=== PATIENT | female | born 1935 | race Caucasian/White ===

== ENCOUNTER → 2020-02-18 18:13 | Outpatient (CLI) | payer MEDICARE, SELFPAY ==
--- NOTE | ~2020-02-18 | XR_ITS ---
EXAMINATION: XR hip BI 2V w AP pelvis DATE: 02/18/2020 19:05 INDICATION: Posterior right low back pain and medial right thigh pain TECHNIQUE: Anteroposterior view of the pelvis and anteroposterior and frog-leg lateral views of the l eft hip and anteroposterior and frog-leg lateral views of the right hip and were obtained. COMPARISON: CT abdomen and pelvis dated 11/23/2018 FINDINGS: Partially visualized lumbar dextroscoliosis with severe spondylosis. Severe osteoarthritis at the rig ht hip with joint space narrowing which appears essentially [id number] and with moderate size merissa nal osteophytes about the femoral head. Mild osteoarthritis at the left hip and bilateral sacral oleg c joints. No fracture. Scattered atherosclerotic calcifications at the aorta and bilateral iliac and femoral arteries. IMPRESSION: 1. 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 2. Mild lumbar dextroscoliosis with severe spondylosis. Reviewed, dictated and finalized at [facility]. DRIVING TECHNICIAN
--- NOTE | ~2020-02-18 | XR_ITS ---
EXAMINATION: XR thoracic spine 2V DATE: 02/18/2020 19:05 INDICATION: Post polio syndrome. Spinal stenosis. TECHNIQUE: One AP, lateral and lateral swimmer's views of the thoracic spine were obtained. COMPARISON: Chest CT dated 11/23/2018 FINDINGS: Sagittal alignment is normal. Minimal lower thoracic levocurvature. Mild T10 vertebral body height lo ss which appears new since the prior study but without evident linear sclerotic fracture line or diamond ply angulated cortex to suggest acute fracture. Several Schmorl's node along the inferior endplate of T11. Moderate disc height loss at T8-T9 and T12-L1. Mild disc height loss at many of the remaining l evels the mid and lower thoracic spine. Additional moderate disc height loss at C6-C7. Severe left-si ded facet osteoarthritis at the lower cervical spine. Calcified left hilar and mediastinal lymph node s consistent with old granulomatous disease. Visualized portion of the cardiomediastinal silhouette a re normal. IMPRESSION: 1. Mild thoracic levocurvature with moderate spondylosis. 2. Age indeterminate mild T10 compression fracture which is new since 11/23/2018. Reviewed, dictated and finalized at location H. TRICAL ELECTRONICS TECHNICIAN IMPRESSION: 1. Mild thoracic levocurvature with moderate spondylosis. 2. Age indeterminate mild T10 compression fracture which is new since 11/23/2018 .
== END ==
PROVIDERS: PCP Family Medicine; Visit Provider Family Medicine
DX: M48.00 Spinal stenosis, site unspecified (principal); G14 Postpolio syndrome; M16.0 Bilateral primary osteoarthritis of hip; M47.896 Other spondylosis, lumbar region; M47.894 Other spondylosis, thoracic region
CPT/HCPCS: 72070; 73521

== ENCOUNTER 2020-09-23 12:47 | Outpatient (CLI) | payer MEDICARE, SELFPAY ==
--- NOTE | ~2020-09-23 | XR_ITS ---
EXAMINATION: XR lg joint inject/asp w image DATE: 09/23/2020 13:53 INDICATION: Unilateral primary osteoarthritis of the right hip TECHNIQUE: A time-out was performed to verify the patient's name, date of , and procedure to b e performed. The procedure including the risks, benefits, and alternatives was discussed with the pat ient. Risks discussed included bleeding and infection. The patient understood the risks and agreed to proceed. The skin overlying the right hip joint was prepped and draped in usual sterile fashion. A nesthetic was administered with 1% lidocaine subcutaneously. A 22 G needle was advanced under fluoro scopic guidance into the joint. Injection of 1 mL of Omnipaque 240 confirmed intra-articular positio n of the needle. Subsequently, injectate consisting of 7 mm of a 5:2 mixture of 1% lidocaine: 2 mg/m L Kenalog for a total dosage of 20 mg Kenalog was instilled. Washout of contrast was seen confirming intra-articular administration. The needle was removed and the entry site was cleaned and dressed. T here were no immediate complications. Fluoroscopy exposure time was 0.1 minutes. The total number of images was 2. FINDINGS: Real-time fluoroscopy demonstrates the needle in the right hip joint. Patient's pain prior to procedure:8/10. Patient's pain following the procedure: 2/10. Severe osteoarthritis at the right hip with prominent subarticular sclerosis and cystic change. IMPRESSION: 1. Successful right hip joint injection of local anesthetic and steroid with decrease in the patient' s presenting pain. Reviewed, dictated and finalized at location A. IMPRESSION: 1. Successful right hip joint injection of local anesthetic and steroid with de crease in the patient's presenting pain.
== END 2020-09-23 12:48 | disposition home or self-care (01) ==
PROVIDERS: PCP Family Medicine; Visit Provider Orthopaedic Surgery
DX: M16.11 Unilateral primary osteoarthritis, right hip (principal)
CPT/HCPCS: 20610; 77002; J3301; Q9966

== ENCOUNTER 2020-12-14 16:16 | Inpatient (IN) | payer MEDICARE, SELFPAY ==
--- NOTE | ~2020-12-14 | US_ITS ---
EXAMINATION: US renal BI DATE: 12/16/2020 14:43 INDICATION: Assess for anatomic abnormality of the kidneys. TECHNIQUE: Multiple ultrasound grayscale images of the kidneys were obtained. COMPARISON: CT dated 11/23/2018 FINDINGS: The right kidney measures 12.8 x 5.5 x 6.3 cm. The left kidney measures 12.3 x 5.0 x 5.9 cm. Again se en is retained lobulation of the kidneys. There is a small region of cortical scarring at the u pper pole of the right kidney which is new since the prior CT likely sequela of interval infarct or i nfection. The kidneys demonstrate normal echogenicity. There is no hydronephrosis in either kidney. No stones identified. The incompletely distended bladder appears normal with ureteral jets visualized on color Doppler. IMPRESSION: 1. Small region of cortical scarring at the upper pole of the right kidney which is new since the pr ior study consistent with interval infection or infarction. 2. Resolution of prior hydronephrosis. Reviewed, dictated and finalized at location A. IMPRESSION: 1. Small region of cortical scarring at the upper pole of the right kidney whi ch is new since the prior study consistent with interval infection or infarctio n. 2. Resolution of prior hydronephrosis.
--- NOTE | ~2020-12-14 | XR_ITS ---
EXAMINATION: XR chest 1V portable EXAM DATE: 12/15/2020 18:38 INDICATION: Bacteremia TECHNIQUE: Portable AP frontal chest x-ray was obtained. Comparison is made to prior examination from 11/22/2018. FINDINGS: There is patchy bilateral ill-defined airspace disease, could be multifocal pneumonia or ed harpreet. This is new compared to previous examination. COVID pneumonia is also radiographically possible. Borderline heart size. There is aortic arteriosclerosis. There is no pneumothorax suspected. Some ch ronic appearing hyperinflation. There are bony degenerative changes. IMPRESSION: Patchy multifocal acute airspace disease. Could be edema, viral or bacterial pneumonia. Reviewed, dictated and finalized at location G.
--- NOTE | ~2020-12-14 | CT_ITS ---
EXAMINATION: CT abdomen pelvis w con EXAM DATE: 12/20/2020 10:22 INDICATION: Renal infection vs infarct. TECHNIQUE: Spiral CT of the abdomen and pelvis was performed following intravenous injection of 100 m L Omnipaque 350. Axial, coronal and sagittal images of the abdomen and pelvis were reviewed. The do se-length product (DLP) for this examination was 417.05 mGy-cm. The exposure was tailored according to patient size (auto mA exposure control), and iterative reconstruction (ASIR) was used as additiona l dose reduction technique. Comparison is made to prior examination from 11/23/2018. FINDINGS: The liver, spleen, adrenal glands and pancreas are unremarkable. The gallbladder is only mi ldly distended with poorly calcified cholelithiasis, indistinct wall and trace pericholecystic fluid. The 2019 CT scan was noncontrast study, but may be similar in appearance compared to exam, could be chronic cholecystitis. There is heterogeneous enhancement to both kidneys, with enhancing ureteral and renal pelvic urotheli um. Appearance is most consistent with bilateral pyelonephritis and upper urinary tract infection. Th e right renal artery is widely patent. The left renal artery origin has some arterial sclerosis and a lso branches early, but both renal arteries enhance. No evidence of renal vein thrombosis. Mildly in distinct bladder wall with mild thickening, cystitis. There is no retroperitoneal or pelvic lymphade nopathy. There is moderate scattered arteriosclerotic disease. The appendix is normal. The stomach and small bowel are unremarkable. There is moderate amount of c olonic stool. No free intraperitoneal gas. The heart is normal in size. There are no pericardial or pleural effusions. The lung bases are unremarkable. There are no osteoblastic or osteolytic les ions identified. There is severe right hip primary osteoarthritis. Some advanced thoracolumbar spond ylosis. Mild to moderate upper lumbar dextroscoliosis. Chronic appearing T9 compression fracture with mild to moderate loss of this vertebral body height anteriorly. IMPRESSION: 1. Findings consistent with cystitis, bilateral upper UTI and pyelonephritis. No renal abscess. 2. Cholelithiasis, indistinct gallbladder wall and small pericholecystic fluid, could be chronic or subacute cholecystitis. Clinical correlation, consider follow-up HIDA scan. Reviewed, dictated and finalized at location B. IMPRESSION: 1. Findings consistent with cystitis, bilateral upper UTI and pyelonephritis. No renal abscess. 2. Cholelithiasis, indistinct gallbladder wall and small pericholecystic fluid , could be chronic or subacute cholecystitis. Clinical correlation, consider fo llow-up HIDA scan.
--- NOTE | ~2020-12-14 | XR_ITS ---
XR hip RT min 2V DATE: 12/14/2020 17:51 INDICATION: Right hip pain. TECHNIQUE: AP and lateral views COMPARISON: 02/18/2020 right hip views FINDINGS: There is severe joint space narrowing at the right hip [id number]. There is prominent per iarticular spurring. There is some patchy sclerosis and lucent areas of the right femoral head; avasc ular necrosis is not excluded. There is lesser left hip osteoporosis. Diffuse osteopenia. The sacroiliac joints and pubic symphysis appear intact. IMPRESSION: Severe right hip osteoarthritic arthritis; possible avascular necrosis of right femoral h ead Reviewed, dictated and finalized at location A. IMPRESSION: Severe right hip osteoarthritic arthritis; possible avascular necro sis of right femoral head
[2020-12-14 16:23] VITALS: BP 108/70; PULSE 69; RESP 17; TEMP 36.5; O2SAT 98
--- NOTE | 2020-12-14 17:23 | PC.NURSE ---
1713- Pt daughter approached this RN at intake stating I have consulted with my sister in law, who is a nurse at [employer] [facility], and my sisters daughter is an doctor, and they feel this is sepsis and is emergent . she has been septic here at this hospital before . I guess me telling you this will not make a difference . I explained to her we would check with the ER MD to see if they will order any tests. Per Vickie Recinos RN- she spoke with Dr. Bah, he verbal ordered CBC, BmP, Lactic, UA and a hip xy.
[2020-12-14 18:24] LABS: Hematocrit 36.2 % (37.0-47.0); Mean Corpuscular HGB Conc 33.1 g/dl (32-36); Mean Corpuscular Hemoglobin 30.3 pg (26-34); Mean Corpuscular Volume 91.4 fl (80-100); Mean Platelet Volume 10.4 fl (7.4-10.4); Platelet Count Result 166 k/mm3 (150-375); Red Blood Count 3.96 M/mm3 (4.2-5.4); Red Cell Distribution Width 13.9 % (11.5-14.5); White Blood Count 23.6 K/mm3 (4.5-10.0)
[2020-12-14 18:37] LABS: Anion Gap 9 mmol/L (8-16); Blood Urea Nitrogen 36 mg/dL (7-17); Calcium 10.3 mg/dL (8.4-10.2); Carbon Dioxide 26 mmol/L (22-30); Chloride 94 mmol/L (98-107); Estimated CRCL calculation 38 ml/min; Estimated Glomerular Filt Rate 60; Glucose 125 mg/dL (65-110); Potassium 3.9 mmol/L (3.4-5.0); Sodium 129 mmol/L (137-145)
--- NOTE | 2020-12-14 18:50 | PC.NURSE ---
Pt has been on open speaker phone talking with her daughter while in [place].
[2020-12-14 18:51] LABS: Band Neutrophils Percent 8 % (0-6); Lymphocytes Absolute Manual 1.18 K/mm3 (1.1-4.5); Monocytes Absolute Manual 1.41 K/mm3 (0.1-0.90); Monocytes Percent Manual 6 % (3-9); Neutrophils Percent Manual 81 % (46-73); Platelet Estimate Adequate (Adequate); Total Cells Counted 100
--- NOTE | 2020-12-14 18:53 | PC.NURSE ---
Pt son to intake inquiring about the patient. Gave update.
[2020-12-14 21:25] VITALS: BP 90/78; PULSE 56; RESP 16; O2SAT 97
[2020-12-14 21:42] LABS: Add Urine Microscopic? YES; Appearance Urine Cloudy (Clear); Bacteria Urine 1+ /hpf; Bilirubin Urine Negative (Negative); Blood Urine 2+ (Negative); Color Urine Yellow (Yellow); Glucose Urine UA Negative (Negative); Ketones Urine Negative (Negative); Leukocyte Esterase Ur 3+ LEU/UL (Negative); Mucus Urine Rare /lpf; Nitrate Urine Negative (Negative); Protein Urine 2+ mg/dL (Negative); Specific Grav Ur 1.015 (1.001-1.035); Squamous Epithelial Cell Urine Rare /hpf (Few); Urobilinogen Urine Negative mg/dL (<2.0); WBC Urine >75 /hpf
--- NOTE | 2020-12-14 23:09 | ED.GENADULT ---
HPI - General Adult General Chief complaint: Unspecified Stated complaint: poss uti Time Seen by Provider: 12/14/20 21:24 Source: patient and family Mode of arrival: ambulatory Limitations: no limitations History of Present Illness HPI narrative: 85-year-old with a history of anxiety disorder, uterine prolapse, hypertension, COPD, was brought in by daughter with complaints of not feeling well for past few days. She is states that she is not to her usual self. No history of fever or chills. Denies nausea or vomiting. Complains of right hip pain. Patient daughter also mentions that she is scheduled for hip replacement. Denies any blood in the urine. Has lower abdominal discomfort. Also complains of diarrhea since this morning. Onset (ago): day(s) (3) Severity scale (1-10): 4 Quality: aching Relieving factors: none Exacerbating factors: none Associated symptoms: confusion and weakness Related Data Allergies Allergy/AdvReac Type Severity Reaction Status Date / Time lisinopril Allergy Unknown Unknown Verified 12/14/20 21:25 Review of Systems Review of Systems: All systems reviewed & are unremarkable except as noted in HPI and below Constitutional: Constitutional: Reports weakness Eyes: Eyes: Reports no additional eye complaints Cardiovascular: Cardiovascular: Reports no additional cardiovascular complaints Respiratory: Respiratory: Reports no additional respiratory complaints Gastrointestinal: Gastrointestinal: Reports as per HPI Genitourinary: Genitourinary: Reports urinary incontinence Musculoskeletal: Musculoskeletal: Reports back pain and Reports arthralgias (right hip pain) Neurologic: Reports system reviewed and no additional complaints, except as documented Psychiatric: Psychiatric: Reports no additional psychiatric complaints PMFSH Past Medical History Medical History Arthritis of right hip Obesity (BMI 30.0-34.9) Spinal stenosis Social History Social History Smoking end date: 04/01/03 Alcohol intake: never Exam Narrative: GENERAL: Well-appearing, well-nourished, and in no acute distress. HEAD: Normocephalic, atraumatic. EYES: PERRLA and EOMI. NECK: Supple. CHEST: Clear to auscultation. No respiratory distress. HEART: Regular rate and rhythm. No murmur heard. Normal peripheral pulses. ABDOMEN: Soft, nontender, nondistended, normal active bowel sounds. EXTREMITIES: Normal range of motion. No edema. SKIN: Warm, dry, no rash. NEURO: No focal deficits. Alert and oriented x3. PSYCH: Normal mood and affect. Course Course Emergency Course: Inform patient and her daughter who is at bedside about her lab work. Will admit to the hospital for IV hydration and IV antibiotic. Discussed with hospitalist agreed to admit the patient. Vital Signs Vital signs: Vital Signs Temperature 36.5 C 12/14/20 16:23 Pulse Rate 69 12/14/20 16:23 Respiratory Rate 17 12/14/20 16:23 Blood Pressure 108/70 12/14/20 16:23 Pulse Oximetry 98 12/14/20 16:23 Temperature 36.5 C 12/14/20 16:23 Pulse Rate 56 L 12/14/20 21:25 Respiratory Rate 16 12/14/20 21:25 Blood Pressure 90/78 L 12/14/20 21:25 Pulse Oximetry 97 12/14/20 21:25 Medical Decision Making Vital Signs Vital Signs: Vital Signs Temperature 36.5 C 12/14/20 16:23 Pulse Rate 69 12/14/20 16:23 Respiratory Rate 17 12/14/20 16:23 Blood Pressure 108/70 12/14/20 16:23 Pulse Oximetry 98 12/14/20 16:23 Temperature 36.5 C 12/14/20 16:23 Pulse Rate 56 L 12/14/20 21:25 Respiratory Rate 16 12/14/20 21:25 Blood Pressure 90/78 L 12/14/20 21:25 Pulse Oximetry 97 12/14/20 21:25 Lab Data Result diagrams: 12/14/20 18:16 12/14/20 18:16 Labs: Lab Results 12/14/20 12/14/20 12/14/20 Range/Units 18:16 18:16 18:16 WBC 23.6 H (4.5-10.0) K/mm3 RBC 3.96 L
[2020-12-14] MEDS: SODIUM CHLORIDE 0.9% IV 1,000 ML 150 ML IV CONT (23:14)
--- NOTE | 2020-12-15 00:42 | PC.NURSE ---
pt daughter to general internist and physician leader on her way out verbalized someone told me I could go up stairs earlier tonight. Now they are saying there are no visitors allowed. mentally impaired teacher informed pt daughter that hospital policy changed on november 23 and no visitors allowed upstairs except 1 for ob and 2 for hospice type situations. Daughter verbalized again some one sat right there earlier and told me I could go upstairs with her. Daughter then stormed out of triage doors.
[2020-12-15 01:00] VITALS: BMI 29.5
--- NOTE | 2020-12-15 01:05 | ADMGEN ---
This patient, Daniela Medina, was admitted to [facility] Surg Room 314-02. Patient/family oriented to hospital policies and general routines including ID bracelet, bed and alarms, visiting hours, pain management, procedures, bathroom and other care routines, personal items, smoking policy, room service/diet, and visiting hours. Information on how to activate the Rapid Response Team has been discussed. Patient/Family are encouraged to report perceived risks to care and to ask questions if they do not understand what they are told or what they should do.
[2020-12-15 01:38] VITALS: BP 117/39; PULSE 77; RESP 16; TEMP 37.3; O2SAT 90
--- NOTE | 2020-12-15 01:58 | PM.IMHP ---
H&P: HPI History of Present Illness Date/Time: 12/15/20 01:58 Chief Complaint: Altered mental status Narrative: This is an 85-year-old female with past medical history significant for hypertension, COPD, congestive heart failure, degenerative joint disease. Patient was brought to the emergency room by her daughter due to concerns that has not been herself as usual has been sleeping a lot and has had poor appetite upon questioning the patient she states that she has been having chills and he was noted by the daughter daughter that she was having rigors earlier prior to arrival to emergency room. Patient denies any pain or burning with urination ,no nausea, no vomiting, no diarrhea, no abdominal pain. Preliminary workup was significant for urinalysis with significant numerous wbc's. Decision has been made to admit the patient for further management and treatment. Review of Systems Review of Systems: Poor appetite Constitutional: Constitutional: Reports chills, Reports fatigue, Reports fever(s), Reports lethargy, Reports malaise and Reports weakness Eyes: Eyes: Denies change in vision ENT: Denies dysphagia, Denies nasal congestion, Denies nasal discharge, Denies nasal obstruction and Denies odynophagia Cardiovascular: Cardiovascular: Denies irregular heart rhythm, Denies lightheadedness, Denies radiating jaw, neck or arm pain, Denies palpitations, Denies dyspnea, Denies dyspnea on exertion and Denies orthopnea Respiratory: Respiratory: Denies cough and Denies dyspnea Gastrointestinal: Gastrointestinal: Denies abdominal pain, Denies diarrhea, Denies nausea and Denies vomiting Genitourinary: Genitourinary: Reports no additional female genitourinary complaints Musculoskeletal: Comments: Hip pain Integumentary/Breasts: Skin/Breast: Reports system reviewed and no additional complaints, except as docu Neurologic: Reports system reviewed and no additional complaints, except as documented Psychiatric: Psychiatric: Reports no additional psychiatric complaints Endocrine: Endocrine: Reports no additional endocrine complaints Hematologic/Lymphatic: Hematologic/Lymphatic: Reports no additional hematologic/lymphatic complaints Allergic/Immunologic: Allergic/Immunologic: Reports no additional allergic/immunologic complaints [facility] Past Medical History Medical History Arthritis of right hip Obesity (BMI 30.0-34.9) Spinal stenosis Family History Family History (Updated 12/15/20 @ 01:22 by Leesa Carter RN) Mother Cancer Father Heart attack Social History Social History Smoking packs per day: 0.25 Smoking cigarettes per day: 5.0 Smoking status: Former smoker Tobacco type: cigarettes Smoking end date: 04/01/03 Alcohol intake: current Drinks per week: 1 Substance use: never Substance use type: does not use Spiritual care concerns: No Meds Home Medications and Allergies Home Medications Medication Instructions Recorded Confirmed Type amlodipine 5 mg tablet 5 mg PO BID #180 tablet 11/25/19 11/30/20 Rx meloxicam 15 mg tablet 15 mg PO DAILY #90 tablet 04/13/20 11/30/20 Rx sertraline 25 mg tablet 25 mg PO DAILY #90 tablet 09/07/20 11/30/20 Rx lorazepam 0.5 mg tablet 1 mg PO BID PRN #60 tablet 12/07/20 Rx azelastine 137 mcg INTRANASAL Q12H 12/15/20 12/15/20 History budesonide-formoterol [Symbicort] 2 puff INHALATION Q12H 12/15/20 12/15/20 History metoprolol succinate 50 mg PO DAILY 12/15/20 12/15/20 History valsartan 80 mg PO DAILY 12/15/20 12/15/20 History Allergies Allergy/AdvReac Type Severity Reaction Status Date / Time lisinopril Allergy Unknown Unknown Verified 12/14/20 21:25 Vital Signs Vital Signs - 24 hr 12/14/20 16:23 12/14/20 21:25 12/15/20 01:38 Temperature 97.7 F 99.2 F Pulse Rate 69 56 L 77 Respiratory Rate 17 16 16 Blood Pressure 108/70 90/78 L 117/39 L Pulse Oxime
[2020-12-15] MEDS: SODIUM CHLORIDE 0.9% IV 1,000 ML 100 ML IV CONT ×3 (02:28→20:24)
[2020-12-15 06:00] VITALS: BP 105/53; PULSE 83; RESP 16; TEMP 36.7; O2SAT 92
[2020-12-15 06:52] LABS: Hematocrit 33.2 % (37.0-47.0); Hemoglobin 10.9 g/dL (12.0-15.0); Mean Corpuscular HGB Conc 32.8 g/dl (32-36); Mean Corpuscular Hemoglobin 29.8 pg (26-34); Mean Corpuscular Volume 90.7 fl (80-100); Mean Platelet Volume 10.6 fl (7.4-10.4); Platelet Count Result 142 k/mm3 (150-375); Red Blood Count 3.66 M/mm3 (4.2-5.4); Red Cell Distribution Width 13.9 % (11.5-14.5); White Blood Count 26.5 K/mm3 (4.5-10.0)
[2020-12-15 07:06] LABS: Anion Gap 13 mmol/L (8-16); Blood Urea Nitrogen 37 mg/dL (7-17); Carbon Dioxide 20 mmol/L (22-30); Chloride 95 mmol/L (98-107); Estimated CRCL calculation 42 ml/min; Estimated Glomerular Filt Rate > 60; Glucose 100 mg/dL (65-110); Potassium 3.6 mmol/L (3.4-5.0); Sodium 128 mmol/L (137-145)
[2020-12-15 08:24] LABS: Band Neutrophils Percent 12 % (0-6); Lymphocytes Absolute Manual 0.53 K/mm3 (1.1-4.5); Monocytes Absolute Manual 0.53 K/mm3 (0.1-0.90); Monocytes Percent Manual 2 % (3-9); Neutrophils Absolute Manual 25.44 K/mm3 (1.7-7.2); Neutrophils Percent Manual 84 % (46-73); Platelet Estimate Adequate (Adequate); Total Cells Counted 100
[2020-12-15 08:25] LABS: Crenated RBC 1+ (NORMAL); Hypochromasia 1+ (NORMAL); Schistocytes 1+ (NORMAL)
--- NOTE | 2020-12-15 10:03 | PM.IMPN ---
Progress Note: A&P Assessment and Plan (1) Acute UTI: Code(s): N39.0 - Urinary tract infection, site not specified Status: Acute Assessment and Plan: Patient has been started on Rocephin Await cultures (2) Hyponatremia: Code(s): E87.1 - Hypo-osmolality and hyponatremia Status: Acute Assessment and Plan: Likely secondary to poor p.o. intake Continue gentle hydration (3) SIRS (systemic inflammatory response syndrome): Code(s): R65.10 - Systemic inflammatory response syndrome (SIRS) of non-infectious origin without acute organ dysfunction Status: Acute Assessment and Plan: Secondary to 1. Continue to monitor (4) COPD mixed type: Code(s): J44.9 - Chronic obstructive pulmonary disease, unspecified Status: Acute Assessment and Plan: Not actively wheezing Continue home med (5) Chronic hepatitis C without hepatic coma: Code(s): B18.2 - Chronic viral hepatitis C Status: Acute Assessment and Plan: Follow-up in outpatient setting (6) Generalized anxiety disorder: Code(s): F41.1 - Generalized anxiety disorder Status: Acute Assessment and Plan: Continue home med Subjective Date/time seen: 12/15/20 10:03 no acute medical complaints Review of Systems Review of Systems: All systems reviewed & are unremarkable except as noted in HPI and below Exam Const: General: no acute distress Neck: Neck: no JVD Resp: Effort & Inspection: normal respiratory effort Auscultation: clear to auscultation bilaterally Cardio: Rate: regular rate Rhythm: regular rhythm GI: GI Palp: Yes Soft to palpation and No Tenderness to palpation present (GI) Objective Data Vital Signs Vital Signs: Vital Signs - 24 hr 12/14/20 16:23 12/14/20 21:25 12/15/20 01:38 Temperature 97.7 F 99.2 F Pulse Rate 69 56 L 77 Respiratory Rate 17 16 16 Blood Pressure 108/70 90/78 L 117/39 L Pulse Oximetry 98 97 90 12/15/20 06:00 Temperature 98.1 F Pulse Rate 83 Respiratory Rate 16 Blood Pressure 105/53 L Pulse Oximetry 92 Intake/Output Intake/Output: Intake & Output 12/12/20 12/13/20 12/14/20 12/15/20 23:59 23:59 23:59 23:59 Intake Total 100 Output Total 400 Balance -300 Meds/Results Medications: Active Medications Generic Name Dose Route Start Last Admin Trade Name Porter PRN Reason Stop Dose Admin Acetaminophen 650 mg 12/14/20 23:06 Acetaminophen 325 Mg Tablet PO Q4H PRN Mild Pain (1-3) or Fever Amlodipine Besylate 5 mg 12/15/20 09:00 Amlodipine Besylate 5 Mg Tablet PO BID [facility] Azelastine HCl 1 spray 12/15/20 09:00 Azelastine Hcl Nasal 0.1% 137 Mcg/Spr 30 Ml Btl NASAL Q12HR STEVE Budesonide/Formoterol Fumarate 2 puff 12/15/20 08:00 12/15/20 08:10 Budesonide/Form 160-4.5 Mcg (*Sp) INHALATION 2 puff Q12HRT STEVE Administration Sodium Chloride 1,000 mls @ 100 mls/hr 12/14/20 23:10 12/15/20 02:28 Normal Saline Iv IV CONT 100 mls/hr .Q10H STEVE Administration Ceftriaxone Sodium/Dextrose 1 gm in 50 mls @ 100 mls/hr 12/15/20 22:00 Rocephin 1 Gm/D5w 50 Ml IVPB Q24H [facility] Lorazepam 0.5 mg 12/15/20 02:35 Lorazepam (*Crx) 0.5 Mg Tablet PO BID PRN anxiety Meloxicam 15 mg 12/15/20 08:00 Meloxicam 7.5 Mg Tablet PO DAILY@0800 [facility] Metoprolol Succinate 50 mg 12/15/20 09:00 Metoprolol Succinate Ext Rel 50 Mg Tabcr PO DAILY [facility] Morphine Sulfate 2 mg 12/14/20 23:06 Morphine Sulfate (*Crx) 2 Mg/Ml Inj IV PUSH Q2H PRN Pain Rated 7-10 Ondansetron HCl 4 mg 12/14/20 23:06 Ondansetron Inj 4 Mg/2 Ml Vial IV PUSH Q4H PRN Nausea Sertraline HCl 25 mg 12/15/20 09:00 Sertraline Hcl 25 Mg Tablet PO DAILY [facility] Valsartan 80 mg 12/15/20 09:00 Valsartan 80 Mg Tablet PO DAILY [facility] Radiology Results: ITS Impressions Hip X-Ray 12/14/20 17:53 IMPRESSION: Severe right
[2020-12-15] MEDS: amLODIPine BESYLATE 5 MG TABLET PO ×2 (10:31→17:22)
[2020-12-15] MEDS: MELOXICAM 7.5 MG TABLET 15 MG PO (10:31)
[2020-12-15 10:32] VITALS: PULSE 68
[2020-12-15] MEDS: SERTRALINE HCL 25 MG TABLET PO (10:32)
[2020-12-15] MEDS: METOPROLOL SUCCINATE EXT REL 50 MG TABCR PO (10:32)
[2020-12-15] MEDS: VALSARTAN 80 MG TABLET PO (10:33)
[2020-12-15] MEDS: LORazepam (*CRX) 0.5 MG TABLET PO (10:36)
--- NOTE | 2020-12-15 11:18 | P.CDI_ITS ---
CDI Query Clarification Request -SIRS Systemic inflammatory response syndrome of non infectious origin and SIRS secondary to UTI has been documented. -SOFA score 1 Please clarify diagnosis: * SIRS due to non infectious origin and please specify cause * Sepsis- SIRS due to infection (UTI) * Unable to determine
--- NOTE | 2020-12-15 11:18 | WPDCDIQUERY2 ---
CDI Query Clarification Request -SIRS Systemic inflammatory response syndrome of non infectious origin and SIRS secondary to UTI has been documented. -SOFA score 1 Please clarify diagnosis: SIRS due to non infectious origin and please specify cause Sepsis- SIRS due to infection (UTI) Unable to determine
[2020-12-15 12:26] VITALS: BMI 29.5
[2020-12-15] MEDS: AZELASTINE HCL NASAL 0.1% 137 MCG/SPR 30 ML BTL 1 SPRAY NASAL ×2 (12:40→20:24)
[2020-12-15 13:45] VITALS: BP 98/52; PULSE 60; RESP 18; TEMP 36.4; O2SAT 92
[2020-12-15 17:10] VITALS: BP 129/72
[2020-12-15 22:00] VITALS: BP 129/60; PULSE 64; RESP 18; TEMP 36.4; O2SAT 95
--- NOTE | 2020-12-16 | ECHOL_ITS ---
Patient Info Name: Daniela Medina Age: 85 years : 1935 Gender: Female Ht: 62 in Wt: 161 lbs BSA: 1.81 m2 HR: 63 bpm BP: 109 / 61 mmHg Technical Quality: Good Exam Date: 12/16/2020 1:59 PM Exam Location: [facility] Patient Status: Inpatient Admit Date: 12/16/2020 Staff Ordering Physician: Silvia Peña MD [employer] Repairer: Paris Cox RDCS Attending Provider: Gwendolyn Perrin MD Exam Type: CA echo limited Study Info Indications - LOOK FOR VEGETATIONS Limited two-dimensional transthoracic echocardiogram is performed. Summary 1. Limited echocardiogram to assess for vegetations. 2. No endocardial vegetations seen in 4 chambers of heart or heart valves. Aortic Valve The aortic valve is trileaflet. No aortic valve vegetation visualized. Pulmonic Valve No pulmonic valve vegetation visualized. Mitral Valve No mitral valve vegetation visualized. Tricuspid Valve No tricuspid valve vegetation visualized. Report Signatures
[2020-12-16 06:00] VITALS: BP 109/61; PULSE 63; RESP 18; TEMP 36.5; O2SAT 95
[2020-12-16 06:33] LABS: Basophils Percent Auto 0.2 % (0.2-1.2); Eosinophils Percent Auto 0.2 % (0-4.4); Hematocrit 31.5 % (37.0-47.0); Hemoglobin 10.5 g/dL (12.0-15.0); Immature Granulocyte Absolute 0.12 K/mm3 (0.00-0.031); Immature Granulocyte Percent A 0.6 % (0-0.5); Lymphocytes Absolute Auto 0.51 K/mm3 (0.9-3.2); Lymphocytes Percent Auto 2.6 % (18.3-44.2); Mean Corpuscular HGB Conc 33.3 g/dl (32-36); Mean Corpuscular Hemoglobin 30.2 pg (26-34); Mean Corpuscular Volume 90.5 fl (80-100); Mean Platelet Volume 11.1 fl (7.4-10.4); Monocytes Absolute Auto 1.3 K/mm3 (0.1-0.6); Monocytes Percent Auto 6.5 % (2.6-8.5); Neutrophils Absolute Auto 17.8 K/mm3 (1.3-6.7); Neutrophils Percent Auto 89.9 % (45.5-73.1); Platelet Count Result 150 k/mm3 (150-375); Red Blood Count 3.48 M/mm3 (4.2-5.4); Red Cell Distribution Width 14.2 % (11.5-14.5); White Blood Count 19.8 K/mm3 (4.5-10.0)
[2020-12-16] MEDS: SODIUM CHLORIDE 0.9% IV 1,000 ML 100 ML IV CONT (06:41)
[2020-12-16 06:51] LABS: Alanine Aminotransferase 66 U/L (4-35); Albumin Level 2.6 g/dL (3.5-5.1); Alkaline Phosphatase 101 U/L (38-126); Anion Gap 8 mmol/L (8-16); Aspartate Amino Transferase 82 U/L (14-36); Bilirubin,Total 0.3 mg/dL (0.2-1.3); Blood Urea Nitrogen 27 mg/dL (7-17); Calcium 9.3 mg/dL (8.4-10.2); Carbon Dioxide 23 mmol/L (22-30); Chloride 101 mmol/L (98-107); Estimated CRCL calculation 42 ml/min; Estimated Glomerular Filt Rate > 60; Glucose 175 mg/dL (65-110); Magnesium 2.1 mg/dL (1.6-2.3); Potassium 3.2 mmol/L (3.4-5.0); Sodium 132 mmol/L (137-145)
[2020-12-16 10:32] VITALS: PULSE 63
[2020-12-16] MEDS: MELOXICAM 7.5 MG TABLET 15 MG PO (10:32)
[2020-12-16] MEDS: amLODIPine BESYLATE 5 MG TABLET PO ×2 (10:32→17:49)
[2020-12-16] MEDS: METOPROLOL SUCCINATE EXT REL 50 MG TABCR PO (10:32)
[2020-12-16] MEDS: AZELASTINE HCL NASAL 0.1% 137 MCG/SPR 30 ML BTL 1 SPRAY NASAL ×2 (10:32→20:55)
[2020-12-16] MEDS: VALSARTAN 80 MG TABLET PO (10:33)
[2020-12-16] MEDS: SERTRALINE HCL 25 MG TABLET PO (10:33)
--- NOTE | 2020-12-16 10:33 | PM.IMPN ---
Progress Note: A&P Assessment and Plan (1) Acute UTI: Code(s): N39.0 - Urinary tract infection, site not specified Status: Acute Assessment and Plan: Patient has been started on Rocephin Await cultures (2) Hyponatremia: Code(s): E87.1 - Hypo-osmolality and hyponatremia Status: Acute Assessment and Plan: Likely secondary to poor p.o. intake Continue gentle hydration (3) SIRS (systemic inflammatory response syndrome): Code(s): R65.10 - Systemic inflammatory response syndrome (SIRS) of non-infectious origin without acute organ dysfunction Status: Acute Assessment and Plan: Secondary to 1. Continue to monitor (4) COPD mixed type: Code(s): J44.9 - Chronic obstructive pulmonary disease, unspecified Status: Acute Assessment and Plan: Not actively wheezing Continue home med (5) Chronic hepatitis C without hepatic coma: Code(s): B18.2 - Chronic viral hepatitis C Status: Acute Assessment and Plan: Follow-up in outpatient setting (6) Generalized anxiety disorder: Code(s): F41.1 - Generalized anxiety disorder Status: Acute Assessment and Plan: Continue home med (7) Gram-negative bacteremia: Code(s): R78.81 - Bacteremia Status: Acute Additional Plan Patient now found to have Gram-negative bacteremia. Antibiotic coverage expanded to IV Zosyn to cover for Pseudomonas. Repeating blood cultures until negative. Replaced all lines. Obtain chest x-ray, which is equivocal, however no symptoms of pneumonia. White count coming down to 19.8 from 20/6 0.5 yesterday, after switching to Zosyn. Follow pending cultures, Infectious Disease on consult - recommending renal US. Time Spent With Patient Time with patient: less than 15 minutes Subjective Date/time seen: 12/16/20 10:33 No acute medical complaints, seen resting bedside, no fevers chills. Continues to deny lower abdominal pain. Review of Systems Review of Systems: All systems reviewed & are unremarkable except as noted in HPI and below Exam Const: General: no acute distress Neck: Neck: no JVD Resp: Effort & Inspection: normal respiratory effort Auscultation: clear to auscultation bilaterally Cardio: Rate: regular rate Rhythm: regular rhythm GI: GI Palp: Yes Soft to palpation and No Tenderness to palpation present (GI) Objective Data Vital Signs Vital Signs: Vital Signs - 24 hr 12/15/20 13:45 12/15/20 17:10 12/15/20 22:00 Temperature 97.5 F L 97.6 F Pulse Rate 60 64 Respiratory Rate 18 18 Blood Pressure 98/52 L 129/72 129/60 Pulse Oximetry 92 95 12/16/20 06:00 Temperature 97.7 F Pulse Rate 63 Respiratory Rate 18 Blood Pressure 109/61 Pulse Oximetry 95 Intake/Output Intake/Output: Intake & Output 12/13/20 12/14/20 12/15/20 12/16/20 23:59 23:59 23:59 23:59 Intake Total 3230 1910 Output Total 400 300 Balance 2830 1610 Meds/Results Medications: Active Medications Generic Name Dose Route Start Last Admin Trade Name Freq PRN Reason Stop Dose Admin Acetaminophen 650 mg 12/14/20 23:06 Acetaminophen 325 Mg Tablet PO Q4H PRN Mild Pain (1-3) or Fever Amlodipine Besylate 5 mg 12/15/20 09:00 12/15/20 17:22 Amlodipine Besylate 5 Mg Tablet PO 5 mg BID STEVE Administration Azelastine HCl 1 spray 12/15/20 09:00 12/15/20 20:24 Azelastine Hcl Nasal 0.1% 137 Mcg/Spr 30 Ml Btl NASAL 1 spray Q12HR STEVE Administration Budesonide/Formoterol Fumarate 2 puff 12/15/20 08:00 12/16/20 09:28 Budesonide/Form 160-4.5 Mcg (*Sp) INHALATION 2 puff Q12HRT STEVE Administration Sodium Chloride 1,000 mls @ 100 mls/hr 12/14/20 23:10 12/16/20 06:41 Normal Saline Iv IV CONT 100 mls/hr .Q10H STEVE Administration Piperacillin Sod/Tazobactam Sod 4.5 gm in 100 mls @ 200 mls/hr 12/15/20 18:00 12/16/20 07:09 Zosyn 4.5 Gm/D5w 100 Ml IVPB Infused Q6H STVEE Infusion Lorazepam
[2020-12-16] MEDS: POTASSIUM PHOS/SODIUM PHOS 250 MG TABLET PO (11:32)
[2020-12-16] MEDS: polyethylene glycoL 3350 17 GM POWD.PACK PO (13:12)
[2020-12-16] MEDS: BENZOCAINE/MENTHOL (*BKC) 18 EA LOZENGE 1 LOZENGE PO (13:12)
--- NOTE | 2020-12-16 14:08 | PCPTNOTE ---
On 12/16/20, the student, Lebron Arango, provided care and completed [facility] documentation on this patient. I have reviewed the student's documentation and agree with the findings.
[2020-12-16 15:27] VITALS: BP 112/70; PULSE 64; RESP 12; TEMP 36.7; O2SAT 96
[2020-12-16] MEDS: ACETAMINOPHEN 325 MG TABLET 650 MG PO (18:51)
[2020-12-16 22:00] VITALS: BP 121/60; PULSE 61; RESP 20; TEMP 36.5; O2SAT 92
[2020-12-17] MEDS: SODIUM CHLORIDE 0.9% IV 1,000 ML 100 ML IV CONT ×2 (00:49→12:52)
[2020-12-17 06:00] VITALS: BP 129/55; PULSE 60; RESP 20; TEMP 36.9; O2SAT 94
[2020-12-17 07:44] LABS: Alanine Aminotransferase 82 U/L (4-35); Albumin Level 2.7 g/dL (3.5-5.1); Alkaline Phosphatase 114 U/L (38-126); Anion Gap 4 mmol/L (8-16); Aspartate Amino Transferase 70 U/L (14-36); Bilirubin,Total 0.6 mg/dL (0.2-1.3); Blood Urea Nitrogen 15 mg/dL (7-17); Calcium 9.2 mg/dL (8.4-10.2); Carbon Dioxide 30 mmol/L (22-30); Chloride 103 mmol/L (98-107); Estimated CRCL calculation 47 ml/min; Estimated Glomerular Filt Rate > 60; Glucose 113 mg/dL (65-110); Magnesium 1.9 mg/dL (1.6-2.3); Phosphorus 2.8 mg/dL (2.5-4.5); Potassium 3.2 mmol/L (3.4-5.0); Sodium 137 mmol/L (137-145)
[2020-12-17 07:48] LABS: Basophils Percent Auto 0.3 % (0.2-1.2); Eosinophils Absolute Auto 0.1 K/mm3 (0-0.3); Eosinophils Percent Auto 0.6 % (0-4.4); Hematocrit 33.2 % (37.0-47.0); Hemoglobin 10.8 g/dL (12.0-15.0); Immature Granulocyte Absolute 0.13 K/mm3 (0.00-0.031); Lymphocytes Absolute Auto 0.51 K/mm3 (0.9-3.2); Lymphocytes Percent Auto 4.1 % (18.3-44.2); Mean Corpuscular HGB Conc 32.5 g/dl (32-36); Mean Corpuscular Hemoglobin 29.7 pg (26-34); Mean Corpuscular Volume 91.2 fl (80-100); Mean Platelet Volume 11.1 fl (7.4-10.4); Monocytes Absolute Auto 1.1 K/mm3 (0.1-0.6); Monocytes Percent Auto 8.9 % (2.6-8.5); Neutrophils Absolute Auto 10.6 K/mm3 (1.3-6.7); Neutrophils Percent Auto 85.1 % (45.5-73.1); Platelet Count Result 166 k/mm3 (150-375); Red Blood Count 3.64 M/mm3 (4.2-5.4); Red Cell Distribution Width 14.5 % (11.5-14.5); White Blood Count 12.5 K/mm3 (4.5-10.0)
[2020-12-17 09:12] VITALS: O2SAT 94
[2020-12-17 09:21] VITALS: PULSE 66
[2020-12-17] MEDS: AZELASTINE HCL NASAL 0.1% 137 MCG/SPR 30 ML BTL 1 SPRAY NASAL ×2 (09:21→21:11)
[2020-12-17] MEDS: VALSARTAN 80 MG TABLET PO (09:21)
[2020-12-17] MEDS: METOPROLOL SUCCINATE EXT REL 50 MG TABCR PO (09:21)
[2020-12-17] MEDS: MELOXICAM 7.5 MG TABLET 15 MG PO (09:21)
[2020-12-17] MEDS: amLODIPine BESYLATE 5 MG TABLET PO ×2 (09:21→18:06)
[2020-12-17] MEDS: SERTRALINE HCL 25 MG TABLET PO (09:22)
[2020-12-17] MEDS: ACETAMINOPHEN 325 MG TABLET 650 MG PO (09:25)
--- NOTE | 2020-12-17 09:36 | PM.IMPN ---
Progress Note: A&P Assessment and Plan (1) Acute UTI: Code(s): N39.0 - Urinary tract infection, site not specified Status: Acute (2) Hyponatremia: Code(s): E87.1 - Hypo-osmolality and hyponatremia Status: Acute Assessment and Plan: Likely secondary to poor p.o. intake Continue gentle hydration (3) SIRS (systemic inflammatory response syndrome): Code(s): R65.10 - Systemic inflammatory response syndrome (SIRS) of non-infectious origin without acute organ dysfunction Status: Acute Assessment and Plan: Secondary to 1. Continue to monitor (4) COPD mixed type: Code(s): J44.9 - Chronic obstructive pulmonary disease, unspecified Status: Acute Assessment and Plan: Not actively wheezing Continue home med (5) Chronic hepatitis C without hepatic coma: Code(s): B18.2 - Chronic viral hepatitis C Status: Acute Assessment and Plan: Follow-up in outpatient setting (6) Generalized anxiety disorder: Code(s): F41.1 - Generalized anxiety disorder Status: Acute Assessment and Plan: Continue home med (7) Gram-negative bacteremia: Code(s): R78.81 - Bacteremia Status: Acute Additional Plan Ecoli in urine and likely source of e coli bacteremia,better sensitivity of Ecoli to fluroquinolones - will get ekg & if qtc allows swicth to cipro or levaquin later today vitals stable, leukocytosis improving with zosyn; echo w/o vegetations cxr did show bilateral haziness - symptoms has no signs of pneumonia - will r/o COVID & potentially benefit from po diuresis will try to talk with family again today to keep them abreast of developments Time Spent With Patient Time with patient: less than 15 minutes Subjective Date/time seen: 12/17/20 09:36 resting comfortably no acute complaints Review of Systems Review of Systems: All systems reviewed & are unremarkable except as noted in HPI and below Exam Const: General: no acute distress Neck: Neck: no JVD Resp: Effort & Inspection: normal respiratory effort Auscultation: clear to auscultation bilaterally Cardio: Rate: regular rate Rhythm: regular rhythm GI: GI Palp: Yes Soft to palpation and No Tenderness to palpation present (GI) Objective Data Vital Signs Vital Signs: Vital Signs - 24 hr 12/16/20 10:32 12/16/20 15:27 12/16/20 22:00 Temperature 98.0 F 97.7 F Pulse Rate 63 64 61 Respiratory Rate 12 20 Blood Pressure 112/70 121/60 Pulse Oximetry 96 92 12/17/20 06:00 12/17/20 09:12 12/17/20 09:21 Temperature 98.4 F Pulse Rate 60 66 Respiratory Rate 20 Blood Pressure 129/55 L Pulse Oximetry 94 94 Intake/Output Intake/Output: Intake & Output 12/14/20 12/15/20 12/16/20 12/17/20 23:59 23:59 23:59 23:59 Intake Total 3230 3900 400 Output Total 400 750 Balance 2830 3150 400 Meds/Results Medications: Active Medications Generic Name Dose Route Start Last Admin Trade Name Freq PRN Reason Stop Dose Admin Acetaminophen 650 mg 12/14/20 23:06 12/17/20 09:25 Acetaminophen 325 Mg Tablet PO 650 mg Q4H PRN Administration Mild Pain (1-3) or Fever Amlodipine Besylate 5 mg 12/15/20 09:00 12/17/20 09:21 Amlodipine Besylate 5 Mg Tablet PO 5 mg BID STEVE Administration Azelastine HCl 1 spray 12/15/20 09:00 12/17/20 09:21 Azelastine Hcl Nasal 0.1% 137 Mcg/Spr 30 Ml Btl NASAL 1 spray Q12HR STEVE Administration Benzocaine 1 lozenge 12/16/20 11:31 12/16/20 13:12 Benzocaine/Menthol (*Bkc) 18 Ea Lozenge PO 1 lozenge PRN PRN Administration Sore Throat Budesonide/Formoterol Fumarate 2 puff 12/15/20 08:00 12/17/20 09:12 Budesonide/Form 160-4.5 Mcg (*Sp) INHALATION 2 puff Q12HRT STEVE Administration Sodium Chloride 1,000 mls @ 100 mls/hr 12/14/20 23:10 12/17/20 00:49 Normal Saline Iv IV CONT 100 mls/hr .Q10H STEVE Administration Piperacillin Sod/Tazobactam Sod 4.5 gm in 100 mls
--- NOTE | 2020-12-17 09:40 | ECG_ITS ---
Measurements Intervals [place] Rate: 56 P: 27 VT: 169 QRS: -50 QRSD: 152 T: 32 QT: 474 QTc: 458 Interpretive Statements SINUS BRADYCARDIA RIGHT BUNDLE BRANCH BLOCK LEFT ANTERIOR FASCICULAR BLOCK ABNORMAL ECG Electronically Signed On 12-17-2020 14:20:20 CDT by Mook Larson D.O.
[2020-12-17] MEDS: POTASSIUM CHLORIDE 20 MEQ TABLET 40 MEQ PO (10:22)
[2020-12-17 16:05] VITALS: BP 137/81; PULSE 62; RESP 12; TEMP 36.6; O2SAT 95
[2020-12-17] MEDS: polyethylene glycoL 3350 17 GM POWD.PACK PO (18:12)
[2020-12-17] MEDS: BISACODYL 10 MG SUPPOSITORY RECTAL (21:27)
[2020-12-17 22:00] VITALS: BP 140/56; PULSE 60; RESP 18; TEMP 36.6; O2SAT 95
[2020-12-17 22:07] VITALS: PULSE 55; O2SAT 94
[2020-12-18 06:00] VITALS: BP 136/76; PULSE 67; RESP 18; TEMP 36.4; O2SAT 94
[2020-12-18] MEDS: SODIUM CHLORIDE 0.9% IV 1,000 ML 100 ML IV CONT ×2 (06:06→18:02)
[2020-12-18 06:39] LABS: Basophils Absolute Auto 0.1 K/mm3 (0.0-0.1); Basophils Percent Auto 0.6 % (0.2-1.2); Eosinophils Absolute Auto 0.1 K/mm3 (0-0.3); Eosinophils Percent Auto 1.6 % (0-4.4); Hematocrit 33.1 % (37.0-47.0); Hemoglobin 11.4 g/dL (12.0-15.0); Immature Granulocyte Absolute 0.23 K/mm3 (0.00-0.031); Immature Granulocyte Percent A 2.6 % (0-0.5); Lymphocytes Absolute Auto 0.79 K/mm3 (0.9-3.2); Lymphocytes Percent Auto 8.9 % (18.3-44.2); Mean Corpuscular HGB Conc 34.4 g/dl (32-36); Mean Corpuscular Volume 89.9 fl (80-100); Mean Platelet Volume 10.5 fl (7.4-10.4); Monocytes Absolute Auto 1.2 K/mm3 (0.1-0.6); Monocytes Percent Auto 12.9 % (2.6-8.5); Neutrophils Absolute Auto 6.6 K/mm3 (1.3-6.7); Neutrophils Percent Auto 73.4 % (45.5-73.1); Platelet Count Result 207 k/mm3 (150-375); Red Blood Count 3.68 M/mm3 (4.2-5.4); Red Cell Distribution Width 14.6 % (11.5-14.5); White Blood Count 8.9 K/mm3 (4.5-10.0)
[2020-12-18 06:53] LABS: Alanine Aminotransferase 77 U/L (4-35); Alkaline Phosphatase 113 U/L (38-126); Anion Gap 6 mmol/L (8-16); Aspartate Amino Transferase 58 U/L (14-36); Bilirubin,Total 0.7 mg/dL (0.2-1.3); Blood Urea Nitrogen 7 mg/dL (7-17); Calcium 9.2 mg/dL (8.4-10.2); Carbon Dioxide 29 mmol/L (22-30); Chloride 102 mmol/L (98-107); Estimated CRCL calculation 55 ml/min; Estimated Glomerular Filt Rate > 60; Glucose 100 mg/dL (65-110); Magnesium 1.7 mg/dL (1.6-2.3); Phosphorus 2.7 mg/dL (2.5-4.5); Potassium 3.2 mmol/L (3.4-5.0); Sodium 137 mmol/L (137-145)
[2020-12-18 08:00] VITALS: BP 150/72; PULSE 60; PULSE 72; RESP 20; TEMP 36.6; O2SAT 94
[2020-12-18] MEDS: BUDESONIDE/FORMOTEROL (*SP) 160-4.5 MCG 6 GM INH 2 PUFF INHALATION ×2 (08:18→20:35)
[2020-12-18 08:31] VITALS: PULSE 72
[2020-12-18] MEDS: MELOXICAM 7.5 MG TABLET 15 MG PO (08:31)
[2020-12-18] MEDS: METOPROLOL SUCCINATE EXT REL 50 MG TABCR PO (08:31)
[2020-12-18] MEDS: VALSARTAN 80 MG TABLET PO (08:32)
[2020-12-18] MEDS: SERTRALINE HCL 25 MG TABLET PO (08:32)
[2020-12-18] MEDS: amLODIPine BESYLATE 5 MG TABLET PO ×2 (08:32→18:01)
[2020-12-18] MEDS: AZELASTINE HCL NASAL 0.1% 137 MCG/SPR 30 ML BTL 1 SPRAY NASAL ×2 (08:32→20:39)
--- NOTE | 2020-12-18 10:32 | PM.IMPN ---
Progress Note: A&P Assessment and Plan (1) Acute UTI: Code(s): N39.0 - Urinary tract infection, site not specified Status: Acute (2) Hyponatremia: Code(s): E87.1 - Hypo-osmolality and hyponatremia Status: Acute (3) SIRS (systemic inflammatory response syndrome): Code(s): R65.10 - Systemic inflammatory response syndrome (SIRS) of non-infectious origin without acute organ dysfunction Status: Acute Assessment and Plan: Secondary to 1. Continue to monitor (4) COPD mixed type: Code(s): J44.9 - Chronic obstructive pulmonary disease, unspecified Status: Acute Assessment and Plan: Not actively wheezing Continue home med (5) Chronic hepatitis C without hepatic coma: Code(s): B18.2 - Chronic viral hepatitis C Status: Acute Assessment and Plan: Follow-up in outpatient setting (6) Generalized anxiety disorder: Code(s): F41.1 - Generalized anxiety disorder Status: Acute Assessment and Plan: Continue home med (7) Gram-negative bacteremia: Code(s): R78.81 - Bacteremia Status: Acute Additional Plan Ecoli UTI w/ bacteremia; obtained renal US w/o structural abnormalities or pyelo. Will continue one more day of zosyn in light of bacteremia, this was discussed with her granddaughter who is a family physician in [place]. Can switch to PO abx tomorrow as it is essentially pierce-sensitive. Covid test pending. Time Spent With Patient Time with patient: less than 15 minutes Subjective Date/time seen: 12/18/20 10:32 resting comfortably Review of Systems Review of Systems: All systems reviewed & are unremarkable except as noted in HPI and below Exam Const: General: no acute distress Neck: Neck: no JVD Resp: Effort & Inspection: normal respiratory effort Auscultation: clear to auscultation bilaterally Cardio: Rate: regular rate Rhythm: regular rhythm GI: Inspection: non-distended GI Palp: Yes Soft to palpation and No Tenderness to palpation present (GI) Objective Data Vital Signs Vital Signs: Vital Signs - 24 hr 12/17/20 16:05 12/17/20 22:00 12/17/20 22:07 Temperature 97.9 F 97.9 F Pulse Rate 62 60 55 L Respiratory Rate 12 18 Blood Pressure 137/81 140/56 L Pulse Oximetry 95 95 94 12/18/20 06:00 12/18/20 08:00 12/18/20 08:31 Temperature 97.6 F 98 F Pulse Rate 67 60 72 Respiratory Rate 18 20 Blood Pressure 136/76 150/72 H Pulse Oximetry 94 94 Intake/Output Intake/Output: Intake & Output 12/15/20 12/16/20 12/17/20 12/18/20 23:59 23:59 23:59 23:59 Intake Total 3230 3900 3990 740 Output Total 400 750 500 Balance 2830 3150 3990 240 Meds/Results Medications: Active Medications Generic Name Dose Route Start Last Admin Trade Name Freq PRN Reason Stop Dose Admin Acetaminophen 650 mg 12/14/20 23:06 12/17/20 09:25 Acetaminophen 325 Mg Tablet PO 650 mg Q4H PRN Administration Mild Pain (1-3) or Fever Amlodipine Besylate 5 mg 12/15/20 09:00 12/18/20 08:32 Amlodipine Besylate 5 Mg Tablet PO 5 mg BID STEVE Administration Azelastine HCl 1 spray 12/15/20 09:00 12/18/20 08:32 Azelastine Hcl Nasal 0.1% 137 Mcg/Spr 30 Ml Btl NASAL 1 spray Q12HR STEVE Administration Benzocaine 1 lozenge 12/16/20 11:31 12/16/20 13:12 Benzocaine/Menthol (*Bkc) 18 Ea Lozenge PO 1 lozenge PRN PRN Administration Sore Throat Bisacodyl 10 mg 12/17/20 18:18 12/17/20 21:27 Bisacodyl 10 Mg Suppository RECTAL 10 mg BID PRN Administration Constipation Budesonide/Formoterol Fumarate 2 puff 12/18/20 08:00 12/18/20 08:18 Budesonide/Formoterol (*Sp) 160-4.5 Mcg 6 Gm Inh INHALATION 2 puff Q12HRT STEVE Administration Sodium Chloride 1,000 mls @ 100 mls/hr 12/14/20 23:10 12/18/20 06:06 Normal Saline Iv IV CONT 100 mls/hr .Q10H STEVE Administration Piperacillin Sod/Tazobactam Sod 4.5 gm in 100 mls @ 200 mls/hr 12/15/20 18:00
[2020-12-18 12:30] VITALS: BP 128/66; PULSE 58; RESP 22; TEMP 36.2; O2SAT 97
[2020-12-18] MEDS: POTASSIUM CHLORIDE 20 MEQ TABLET 40 MEQ PO (12:50)
[2020-12-18 20:00] VITALS: BP 141/56; PULSE 58; RESP 18; TEMP 36; O2SAT 95
[2020-12-18 20:39] VITALS: PULSE 68; O2SAT 96
[2020-12-18] MEDS: ACETAMINOPHEN 325 MG TABLET 650 MG PO (21:31)
[2020-12-18] MEDS: LORazepam (*CRX) 0.5 MG TABLET PO (21:31)
[2020-12-19] VITALS (7 sets, daily range): BP systolic 130–150; BP diastolic 62–88; PULSE 62–87; RESP 14–20; TEMP 36.2–37; O2SAT 94–96
[2020-12-19] MEDS: SODIUM CHLORIDE 0.9% IV 1,000 ML 100 ML IV CONT (05:59)
[2020-12-19 06:24] LABS: Basophils Absolute Auto 0.1 K/mm3 (0.0-0.1); Basophils Percent Auto 0.6 % (0.2-1.2); Eosinophils Absolute Auto 0.2 K/mm3 (0-0.3); Hematocrit 32.9 % (37.0-47.0); Immature Granulocyte Absolute 0.31 K/mm3 (0.00-0.031); Immature Granulocyte Percent A 3.7 % (0-0.5); Lymphocytes Absolute Auto 0.86 K/mm3 (0.9-3.2); Lymphocytes Percent Auto 10.3 % (18.3-44.2); Mean Corpuscular HGB Conc 33.4 g/dl (32-36); Mean Corpuscular Hemoglobin 30.1 pg (26-34); Mean Corpuscular Volume 89.9 fl (80-100); Mean Platelet Volume 9.9 fl (7.4-10.4); Monocytes Absolute Auto 1.1 K/mm3 (0.1-0.6); Monocytes Percent Auto 12.8 % (2.6-8.5); Neutrophils Absolute Auto 5.9 K/mm3 (1.3-6.7); Neutrophils Percent Auto 70.6 % (45.5-73.1); Platelet Count Result 223 k/mm3 (150-375); Red Blood Count 3.66 M/mm3 (4.2-5.4); Red Cell Distribution Width 14.4 % (11.5-14.5); White Blood Count 8.4 K/mm3 (4.5-10.0)
[2020-12-19 06:49] LABS: Alanine Aminotransferase 62 U/L (4-35); Albumin Level 3.1 g/dL (3.5-5.1); Alkaline Phosphatase 103 U/L (38-126); Anion Gap 6 mmol/L (8-16); Aspartate Amino Transferase 44 U/L (14-36); Bilirubin,Total 0.7 mg/dL (0.2-1.3); Blood Urea Nitrogen 6 mg/dL (7-17); Calcium 9.2 mg/dL (8.4-10.2); Carbon Dioxide 28 mmol/L (22-30); Chloride 101 mmol/L (98-107); Estimated CRCL calculation 55 ml/min; Estimated Glomerular Filt Rate > 60; Glucose 125 mg/dL (65-110); Magnesium 1.6 mg/dL (1.6-2.3); Phosphorus 3.2 mg/dL (2.5-4.5); Sodium 135 mmol/L (137-145)
[2020-12-19] MEDS: BUDESONIDE/FORMOTEROL (*SP) 160-4.5 MCG 6 GM INH 2 PUFF INHALATION ×2 (08:24→20:13)
[2020-12-19] MEDS: METOPROLOL SUCCINATE EXT REL 50 MG TABCR PO (08:38)
[2020-12-19] MEDS: AZELASTINE HCL NASAL 0.1% 137 MCG/SPR 30 ML BTL 1 SPRAY NASAL ×2 (08:40→20:58)
[2020-12-19] MEDS: MELOXICAM 7.5 MG TABLET 15 MG PO (08:40)
[2020-12-19] MEDS: amLODIPine BESYLATE 5 MG TABLET PO ×2 (08:40→18:10)
[2020-12-19] MEDS: VALSARTAN 80 MG TABLET PO (08:40)
[2020-12-19] MEDS: SERTRALINE HCL 25 MG TABLET PO (08:40)
[2020-12-19] MEDS: POTASSIUM CHLORIDE 20 MEQ TABLET 40 MEQ PO (14:56)
--- NOTE | 2020-12-19 16:55 | PM.IMPN ---
Progress Note: A&P Assessment and Plan (1) Pyelonephritis: Code(s): N12 - Tubulo-interstitial nephritis, not specified as acute or chronic Status: Acute Assessment and Plan: Presented with confusion rigors. UA grossly abnormal on presentation. Urine culture with growth of pansensitive E coli She remains on IV Zosyn which was started on 12/15/2020 Renal ultrasound shows small region of cortical scarring upper pole of right kidney which is new since prior study, likely due to infection Will obtain CT abdomen/pelvis with contrast to rule out renal abscess. Plan to transition to p.o. Augmentin tomorrow to complete 14 days of antibiotic therapy. Will adjust as needed based on results of CT scan. (2) Gram-negative bacteremia: Code(s): R78.81 - Bacteremia Status: Acute Assessment and Plan: 2/2 blood culture bottles with growth of pansensitive E coli, secondary to pyelonephritis Continue with antibiotics as above to complete 14 days of therapy. Plan as above. (3) COPD mixed type: Code(s): J44.9 - Chronic obstructive pulmonary disease, unspecified Status: Acute Assessment and Plan: Not in acute exacerbation. Continue Symbicort Albuterol as needed (4) Generalized anxiety disorder: Code(s): F41.1 - Generalized anxiety disorder Status: Acute Assessment and Plan: No acute issues. Continue sertraline Lorazepam 0.5 mg as needed (5) Chronic hepatitis C without hepatic coma: Code(s): B18.2 - Chronic viral hepatitis C Status: Acute Assessment and Plan: Evident from labs drawn in October 2018. Unclear if this has been followed by previous providers She will need to follow-up with her PCP as an outpatient (6) Person under investigation for COVID-19: Code(s): Z20.822 - Contact with and (suspected) exposure to COVID-19 Status: Acute Assessment and Plan: CXR evaluated due to bacteremia did show evidence of patchy multifocal acute airspace disease. She has since been tested for COVID-19 to rule this out. Continue isolation precautions while awaiting test results She is not requiring any supplemental oxygen, therefore does not need COVID-19 treatment including dexamethasone or remdesivir She completed both Moderna vaccinations in May 2020 Subjective Date/time seen: 12/19/20 16:55 Interval history: Date of service: 12/19/2020 Daniela Medina is an 85-year-old female with history of spinal stenosis, hypertension, anxiety who is seen in follow-up for pyelonephritis with bacteremia. She is feeling pretty well today. She has no urinary symptoms. She denies suprapubic pain, flank pain, or back pain. She denies nausea, vomiting, fever, or chills. She has been endorsing diarrhea and has some abdominal pain related to this. She has been eating well. Denies shortness breath or chest pain. She does have occasional cough and reports sinus congestion. She has some back pain related to lying in bed. She was able to get up walk around with therapy and felt she did well with this and was steady on her feet. Denies dizziness or lightheadedness. Review of Systems Review of Systems: All systems reviewed & are unremarkable except as noted in HPI and below Exam Narrative: Ms. Medina is a well-nourished, well-appearing 85-year-old female who is lying supine in bed. She appears comfortable and is in NARD. Neuro: awake, alert and oriented x4, speech clear, no focal neuro deficits noted HEENMT: normocephalic, atraumatic, EOMI, sclerae anicteric, moist oral mucosa, wearing glasses Neck: supple, no lymphadenopathy Respiratory: clear to auscultation bilaterally, nonlabored breathing Cardio: regular rate, regular rhythm with S1-S2 Abdomen: nondistended, normoactive bowel sounds, soft, nontender to palpation : No CVA tenderness Extremities: no edema, erythema, or tenderness to palpation, DP pu
[2020-12-19 19:01] LABS: SARS-CoV-2 RNA PCR Negative
[2020-12-19] MEDS: ONDANSETRON INJ 4 MG/2 ML VIAL IV PUSH (21:00)
[2020-12-20] MEDS: SODIUM CHLORIDE 0.9% IV 1,000 ML 100 ML IV CONT ×2 (01:37→10:43)
[2020-12-20] MEDS: ONDANSETRON INJ 4 MG/2 ML VIAL IV PUSH (01:37)
[2020-12-20 05:42] VITALS: BP 144/62; PULSE 67; RESP 18; TEMP 36.9; O2SAT 96
[2020-12-20 06:23] LABS: Hematocrit 36.2 % (37.0-47.0); Hemoglobin 11.9 g/dL (12.0-15.0); Mean Corpuscular HGB Conc 32.9 g/dl (32-36); Mean Corpuscular Volume 91.2 fl (80-100); Mean Platelet Volume 9.5 fl (7.4-10.4); Platelet Count Result 261 k/mm3 (150-375); Red Blood Count 3.97 M/mm3 (4.2-5.4); Red Cell Distribution Width 14.5 % (11.5-14.5); White Blood Count 8.8 K/mm3 (4.5-10.0)
[2020-12-20 06:43] LABS: Anion Gap 5 mmol/L (8-16); Blood Urea Nitrogen 7 mg/dL (7-17); Calcium 9.4 mg/dL (8.4-10.2); Carbon Dioxide 30 mmol/L (22-30); Chloride 102 mmol/L (98-107); Estimated CRCL calculation 55 ml/min; Estimated Glomerular Filt Rate > 60; Glucose 100 mg/dL (65-110); Potassium 3.5 mmol/L (3.4-5.0); Sodium 137 mmol/L (137-145)
[2020-12-20 08:00] VITALS: PULSE 66; RESP 18; O2SAT 97
[2020-12-20 08:30] VITALS: PULSE 66; RESP 18; O2SAT 97
[2020-12-20 08:50] VITALS: PULSE 66
[2020-12-20] MEDS: METOPROLOL SUCCINATE EXT REL 50 MG TABCR PO (08:50)
[2020-12-20] MEDS: SACCHAROMYCES BOULARDII 250 MG CAPSULE PO ×2 (08:51→13:22)
[2020-12-20] MEDS: SERTRALINE HCL 25 MG TABLET PO (08:52)
[2020-12-20] MEDS: MELOXICAM 7.5 MG TABLET 15 MG PO (08:53)
[2020-12-20] MEDS: AZELASTINE HCL NASAL 0.1% 137 MCG/SPR 30 ML BTL 1 SPRAY NASAL (08:53)
[2020-12-20] MEDS: amLODIPine BESYLATE 5 MG TABLET PO (08:53)
[2020-12-20] MEDS: BUDESONIDE/FORMOTEROL (*SP) 160-4.5 MCG 6 GM INH 2 PUFF INHALATION (08:53)
[2020-12-20] MEDS: VALSARTAN 80 MG TABLET PO (08:53)
[2020-12-20] MEDS: AMOXICILLIN/CLAVULANATE K 875-125 MG TAB 1 TABLET PO (08:53)
[2020-12-20] MEDS: LORazepam (*CRX) 0.5 MG TABLET PO (09:12)
--- NOTE | 2020-12-20 09:13 | PC.NURSE ---
911 Pt requested PRN Ativan. States she takes it regularly at home twice a day and is not sure why she has it ordered PRN. Med administered.
--- NOTE | 2020-12-20 09:54 | PC.NURSE ---
On 12/20/20, the student, [Gena Smith ], provided care and completed [facility] documentation on this patient. I have reviewed the student's documentation and agree with the findings.
--- NOTE | 2020-12-20 10:41 | PCNFU ---
Nutrition Follow-Up Complete: Inadequate Oral Intake as related to UTI as evidenced by poor po intake reported. Goal: Meet estimated nutritional needs Patient is progressing towards goal. We will continue current goal. Pt current nutrition is Regular. Last recorded weight is 73.18 kg, no new weight to report. Bowel Motility:+BM reported 12/20 Labs Reviewed:Cr 0.6,BUN 5, Hct 36.2,Hgb 11.9 Meds Noted:Florastor, Norvasc,Toprol, Dulcolax,Ativan, Zoloft. Additional Notes: Nutrition follow up. Patient seen today, states to having a good appetite. Oral Intake has been 50-70% of meals. Patient is drinking diet supplements. Patient is requesting Ensure Enlive vs Ensure Compact. Diet order changed. Vanilla flavor is preferred. No skin issues. Agree with diet orders. Monitoring: Will monitor every 7 days.
--- NOTE | 2020-12-20 12:05 | PC.NURSE ---
Patient was offered the K-pad as ordered. The patient refused the K-pad at 0830 on 12/20/2020.
--- NOTE | 2020-12-20 12:50 | P.DS_ITS ---
DS: Admitting Diagnosis Discharge Date 12/20/2020 Admitting Diagnosis UTI DS: Discharge Diagnosis Discharge Diagnosis (1) Pyelonephritis: Code(s): N12 - Tubulo-interstitial nephritis, not specified as acute or chronic Status: Acute Assessment and Plan: Presented with confusion and rigors. UA grossly abnormal on presentation. * Urine culture with growth of pansensitive E coli * She was treated with IV Zosyn which was started on 12/15/2020 * Renal ultrasound showed small region of cortical scarring upper pole of right kidney which is new since prior study, likely due to infection * Follow-up CT abdomen/pelvis with contrast showed findings consistent with pyelonephritis and no evidence of renal abscess * She was transitioned to p.o. Augmentin which she will continue to complete 14 days of antibiotic therapy. Probiotic added while on antibiotics. (2) Gram-negative bacteremia: Code(s): R78.81 - Bacteremia Status: Acute Assessment and Plan: 2/2 blood culture bottles with growth of pansensitive E coli, secondary to pyelonephritis * Continue with antibiotics as above to complete 14 days of therapy. * Limited echocardiogram performed on 12/16 with no evidence of vegetation * Repeat blood cultures collected on 12/16/20 are negative to date. (3) COPD mixed type: Code(s): J44.9 - Chronic obstructive pulmonary disease, unspecified Status: Acute Assessment and Plan: Not in acute exacerbation. * Continue Symbicort * Albuterol as needed (4) Generalized anxiety disorder: Code(s): F41.1 - Generalized anxiety disorder Status: Acute Assessment and Plan: No acute issues. * Continue sertraline * Lorazepam as needed (5) Chronic hepatitis C without hepatic coma: Code(s): B18.2 - Chronic viral hepatitis C Status: Acute Assessment and Plan: Evident from labs drawn in October 2018. * Unclear if this has been followed by previous providers * She will need to follow-up with her PCP as an outpatient (6) Person under investigation for COVID-19: Code(s): Z20.822 - Contact with and (suspected) exposure to COVID-19 Status: Acute Assessment and Plan: CXR evaluated due to bacteremia did show evidence of patchy multifocal acute airspace disease. She has since been tested for COVID-19 to rule this out. * Continue isolation precautions while awaiting test results * She is not requiring any supplemental oxygen, therefore does not need COVID-19 treatment including dexamethasone or remdesivir * She completed both Moderna vaccinations in May 2020 (7) COVID-19 ruled out by laboratory testing: Code(s): Z20.822 - Contact with and (suspected) exposure to COVID-19 Status: Acute Assessment and Plan: CXR evaluated due to bacteremia did show evidence of patchy multifocal acute airspace disease that could be edema, viral or bacterial pneumonia. * Due to these findings, she was tested for COVID-19. Negative result on 12/17. She completed vaccination in May 2020 * She had no respiratory symptoms, she maintained adequate oxygenation on room air. No evidence to suggest pneumonia. (8) Cholelithiasis: Code(s): K80.20 - Calculus of gallbladder without cholecystitis without obstruction Status: Acute Assessment and Plan: Incidentally noted on CT scan with distant gallbladder wall and small amount of pericholecystic fluid. * She was aware of gallstones. * She is asym
--- NOTE | 2020-12-20 12:50 | PM.DS ---
DS: Admitting Diagnosis Discharge Date 12/20/2020 Admitting Diagnosis UTI DS: Discharge Diagnosis Discharge Diagnosis (1) Pyelonephritis: Code(s): N12 - Tubulo-interstitial nephritis, not specified as acute or chronic Status: Acute Assessment and Plan: Presented with confusion and rigors. UA grossly abnormal on presentation. Urine culture with growth of pansensitive E coli She was treated with IV Zosyn which was started on 12/15/2020 Renal ultrasound showed small region of cortical scarring upper pole of right kidney which is new since prior study, likely due to infection Follow-up CT abdomen/pelvis with contrast showed findings consistent with pyelonephritis and no evidence of renal abscess She was transitioned to p.o. Augmentin which she will continue to complete 14 days of antibiotic therapy. Probiotic added while on antibiotics. (2) Gram-negative bacteremia: Code(s): R78.81 - Bacteremia Status: Acute Assessment and Plan: 2/2 blood culture bottles with growth of pansensitive E coli, secondary to pyelonephritis Continue with antibiotics as above to complete 14 days of therapy. Limited echocardiogram performed on 12/16 with no evidence of vegetation Repeat blood cultures collected on 12/16/20 are negative to date. (3) COPD mixed type: Code(s): J44.9 - Chronic obstructive pulmonary disease, unspecified Status: Acute Assessment and Plan: Not in acute exacerbation. Continue Symbicort Albuterol as needed (4) Generalized anxiety disorder: Code(s): F41.1 - Generalized anxiety disorder Status: Acute Assessment and Plan: No acute issues. 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 Unclear if this has been followed by previous providers She will need to follow-up with her PCP as an outpatient (6) Person under investigation for COVID-19: Code(s): Z20.822 - Contact with and (suspected) exposure to COVID-19 Status: Acute Assessment and Plan: CXR evaluated due to bacteremia did show evidence of patchy multifocal acute airspace disease. She has since been tested for COVID-19 to rule this out. Continue isolation precautions while awaiting test results She is not requiring any supplemental oxygen, therefore does not need COVID-19 treatment including dexamethasone or remdesivir She completed both Moderna vaccinations in May 2020 (7) COVID-19 ruled out by laboratory testing: Code(s): Z20.822 - Contact with and (suspected) exposure to COVID-19 Status: Acute Assessment and Plan: CXR evaluated due to bacteremia did show evidence of patchy multifocal acute airspace disease that could be edema, viral or bacterial pneumonia. Due to these findings, she was tested for COVID-19. Negative result on 12/17. She completed vaccination in May 2020 She had no respiratory symptoms, she maintained adequate oxygenation on room air. No evidence to suggest pneumonia. (8) Cholelithiasis: Code(s): K80.20 - Calculus of gallbladder without cholecystitis without obstruction Status: Acute Assessment and Plan: Incidentally noted on CT scan with distant gallbladder wall and small amount of pericholecystic fluid. She was aware of gallstones. She is asymptomatic. Able to tolerate her diet. No abdominal or right upper quadrant pain Discussed these findings with her and her daughter. She can follow-up with PCP and can consider outpatient surgical consultation if she were to develop symptoms. DS: Summary Hospital Course Hospital Course: Date of admission: 12/14/2020 Date of discharge: 12/20/2020 Daniela Medina is an 85-year-old female with history of spinal stenosis, hypertension, anxiety
[2020-12-20 14:28] VITALS: O2SAT 97
[2020-12-20 14:33] VITALS: BP 150/71; PULSE 63; RESP 22; TEMP 36.3; O2SAT 97
--- NOTE | 2020-12-20 15:29 | PC.NURSE ---
0830 Patient was asked if she wanted the K-Pad to be placed. The patient refused. Discussed reasons for use.
== END 2020-12-20 15:50 | disposition home health service (06) | DRG 690 ==
LOC: ANHED 23:21 → ANH3MEDSUR 12-15 09:35
PROVIDERS: Emergency Medicine; Internal Medicine; Admitting Provider Internal Medicine; Emergency Provider Family Medicine; PCP Family Medicine; Visit Provider Physician Assistant
DX: N12 Tubulo-interstitial nephritis, not specified as acute or chronic (principal); E87.1 Hypo-osmolality and hyponatremia; R78.81 Bacteremia; B96.20 Unspecified Escherichia coli [E. coli] as the cause of diseases classified elsewhere; Z20.822 Contact with and (suspected) exposure to COVID-19; K80.20 Calculus of gallbladder without cholecystitis without obstruction; B18.2 Chronic viral hepatitis C; J44.9 Chronic obstructive pulmonary disease, unspecified; F41.1 Generalized anxiety disorder; I11.0 Hypertensive heart disease with heart failure; I50.9 Heart failure, unspecified; M16.11 Unilateral primary osteoarthritis, right hip; M48.00 Spinal stenosis, site unspecified; Z79.899 Other long term (current) drug therapy; Z87.891 Personal history of nicotine dependence
CPT/HCPCS: 36415; 71045; 73502; 74177; 76775; 80048; 80053; 81001; 83605; 83735; 84100; 85025; 85027; 87040; 87077; 87086; 87088; 87186; 93005; 93308; 94640; 96361; 96365; 96367; 97110; 97116; 97161; 97165; 97535; 99285; A9270; C9803; G0378; J0696; J2405; J2543; J7030; Q9967; U0003; U0005

== ENCOUNTER 2021-01-16 22:50 | Emergency (ER) | payer MEDICARE, SELFPAY ==
--- NOTE | ~2021-01-16 | CT_ITS ---
EXAMINATION: CT brain wo con DATE: 01/17/2021 01:17 INDICATION: Head injury. TECHNIQUE: Computed tomography (CT) of the head was performed without intravenous contrast. The mA wa s adjusted according to patient size. Iterative reconstruction technique was employed. The dose-lengt h product was 605.33 mGy-cm. COMPARISON: Head CT 08/20/2010 FINDINGS: There are scattered areas of low attenuation in the cerebral white matter. There is no intr acranial hemorrhage, acute infarction, or abnormal intracranial mass lesion. The ventricles are eileen l in size. There are likely changes of ocular lens replacement surgeries. The paranasal sinuses are c lear. The mastoid air cells are normal. There is a left posterior scalp hematoma. IMPRESSION: 1. Worsened moderate nonspecific cerebral white matter disease, which likely represents chronic small vessel ischemic disease. Reviewed, dictated and finalized at location A. IMPRESSION: 1. Worsened moderate nonspecific cerebral white matter disease, which likely re presents chronic small vessel ischemic disease.
--- NOTE | ~2021-01-16 | CT_ITS ---
EXAMINATION: CT cervical spine wo con DATE: 01/17/2021 01:17 INDICATION: Head injury. TECHNIQUE: Computed tomography (CT) of the cervical spine was performed without intravenous contrast. Automated exposure control and iterative reconstruction technique were employed. The dose-length pro duct was 187.86 mGy-cm. COMPARISON: None FINDINGS: There is mild scarring at the lung apices. There is 2 mm anterolisthesis of C4 on C5 and C5 on C6. There is 3 degrees dextrocurvature of cervical spine. Vertebral body heights are normal. Ther e is moderately decreased disc height at C3-C4, mildly decreased disc height at C4-C5 and C5-C6, and severely decreased disc height at C6-C7. The following disc levels are specifically discussed: C2-C3: There is no uncovertebral joint osteoarthritis. There is severe right and moderate left facet joint osteoarthritis. There is no neural foraminal stenosis. There is mild central canal stenosis. C3-C4: There is severe bilateral uncovertebral joint osteoarthritis. There is severe bilateral facet joint osteoarthritis. There is mild bilateral neural foraminal stenosis. There is mild central canal stenosis. C4-C5: There is mild bilateral uncovertebral joint osteoarthritis. There is severe bilateral facet abebe int osteoarthritis. There is mild right neural foraminal stenosis. There is mild central canal stenos is. C5-C6: There is no uncovertebral joint osteoarthritis. There is mild right and severe left facet join t osteoarthritis. There is mild left neural foraminal stenosis. There is mild central canal stenosis. C6-C7: There is severe bilateral uncovertebral joint osteoarthritis. There is severe bilateral facet joint osteoarthritis. There is mild bilateral neural foraminal stenosis. There is mild central canal stenosis. C7-T1: There is no uncovertebral joint osteoarthritis. There is severe bilateral facet joint osteoart hritis. There is mild bilateral neural foraminal stenosis. There is no central canal stenosis. IMPRESSION: 1. No fracture. 2. Severe cervical spondylosis. Reviewed, dictated and finalized at location A.
[2021-01-16 22:59] VITALS: BP 187/82; PULSE 70; RESP 14; TEMP 36.6; O2SAT 96
--- NOTE | 2021-01-17 | PC.NURSE ---
pt. family member to hotel front office manager complaining because There is clearly a couple sitter together in the waiting room why can't I sit with my mother? RN informed family member that the patient required a support person. Family member also informed that pt. has been check on multiple time while waiting and is stable.
[2021-01-17 00:38] VITALS: BP 181/97; PULSE 69; RESP 23; O2SAT 98
--- NOTE | 2021-01-17 01:49 | ED.HEATRA ---
HPI - Head Injury General Chief complaint: Head Injury Stated complaint: Fall/head lac Time Seen by Provider: 01/17/21 01:12 Source: RN notes reviewed History of Present Illness HPI Narrative: Patient presents emergency department from home for a fall. Patient states she was walking when she lost her balance and fell falling backwards striking the back of her head she states that she did not have any loss of consciousness but states she did have bleeding from the back of her head patient denies any other injury tree except for noting some mild neck pain she denies any chest pain shortness of breath nausea vomiting or any other symptoms. Related Data Home Medications Medication Instructions Recorded Confirmed azelastine 137 mcg INTRANASAL Q12H 12/15/20 12/15/20 budesonide-formoterol [Symbicort] 2 puff INHALATION Q12H 12/15/20 12/15/20 metoprolol succinate 50 mg PO DAILY 12/15/20 12/15/20 oxybutynin chloride 10 mg PO DAILY 12/15/20 12/15/20 Allergies Allergy/AdvReac Type Severity Reaction Status Date / Time lisinopril Allergy Unknown Unknown Verified 01/17/21 00:42 Review of Systems Review of Systems: Gen.: Denies fevers or chills Eyes: Denies eye pain or visual change ENT: Denies congestion Respiratory: Denies shortness of breath or cough CV: Denies chest pain or palpitations GI: Denies abdominal pain nausea, emesis or diarrhea Musculoskeletal: Denies back pain or muscle pain Neuro: D see HPI Skin: Denies rash Except as documented, all other systems reviewed and negative [facility] Past Medical History Medical History Arthritis of right hip Obesity (BMI 30.0-34.9) Spinal stenosis Family History Family History (Updated 12/15/20 @ 01:22 by Leesa Carter RN) Mother Cancer Father Heart attack Social History Social History Smoking packs per day: 0.25 Smoking cigarettes per day: 5.0 Tobacco type: cigarettes Smoking end date: 04/01/03 Alcohol intake: current Drinks per week: 1 Substance use: never Substance use type: does not use Spiritual care concerns: No Exam Narrative: APPEARANCE: No acute distress, nontoxic, resting in bed EYES: EOMI, PERRL HEENT: Normocephalic, swelling of the left posterior scalp with a 2 cm laceration present mild venous bleeding no foreign body nares patent Neck: No midline tenderness palpation tender palpation bilateral paravertebral C5-7 RESPIRATORY: No respiratory distress Clear to auscultation bilaterally with no rhonchi wheezing or rales. CARDIOVASCULAR: Regular rate and rhythm without murmurs rubs or gallops. ABDOMINAL: Soft, nontender, nondistended, no rebound or guarding MUSCULOSKELETAl: Moves all extremities. No clubbing, cyanosis or edema. NEURO: Awake and alertx 4. Following commands, speech normal, no focal deficits SKIN:: Warm, dry. No rashes lesions or abrasions PSYCHIATRIC: Normal affect/mood, Course Course Emergency Course: Reviewed old records patient's last tetanus was in 2016 Patient able to get up and ambulate in the emergency department with no difficulty Discussed with patient results of workup and diagnosis. Discussed need for follow-up with primary care, proper use of medication, and reasons to return to the emergency department. Patient understands and agrees to current treatment plan Vital Signs Vital signs: Vital Signs Temperature 97.9 F 01/16/21 22:59 Pulse Rate 70 01/16/21 22:59 Respiratory Rate 14 01/16/21 22:59 Blood Pressure 187/82 H 01/16/21 22:59 Pulse Oximetry 96 01/16/21 22:59 Temperature 97.9 F 01/16/21 22:59 Pulse Rate 69 01/17/21 00:38 Respiratory Rate 23 H 01/17/21 00:38 Blood Pressure 181/97 H 01/17/21 00:38 Pulse Oximetry 98 01/17/21 00:38 Procedures Laceration Laceration 1: ====== Skin Level ====== ====== Subcutaneous Layer ====== ======
[2021-01-17 02:13] VITALS: BP 162/82; PULSE 72; RESP 21; O2SAT 98
[2021-01-17 03:24] VITALS: BP 159/87; PULSE 76; RESP 14; O2SAT 99
== END 2021-01-17 02:20 | disposition home or self-care (01) ==
PROVIDERS: Emergency Provider Emergency Medicine; PCP Family Medicine
DX: S01.01XA Laceration without foreign body of scalp, initial encounter (principal); S16.1XXA Strain of muscle, fascia and tendon at neck level, initial encounter; M16.0 Bilateral primary osteoarthritis of hip; E66.9 Obesity, unspecified; Z68.26 Body mass index [BMI] 26.0-26.9, adult; F17.210 Nicotine dependence, cigarettes, uncomplicated; W18.39XA Other fall on same level, initial encounter
CPT/HCPCS: 12001; 70450; 72125; 99284

== ENCOUNTER 2021-02-20 19:14 | Emergency (ER) | payer MEDICARE, SELFPAY ==
--- NOTE | 2021-02-20 19:22 | ED.FEMALEGU ---
HPI - Female Genitourinary General Chief complaint: Urogenital-Female Stated complaint: UTI Time Seen by Provider: 02/20/21 19:26 Source: patient Mode of arrival: ambulatory Limitations: no limitations History of Present Illness HPI Narrative: Bienvenido Medina is a 85-year-old female with PMH of COPD, HTN, anxiety, urinary incontinence, comes [facility] the last month because she might have returning urinary tracts symptoms for a few days and then on her to get uroseptic as she has the past however she has results from her urine that was done today at the doctor's office which shows that she has leukocytes in her urine. She did not seen a physician at that time. Related Data Home Medications Medication Instructions Recorded Confirmed azelastine 137 mcg INTRANASAL Q12H 12/15/20 01/27/21 metoprolol succinate 50 mg PO DAILY 12/15/20 01/27/21 oxybutynin chloride 10 mg PO DAILY 12/15/20 01/27/21 amoxicillin 02/20/21 Allergies Allergy/AdvReac Type Severity Reaction Status Date / Time lisinopril Allergy Unknown Unknown Verified 01/30/21 14:36 Review of Systems Review of Systems: CONSTITUTIONAL: Denies fever, chills, sweats. EYES: Denies visual changes, redness, discharge. ENT: Denies rhinorrhea, congestion, sore throat, otalgia. CARDIOVASCULAR: Denies chest pain, palpitations, edema. RESPIRATORY: Denies dyspnea, wheezing, cough GASTROINTESTINAL: Denies abdominal pain, nausea, vomiting, diarrhea. GENITOURINARY: Has dysuria, hematuria, abnormal discharge SKIN: Denies rash or itching. NEUROLOGIC: Denies numbness, or focal weakness. PSYCHIATRIC: Denies anxiety or depression. [facility] Past Medical History Medical History Arthritis of right hip Obesity (BMI 30.0-34.9) Spinal stenosis Family History Family History Mother Cancer Father Heart attack Social History Social History Smoking packs per day: 0.25 Smoking cigarettes per day: 5.0 Smoking status: Former smoker Tobacco type: cigarettes Smoking end date: 04/01/03 Alcohol intake: current Drinks per week: 1 Substance use: never Substance use type: does not use Spiritual care concerns: No Comments At time of signature, I agree with nursing past medical, surgical, social and family history. There is no relevant family history pertinent to the presenting complaint. Exam Narrative: GENERAL: This is a well-nourished, well-developed patient, in mild distress. HEAD: normocephalic, atraumatic. EYES: PERRL. Sclera clear/white. Vision is grossly intact. EARS: External ears normal, auditory canals clear and without drainage, TMs normal without perforation. Hearing grossly intact. NOSE: External nose normal without nasal discharge, nares without redness, no rhinorrhea. THROAT: Mucous membranes moist, posterior pharynx NECK: Neck supple, non-tender CARDIOVASCULAR: Regular rate and rhythm without murmurs, gallops, or rubs. RESPIRATORY: Clear to auscultation. Breath sounds equal bilaterally. No wheezes, rales, or rhonchi. GASTROINTESTINAL: Abdomen soft, non-tender, SKIN: warm, intact with no suspicious lesions or rash, good texture and turgor. NEURO: awake, alert, and oriented to person, place and time. There were no obvious focal neurologic abnormalities. Steady gait EXTREMITIES: Normal range of motion. BACK: Nontender without deformity Course Course Emergency Course: Patient has multiple visits over the last months for UTI symptoms and UTI and conversations with doctors office she was brought her to [facility] because she has symptoms of UTI even though ureteral stone her doctors office today. They want her to be treated to avoid a possible rehospitalization in the future for urosepsis. On amoxicillin for dental issue Urine dip showed blood, 1+ leukocytes Started on Levaquin 7
[2021-02-20 19:44] VITALS: BP 216/96; PULSE 77; RESP 16; TEMP 36.3; O2SAT 97
== END 2021-02-20 19:54 | disposition home or self-care (01) ==
PROVIDERS: Emergency Provider Nurse Practitioner; PCP Family Medicine
DX: R30.0 Dysuria (principal); Z87.891 Personal history of nicotine dependence; M16.11 Unilateral primary osteoarthritis, right hip; E66.9 Obesity, unspecified; Z68.30 Body mass index [BMI] 30.0-30.9, adult; M48.00 Spinal stenosis, site unspecified
CPT/HCPCS: 81003; 87077; 87086; 87186; 99213; G0463

== ENCOUNTER 2021-04-19 16:11 | Outpatient (NON) | payer MEDICARE, SELFPAY | END 2021-04-19 16:12 | disposition home or self-care (01) | LOC: HOME HLTH 16:15 | PROVIDERS: PCP Family Medicine; Visit Provider Family Medicine | DX: J44.9 Chronic obstructive pulmonary disease, unspecified (principal); I10 Essential (primary) hypertension; Z47.1 Aftercare following joint replacement surgery; Z96.641 Presence of right artificial hip joint; N39.0 Urinary tract infection, site not specified | CPT/HCPCS: 87077; 87086; 87186 ==

== ENCOUNTER → 2021-04-22 07:28 | Outpatient (CLI) | payer MEDICARE, SELFPAY ==
[2021-04-22 20:22] LABS: SARS-CoV-2 RNA PCR Negative
== END ==
PROVIDERS: PCP Family Medicine; Visit Provider Family Medicine
DX: R05.9 Cough, unspecified (principal); Z20.822 Contact with and (suspected) exposure to COVID-19
CPT/HCPCS: C9803; U0003; U0005

== ENCOUNTER 2022-10-08 09:10 | Outpatient (CLI) | payer MEDICARE, SELFPAY ==
[2022-10-08 12:46] LABS: Basophils Percent Auto 0.6 % (0.2-1.2); Eosinophils Absolute Auto 0.1 K/mm3 (0-0.3); Hematocrit 40.2 % (37.0-47.0); Hemoglobin 12.8 g/dL (12.0-15.0); Immature Granulocyte Absolute 0.02 K/mm3 (0.00-0.031); Immature Granulocyte Percent A 0.3 % (0-0.5); Lymphocytes Absolute Auto 1.15 K/mm3 (0.9-3.2); Lymphocytes Percent Auto 17.7 % (18.3-44.2); Mean Corpuscular HGB Conc 31.8 g/dl (32-36); Mean Corpuscular Hemoglobin 29.3 pg (26-34); Monocytes Absolute Auto 0.9 K/mm3 (0.1-0.6); Monocytes Percent Auto 13.7 % (2.6-8.5); Neutrophils Absolute Auto 4.3 K/mm3 (1.3-6.7); Neutrophils Percent Auto 65.7 % (45.5-73.1); Platelet Count Result 258 k/mm3 (150-375); Red Blood Count 4.37 M/mm3 (4.2-5.4); Red Cell Distribution Width 14.2 % (11.5-14.5); White Blood Count 6.5 K/mm3 (4.5-10.0)
[2022-10-08 12:49] LABS: Alanine Aminotransferase 31 U/L (6-35); Albumin Level 3.8 g/dL (3.5-5.1); Alkaline Phosphatase 84 U/L (38-126); Anion Gap 2 mmol/L (8-16); Aspartate Amino Transferase 63 U/L (14-36); Bilirubin,Total 0.5 mg/dL (0.2-1.3); Blood Urea Nitrogen 19 mg/dL (7-17); Calcium 9.9 mg/dL (8.4-10.2); Carbon Dioxide 32 mmol/L (22-30); Chloride 101 mmol/L (98-107); Cholesterol 112 mg/dL (0-200); Estimated Glomerular Filt Rate > 60; Glucose 101 mg/dL (65-110); HDL Direct 38 mg/dL; Potassium 4.3 mmol/L (3.4-5.0); Sodium 135 mmol/L (137-145); Triglycerides 46 mg/dL (<150)
[2022-10-08 13:00] LABS: LDL Cholesterol Direct 46 mg/dL
== END 2022-10-08 09:11 | disposition home or self-care (01) ==
LOC: ANHGOSHLAB 09:13
PROVIDERS: PCP Family Medicine; Visit Provider Family Medicine
DX: Z79.899 Other long term (current) drug therapy (principal); N13.39 Other hydronephrosis
CPT/HCPCS: 36415; 80053; 80061; 84443; 85025

== ENCOUNTER 2022-11-05 13:32 | Emergency (ER) | payer MEDICARE, SELFPAY ==
[2022-11-05 13:51] VITALS: BP 182/80; PULSE 68; RESP 16; TEMP 36.3; O2SAT 95
--- NOTE | 2022-11-05 14:29 | ED.EXTPRO ---
HPI - Extremity Problem General Chief complaint: Extremity Problem,Nontraumatic Stated complaint: Swollen legs Time Seen by Provider: 11/05/22 14:00 Source: patient Mode of arrival: ambulatory Limitations: no limitations History of Present Illness HPI Narrative: Daniela is an 87-year-old female patient presenting to the clinic today with complaints of right leg swelling. She reports she open wound to her right lateral leg 3 weeks ago when she had the leg with a car door. The area is now scabbed over and dark appearing. She has redness and swelling in the right leg with erythema. Her family's concern about a possible blood clot. She denies any fever or chills. Does report some shortness of breath with exertion. Does have varicose veins and bilateral lower extremities Related Data Home Medications Medication Instructions Recorded Confirmed oxybutynin chloride 10 mg 10 mg PO DAILY 12/15/20 09/03/22 tablet,extended release 24 hr fosfomycin tromethamine 3 gram 1 packet PO WEEKLY 10/11/21 09/03/22 oral packet Allergies Allergy/AdvReac Type Severity Reaction Status Date / Time codeine Allergy Unknown Bad dreams Verified 09/03/22 14:26 lisinopril Allergy Unknown Unknown Verified 09/03/22 14:26 Review of Systems Review of Systems: Pertinent positives per HPI. Patient denies any fever, chills, rash, headache, visual changes, dizziness, cough, runny nose, sore throat, chest pain, palpitations, nausea, vomiting, diarrhea, constipation, abdominal pain, or any urinary issues. [facility] Past Medical History Medical History Arthritis of right hip Obesity (BMI 30.0-34.9) Spinal stenosis Surgical History Surgical History History of arthroplasty of right hip Family History Family History Mother Cancer Father Heart attack Social History Social History Smoking packs per day: 0.25 Smoking cigarettes per day: 5.0 Smoking status: Never smoker Tobacco type: cigarettes Smoking end date: 04/01/03 Alcohol intake: current Drinks per week: 1 Substance use: never Substance use type: does not use Lack of Transportation: No Lack of Food: Never True Current Housing: I Have Housing Difficulty Paying Gas/Electric Bills: No Difficulty Paying for Meds: No Currently Unemployed: No Education: High School Diploma/GED Difficulty w/ Childcare or Family Care: No Spiritual care concerns: No Comments At the time of my signature, I reviewed and agree with the nursing past medical, surgical, social, and family history. There is no relevant family history pertinent to the patient complaint. Exam Narrative: General: Well-developed, well nourished, in no apparent distress Head: Normocephalic, atraumatic. Cardio: Regular rate and rhythm, s1 and s2 normal, no murmur appreciated. Resp: Clear to auscultation bilaterally, no rhonchi, rales, wheezing or rubs. Musculoskeletal: No deformity, to scabbed over black appearing wounds to the right lateral leg with redness and swelling in the right lower extremity, extremity is warm to touch, 3+ pitting edema, grossly normal range of motion, muscle strength strong and equal, peripheral pulse strong, no cyanosis, normal gait and station Course Course Emergency Course: Portions of this record may have been created with voice recognition software. Level of Care: Express Care Visit Vital Signs Vital signs: Vital Signs Temperature 36.3 C L 11/05/22 13:51 Pulse Rate 68 11/05/22 13:51 Respiratory Rate 16 11/05/22 13:51 Blood Pressure 182/80 H 11/05/22 13:51 Pulse Oximetry 95 11/05/22 13:51 Temperature 36.3 C L 11/05/22 13:51 Pulse Rate 68 11/05/22 13:51 Respiratory Rate 16 11/05/22 13:51 B
--- NOTE | 2022-11-05 14:41 | PC.NURSE ---
1410- STATION SUPERVISOR calling [facility] to see about transfer to ER so they can order a venous doppler for pt. 1420- STATION SUPERVISOR calling Dr Vogel office and they are ordering the venous doppler as a stat outpatient. pt and family informed of plan of care with verbalized understanding.
--- NOTE | 2022-11-05 16:27 | PC.NURSE ---
1355- pt came out of the restroom and apologized that she missed the hat container that was in stool to catch her urine.
== END 2022-11-05 14:45 | disposition home or self-care (01) ==
PROVIDERS: Emergency Provider Nurse Practitioner Family; PCP Family Medicine
DX: L03.115 Cellulitis of right lower limb (principal); Z87.891 Personal history of nicotine dependence; M16.11 Unilateral primary osteoarthritis, right hip; M48.00 Spinal stenosis, site unspecified; E66.9 Obesity, unspecified; Z96.641 Presence of right artificial hip joint
CPT/HCPCS: 93971; 99213; G0463

== ENCOUNTER 2022-11-05 15:25 | Outpatient (CLI) | payer MEDICARE, SELFPAY ==
--- NOTE | ~2022-11-05 | US_ITS ---
EXAMINATION: US venous doppler LE RT DATE: 11/05/2022 16:38 INDICATION: Lower limb pain, swelling and erythema. TECHNIQUE: Grayscale ultrasound images without and with compression and Doppler ultrasound images of the right lower extremity veins were obtained. COMPARISON: None. FINDINGS: The visualized portions of right common femoral vein, profunda (deep) femoral vein, femoral vein, pop liteal vein, peroneal trunk, posterior tibial veins, peroneal veins, gastrocnemius vein and greater s aphenous vein outflow are patent. 4.0 x 1.4 x 2.8 cm Henry's cyst with typical configuration at the l ateral side of the popliteal fossa. There is an additional 2.2 x 2.0 x 1.4 similar anechoic likely ga nglion cyst at the lateral side of the right popliteal fossa. IMPRESSION: 1. No deep venous thrombosis in the right lower limb. Reviewed, dictated and finalized at location B.
== END 2022-11-05 15:26 | disposition home or self-care (01) ==
PROVIDERS: PCP Family Medicine; Visit Provider Nurse Practitioner Family
DX: M79.89 Other specified soft tissue disorders (principal); L03.115 Cellulitis of right lower limb
CPT/HCPCS: 93971

== ENCOUNTER 2023-01-02 19:59 | Emergency (ER) | payer MEDICARE, SELFPAY ==
[2023-01-02 20:01] VITALS: BP 184/131; PULSE 66; RESP 18; TEMP 36.7; O2SAT 94
[2023-01-02 20:33] VITALS: BP 185/98; PULSE 61; RESP 14; O2SAT 95
[2023-01-02 21:24] LABS: Appearance Urine Clear (Clear); Bilirubin Urine Negative (Negative); Blood Urine Trace (Negative); Color Urine Yellow (Yellow); Glucose Urine UA Negative (Negative); Ketones Urine Negative (Negative); Leukocyte Esterase Ur 3+ LEU/UL (Negative); Nitrate Urine Negative (Negative); Non Pathogenic Casts 0-2; Protein Urine Negative (Negative); RBC Urine 0-2 /hpf (0-2); Specific Grav Ur 1.006 (1.001-1.035); Squamous Epithelial Cell Urine None seen /hpf (Few); Urobilinogen Urine 0.2 mg/dL (<2.0); WBC Urine 51-100 /hpf
[2023-01-02 21:27] LABS: Bacteria Urine 1+ /hpf
[2023-01-02 21:28] LABS: Add Urine Microscopic? YES
--- NOTE | 2023-01-02 21:55 | ED.GENADULT ---
HPI - General Adult General Chief complaint: Recheck/Abnormal Lab/Rx Stated complaint: HIgh blood pressure, UTI symptoms Time Seen by Provider: 01/02/23 20:33 History of Present Illness HPI narrative: This is an 87-year-old female with history of chronic UTIs presenting for high blood pressure and UTI symptoms. Patient has chronic UTIs and takes fosfomycin once per week. She has noted that she has had increased urinary symptoms over the last several weeks. She denies fevers chills back pain nausea vomiting or diarrhea. She has appointment with her primary care physician this Saturday. Patient is also concerned because she noticed her blood pressures been higher than normal at home. It has been 180/100. She has noted that she has been taking meloxicam and ibuprofen for pain. She does not have chest pain difficulty breathing or neurologic symptoms. Related Data Home Medications Medication Instructions Recorded Confirmed oxybutynin chloride 10 mg 10 mg PO DAILY 12/15/20 12/31/22 tablet,extended release 24 hr Allergies Allergy/AdvReac Type Severity Reaction Status Date / Time codeine Allergy Unknown Bad dreams Verified 01/02/23 20:37 lisinopril Allergy Unknown Unknown Verified 01/02/23 20:37 [facility] Past Medical History Medical History Arthritis of right hip Obesity (BMI 30.0-34.9) Spinal stenosis Surgical History Surgical History History of arthroplasty of right hip Family History Family History Mother Cancer Father Heart attack Social History Social History Smoking packs per day: 0.25 Smoking cigarettes per day: 5.0 Smoking status: Never smoker Tobacco type: cigarettes Smoking end date: 04/01/03 Alcohol intake: current Drinks per week: 1 Substance use: never Substance use type: does not use Lack of Transportation: No Lack of Food: Never True Current Housing: I Have Housing Difficulty Paying Gas/Electric Bills: No Difficulty Paying for Meds: No Currently Unemployed: No Education: High School Diploma/GED Difficulty w/ Childcare or Family Care: No Spiritual care concerns: No Exam Narrative: APPEARANCE: No apparent distress. Well-appearing Head: atraumatic. EYES: EOMI, NOSE: Atraumatic NECK: Trachea midline RESPIRATORY: No increased rate of breathing clear to auscultation CARDIOVASCULAR: RRR, no peripheral edema ABDOMINAL: Non-distended, soft nontender no guarding or rebound, no flank pain MUSCULOSKELETAl: No obvious deformities NEURO: Alert. Cranial nerves 2-12 grossly intact. Sensation light touch, motor function cerebellar function intact for 4 extremities. Gait exam was normal. SKIN:: Warm, dry. Normal color PSYCHIATRIC: Normal affect Course Vital Signs Vital signs: Vital Signs Temperature 98.1 F 01/02/23 20:01 Pulse Rate 66 01/02/23 20:01 Respiratory Rate 18 01/02/23 20:01 Blood Pressure 184/131 H 01/02/23 20:01 Pulse Oximetry 94 01/02/23 20:01 Oxygen Delivery Room Air 01/02/23 20:01 Temperature 98.1 F 01/02/23 20:01 Pulse Rate 61 01/02/23 20:33 Respiratory Rate 14 01/02/23 20:33 Blood Pressure 185/98 H 01/02/23 20:33 Pulse Oximetry 95 01/02/23 20:33 Oxygen Delivery Room Air 01/02/23 20:01 Medical Decision Making MDM Narrative Medical decision making narrative: -Course: a 7-year-old presenting with asymptomatic hypertension and UTI symptoms. Urine was indicative of infection. Patient states that she has had drug-resistant organisms in the past, however we do not have any of these records in our system. Last micro records were from April of 2021 which showed susceptibility to levofloxacin. Patient will be started on levofloxacin and instructed to follow-up with her p
[2023-01-02] MEDS: levoFLOXacin 500 MG TABLET PO (22:18)
== END 2023-01-02 22:21 | disposition home or self-care (01) ==
PROVIDERS: Emergency Provider Emergency Medicine; PCP Family Medicine
DX: N39.0 Urinary tract infection, site not specified (principal); I10 Essential (primary) hypertension; M16.11 Unilateral primary osteoarthritis, right hip; E66.9 Obesity, unspecified; Z68.27 Body mass index [BMI] 27.0-27.9, adult; Z96.641 Presence of right artificial hip joint; Z87.891 Personal history of nicotine dependence
CPT/HCPCS: 81001; 87077; 87086; 87186; 99283; A9270

== ENCOUNTER → 2023-02-15 12:16 | Outpatient (CLI) | payer MEDICARE, SELFPAY ==
--- NOTE | ~2023-02-15 | MR_ITS ---
EXAMINATION: MR brain IAC wo con DATE: 02/15/2023 13:39 INDICATION: Ataxia. TECHNIQUE: Magnetic resonance imaging (MRI) of the brain, brainstem, and internal auditory canals was performed without intravenous contrast. COMPARISON: Head CT 01/17/2021 FINDINGS: There are scattered areas of nonspecific increased T2-weighted signal intensity in the cere bral white matter and mia. There is no intracranial hemorrhage, acute infarction, or abnormal intrac ranial mass lesion. The ventricles are normal in size. There is mild mucosal thickening in the ethmoi d sinuses. There are trace mastoid effusions. The internal auditory canals and inner ears and tympani c cavities are normal. IMPRESSION: 1. Moderate nonspecific cerebral white matter disease and pontine disease, which likely represents ch ronic small vessel ischemic disease. Reviewed, dictated and finalized at location A. ETO ELECTRICIAN IMPRESSION: 1. Moderate nonspecific cerebral white matter disease and pontine disease, whic h likely represents chronic small vessel ischemic disease.
== END ==
PROVIDERS: PCP Family Medicine; Visit Provider Family Medicine
DX: R27.0 Ataxia, unspecified (principal); R90.82 White matter disease, unspecified
CPT/HCPCS: 70551

== ENCOUNTER 2024-03-24 18:43 | Emergency (ER) | payer MEDICARE, SELFPAY ==
[2024-03-24 18:47] VITALS: BP 186/92; PULSE 72; RESP 15; TEMP 36.6; O2SAT 97
[2024-03-24 22:59] VITALS: BP 211/84; PULSE 60; RESP 23; TEMP 36.6; O2SAT 94
[2024-03-24] MEDS: VALSARTAN 160 MG TABLET PO (23:33)
[2024-03-24 23:40] LABS: Basophils Percent Auto 0.4 % (0.2-1.2); Eosinophils Percent Auto 0.7 % (0-4.4); Hematocrit 37.2 % (37.0-47.0); Immature Granulocyte Absolute 0.02 K/mm3 (0.00-0.031); Immature Granulocyte Percent A 0.4 % (0-0.5); Lymphocytes Absolute Auto 0.94 K/mm3 (0.9-3.2); Lymphocytes Percent Auto 16.5 % (18.3-44.2); Mean Corpuscular HGB Conc 32.3 g/dl (32-36); Mean Corpuscular Hemoglobin 27.5 pg (26-34); Mean Corpuscular Volume 85.1 fl (80-100); Mean Platelet Volume 10.2 fl (7.4-10.4); Monocytes Absolute Auto 0.7 K/mm3 (0.1-0.6); Monocytes Percent Auto 11.6 % (2.6-8.5); Neutrophils Percent Auto 70.4 % (45.5-73.1); Platelet Count Result 227 k/mm3 (150-375); Red Blood Count 4.37 M/mm3 (4.2-5.4); Red Cell Distribution Width 15.5 % (11.5-14.5); White Blood Count 5.7 K/mm3 (4.5-10.0)
[2024-03-24 23:49] LABS: Anion Gap 4 mmol/L (4-12); Blood Urea Nitrogen 14 mg/dL (7-17); Carbon Dioxide 31 mmol/L (22-30); Chloride 105 mmol/L (98-107); Estimated CRCL calculation 52 ml/min; Estimated Glomerular Filt Rate > 60; Glucose 97 mg/dL (65-110); Potassium 3.7 mmol/L (3.4-5.0); Sodium 140 mmol/L (137-145)
--- NOTE | 2024-03-24 23:49 | ED.EXTPRO ---
HPI - Extremity Problem General Chief complaint: Extremity Problem,Nontraumatic Stated complaint: DVT rule out R leg Time Seen by Provider: 03/24/24 23:05 History of Present Illness HPI Narrative: 88-year-old female with history of hepatitis-C, hypertension, endometrial cancer, MDD, COPD presents to the emergency department with son at bedside for concerns for DVT to the right lower extremity. Patient has chronic venous stasis aware his compression stockings intermittently. States her daughter and tessa valdez is a nurse and was concerned the patient had a DVT to her right lower extremity so advised to come to the ER for further evaluation. The patient has chronic brawny and edematous lower extremities. She has a history of dementia and so has some difficulty providing history but states she thinks there may be more redness to right lower extremity when compared to normal. She states her right leg feels ?tight? around her calf. She denies history of VTE, chest pain or shortness of breath. She is not anticoagulated. Denies chest pain or shortness of breath. She is on her last dose of amoxicillin for COPD exacerbation. She has not taken her nighttime medications today including her valsartan. Related Data Home Medications ?Medication ?Instructions ?Recorded ?Confirmed ?Last Taken ?Type fosfomycin tromethamine 3 gram 3 g PO 01/04/23 03/19/24 Unknown History oral packet estradiol 0.01% (0.1 mg/gram) vaginal 02/08/23 03/19/24 Unknown History vaginal cream Allergies Allergy/AdvReac Type Severity Reaction Status Date / Time codeine Allergy Unknown Bad dreams Verified 03/24/24 18:44 lisinopril Allergy Unknown Unknown Verified 03/24/24 18:44 ciprofloxacin (From Cipro) AdvReac Itching Verified 03/24/24 18:44 Review of Systems Review of Systems: All systems reviewed & are unremarkable except as noted in HPI and below PMFSH Past Medical History Medical History Arthritis of right hip Obesity (BMI 30.0-34.9) Spinal stenosis Surgical History Surgical History History of arthroplasty of right hip Family History Family History Mother Cancer Father Heart attack Social History Social History Smoking packs per day: 0.25 Smoking cigarettes per day: 5.0 Smoking status: Never smoker Tobacco type: cigarettes Smoking end date: 04/01/03 Alcohol intake: current Drinks per week: 1 Substance use: never Substance use type: does not use Lack of Transportation: No Lack of Food: Never True Current Housing: I Have Housing Difficulty Paying Gas/Electric Bills: No Difficulty Paying for Meds: No Currently Unemployed: No Education: High School Diploma/GED Difficulty w/ Childcare or Family Care: No Spiritual care concerns: No Exam Narrative: GENERAL: Well-appearing, well-nourished, and in no acute distress. HEAD: Normocephalic, atraumatic. EYES: PERRLA and EOMI. ENT: Nares clear, no rhinorrhea or epistaxis. Mucous membranes moist. NECK: Supple. CHEST: Clear to auscultation. No respiratory distress. HEART: Regular rate and rhythm. No murmur heard. Normal peripheral pulses. EXTREMITIES: Hemosiderin deposition and brawny discoloration to BLE. 3+ pitting edema to right lower extremity, 2+ to left lower extremity extending to the proximal tibia. Minimal erythema to the right distal tibia of the right lower extremity with mild warmth and tenderness. Extremities are warm and dry with a cap refill of 2 SKIN: Warm, dry, no rash. NEURO: No focal deficits. Alert and oriented x3 Course Vital Signs Vital signs: Vital Signs Temperature 98 F 03/24/24 18:47 Pulse Rate 72 03/24/24 18:47 Respiratory Rate 15 03/24/24 18:47 Blood Pressure 186/92 H 03/24/24 18:47 Pulse Oximetry 97 03/24/24 18:47 Oxygen Delivery Room Air 03/24/24 18:47 Temperature 98 F 03/25/24 01:01 Pulse Rate 67 03/25/24 01:01 Respiratory Rate 16 03/25/24 01:01 Blood Pressure 189/94 H 03/25/24 01:01 Pulse Oximetry 94 03/25/24 01:01 Oxygen Delivery Room Air 03/24/24 18:47 MDM - Extremity (Nontraumatic) MDM Narrative Medical decision making narrative: 80-year-old female with chronic venous insufficiency and chronic BLE presents to the emergency department to rule out a DVT to the right lower extremity. Patient was sent here by her daughter Raya who is an RN and concerned the patient has a DVT given swelling. Vital significant for hypertension. Pain should denies chest pain or shortness of breath, vision changes. Lab work shows no leukocytosis. Chemistries are unremarkable. Coags normal. D-dimer is elevated 5.37. Unfortunately we do not have ultrasound at this time. Discussed risks versus benefits for starting anticoagulation despite known DVT. Patient and family are agreeable with having a dose of Eliquis in the ED a dose of to the pharmacy tomorrow given the holiday and inability to get an ultrasound immediately tomorrow. She is scheduled for an ultrasound at 7:30 a.m. on March 26 and advised to attend it. She has no signs or symptoms of PE. Additionally patient was found to be hypertensive throughout ED stay. She denies signs or symptoms of hypertensive emergency. Her family admits that she has white coat syndrome and frequently gets anxious at the doctor's. She was given a dose of verbal start in the ED advised to monitor her blood pressure at home and follow-up closely with her PCP. Discussed return precautions. She and her son are agreeable with the plan verbalized understanding. Discharged in stable condition. Lab Data 03/24/24 23:26 03/24/24 23:26 Labs: Lab Results 03/24/24 Range/Units 23:26 WBC 5.7 (4.5-10.0) K/mm3 RBC 4.37 (4.2-5.4) M/mm3 Hgb 12.0 (12.0-15.0) g/dL Hct 37.2 (37.0-47.0) % MCV 85.1 (80-100) fl MCH 27.5 (26-34) pg MCHC 32.3 (32-36) g/dl RDW 15.5 H (11.5-14.5) % Plt Count 227 (150-375) k/mm3 MPV 10.2 (7.4-10.4) fl Immature Gran % (Auto) 0.4 (0-0.5) % Neut % (Auto) 70.4 (45.5-73.1) % Lymph % (Auto) 16.5 L (18.3-44.2) % [place] % (Auto) 11.6 H (2.6-8.5) % Eos % (Auto) 0.7 (0-4.4) % Baso % (Auto) 0.4 (0.2-1.2) % Lymph # (Auto) 0.94 (0.9-3.2) K/mm3 [place] # (Auto) 0.7 H (0.1-0.6) K/mm3 Eos # (Auto) 0.0 (0-0.3) K/mm3 Baso # (Auto) 0.0 (0.0-0.1) K/mm3 Abs Immat Gran (auto) 0.02 (0.00-0.031) K/mm3 Absolute Neuts (auto) 4.0 (1.3-6.7) K/mm3 Absolute Nucleated RBC 0.000 (0.0-0.012) K/mm3 Nucleated RBC % 0.0 (0.0-0.2) % PT 12.8 (11.1-14.7) Seconds INR 0.9 APTT 29.3 (22.3-36.8) Seconds D-Dimer 5.37 H (<0.48) ug/mL Sodium 140 (137-145) mmol/L Potassium 3.7 (3.4-5.0) mmol/L Chloride 105 (98-107) mmol/L Carbon Dioxide 31 H (22-30) mmol/L Anion Gap 4 (4-12) mmol/L BUN 14 D (7-17) mg/dL Creatinine 0.60 L (0.7-1.0) mg/dL Estim Creat Clear Calc 52 ml/min Estimated GFR > 60 (59 - ) Glucose 97 (65-110) mg/dL Calcium 10.0 (8.4-10.2) mg/dL Discharge Plan Discharge Clinical Impression: Edema of right lower extremity, Asymptomatic hypertension Patient Disposition: Home, Self-Care Condition: Stable Instructions: Antibiotic Form, Hypertension (ED) Additional Instructions: Please make sure to go to your ultrasound appointment at [facility] at 7:30 a.m. on March 26. Follow-up closely with her primary care provider. Return to the emergency department if you develop chest pain or shortness of breath, vision changes or other concerning symptoms. Taking medications as directed. Keep a blood pressure log. Stop taking the meloxicam while taking a blood thinner. Patient Language: Yoruba Prescriptions: New Eliquis 5 mg tablet 10 mg PO BID Qty: 4 0RF No Action fosfomycin tromethamine 3 gram packet 3 g PO mupirocin 2 % ointment 1 applic topical BID Qty: 50 2RF estradiol 0.01 % (0.1 mg/gram) cream vaginal mupirocin 2 % ointment 1 applic topical BID Qty: 15 1RF Rx Instructions: apply intranasal on left side 2 nasal septal ulcer b.i.d. betamethasone valerate 0.1 % cream 1 applic topical BID PRN (Reason: itching) Qty: 15 1RF Rx Instructions: use Q-tips to apply to itching ear canal b.i.d. as needed amlodipine 5 mg tablet 5 mg PO DAILY Qty: 90 1RF meclizine 25 mg tablet 25 mg PO QID PRN (Reason: dizziness) Qty: 30 2RF amoxicillin 500 mg capsule 500 mg PO Q8H Qty: 21 1RF albuterol sulfate [Proventil HFA] 90 mcg/actuation Hfa Aerosol Inhaler 1 puff inhalation Q6HRT PRN (Reason: Shortness Of Breath) Qty: 6.7 0RF azelastine 137 mcg (0.1 %) aerosol,spray 137 mcg intranasal Q12H Qty: 90 3RF fluticasone propionate [Flonase Allergy Relief] 50 mcg/actuation spray,suspension 2 spray intranasal DAILY Qty: 54 3RF Rx Instructions: administer into each nostril budesonide-formoterol [Symbicort] 160-4.5 mcg/actuation HFA aerosol inhaler 2 puff inhalation Q12H Qty: 10.2 5RF Rx Instructions: INHALE 2 PUFFS EVERY 12 HOURS valsartan 160 mg tablet See Rx Instructions .ROUTE .COMPLEX Qty: 90 1RF Dose Instruction: TAKE 1 TABLET BY MOUTH EVERY DAY Rx Instructions: TAKE 1 TABLET BY MOUTH EVERY DAY oxybutynin chloride 10 mg tablet extended release 24hr 10 mg PO DAILY Qty: 90 1RF omeprazole 20 mg capsule,delayed release(DR/EC) 20 mg PO DAILY Qty: 90 1RF sertraline 50 mg tablet 50 mg PO DAILY Qty: 90 1RF aspirin 81 mg tablet,delayed release (DR/EC) 81 mg PO DAILY Qty: 90 1RF meloxicam 15 mg tablet 15 mg PO DAILY Qty: 90 3RF Follow-up/Referrals: Kirby Vogel MD [Primary Care Provider] -
[2024-03-24 23:53] LABS: INR 0.9; Prothrombin Time 12.8 Seconds (11.1-14.7)
[2024-03-24 23:55] LABS: Partial Thromboplastin Time 29.3 Seconds (22.3-36.8)
[2024-03-25 00:05] LABS: D Dimer 5.37 ug/mL (<0.48)
[2024-03-25 01:01] VITALS: BP 189/94; PULSE 67; RESP 16; TEMP 36.6; O2SAT 94
[2024-03-25] MEDS: APIXABAN 5 MG TABLET 10 MG PO (01:03)
== END 2024-03-25 01:24 | disposition home or self-care (01) ==
PROVIDERS: Emergency Provider Physician Assistant; PCP Family Medicine
DX: R60.0 Localized edema (principal); I10 Essential (primary) hypertension; J44.9 Chronic obstructive pulmonary disease, unspecified; E66.9 Obesity, unspecified; Z68.28 Body mass index [BMI] 28.0-28.9, adult; F03.90 Unspecified dementia, unspecified severity, without behavioral disturbance, psychotic disturbance, mood disturbance, and anxiety; M16.11 Unilateral primary osteoarthritis, right hip; F32.9 Major depressive disorder, single episode, unspecified; Z96.641 Presence of right artificial hip joint; Z87.891 Personal history of nicotine dependence; Z86.19 Personal history of other infectious and parasitic diseases; Z85.42 Personal history of malignant neoplasm of other parts of uterus; Z79.899 Other long term (current) drug therapy; I87.8 Other specified disorders of veins
CPT/HCPCS: 36415; 80048; 85025; 85380; 85610; 85730; 99283; A9270

== ENCOUNTER 2024-03-26 08:47 | Outpatient (CLI) | payer MEDICARE, SELFPAY ==
--- NOTE | ~2024-03-26 | US_ITS ---
EXAMINATION: US venous doppler LE RT DATE: 03/26/2024 10:00 INDICATION: Right lower limb swelling. TECHNIQUE: Grayscale ultrasound images without and with compression and Doppler ultrasound images of the right lower extremity veins were obtained. COMPARISON: Ultrasound 11/05/2022 FINDINGS: The visualized portions of right common femoral vein, profunda (deep) femoral vein, femoral vein, pop liteal vein, peroneal veins, posterior tibial veins, and greater saphenous vein outflow are patent. T here is a moderate-sized Henry's cyst. IMPRESSION: 1. No deep venous thrombosis. 2. Moderate-sized Henry's cyst. Reviewed, dictated and finalized at location A. PLANT OPERATOR
--- OUTSIDE RECORDS SUMMARY | 2024-04-02 20:21 | XMS_ITS | Encounter Summary ---
Author Organization [facility] Address [address] [place] [address] Care Team Providers Care Percussion Instrument Tuner Name Role Phone Kirby Vogel MD Primary Care Provider [phone] Encounter Details Date Type Department Care Team (Latest Contact Info) Description 07/25/2021 1:43 PM CDT - 07/25/2021 11:59 PM CDT Hospital Encounter [facility] [address] [facility] [address] [place] [address] Ivan Aranda MD [address] [facility] [address] [place] [address] Discharge Disposition: Home or Self Care Social History Tobacco Use Types Packs/Day Years Used Date Smoking Tobacco: Former Cigarettes Q uit: 2004 Smokeless Tobacco: Never Alcohol Use Standard Drinks/Week Comments Yes 1 (1 standard drink = 0.6 oz pur e alcohol) 3-4 oz wine/evening Sex and Gender Information Value Date Recorded Sex Assigned at Not on file Gender Identity Not on file Sexual Orientation Not on file documented as of this encounter Medications at Time of Discharge Medication Sig Dispensed Refills Start Date End Date acetaminophen (TYLENOL) 500 MG tablet Take 1 (one) tablet by mouth every 4 hours as needed for Pain (Take for mild pain. Alternate with [place] for moderate-severe pain.) Maximum allowable Acetaminophen amount = 4 Grams (4000 mg) / 24 hours. 03/16/2021 albuterol HFA (PROVENTIL; VENTOLIN; PROAIR) 108 (90 Base) MCG/ACT inhaler TAKE 1 PUFF BY MOUTH EVERY 6 HOURS NEEDED FOR SHORTNESS OF BREATH 12/20/2020 amLODIPine (NORVASC) 5 MG tablet Take 5 mg by mouth 2 times daily 02/26/2019 aspirin (ASPIRIN) 81 MG chew tabletIndications:Prim kayla osteoarthritis of right hip Take 1 (one) tablet by mouth 2 times daily 60 tablet 03/21/2021 Azelastine HCl 137 MCG/SPRAY SOLN 2 times daily 04/08/2019 Calcium Carb-Cholecalciferol (CALCIUM 500 +D PO) Take by mouth once daily calcium citrate TABS tablet Take 400 mg by mouth once daily famotidine (PEPCID) 20 MG tabletIndications:Prim kayla osteoarthritis of right hip Take 1 (one) tablet by mouth once daily 30 tablet 03/21/2021 Fexofenadine HCl (RENU PO) Take by mouth once daily LORazepam (ATIVAN) 0.5 MG tablet Take 1 tablet by mouth once daily as needed 03/17/2019 meloxicam (MOBIC) 15 MG tablet Take 1 tablet by mouth once daily 03/31/2021 Multiple Vitamins-Calcium (ONE-A-DAY WOMENS PO) Take by mouth once daily ufcbndni-nbwsolyphn-tn lymyxin (NEOSPORIN) 400-5-5000 topical ointment Apply to affected area 3 times daily Affected area: right groin 100 g 03/21/2021 nitrofurantoin macrocrystal (MACRODANTIN) 50 MG capsule Take 1 capsule by mouth once daily 07/25/2021 oxybutynin CR 24hr (DITROPAN-XL) 10 MG tablet Take 1 tablet by mouth once daily 02/09/2019 Polyethylene Glycol 3350 (MIRALAX PO) Take by mouth as needed sertraline (ZOLOFT) 25 MG tablet Take 25 mg by mouth once daily 01/17/2019 sulfamethoxazole-trime thoprim (BACTRIM DS; SEPTRA DS) 800-160 MG tablet Take 1 (one) tablet by mouth every 12 hours 14 tablet 03/21/2021 SYMBICORT 160-4.5 MCG/ACT inhaler Inhale 2 puffs by mouth every 12 hours 03/20/2019 valsartan (DIOVAN) 80 MG tablet Take 160 mg by mouth once daily 03/17/2019 ASPIRIN LOW DOSE 81 MG tablet Take 81 mg by mouth once daily as needed 06/05/2021 08/11/2021 celecoxib (CELEBREX) 100 MG capsule Take 1 (one) capsule by mouth 2 times daily 60 capsule 03/21/2021 08/11/2021 docusate sodium (COLACE) 100 MG capsuleIndications:Carol jacky osteoarthritis of right hip Take 1 (one) capsule by mouth 2 times daily 60 capsule 03/21/2021 08/11/2021 HYDROcodone-acetaminop hen (NORCO) 5-325 MG tablet Take 1 (one) tablet by mouth every 4 hours as needed for Pain (Take for moderate-severe pain only. Alternate with tylenol for mild pain.) 42 tablet 03/21/2021 08/11/2021 documented as of this encounter Plan of Treatment Not on file documented as of this encounter Goals Goal Patient Goal Type Associated Problems Recent Progress Patient-Stated? Author Medication Management General On track( 020 11:28 AM CDT) Analisa Diallo, RN Note: Expected end date: ongoing Interventions: Complete Hepatitis C therapy as prescribed documented as of this encounter Procedures Procedure Name Priority Date/Time Associated Diagnosis Comments XR PELVIS W RIGHT HIP 2VW Routine 07/25/2021 1:45 PM CDT History of total right hip replacement documented in this encounter Results * XR PELVIS W RIGHT HIP 2VW (07/25/2021 1:45 PM CDT) Anatomical Region Laterality Modality Pelvis Radiographic Nicci ging 07/25/2021 1:53 PM CDT Impressions 07/25/2021 1:54 PM CDT Right total hip replacement. *Reading Radiologist: Mitchell Fairbanks on 07/25/2021 at 1:54 PM Narrative 07/25/2021 1:54 PM CDT Right hip and pelvis 3 views INDICATION: Pain FINDINGS: Again noted are changes of right total hip replacement. The prosthesis appears in good position. There is no fracture or loosening. Pubic rami are intact. The left side of the bony pelvis is intact. Extensive vascular calcifications are noted. Procedure Note Mitchell Fairbanks MD - 07/25/2021 Right hip and pelvis 3 views INDICATION: Pain FINDINGS: Again noted are changes of right total hip replacement. The prosthesis appears in good position. There is no fracture or loosening. Pubic rami are intact. The left side of the bony pelvis is intact. Extensive vascular calcifications are noted. IMPRESSION Right total hip replacement. *Reading Radiologist: Mitchell Fairbanks on 07/25/2021 at 1:54 PM Ivan Aranda MD DIAGNOSTIC IMAGING ORDERABLES documented in this encounter Visit Diagnoses Diagnosis History of total right hip replacement documented in this encounter Care Teams Percussion Instrument Tuner Relationship Specialty Start Date End Date Kirby Vogel MD [address] [place] [id number] PCP - General Family Medicine 01/26/19 documented as of this encounter
--- OUTSIDE RECORDS SUMMARY | 2024-04-02 20:21 | XMS_ITS | Patient Health Summary ---
Author Organization [facility] Address [address] [place] [address] Care Team Providers Care Dock Guard Name Role Phone Kirby Vogel MD Primary Care Provider [phone] Note from [facility],non-owned Affiliates and Associated Physician Practices is amultiple site organization consisting of ambulatory clinics and hospital sitesin [place], [place], [place] and [place]. This disclosure is being madepursuant to the Care Everywhere program and may not contain all information available regarding this patient. Last updated 17.[facility] Allergies * Codeine(Other) Medications * Be aware that medications may not be up to date on this document. Alwaysverify current medications with the patient. * amLODIPine (NORVASC) 5 MG tablet(Started 02/26/2019) Take 5 mg by mouth 2 times daily * Azelastine HCl 137 MCG/SPRAY SOLN(Started 04/08/2019) 2 times daily * SYMBICORT 160-4.5 MCG/ACT inhaler(Started 03/20/2019) Inhale 2 puffs by mouth every 12 hours * LORazepam (ATIVAN) 0.5 MG tablet(Started 03/17/2019) Take 1 tablet by mouth once daily as needed * valsartan (DIOVAN) 80 MG tablet(Started 03/17/2019) Take 160 mg by mouth once daily * oxybutynin CR 24hr (DITROPAN-XL) 10 MG tablet(Started 02/09/2019) Take 1 tablet by mouth once daily * sertraline (ZOLOFT) 25 MG tablet(Started 01/17/2019) Take 25 mg by mouth once daily * Multiple Vitamins-Calcium (ONE-A-DAY WOMENS PO) Take by mouth once daily * Calcium Carb-Cholecalciferol (CALCIUM 500 +D PO) Take by mouth once daily * Polyethylene Glycol 3350 (MIRALAX PO) Take by mouth as needed * Fexofenadine HCl (RENU PO) Take by mouth once daily * albuterol HFA (PROVENTIL; VENTOLIN; PROAIR) 108 (90 Base) MCG/ACT inhaler (Started 12/20/2020) TAKE 1 PUFF BY MOUTH EVERY 6 HOURS NEEDED FOR SHORTNESS OF BREATH * calcium citrate TABS tablet Take 400 mg by mouth once daily * acetaminophen (TYLENOL) 500 MG tablet(Started 03/16/2021) Take 1 (one) tablet by mouth every 4 hours as needed for Pain (Take for mild pain. Alternate with [place] for moderate-severe pain.) Maximum allowable Acetaminophen amount = 4 Grams (4000 mg) / 24 hours. * famotidine (PEPCID) 20 MG tablet(Started 03/21/2021) Take 1 (one) tablet by mouth once daily * sulfamethoxazole-trimethoprim (BACTRIM DS; SEPTRA DS) 800-160 MG tablet (Started 03/21/2021) Take 1 (one) tablet by mouth every 12 hours * aspirin (ASPIRIN) 81 MG chew tablet(Started 03/21/2021) Take 1 (one) tablet by mouth 2 times daily * ezzjvcru-duvktoyfil-dwpwwtrhm (NEOSPORIN) 400-5-5000 topical ointment(Started 03/21/2021) Apply to affected area 3 times daily Affected area: right groin * nitrofurantoin macrocrystal (MACRODANTIN) 50 MG capsule(Started 07/25/2021) Take 1 capsule by mouth once daily * meloxicam (MOBIC) 15 MG tablet(Started 03/31/2021) Take 1 tablet by mouth once daily Active Problems Problem Noted Date Diagnosed Date Primary osteoarthritis of right hip 03/16/2021 Essential hypertension 04/10/2019 Depression 04/10/2019 Pulmonary emphysema 04/10/2019 Chronic hepatitis C without hepatic coma 020 Immunizations * Covid Moderna primary monovalent 12+ yr 0.5mL(Given 02/10/2021, 06/11/2020, 05/14/2020) * INFLUENZA VACCINE, CELL CULTURE, TRIV. (FLUCELVAX TRIVALENT; 6MO+), 0.5 ML (CCIIV3)(Given 12/26/2017, 12/12/2016, 12/29/2015) * INFLUENZA VACCINE, HIGH-DOSE, QUADR. (FLUZONE HIGH-DOSE QUADRIVALENT; 65Y+), 0.7 ML (HD-IIV4)(Given 12/02/2020) * Pneumococcal Pcv13 Conj(Given 12/29/2015) * iNFLUENZA VACCINE, RECOM-BRANDON, QUADR. (FLUBLOCK QUADRIVALENT; 18Y+) (RIV4)(Given 01/29/2019) Social History Tobacco Use Types Packs/Day Years Used Date Smoking Tobacco: Former Cigarettes Q uit: 2005 Smokeless Tobacco: Never Alcohol Use Standard Drinks/Week Comments Yes 1 (1 standard drink = 0.6 oz pur e alcohol) 3-4 oz wine/evening Sex and Gender Information Value Date Recorded Sex Assigned at Not on file Gender Identity Not on file Sexual Orientation Not on file Last Filed Vital Signs Vital Sign Reading Time Taken Comments Blood Pressure 150/77 03/21/2021 9:53 AM U.S. REPRESENTATIVE Pulse 73 03/21/2021 9:53 AM U.S. REPRESENTATIVE Temperature 36.6 ??C (97.8 ??F) 03/21/2021 9:53 AM CS T Respiratory Rate 18 03/21/2021 9:53 AM U.S. REPRESENTATIVE Oxygen Saturation 96% 03/21/2021 9:53 AM U.S. REPRESENTATIVE Inhaled Oxygen Concentration - - Weight 68.5 kg (151 lb) 08/11/2021 12:29 PM CDT Height 157.5 cm (5' 2 ) 08/11/2021 12:29 PM CDT Body Mass Index 27.62 08/11/2021 12:29 PM CDT Medical Devices Implanted Type Area Residential Collections Device Identifier Shelf Expiration Date Model / Serial / Lot Shell Actb 54mm Hip 3 Hl Por R3 Std Implanted:Qty: 1 on 03/16/2021 by Ivan Aranda MD at [facility] Right: Hip [employer] 05/19/2030 [id number] / / [id number] Screw 6.5mm 40mm Sphrcl Head Hip Actb Implanted:Qty: 1 on 03/16/2021 by Ivan Aranda MD at [facility] Right: Hip [employer] 11/13/2030 [id number] / / [id number] Description:ak Dual Mobility Liner Oxinium Dh Implanted:Qty: 1 on 03/16/2021 by Ivan Aranda MD at [facility] Right: Hip [employer] 04/06/2030 [id number] / / [id number] Description:ak Dual Mobility Insert Xlpe Implanted:Qty: 1 on 03/16/2021 by Ivan Aranda MD at [facility] Right: Hip [employer] 02/22/2030 [id number] / / [id number] Description:ak Polarstem Stem Standard With Ti/Brandon Implanted:Qty: 1 on 03/16/2021 by Ivan Aranda MD at [facility] Right: Hip [employer] 07/19/2027 75 100 [id number] / / [id number] Description:ak Hd Fem Oxidized 03/14 Tapr +0 28mm Implanted:Qty: 1 on 03/16/2021 by Ivan Aranda MD at [facility] Right: Hip [employer] 09/20/2030 [id number] / / [id number] Description:ak Procedures * XR LUMBAR SPINE 2 OR 3VW(Performed 08/11/2021) Performed for Low back pain, unspecified back pain laterality, unspecified chronicity, unspecified whether sciatica present * XR CERVICAL SPINE 2 OR 3VW(Performed 08/11/2021) Performed for Neck pain * XR PELVIS W RIGHT HIP 2VW(Performed 07/25/2021) Performed for History of total right hip replacement * XR PELVIS 1 OR 2VW(Performed 04/25/2021) Performed for Primary osteoarthritis of right hip * XR HIP RIGHT 2VW OR MORE(Performed 04/25/2021) Performed for Primary osteoarthritis of right hip * CARDIAC RHYTHM STRIP ORDER(Performed 03/23/2021) * APHERESIS/TRANSFUSION ORDER(Performed 03/23/2021) * IMAGING/RADIOLOGY/XRAY RESULTS ORDER(Performed 03/22/2021) * SARS-COV-2 (COVID-19) RAPID(Performed 03/21/2021) Performed for Primary osteoarthritis of right hip * HEMOGLOBIN(Performed 03/18/2021) Performed for Primary osteoarthritis of right hip * HEMOGLOBIN(Performed 03/17/2021) Performed for Primary osteoarthritis of right hip * XR PELVIS 1 OR 2VW(Performed 03/16/2021) Performed for Primary osteoarthritis of right hip * ENDOTRACHEAL TUBE NOTE(Performed 03/16/2021) * PERIPHERAL BLOCK(Performed 03/16/2021) * BLOOD TYPE VERIFICATION(Performed 03/16/2021) * UT TOTAL HIP REPLACEMENT(Performed 03/16/2021) Performed for Diagnosis unknown * URINE MICROSCOPIC ONLY REFLEX TO CULTURE(Performed 03/13/2021) Performed for Essential hypertension * URINALYSIS REFLEX MICROSCOPIC REFLEX CULTURE(Performed 03/13/2021) Performed for Essential hypertension * CULTURE URINE(Performed 03/13/2021) Performed for Essential hypertension * XR PELVIS 1 OR 2VW(Performed 03/02/2021) Performed for Primary osteoarthritis of right hip * TYPE + SCREEN PANEL(Performed 03/02/2021) Performed for Pre-op testing * URINE MICROSCOPIC ONLY REFLEX TO CULTURE(Performed 03/02/2021) Performed for Pre-op testing * HEMOGLOBIN A1C(Performed 03/02/2021) Performed for Pre-op testing * FRUCTOSAMINE(Performed 03/02/2021) Performed for Pre-op testing * TRANSFERRIN(Performed 03/02/2021) Performed for Pre-op testing * URINALYSIS REFLEX MICROSCOPIC REFLEX CULTURE(Performed 03/02/2021) Performed for Pre-op testing * COMPREHENSIVE METABOLIC PANEL(Performed 03/02/2021) Performed for Pre-op testing * CBC W AUTO DIFFERENTIAL(Performed 03/02/2021) Performed for Pre-op testing * CULTURE URINE(Performed 03/02/2021) Performed for Pre-op testing * CULTURE MSSA/MRSA(Performed 03/02/2021) Performed for Pre-op testing * XR PELVIS 1 OR 2VW(Performed 01/10/2021) Performed for Arthralgia of hip, unspecified laterality * XR HIP RIGHT 2VW OR MORE(Performed 01/10/2021) Performed for Arthralgia of hip, unspecified laterality * HEPATITIS C RNA QUANTITATIVE(Performed 09/22/2020) Performed for Chronic hepatitis C without hepatic coma (HCC) * COMPREHENSIVE METABOLIC PANEL(Performed 09/22/2020) Performed for Chronic hepatitis C without hepatic coma (HCC) * CBC W AUTO DIFFERENTIAL(Performed 09/22/2020) Performed for Chronic hepatitis C without hepatic coma (HCC) * HEPATITIS C RNA QUANTITATIVE(Performed 02/16/2020) Performed for Chronic hepatitis C without hepatic coma (HCC) * COMPREHENSIVE METABOLIC PANEL(Performed 02/16/2020) Performed for Chronic hepatitis C without hepatic coma (HCC) * CBC W AUTO DIFFERENTIAL(Performed 02/16/2020) Performed for Chronic hepatitis C without hepatic coma (HCC) * HEPATITIS C RNA QUANTITATIVE(Performed 12/03/2019) Performed for Chronic hepatitis C without hepatic coma (HCC) * COMPREHENSIVE METABOLIC PANEL(Performed 12/03/2019) Performed for Chronic hepatitis C without hepatic coma (HCC) * CBC W AUTO DIFFERENTIAL(Performed 12/03/2019) Performed for Chronic hepatitis C without hepatic coma (HCC) * HEPATITIS C RNA QUANTITATIVE(Performed 09/29/2019) Performed for Chronic hepatitis C without hepatic coma (HCC) * COMPREHENSIVE METABOLIC PANEL(Performed 09/29/2019) Performed for Chronic hepatitis C without hepatic coma (HCC) * CBC W AUTO DIFFERENTIAL(Performed 09/29/2019) Performed for Chronic hepatitis C without hepatic coma (HCC) * UT LIVER ELASTOGRAPHY(Performed 06/12/2019) Performed for Chronic hepatitis C without hepatic coma (HCC) * HEPATITIS C GENOTYPE(Performed 04/13/2019) Performed for Chronic hepatitis C without hepatic coma (HCC) * HEPATITIS C RNA QUANTITATIVE(Performed 04/13/2019) Performed for Chronic hepatitis C without hepatic coma (HCC) * HEPATITIS B CORE ANTIBODY TOTAL(Performed 04/13/2019) Performed for Chronic hepatitis C without hepatic coma (HCC) * HEPATITIS B SURFACE ANTIBODY QUANT(Performed 04/13/2019) Performed for Chronic hepatitis C without hepatic coma (HCC) * HEPATITIS A ANTIBODY(Performed 04/13/2019) Performed for Chronic hepatitis C without hepatic coma (HCC) * HEPATITIS B SURFACE ANTIGEN W RFLX CONFIRMATION(Performed 04/13/2019) Performed for Chronic hepatitis C without hepatic coma (HCC) * PT-INR(Performed 04/13/2019) Performed for Chronic hepatitis C without hepatic coma (HCC) * COMPREHENSIVE METABOLIC PANEL(Performed 04/13/2019) Performed for Chronic hepatitis C without hepatic coma (HCC) * CBC W AUTO DIFFERENTIAL(Performed 04/13/2019) Performed for Chronic hepatitis C without hepatic coma (HCC) Results * XR LUMBAR SPINE 2 OR 3VW (08/11/2021 12:16 PM CDT) Anatomical Region Laterality Modality Spine Radiographic Nicci ging 08/11/2021 12:3 1 PM CDT Impressions 08/11/2021 12:38 PM CDT 1. Degenerative disc and joint disease of cervical and lumbar spine as discussed in detail in the text. 2. No fracture or acute process is identified. 3. Please see text for additional chronic findings. *Reading Radiologist: Samson Gallardo on 08/11/2021 at 12:38 PM Narrative 08/11/2021 12:38 PM CDT XR CERVICAL SPINE, AP, LATERAL AND ODONTOID VIEWS, XR LUMBAR SPINE, AP, LATERAL AND LATERAL L5-S1 CONED-DOWN VIEWS HISTORY: Cervicalgia, low back pain COMPARISON: None. FINDINGS: CERVICAL SPINE: The head is tilted and rotated to the left side and the chin is elevated obscuring the upper cervical spine on frontal view. C1 through superior endplate of T1 are visible on the lateral view. There is exaggerated lordosis of the cervical spine. Degenerative grade 1 retrolisthesis of C3 on C4, grade 1 anterolisthesis of C4 on C5 and a step-off anterolisthesis of C6 and C7 and C7 on T1 are noted. All the vertebral bodies are normal in heights. ??There is moderate degenerative disc disease at C6-C7 and mild degenerative disc disease of other levels. No fracture, perched facet or suspicious intrinsic bony lesion is identified. There is no evidence of prevertebral soft tissue swelling or predental widening. Atherosclerotic calcifications of right carotid bifurcation at C4 level are noted. Moderate to severe degenerative changes of facets and uncovertebral joints are seen at all levels from C4 through C7. The facets and uncovertebral joints are obscured by the scar in upper cervical spine and frontal view. The odontoid process is not well seen on lateral or odontoid views. There is no subluxation of the lateral masses of C1 about C2. ??The upper ribs and upper lungs are unremarkable as visualized. LUMBAR SPINE: There are 5 ans-hed-ysloldq lumbar type vertebrae. There is convex dextroscoliosis of thoracolumbar spine centered at L2. Severe degenerative disc disease at all levels and lower lumbar facet osteoarthritis are noted. Lordosis of the lumbar spine is maintained and no spondylolisthesis is visible. No fracture or suspicious intrinsic bony lesion is identified. Lower lumbar facet osteoarthritis with bony neural foraminal stenosis at the same levels is noted. There is symmetric osteoarthritis of the sacroiliac joints, right total hip arthroplasty and extensive atherosclerotic calcifications of the abdominal aorta and iliac arteries. Numerous calcified splenic granulomata consistent with chronic granulomatous scarring and abundant stool are noted.. Procedure Note Samson Gallardo MD - 08/11/2021 XR CERVICAL SPINE, AP, LATERAL AND ODONTOID VIEWS, XR LUMBAR SPINE, AP, LATERAL AND LATERAL L5-S1 CONED-DOWN VIEWS HISTORY: Cervicalgia, low back pain COMPARISON: None. FINDINGS: CERVICAL SPINE: The head is tilted and rotated to the left side and the chin is elevated obscuring the upper cervical spine on frontal view. C1 through superior endplate of T1 are visible on the lateral view. There is exaggerated lordosis of the cervical spine. Degenerative grade 1 retrolisthesis of C3 on C4, grade 1 anterolisthesis of C4 on C5 and a step-off anterolisthesis of C6 and C7 and C7 on T1 are noted. All the vertebral bodies are normal in heights. There is moderate degenerative disc disease at C6-C7 and mild degenerative disc disease of other levels. No fracture, perched facet or suspicious intrinsic bony lesion is identified. There is no evidence of prevertebral soft tissue swelling or predental widening. Atherosclerotic calcifications of right carotid bifurcation at C4 level are noted. Moderate to severe degenerative changes of facets and uncovertebral joints are seen at all levels from C4 through C7. The facets and uncovertebral joints are obscured by the scar in upper cervical spine and frontal view. The odontoid process is not well seen on lateral or odontoid views. There is no subluxation of the lateral masses of C1 about C2. The upper ribs and upper lungs are unremarkable as visualized. LUMBAR SPINE: There are 5 klz-lad-osswyvb lumbar type vertebrae. There is convex dextroscoliosis of thoracolumbar spine centered at L2. Severe degenerative disc disease at all levels and lower lumbar facet osteoarthritis are noted. Lordosis of the lumbar spine is maintained and no spondylolisthesis is visible. No fracture or suspicious intrinsic bony lesion is identified. Lower lumbar facet osteoarthritis with bony neural foraminal stenosis at the same levels is noted. There is symmetric osteoarthritis of the sacroiliac joints, right total hip arthroplasty and extensive atherosclerotic calcifications of the abdominal aorta and iliac arteries. Numerous calcified splenic granulomata consistent with chronic granulomatous scarring and abundant stool are noted.. IMPRESSION 1. Degenerative disc and joint disease of cervical and lumbar spine as discussed in detail in the text. 2. No fracture or acute process is identified. 3. Please see text for additional chronic findings. *Reading Radiologist: Samson Gallardo on 08/11/2021 at 12:38 PM Catalino Martin MD DIAGNOSTIC IMAGING O RDERABLES * XR CERVICAL SPINE 2 OR 3VW (08/11/2021 12:16 PM CDT) Anatomical Region Laterality Modality Spine Radiographic Nicci ging 08/11/2021 12:3 1 PM CDT Impressions 08/11/2021 12:38 PM CDT 1. Degenerative disc and joint disease of cervical and lumbar spine as discussed in detail in the text. 2. No fracture or acute process is identified. 3. Please see text for additional chronic findings. *Reading Radiologist: Samson Gallardo on 08/11/2021 at 12:38 PM Narrative 08/11/2021 12:38 PM CDT XR CERVICAL SPINE, AP, LATERAL AND ODONTOID VIEWS, XR LUMBAR SPINE, AP, LATERAL AND LATERAL L5-S1 CONED-DOWN VIEWS HISTORY: Cervicalgia, low back pain COMPARISON: None. FINDINGS: CERVICAL SPINE: The head is tilted and rotated to the left side and the chin is elevated obscuring the upper cervical spine on frontal view. C1 through superior endplate of T1 are visible on the lateral view. There is exaggerated lordosis of the cervical spine. Degenerative grade 1 retrolisthesis of C3 on C4, grade 1 anterolisthesis of C4 on C5 and a step-off anterolisthesis of C6 and C7 and C7 on T1 are noted. All the vertebral bodies are normal in heights. ??There is moderate degenerative disc disease at C6-C7 and mild degenerative disc disease of other levels. No fracture, perched facet or suspicious intrinsic bony lesion is identified. There is no evidence of prevertebral soft tissue swelling or predental widening. Atherosclerotic calcifications of right carotid bifurcation at C4 level are noted. Moderate to severe degenerative changes of facets and uncovertebral joints are seen at all levels from C4 through C7. The facets and uncovertebral joints are obscured by the scar in upper cervical spine and frontal view. The odontoid process is not well seen on lateral or odontoid views. There is no subluxation of the lateral masses of C1 about C2. ??The upper ribs and upper lungs are unremarkable as visualized. LUMBAR SPINE: There are 5 otm-kgd-pvpfltf lumbar type vertebrae. There is convex dextroscoliosis of thoracolumbar spine centered at L2. Severe degenerative disc disease at all levels and lower lumbar facet osteoarthritis are noted. Lordosis of the lumbar spine is maintained and no spondylolisthesis is visible. No fracture or suspicious intrinsic bony lesion is identified. Lower lumbar facet osteoarthritis with bony neural foraminal stenosis at the same levels is noted. There is symmetric osteoarthritis of the sacroiliac joints, right total hip arthroplasty and extensive atherosclerotic calcifications of the abdominal aorta and iliac arteries. Numerous calcified splenic granulomata consistent with chronic granulomatous scarring and abundant stool are noted.. Procedure Note Samson Gallardo MD - 08/11/2021 XR CERVICAL SPINE, AP, LATERAL AND ODONTOID VIEWS, XR LUMBAR SPINE, AP, LATERAL AND LATERAL L5-S1 CONED-DOWN VIEWS HISTORY: Cervicalgia, low back pain COMPARISON: None. FINDINGS: CERVICAL SPINE: The head is tilted and rotated to the left side and the chin is elevated obscuring the upper cervical spine on frontal view. C1 through superior endplate of T1 are visible on the lateral view. There is exaggerated lordosis of the cervical spine. Degenerative grade 1 retrolisthesis of C3 on C4, grade 1 anterolisthesis of C4 on C5 and a step-off anterolisthesis of C6 and C7 and C7 on T1 are noted. All the vertebral bodies are normal in heights. There is moderate degenerative disc disease at C6-C7 and mild degenerative disc disease of other levels. No fracture, perched facet or suspicious intrinsic bony lesion is identified. There is no evidence of prevertebral soft tissue swelling or predental widening. Atherosclerotic calcifications of right carotid bifurcation at C4 level are noted. Moderate to severe degenerative changes of facets and uncovertebral joints are seen at all levels from C4 through C7. The facets and uncovertebral joints are obscured by the scar in upper cervical spine and frontal view. The odontoid process is not well seen on lateral or odontoid views. There is no subluxation of the lateral masses of C1 about C2. The upper ribs and upper lungs are unremarkable as visualized. LUMBAR SPINE: There are 5 ggj-tkl-vsudkwm lumbar type vertebrae. There is convex dextroscoliosis of thoracolumbar spine centered at L2. Severe degenerative disc disease at all levels and lower lumbar facet osteoarthritis are noted. Lordosis of the lumbar spine is maintained and no spondylolisthesis is visible. No fracture or suspicious intrinsic bony lesion is identified. Lower lumbar facet osteoarthritis with bony neural foraminal stenosis at the same levels is noted. There is symmetric osteoarthritis of the sacroiliac joints, right total hip arthroplasty and extensive atherosclerotic calcifications of the abdominal aorta and iliac arteries. Numerous calcified splenic granulomata consistent with chronic granulomatous scarring and abundant stool are noted.. IMPRESSION 1. Degenerative disc and joint disease of cervical and lumbar spine as discussed in detail in the text. 2. No fracture or acute process is identified. 3. Please see text for additional chronic findings. *Reading Radiologist: aSmson Gallardo on 08/11/2021 at 12:38 PM Catalino Martin MD DIAGNOSTIC IMAGING O RDERABLES * XR PELVIS W RIGHT HIP 2VW [...] PM Ivan Aranda MD DIAGNOSTIC IMAGING ORDERABLES * XR PELVIS 1 OR 2VW (04/25/2021 12:45 PM U.S. REPRESENTATIVE) Only the most recent of4 resultswithin the time period is included. Anatomical Region Laterality Modality Pelvis Radiographic Nicci ging 04/25/2021 1:06 PM U.S. REPRESENTATIVE Impressions 04/25/2021 1:08 PM U.S. REPRESENTATIVE IMPRESSION: Interval right total hip arthroplasty. This report was electronically signed by SPIKE DOHERTY MD ??on 04/25/2021 1:08 PM . Narrative 04/25/2021 1:08 PM U.S. REPRESENTATIVE Exam: XR HIP RIGHT 2VW XR PELVIS 1 VW History: ??M16.11: Primary osteoarthritis of right hip Comparison: 01/10/2021. Findings: Right hip: Interval total hip arthroplasty. The prosthetic components are intact. There is no fracture or dislocation. Vascular calcification. Pelvis: No pelvic fracture. Mild degenerative change at the sacroiliac joints, pubic symphysis, left hip. Extensive atherosclerotic disease. Procedure Note Spike Doherty MD - 04/25/2021 Exam: XR HIP RIGHT 2VW XR PELVIS 1 VW History: M16.11: Primary osteoarthritis of right hip Comparison: 01/10/2021. Findings: Right hip: Interval total hip arthroplasty. The prosthetic components are intact. There is no fracture or dislocation. Vascular calcification. Pelvis: No pelvic fracture. Mild degenerative change at the sacroiliac joints, pubic symphysis, left hip. Extensive atherosclerotic disease. IMPRESSION: Interval right total hip arthroplasty. This report was electronically signed by SPIKE DOHERTY MD on04/25/2021 1:08 PM . Ivan Aranda MD DIAGNOSTIC IMAGING ORDERABLES * XR HIP RIGHT 2VW OR MORE (04/25/2021 12:45 PM U.S. REPRESENTATIVE) Only the most recent of2 resultswithin the time period is included. Anatomical Region Laterality Modality Pelvis, Lower Extremity Radiogra phic Imaging 04/25/2021 1:06 PM U.S. REPRESENTATIVE Impressions 04/25/2021 1:08 PM U.S. REPRESENTATIVE IMPRESSION: Interval right total hip arthroplasty. This report was electronically signed by SPIKE DOHERTY MD ??on 04/25/2021 1:08 PM . Narrative 04/25/2021 1:08 PM U.S. REPRESENTATIVE Exam: XR HIP RIGHT 2VW XR PELVIS 1 VW History: ??M16.11: Primary osteoarthritis of right hip Comparison: 01/10/2021. Findings: Right hip: Interval total hip arthroplasty. The prosthetic components are intact. There is no fracture or dislocation. Vascular calcification. Pelvis: No pelvic fracture. Mild degenerative change at the sacroiliac joints, pubic symphysis, left hip. Extensive atherosclerotic disease. Procedure Note Spike Doherty MD - 04/25/2021 Exam: XR HIP RIGHT 2VW XR PELVIS 1 VW History: M16.11: Primary osteoarthritis of right hip Comparison: 01/10/2021. Findings: Right hip: Interval total hip arthroplasty. The prosthetic components are intact. There is no fracture or dislocation. Vascular calcification. Pelvis: No pelvic fracture. Mild degenerative change at the sacroiliac joints, pubic symphysis, left hip. Extensive atherosclerotic disease. IMPRESSION: Interval right total hip arthroplasty. This report was electronically signed by SPIKE DOHERTY MD on04/25/2021 1:08 PM . Ivan Aranda MD DIAGNOSTIC IMAGING ORDERABLES * CARDIAC RHYTHM STRIP ORDER (03/23/2021 11:45 AM U.S. REPRESENTATIVE) Narrative 03/23/2021 11:45 AM U.S. REPRESENTATIVE Ordered by an unspecified provider. Scanned Document CARDIAC SERVICES ORD ERABLES * APHERESIS/TRANSFUSION ORDER (03/23/2021 11:45 AM U.S. REPRESENTATIVE) Narrative 03/23/2021 11:45 AM U.S. REPRESENTATIVE Ordered by an unspecified provider. Scanned Document NURSING - VITAL SIGN S AND ASSESSMENT * IMAGING RADIOLOGY XRAY RESULTS ORDER (03/22/2021 4:49 PM U.S. REPRESENTATIVE) Anatomical Region Laterality Modality Other Narrative 03/22/2021 4:49 PM U.S. REPRESENTATIVE Ordered by an unspecified provider. Scanned Document IMAGING * SARS-COV-2 (COVID-19) RAPID (03/21/2021 11:52 AM U.S. REPRESENTATIVE) COVID-19 PCR Not detected Not detected 03/21/20 12:42 PM U.S. REPRESENTATIVE [facility] Microbiology SPECIMEN FROM NASOPHARYNGEAL STRUCTURE / Unknown Collection / Unknown 03/21/2021 11:52 AM U.S. REPRESENTATIVE 03/21/2021 11:59 AM U.S. REPRESENTATIVE Narrative [facility] - 03/21/2021 12:42 PM U.S. REPRESENTATIVE The Cepheid Xpert Xpress SARS-COV-2 has been authorized by the Food and Drug Administration (FDA) under an Emergency Use Authorization (EUA). This test has been validated in accordance with the FDA's guidance document Policy for Diagnostic Testing in Laboratories Certified to perform High Complexity Testing under CLIA prior to Emergency Use Authorization for Coronavirus Disease-2019 during the Public Health Emergency issued on May 30, 2019. FDA independent review of this validation is pending. This test is only authorized for the duration of the time the declaration that circumstances exist justifying the authorization of emergency use of in vitro diagnostic tests for detection of SARS-COV-2 virus and/or diagnosis of COVID-19 infection under 564(b) (1) of the Act. 21 U.S.C. 360bbb-3 (b) (1), unless the authorization is terminated or revoked sooner. Fact Sheets for this EUA assay are available upon request. Ivan Aranda MD LAB - MICROBIOLOGY ORDERABLES Performing Organization Address [facility] de Phone Number [facility] [address] [place] [address] * (ABNORMAL) HEMOGLOBIN (03/18/2021 3:54 AM U.S. REPRESENTATIVE) Only the most recent of2 resultswithin the time period is included. Hemoglobin 7.6(L) 12.0 - 15.6 gm/dL 03/18/2021 4:29 AM U.S. REPRESENTATIVE [facility] Blood BLOOD SPECIMEN / Unknown Lab Venipuncture / Unknown 03/18/2021 3:54 AM U.S. REPRESENTATIVE 03/18/2021 4:21 AM U.S. REPRESENTATIVE Ivan Aranda MD LAB - HEMATOLOGY OR DERABLES Performing Organization Address [facility] de Phone Number [facility] [address] [place] [address] * ETT LINE PERFORMABLE (03/16/2021 7:54 AM U.S. REPRESENTATIVE) Narrative Gwendolyn Domínguez APRN-WET MACHINE TENDER - 03/16/2021 7:54 AM U.S. REPRESENTATIVE Gwendolyn Domínguez APRN-WET MACHINE TENDER ? 03/16/2021 ??7:59 AM Endotracheal Tube Placement: ? Patient Location: OR. Intubation Event Date/Time: ??03/16/2021 7:29 AM Procedure: intubation (07025). Procedure Section: ?? Sedation: IV sedation. Indications for Airway Management: ??airway protection Induction: standard IV Patient Position: ??sniffing and supine Mask Ventilation: easy. Blade Type: Dede Blade Size: 3 Laryngoscopy View: grade 4 (unable to view) Intubation Adjuncts: stylet and video laryngoscope Tube: endotracheal tube Placement: oral Tube type: cuff - inflated Tube Size (MM): 7 Depth of Insertion (CM): 22 Measured From: gums Cuff volume (mL): ??7 Cuff inflation pressure (CM H20): ??20 Cuff Inflated With: air Number of Attempts: 1. Placement Verified By: direct visualization, bilateral breath sounds, chest auscultation and CO2 monitor Tube secured with: ??adhesive tape. Dentition unchanged? ??Yes Difficult Airway? ??No. Procedure Start Time: 03/16/2021 7:29 AM. Staff Section ? Anesthesia Provider: Gwendolyn Domínguez APRN-NIKITA, Performed the procedure ? Provider #1: Ivan Lucas DO. Additional Comments: First look DL with no visualization. ??Glidescope used and unable to pass ETT through cords on first attempt. ??Dr. Lucas had successful placement with glidescope. Ivan Lucas DO GENERAL ANESTHESIA O RDERABLES * Peripheral Nerve Block (03/16/2021 7:17 AM U.S. REPRESENTATIVE) Narrative Ivan Lucas DO - 03/16/2021 7:17 AM U.S. REPRESENTATIVE Ivan Lucas DO ? 03/16/2021 ??9:56 AM Peripheral ??Nerve Block ?? Procedure: Peripheral Nerve Block Patient Location: ??Pre-op Preprocedure Section: ?? Indications: postop pain management. Pre-anesthetic Checklist: Patient identified, IV Checked, Site examined and clear, Risks and benefits discussed, Surgical consent verified, Monitors and equipment, Time-out performed, Informed consent obtained, Pre-op evaluation done, Questions answered/anesthesia questions answered, Allergies reviewed and Removal hand/wrist jewelry Monitors: Pulse Ox. Patient Condition: ??awake Patient Position: supine Patient Sedated? ??No Procedure Section ?? Laterality: right Block Performed: ??Pericapsular Nerve Group Prep: ??Chloraprep Strerile Field: gloves, mask and hat/cap Skin localized with: lidocaine (XYLOCAINE) 1 % injection, 2 mL Needle Type: ??Echogenic insultaed Needle Gauge: ??21 Needle Length: ??80 mm Ultrasound Guided? ?? Yes ? Technique: ??in plane ? Visualization: ??Preliminary scan performed, Important anatomical structures identified, Needle tip visualized throughout the procedure, Target identified, No intraneural or intravascular puncture occurred, Ultrasound image in chart, Local visualized surrounding nerve on ultrasound and Hydrodissection utilized Injection was made incrementally with constant monitoring and aspirations every 5 mL's Block Agents or Additives used? Yes Block agents used: ropivacaine (NAROPIN) 5 MG/ML (0.5%) injection, 40 mL dexamethasone (DECADRON) injection, 4 mg Procedure Tolerance: tolerated well Procedure Start Time: 03/16/2021 7:11 AM. Procedure End Time: 03/16/2021 7:17 AM. Procedure Total Time: 6 ??minutes. Staff Section ? Anesthesia Provider: Ivan Lucas DO, Performed the procedure Ivan Lucas DO GENERAL ANESTHESIA O RDERABLES * BLOOD TYPE VERIFICATION (03/16/2021 6:56 AM U.S. REPRESENTATIVE) ABO Rh A POS 03/16/2021 7:2 5 AM U.S. REPRESENTATIVE [facility] Blood Bank BLOOD SPECIMEN / Unknown Venipuncture / Unknown 03/16/2021 6:56 AM U.S. REPRESENTATIVE 03/16/2021 7:02 AM U.S. REPRESENTATIVE Ivan Lucas DO LAB - BLOOD BANK ORD ERABLES [facility] [address] [phone] * (ABNORMAL) URINE MICROSCOPIC ONLY REFLEX TO CULTURE (03/13/2021 2:00 PM U.S. REPRESENTATIVE) Only the most recent of2 resultswithin the time period is included. Reflex Status Culture to follow 03/13/2021 6:06 PM U.S. REPRESENTATIVE [facility] RBC UA 0-2 None Seen, 0-2, 3-5 # /hpf 03/13/2021 6:06 PM U.S. REPRESENTATIVE [facility] WBC UA 6-10(A) None Seen, 0-5 # /hpf 03/13/2021 6:06 PM U.S. REPRESENTATIVE [facility] Bacteria UA Trace(A) None Seen 03/13/2021 6:06 PM U.S. REPRESENTATIVE [facility] Squamous Epithelial Cells 3-5 None Seen, 0-2, 3-5 /hpf 03/13/2021 6:06 PM U.S. REPRESENTATIVE [facility] Mucus UA 1+ /LPF 03/13/2021 6:06 PM U.S. REPRESENTATIVE [facility] Hyaline Casts 6-10(A) None Seen, 0-2 /LPF 03/13/2021 6:06 PM U.S. REPRESENTATIVE [facility] Urine URINE SPECIMEN OBTAINED BY CLEAN CATCH PROCEDURE / Unknown Collection / Unknown 03/13/2021 2:00 PM U.S. REPRESENTATIVE 03/13/2021 5:37 PM U.S. REPRESENTATIVE Narrative [facility] - 03/13/2021 6:06 PM U.S. REPRESENTATIVE Ivan Aranda MD LAB - URINALYSIS OR DERABLES [facility] [address] [place] [address] * (ABNORMAL) URINALYSIS REFLEX MICROSCOPIC REFLEX CULTURE (03/13/2021 2:00 PM U.S. REPRESENTATIVE) Only the most recent of2 resultswithin the time period is included. Color UA Yellow Straw, Yellow 03/13/2021 5:55 PM [facility] Clarity UA Slt Cloudy(A) Clear 03/13/2021 5:55 PM [facility] Glucose UA Negative Negative 03/13/2021 5:55 PM [facility] Bilirubin UA Negative Negative 03/13/2021 5:55 PM [facility] Ketone UA Negative Negative 03/13/2021 5:55 PM [facility] Specific Holder UA 1.018 1.005 - 1.030 03/13/2021 5:55 PM U.S. REPRESENTATIVE [facility] Blood UA Negative Negative 03/13/2021 5:55 PM [facility] pH UA 5.0 5.0 - 8.0 pH 03/13/2021 5:55 PM [facility] Protein UA 1+(A) Negative 03/13/2021 5:55 PM [facility] Urobilinogen UA Negative Negative mg/dL 03/13/2021 5:55 PM U.S. REPRESENTATIVE [facility] Nitrite UA Negative Negative 03/13/2021 5:55 PM [facility] Leukocyte UA Trace(A) Negative 03/13/2021 5:55 PM [facility] Urine Microscopy Urine microscopy to follow 03/13/2021 5:55 PM [facility] Reflex Status Culture to follow 03/13/2021 5:55 PM [facility] Urine URINE SPECIMEN OBTAINED BY CLEAN CATCH PROCEDURE / Unknown Collection / Unknown 03/13/2021 2:00 PM U.S. REPRESENTATIVE 03/13/2021 5:37 PM U.S. REPRESENTATIVE Narrative [facility] - 03/13/2021 5:55 PM U.S. REPRESENTATIVE Ivan Aranda MD LAB - URINALYSIS OR DERABLES Performing Organization Address [facility] Co de Phone Number [facility] [address] [place] [address] * CULTURE URINE (03/13/2021 2:00 PM U.S. REPRESENTATIVE) Only the most recent of2 resultswithin the time period is included. Culture Urine <10,000 CFU/mL urogenital kodi KELLEN 03/15/2021 7:11 AM U.S. REPRESENTATIVE [facility] MICROBIOLOGY Urine URINE SPECIMEN OBTAINED BY CLEAN CATCH PROCEDURE / Unknown Collection / Unknown 03/13/2021 2:00 PM U.S. REPRESENTATIVE 03/13/2021 5:37 PM U.S. REPRESENTATIVE Ivan Aranda MD LAB - MICROBIOLOGY ORDERABLES Performing Organization Address [facility] de Phone Number [facility] MICROBIOLOGY [address] [place] [address], [facility] [phone] * CULTURE MSSA/MRSA (03/02/2021 1:55 PM U.S. REPRESENTATIVE) Culture Negative for Staphylococcus aureus (MRSA/MSSA) 03/03/2021 3:24 PM U.S. REPRESENTATIVE [facility] MICROBIOLOGY Microbiology SPECIMEN FROM NASAL FOSSAE / Unknown Collection / Unknown 03/02/2021 1:55 PM U.S. REPRESENTATIVE 03/02/2021 2:52 PM U.S. REPRESENTATIVE Ivan Aranda MD LAB - MICROBIOLOGY ORDERABLES Performing Organization Address [facility] Co de Phone Number [facility] MICROBIOLOGY [address] [place] [address], [facility] [phone] * TRANSFERRIN (03/02/2021 1:55 PM U.S. REPRESENTATIVE) Transferrin 250 173 - 360 mg/dL 03/02/2021 3:19 PM U.S. REPRESENTATIVE [facility] Blood BLOOD SPECIMEN / Unknown Venipuncture / Unknown 03/02/2021 1:55 PM U.S. REPRESENTATIVE 03/02/2021 2:52 PM U.S. REPRESENTATIVE Ivan Aranda MD LAB - CHEMISTRY ORD ERABLES [facility] [address] [place] [phone] * HEMOGLOBIN A1C (03/02/2021 1:55 PM U.S. REPRESENTATIVE) Hemoglobin A1c 5.1 4.2 - 5.6 % 03/02/2021 3:50 PM U.S. REPRESENTATIVE [facility] Estimated Average Glucose 100 mg/dL 03/02/2021 3:50 PM U.S. REPRESENTATIVE [facility] Blood BLOOD SPECIMEN / Unknown Venipuncture / Unknown 03/02/2021 1:55 PM U.S. REPRESENTATIVE 03/02/2021 2:52 PM U.S. REPRESENTATIVE Narrative [facility] - 03/02/2021 3:50 PM U.S. REPRESENTATIVE The following cutoff levels are recommended by [place] [employer]. ?? A1c ??> 6.5% : considered as diabetes if two separate tests >6.5% or in an appropriate clinical setting. A1c ??5.7% - 6.4% : considered as prediabetes (suggest increased risk for diabetes and cardiovascular disease) Control target level: ??Should be individualized. ??< 7 ??for general (non- ) , ??< 8% less stringent goal, ??< 6.5 ??more stringent goal. Hemoglobin A1c measurements are used as an aid in the diagnosis of diabetic mellitus, as an aid to identify patients who may be at the risk for developing diabetic mellitus, and for the monitoring long-term blood glucose control in individuals with diabetes mellitus. ??This test should not replace glucose testing for patients with Type 1 diabetes, pediatric patients, or women. ??Falsely low HbA1c results may be observed in patients with clinical conditions that shorten erythrocyte life span or decrease mean erythrocyte age such as the presence of unstable hemoglobin variants, elevated hemoglobin F level ??or other causes of hemolytic anemia . ??HbA1c may not accurately reflect glycemic control when clinical conditions that affect erythrocyte survival are present. ??Severe Iron deficiency anemia may yield falsely high results. ??Hemoglobin A1c assay should not be used to diagnose or monitor diabetes in patients with malignancy, recent blood transfusion, chronic kidney or liver disease. ?? This method may yield falsely low results when hemoglobin (HbF) exceeds 5% in the specimen. Ivan Aranda MD LAB - CHEMISTRY ORD ERABLES Performing Organization Address [facility] Co de Phone Number [facility] [address] [place] [phone] * FRUCTOSAMINE (03/02/2021 1:55 PM U.S. REPRESENTATIVE) Fructosamine 217 0 - 285 umol/L 03/04/2021 9:10 AM U.S. REPRESENTATIVE [facility] ([facility]) Comment: Published reference interval for apparently healthy subjects between age 20 and 60 is 205 - 285 umol/L and in a poorly controlled diabetic population is 228 - 563 umol/L with a mean of 396 umol/L. Blood BLOOD SPECIMEN / Unknown Venipuncture / Unknown 03/02/2021 1:55 PM U.S. REPRESENTATIVE 03/02/2021 2:52 PM U.S. REPRESENTATIVE Narrative [facility] ([facility]) - 03/04/2021 9:10 AM U.S. REPRESENTATIVE Performed at: ??01 - [facility] [address] [place], [place] ??[id number] Patient Consumer Marketer: Bean Chung PhD, Phone: ??[phone] Ivan Aranda MD LAB - CHEMISTRY ORD ERABLES Performing Organization Address [facility] de Phone Number [facility] ([facility]) [address] [place] [address] * TYPE + SCREEN PANEL (03/02/2021 1:55 PM U.S. REPRESENTATIVE) ABO Rh A POS 03/02/2021 3:33 PM U.S. REPRESENTATIVE [facility] Comment:No history; collect retype. Antibody Screen NEG 3:33 PM U.S. REPRESENTATIVE [facility] Blood Bank BLOOD SPECIMEN / Unknown Venipuncture / Unknown 03/02/2021 1:55 PM U.S. REPRESENTATIVE 03/02/2021 2:52 PM U.S. REPRESENTATIVE Ivan Aranda MD LAB - BLOOD BANK OR DERABLES Performing Organization Address City/[facility]/ZIP Co de Phone Number [facility] [address] [place] [address] * (ABNORMAL) CBC W AUTO DIFFERENTIAL (03/02/2021 1:55 PM U.S. REPRESENTATIVE) Only the most recent of6 resultswithin the time period is included. WBC 8.6 4.4 - 10.7 x10E9/L 03/02/2021 3:06 PM [facility] WBC Corrected 03/02/2021 3:06 PM [facility] RBC 4.29 3.80 - 5.20 x10E12/L 03/02/2021 3:06 PM [facility] Hemoglobin 12.6 12.0 - 15.6 gm/dL 03/02/2021 3:06 PM [facility] Hematocrit 39.4 35.9 - 45.5 % 03/02/2021 3:06 PM [facility] MCV 91.8 80.7 - 98.3 fl 03/02/2021 3:06 PM [facility] MCH 29.4 26.7 - 34.0 pg 03/02/2021 3:06 PM [facility] MCHC 32.0 30.8 - 35.9 gm/dL 03/02/2021 3:06 PM [facility] Platelet Count 255 153 - 416 x10E9/L 03/02/2021 3:06 PM [facility] RDW-CV 13.7 12.1 - 14.9 % 03/02/2021 3:06 PM [facility] MPV 10.0 9.4 - 12.9 fl 03/02/2021 3:06 PM [facility] Neutrophils % 71.8 44.0 - 73.0 % 03/02/2021 3:06 PM [facility] Lymphocytes % 16.7(L) 20.0 - 43.0 % 03/02/2021 3:06 PM [facility] Monocytes % 10.1 5.0 - 13.0 % 03/02/2021 3:06 PM [facility] Eosinophils % 0.9 0.0 - 6.0 % 03/02/2021 3:06 PM [facility] Basophils % 0.3 0.0 - 2.0 % 03/02/2021 3:06 PM [facility] Immature Granulocytes 0.2 0 - 1 % 03/02/2021 3:06 PM [facility] Neutrophil Absolute 6.17 2.01 - 7.14 x10E9/L 03/02/2021 3:06 PM [facility] Lymphocytes Absolute 1.44 1.07 - 3.94 x10E9/L 03/02/2021 3:06 PM [facility] Monocytes Absolute 0.87 0.26 - 1.07 x10E9/L 03/02/2021 3:06 PM [facility] Eosinophils Absolute 0.08 0 - 0.47 x10E9/L 03/02/2021 3:06 PM [facility] Basophils Absolute 0.03 0 - 0.08 x10E9/L 03/02/2021 3:06 PM [facility] Immature Granulocytes Absolute 0.02 0.00 - 0.06 x10E9/L 03/02/2021 3:06 PM [facility] nRBC Auto 0 /100 WBC 03/02/2021 3:06 PM [facility] Blood BLOOD SPECIMEN / Unknown Venipuncture / Unknown 03/02/2021 1:55 PM U.S. REPRESENTATIVE 03/02/2021 2:52 PM U.S. REPRESENTATIVE Ivan Aranda MD LAB - HEMATOLOGY OR DERABLES [facility] [address] [place], [place] [id number] * (ABNORMAL) COMPREHENSIVE METABOLIC PANEL (03/02/2021 1:55 PM U.S. REPRESENTATIVE) Only the most recent of6 resultswithin the time period is included. [facility] Glucose 98 70 - 105 mg/dL 03/02/2021 3:19 PM [facility] Sodium 134(L) 136 - 145 mmol/L 03/02/2021 3:19 PM [facility] Potassium 3.5 3.5 - 5.1 mmol/L 03/02/2021 3:19 PM [facility] Chloride 100 98 - 107 mmol/L 03/02/2021 3:19 PM [facility] CO2 25 23 - 31 mmol/L 03/02/2021 3:19 PM [facility] Calcium 9.9 8.4 - 10.4 mg/dL 03/02/2021 3:19 PM [facility] Anion Gap 9 8 - 18 mmol/L 03/02/2021 3:19 PM [facility] BUN 26(H) 9.8 - 20.1 mg/dL 03/02/2021 3:19 PM [facility] Creatinine 0.78 0.57 - 1.11 mg/dL 03/02/2021 3:19 PM [facility] Alkaline Phosphatase 88 40 - 150 U/L 03/02/2021 3:19 PM [facility] ALT 22 0 - 61 U/L 03/02/2021 3:19 PM [facility] AST 30 5 - 34 U/L 03/02/2021 3:19 PM [facility] Protein Total 7.2 6.4 - 8.3 gm/dL 03/02/2021 3:19 PM [facility] Albumin 3.9 3.2 - 4.6 gm/dL 03/02/2021 3:19 PM [facility] Bilirubin Total 0.7 0.2 - 1.2 mg/dL 03/02/2021 3:19 PM [facility] eGFR by MDRD >60 mL/min/1.7 3m2 03/02/2021 3:19 PM [facility] eGFR by MDRD >60 mL/min/1.7 3m2 03/02/2021 3:19 PM [facility] Blood BLOOD SPECIMEN / Unknown Venipuncture / Unknown 03/02/2021 1:55 PM U.S. REPRESENTATIVE 03/02/2021 2:52 PM U.S. REPRESENTATIVE Ivan Aranda MD LAB - CHEMISTRY ORD ERABLES [facility] [address] [place] [address] * HEPATITIS C RNA QUANTITATIVE (09/22/2020 11:11 AM CDT) Only the most recent of5 resultswithin the time period is included. Hepatitis C Virus Quantitation HCV Not Detected IU/mL [facility] INSURANCE BILL Hepatitis C Virus Log 10 NOT NEEDED [facility] INSURANCE BILL Comment:Ancillary determined the test is not needed. Test Information LAB [facility] INSURANCE BILL Comment:The quantitative ran ge of this assay is 15 IU/mL to 100 million IU/mL. Blood BLOOD SPECIMEN / Unknown 09/22/2020 11:11 AM CDT 09/22/2020 Narrative Resulting Agency Comment Lab Testing performed at: [facility] ??[facility] [id number] Marina Araujo VESSEL ENGINEER-ACCIDENT REPORT CLERK LAB - CHEMIS TRY ORDERABLES [facility] INSURANCE BILL [address] [place] [address] * PROC FIBROSCAN (06/12/2019 9:15 AM CDT) Narrative Bud Plaza MD - 06/12/2019 9:15 AM CDT Bud Plaza MD ? 06/16/2019 ??9:52 AM Diagnosis: Hepatitis C RN verified patient not , no implanted devices and NPO for prior 3 hours. Vital signs taken, procedure explained and consent signed. Date of Exam: 06/12/2019 Liver Stiffness: (LSM, kPa) median: ??5.5 IQR (interquartile range): ?? 0.8 IQR/Median% (ideally < 30%): ??15 CAP (controlled attenuation parameter): ??259 Technical Difficulty: None Ordering Provider: Marina Araujo TERMITE EXTERMINATOR HELPER Phone Fax Fibroscan interpretation: I have personally reviewed the Fibroscan report and associated tracings. The calculated Liver Stiffness Measurement (LSM, kPa) indicates that: The probability of advanced liver fibrosis is: low. The loss of ultrasound signal, (controlled attenuation parameter, CAP [dB/m]), indicates that the probability of hepatic steatosis is: moderate. Bud Plaza MD The following criteria are used to indicate the probability of advanced (stage 3-4) fibrosis: < 7.0 kPa: low 7.0-8.9 kPa: low to moderate 9.0-14.9 kPa: moderate 15-20 kPa: high > 20 kPa: very high Liver stiffness > 20 kPa is also associated with a high probability of complications of portal hypertension including varices and ascites. Liver stiffness > 50 kPa is associated with a high risk of variceal bleeding. These interpretations are based on the following published data: Eddowes PJ, Lia M, Makayla M, et al. Accuracy of FibroScan controlled attenuation parameter and liver stiffness measurement in assessing steatosis and fibrosis in patients with nonalcoholic fatty liver disease. Gastroenterology 2019;156:4050-3088. Sung MS, Huan R, Van Francisco ML, et al. Vibration-controlled transient elastography to assess fibrosis and steatosis in patients with nonalcoholic fatty liver disease. Clin Gastroenterol Hepatol 2019;17:156-163. Note: 1. Fibroscan cannot reliably identify earlier stages of fibrosis (ie distinguish F0 from F1 and F2) and thus a histologic stage cannot be predicted from the Fibroscan reading. 2. Assessing the likelihood of advanced fibrosis in patients with indeterminate liver stiffness measurement (LSM) by Fibroscan (e.g., 8-15 kPa) can be improved by also calculating the FIB4 score (Dustin et al. [employer] 2019;3:2415-6474) or NAFLD Fibrosis score (Brasher et al. Clinical Gastroenterology and Hepatology 2019;17:4094-9756. from routine clinical data. 3. Liver stiffness can be increased by factors other than fibrosis including passive congestion, infiltrative processes, active alcoholism, biliary obstruction and marked inflammation. The interpretation of the Fibroscan result provided above may not have taken such clinical factors into account. Disease etiology also influences Fibroscan cutoff values for fibrosis stages and the following cutoffs have been proposed (Bhargav et al, Clin Gastro Hepatol 2015; 13:27-36): Cutoffs for Stage 3 and Stage 4 fibrosis respectively: Hepatitis B: >9 and >11.7 kPa Hepatitis C: >9.5 and >12.5 kPa HCV-HIV: >11 and >14 kPa Cholestatic liver diseases: >10 and >17.9 kPa NAFLD/BAH: >10 and >14 kPa CAP estimates of steatosis: normal <200 dB/m mild 200 to 250 dB/m moderate 250-290 dB/m substantial > 290 dB/m (Note that Fibroscan is not a quantitative measure of liver fat.) These criteria are estimates and may change as additional supporting data becomes available. [email or web address] Marina Araujo VESSEL ENGINEER-ACCIDENT REPORT CLERK PROCEDURE/PA NOR SURGICAL ORDERABLES * (ABNORMAL) HEPATITIS B SURFACE ANTIBODY QUANT (04/13/2019 4:40 PM U.S. REPRESENTATIVE) Hepatitis B Virus Surface Antibody Quantitative <3.1(L) Immunity>9 .9 mIU/mL [facility] INSURANCE BILL Comment: ? Status of Immunity ? Anti- HBs Level ? Inconsistent with Immunity ? 0.0 - 9.9 ? Consistent with Immunity ?>9.9 Blood BLOOD SPECIMEN / Unknown 04/13/2019 4:40 PM U.S. REPRESENTATIVE 04/13/2019 Narrative Resulting Agency Comment Lab Testing performed at: [address] ??Critical access hospital [id number] Marina Araujo VESSEL ENGINEER-ACCIDENT REPORT CLERK LAB - SEROLO GY ORDERABLES Performing Organization Address City/State/[facility] Co de Phone Number [facility] INSURANCE BILL [address] [place] [address] * HEPATITIS C GENOTYPE (04/13/2019 4:40 PM U.S. REPRESENTATIVE) Hepatitis C Genotype 1b [facility] Please Note [facility] INSURANCE BILL Comment: This test was developed and its performance characteristics determined by [facility]. ??It has not been cleared or approved by the U.S. Food and Drug Administration. ? . The FDA has determined that such clearance or approval is not necessary. This test is used for clinical purposes. ??It should not be regarded as investigational or for research. Blood BLOOD SPECIMEN / Unknown 04/13/2019 4:40 PM U.S. REPRESENTATIVE 04/13/2019 Narrative Resulting Agency Comment Lab Testing performed at: [address] ??[facility] [id number] Marina Araujo VESSEL ENGINEER-ACCIDENT REPORT CLERK LAB - CHEMIS TRY ORDERABLES [facility] INSURANCE BILL [address] [place] [address] * PT-INR (04/13/2019 4:40 PM U.S. REPRESENTATIVE) INR 0.9 0.8 - 1.2 [facility] INSURANCE BILL Comment: ? Reference interval is for non-anticoagulated patients. ?. ? Suggested INR therapeutic range for Vitamin K ? antagonist therapy: ?Standard Dose (moderate intensity ? therapeutic range): ? 2.0 - 3.0 ?Higher intensity therapeutic range ? 2.5 - 3.5 PT 9.8 9.1 - 12.0 sec [facility] INSURANCE BILL Blood BLOOD SPECIMEN / Unknown 04/13/2019 4:40 PM U.S. REPRESENTATIVE 04/13/2019 Narrative Resulting Agency Comment Lab Testing performed at: [facility] [address] ??Critical access hospital [id number] Marina Araujo VESSEL ENGINEER-ACCIDENT REPORT CLERK LAB - COAGUL ATION ORDERABLES [facility] INSURANCE BILL [address] [place] [address] * HEPATITIS B CORE ANTIBODY (04/13/2019 4:40 PM U.S. REPRESENTATIVE) Hepatitis B Core Virus Antibody Total Negative Negative [facility] INSURANCE BILL Blood BLOOD SPECIMEN / Unknown 04/13/2019 4:40 PM U.S. REPRESENTATIVE 04/13/2019 Narrative Resulting Agency Comment Lab Testing performed at: [facility] [address] ??Critical access hospital [id number] Marina Araujo APRN-ACCIDENT REPORT CLERK LAB - CHEMIS TRY ORDERABLES Performing Organization Address City/[facility]/ZIP Co de Phone Number [facility] INSURANCE BILL [address] [place] [address] * HEPATITIS B SURFACE ANTIGEN W RFLX CONFIRMATION (04/13/2019 4:40 PM U.S. REPRESENTATIVE) Hepatitis B Virus Surface Antigen Negative Negative [facility] INSURANCE BILL Blood BLOOD SPECIMEN / Unknown 04/13/2019 4:40 PM U.S. REPRESENTATIVE 04/13/2019 Narrative Resulting Agency Comment Lab Testing performed at: [facility] [address] ??Critical access hospital [id number] Marina Araujo VESSEL ENGINEER-ACCIDENT REPORT CLERK LAB - CHEMIS TRY ORDERABLES [facility] INSURANCE BILL [address] [place] [address] * (ABNORMAL) HEPATITIS A ANTIBODY (04/13/2019 4:40 PM U.S. REPRESENTATIVE) Hepatitis A Virus Antibody Total Positive(A ) Negative [facility] INSURANCE BILL Blood BLOOD SPECIMEN / Unknown 04/13/2019 4:40 PM U.S. REPRESENTATIVE 04/13/2019 Narrative Resulting Agency Comment Lab Testing performed at: [facility] [address] ??Critical access hospital [id number] Marina Araujo VESSEL ENGINEER-ACCIDENT REPORT CLERK LAB - CHEMIS TRY ORDERABLES [facility] INSURANCE BILL [address] [place] [address] Care Teams Dock Guard Relationship Specialty Start Date End Date Kirby Vogel MD [address] [place] [phone] PCP - General Family Medicine 01/26/19
--- OUTSIDE RECORDS SUMMARY | 2024-04-02 20:21 | XMS_ITS | Encounter Summary ---
Author Organization [facility] Address [address] [place] [address] Care Team Providers Care Tool Crib Clerk Name Role Phone Kirby Vogel MD Primary Care Provider [phone]- [phone] Reason for Visit * Reason Comments Follow-up Encounter Details Date Type Department Care Team (Late st Contact Info) Description 07/25/2021 2:00 PM CDT Office Visit [facility] [address] [place] [address] Ivan Aranda MD [address] [address] History of total right hip replacement (Primary Dx) Social History Tobacco Use Types Packs/Day Years [...] on file documented as of this encounter Progress Notes * Ivan Aranda MD - 07/25/2021 2:00 PM CDT Patient returns for follow-up 4 months after right total hip arthroplasty. Overall patient is doingwell. Denies fevers chills or wound problems. No mechanical symptoms or dislocations. Continuing home therapy exercises. Current Outpatient Medications on File Prior to Visit Medication Sig Dispense Refill ??? acetaminophen (TYLENOL) 500 MG tablet Take 1 (one) tablet by mouth every 4 hours as needed for Pain (Take for mild pain. Alternate with [place] for moderate- severe pain.) Maximum allowable Acetaminophen amount = 4 Grams (4000 mg) / 24 hours. ??? albuterol HFA (PROVENTIL; VENTOLIN; PROAIR) 108 (90 Base) MCG/ACT inhaler TAKE 1 PUFF BY MOUTH EVERY 6 HOURS NEEDED FOR SHORTNESS OF BREATH (Patient not taking: Reported on 03/02/2021) ??? amLODIPine (NORVASC) 5 MG tablet Take 5 mg by mouth 2 times daily ??? aspirin (ASPIRIN) 81 MG chew tablet Take 1 (one) tablet by mouth 2 times daily 60 tablet 0 ??? Azelastine HCl 137 MCG/SPRAY SOLN ??? Calcium Carb-Cholecalciferol (CALCIUM 500 +D PO) Take by mouth once daily ??? calcium citrate TABS tablet Take 400 mg by mouth once daily ??? celecoxib (CELEBREX) 100 MG capsule Take 1 (one) capsule by mouth 2 times daily 60 capsule 0 ??? docusate sodium (COLACE) 100 MG capsule Take 1 (one) capsule by mouth 2 times daily 60 capsule 0 ??? famotidine (PEPCID) 20 MG tablet Take 1 (one) tablet by mouth once daily 30 tablet 0 ??? Fexofenadine HCl (RENU PO) Take by mouth once daily ??? HYDROcodone-acetaminophen (NORCO) 5-325 MG tablet Take 1 (one) tablet by mouth every 4 hours asneeded for Pain (Take for moderate-severe pain only. Alternate with tylenol for mild pain.) 42 tablet 0 ??? LORazepam (ATIVAN) 0.5 MG tablet Take 1 tablet by mouth once daily as needed ??? Multiple Vitamins-Calcium (ONE-A-DAY WOMENS PO) Take by mouth once daily ??? osmmhqrf-chkdkjyvnj-toudgkmlu (NEOSPORIN) 400-5-5000 topical ointment Apply to affected area 3 times daily Affected area: right groin 100 g 0 ??? oxybutynin CR 24hr (DITROPAN-XL) 10 MG tablet Take 1 tablet by mouth once daily ??? Polyethylene Glycol 3350 (MIRALAX PO) Take by mouth as needed ??? sertraline (ZOLOFT) 25 MG tablet Take 25 mg by mouth once daily ??? sulfamethoxazole-trimethoprim (BACTRIM DS; SEPTRA DS) 800-160 MG tablet Take 1 (one) tablet by mouth every 12 hours 14 tablet 0 ??? SYMBICORT 160-4.5 MCG/ACT inhaler Inhale 2 puffs by mouth every 12 hours ??? valsartan (DIOVAN) 80 MG tablet Take 160 mg by mouth once daily No current facility-administered medications on file prior to visit. Past Medical History: Diagnosis Date ??? COPD (chronic obstructive pulmonary disease) ??? Generalized anxiety disorder ??? Hepatitis C ??? History of blood transfusion ??? Hypertension ??? Polio ??? Prolapsed uterus ??? Recurrent UTI Past Surgical History: Procedure Laterality Date ??? Bladder Suspension ??? COLONOSCOPY ??? HIP ARTHROPLASTY, TOTAL Right 03/16/2021 Right; ARTHROPLASTY TOTAL HIP ??? OTHER SURGERY prolapse uterus Social History Occupational History ??? Not on file Tobacco Use ??? Smoking status: Former Smoker Quit date: 2005 Years since quittin.3 ??? Smokeless tobacco: Never Used Vaping Use ??? Vaping Use: Never used Substance and Sexual Activity ??? Alcohol use: Yes Alcohol/week: 1.0 standard drink Types: 1 Glasses of wine per week Comment: 3-4 oz wine/evening ??? Drug use: Never ??? Sexual activity: Not on file Family History Problem Relation Name Age of Onset ??? Cancer - Bladder Mother ??? Other - Cardiac Father Review of Systems Constitutional: Negative for chills, fever, malaise/fatigue and weight loss. Respiratory: Negative for shortness of breath. Cardiovascular: Negative for claudication and leg swelling. Musculoskeletal: Negative for falls and joint pain. Skin: Negative for itching and rash. Neurological: Negative for focal weakness. All other systems reviewed and are negative. Physical exam: Patient is awake and alert BMI is 25 Facial expressions are appropriate Patient is cooperative with the examination Examination of the right hip reveals flexion to 90, abduction 30, abduction 20, internal rotation of 20, external rotation of 20 with no pain. Distally patient can dorsiflex and plantarflex both ankles and toes without difficulty. Limb lengths are clinically equal. X-rays: AP pelvis and AP and lateral of the right hip reveals a well aligned right hip arthroplastywithout apparent complication Assessment: Status post right hip arthroplasty doing well Plan: We discussed hip precautions at length. We discussed antibiotic prophylaxis before invasive procedures. Follow-up in 12 months. Patient and family understood the treatment plan and all questions were answered. documented in this encounter Plan of Treatment Not on file documented as of this encounter Goals Goal Patient Goal Type Associated Problems Recent Progress Patient-Stated? Author Medication Management General On track( 020 11:28 AM CDT) Analisa Diallo RN Note: Expected end date: ongoing Interventions: Complete Hepatitis C therapy as prescribed documented as of this encounter Visit Diagnoses Diagnosis History of total right hip replacement- Primary documented in this encounter Care Teams Tool Crib Clerk Relationship Specialty Start Date End Date Kirby Vogel MD [facility] [place] [address] PCP - General Family Medicine 01/26/19 documented as of this encounter
--- OUTSIDE RECORDS SUMMARY | 2024-04-02 20:21 | XMS_ITS | Encounter Summary ---
Author Organization [facility] Address [address] [place] [address] Care Team Providers Care Double Cutter Name Role Phone Kirby Vogel MD Primary Care Provider [phone]- [phone] Encounter Details Date Type Department Care Team (Late st Contact Info) Description 08/11/2021 12:10 PM CDT - 08/11/2021 11:59 PM CDT Hospital Encounter [facility] - Orthopedics [address] [place] [address] Catalino Martin MD [facility] [place] [address] Discharge Disposition: Home or Self Care Social [...] Pain (Take for mild pain. Alternate with [place] for moderate-severe pain.) Maximum allowable Acetaminophen amount = 4 Grams (4000 mg) / 24 hours. 03/16/2021 albuterol HFA (PROVENTIL; VENTOLIN; PROAIR) 108 (90 Base) MCG/ACT inhaler TAKE 1 PUFF BY MOUTH EVERY 6 HOURS NEEDED FOR SHORTNESS OF BREATH 12/20/2020 amLODIPine (NORVASC) 5 MG tablet Take 5 mg by mouth 2 times daily 02/26/2019 aspirin (ASPIRIN) 81 MG chew tabletIndications:Prima ry osteoarthritis of right hip Take 1 (one) tablet by mouth 2 times daily 60 tablet 03/21/2021 Azelastine HCl 137 MCG/SPRAY SOLN 2 times daily 04/08/2019 Calcium Carb-Cholecalciferol (CALCIUM 500 +D PO) Take by mouth once daily calcium citrate TABS tablet Take 400 mg by mouth once daily famotidine (PEPCID) 20 MG tabletIndications:Prima ry osteoarthritis of right hip Take 1 (one) tablet by mouth once daily 30 tablet 03/21/2021 Fexofenadine HCl (RENU PO) Take by mouth once daily LORazepam (ATIVAN) 0.5 MG tablet Take 1 tablet by mouth once daily as needed 03/17/2019 meloxicam (MOBIC) 15 MG tablet Take 1 tablet by mouth once daily 03/31/2021 Multiple Vitamins-Calcium (ONE-A-DAY WOMENS PO) Take by mouth once daily znfasrml-dybivcbxqa-cid ymyxin (NEOSPORIN) 400-5-5000 topical ointment Apply to affected [...] 25 mg by mouth once daily 01/17/2019 sulfamethoxazole-trimet hoprim (BACTRIM DS; SEPTRA DS) 800-160 MG tablet Take 1 (one) tablet by mouth every 12 hours 14 tablet 03/21/2021 SYMBICORT 160-4.5 MCG/ACT inhaler Inhale 2 puffs by mouth every 12 hours 03/20/2019 valsartan (DIOVAN) 80 MG tablet Take 160 mg by mouth once daily 03/17/2019 documented as of this encounter Plan of [...] Name Priority Date/Time Associated Diagnosis Comments XR LUMBAR SPINE 2 OR 3VW Routine 08/11/2021 12:16 PM CDT Low back pain, unspecified back pain laterality, unspecified chronicity, unspecified whether sciatica present XR CERVICAL SPINE 2 OR 3VW Routine 08/11/2021 12:16 PM CDT Neck pain documented in this encounter Results * XR LUMBAR SPINE 2 OR [...] as visualized. LUMBAR SPINE: There are 5 sbc-ybh-ltbiguy lumbar type vertebrae. There is convex dextroscoliosis [...] as visualized. LUMBAR SPINE: There are 5 hqe-jis-rwmmspx lumbar type vertebrae. There is convex dextroscoliosis [...] as visualized. LUMBAR SPINE: There are 5 eqe-jfz-tdhrsfs lumbar type vertebrae. There is convex dextroscoliosis [...] as visualized. LUMBAR SPINE: There are 5 xxf-rre-cnjgiji lumbar type vertebrae. There is convex dextroscoliosis [...] Catalino Martin MD DIAGNOSTIC IMAGING O RDERABLES documented in this encounter Visit Diagnoses Diagnosis Neck pain Cervicalgia Low back pain, unspecified back pain laterality, unspecified chronicity, unspecified whether sciatica present documented in this encounter Care Teams Double Cutter Relationship Specialty Start Date End Date Kirby Vogel MD [facility] [place] [phone] PCP - General Family Medicine 01/26/19 documented as of this encounter
--- OUTSIDE RECORDS SUMMARY | 2024-04-02 20:21 | XMS_ITS | Encounter Summary ---
Author Organization [facility] Address [address] [place] [address] Care Team Providers Care English As A Second Language Instructor Name Role Phone Kirby Vogel MD Primary Care Provider [phone]- [phone] Reason for Visit * Reason Comments Pain Back Pain Neck Encounter Details Date Type Department Care Team (Late st Contact Info) Description 08/11/2021 2:00 PM CDT Office Visit [facility] Surgery [address] [place] [address] Catalino Martin MD [facility] [address] Degenerative scoliosis (Primary Dx) Social History Tobacco Use Types [...] on file documented as of this encounter Last Filed Vital Signs Vital Sign Reading Time Taken Comments Blood Pressure - - Pulse - - Temperature - - Respiratory Rate - - Oxygen Saturation - - Inhaled Oxygen Concentration - - Weight 68.5 kg (151 lb) 08/11/2021 12:29 PM CDT Height 157.5 cm (5' 2 ) 08/11/2021 12:29 PM CDT Body Mass Index 27.62 08/11/2021 12:29 PM CDT documented in this encounter Patient Instructions * Patient Instructions* Yamile Jain - 08/11/2021 12:44 PM CDT [facility] Department of Orthopaedic Surgery Orthopaedic Spine Clinic Discharge Form Daniela Medina 08/11/2021 Thank you for coming in to see us today for your diagnosis of: Degenerative scoliosis Recommended Treatment: Continue physical therapy. Consider chiropractor if desired. Please follow-up as needed. Ms. Medina had a clinic appointment on 08/11/2021. Please call Yamile Jain at [phone] with any questions or concerns. documented in this encounter Progress Notes * Catalino Martin MD - 08/11/2021 12:55 PM CDT [facility] [address] [facility] [address] Dept: [phone] Dept Dear Kirby Vogel MD; Today we had the pleasure of seeing Daniela Medina in our [facility] for Chief Complaint Patient presents with ??? Pain Back ??? Pain Neck It was a pleasure to see Ms. Medina and her son in the clinic today. She was here for neck and low back pain. She doesn't complain of tingling, numbness or weakness in her upper or lower limbs. No bowel bladder incontinence. Previous H/O hip surgeries. No spine surgery. Past Medical History: Diagnosis Date ??? COPD (chronic obstructive pulmonary disease) ??? Generalized anxiety disorder ??? Hepatitis C ??? History of blood transfusion ??? Hypertension ??? Polio ??? Prolapsed uterus ??? Recurrent UTI Past Surgical History: Procedure Laterality Date ??? Bladder Suspension ??? COLONOSCOPY ??? HIP ARTHROPLASTY, TOTAL Right 03/16/2021 Right; ARTHROPLASTY TOTAL HIP ??? OTHER SURGERY prolapse uterus Family History Problem Relation Name Age of Onset ??? Cancer - Bladder Mother ??? Other - Cardiac Father Social History Tobacco Use Smoking Status Former Smoker ??? Quit date: 2004 ??? Years since quittin.3 Smokeless Tobacco Never Used Review of Systems Pertinent items are noted in HPI. Physical Examination Back Tenderness: None Swelling: None Range of Motion: Flexion: Normal Extension: Normal Lateral Bend: Right Normal Left Normal Rotation: Right Normal Left Normal SLR: Right Negative Left Negative Muscle Strength Hip Flexors: 5/5 Abductor: 5/5 Adductor: 5/5 Quadriceps: 5/5 Hamstrings: 5/5 Dorsiflexors: 5/5 EHL: 5/5 Gastosoleus 5/5 Reflexes Patellar: Normal Achilles: Normal Babinski: Normal Daniela Medina is a 86 year old female who has scoliosis Radiographs: plain films- cervical spine shows changes of cervical spondylosis and lumbar spondylosis along with scoliosis. Impression and Plan: Daniela was seen today for neck and back pain. She has arthritis and scoliosisand I believe her neck and back pain is coming from degenerative changes in her back. At this pointshe doesn't have any symptoms of myelopathy or neurogenic claudication and hence doesn't need surgical intervention. Recommendation. PT and pain management. Follow up as needed. Thank you for the opportunity to see Daniela Medina. I hope that this has been helpful to you. Please free to contact me regarding her and any questions or concerns that you may have. IOur clinicalspecialist, Yamile Jain, can be reached at [phone] Respectfully: Catalino Martin MD documented in this encounter Plan of Treatment Not on file documented as of this encounter Goals Goal Patient Goal Type Associated Problems Recent Progress Patient-Stated? Author Medication Management General On track( 020 11:28 AM CDT) Analisa Diallo, RN Note: Expected end date: ongoing Interventions: Complete Hepatitis C therapy as prescribed documented as of this encounter Visit Diagnoses Diagnosis Degenerative scoliosis- Primary documented in this encounter Care Teams English As A Second Language Instructor Relationship Specialty Start Date End Date Kirby Vogel MD [address] [place] [phone] PCP - General Family Medicine 01/26/19 documented as of this encounter
--- OUTSIDE RECORDS SUMMARY | 2024-04-02 20:21 | XMS_ITS | Encounter Summary ---
Author Organization [facility] Address [address] [place] [address] Care Team Providers Care Medical Office Rep Name Role Phone Kirby Vogel MD Primary Care Provider +1- [phone] Encounter Details Date Type Department Care Team (Late st Contact Info) Description 07/30/2022 Orders Only [facility] [address] [place] [phone] Ivan Aranda MD [address] [facility] [address] [place] [address] History of total right hip replacement Social History Tobacco Use Types Packs/Day Years [...] on file documented as of this encounter Plan of [...] Primary documented in this encounter Care Teams Medical Office Rep Relationship Specialty Start Date End Date Kirby Vogel MD [address] [place] [phone] PCP - General Family Medicine 01/26/19 documented as of this encounter
--- OUTSIDE RECORDS SUMMARY | 2024-04-02 20:21 | XMS_ITS | Clinical Summary ---
Author Organization [facility] Address [address] [place] [address] Care Team Providers Care Account Manager Name Role Phone Kirby Vogel MD Primary Care Provider +1- [phone] Source Comments [facility],non-owned Affiliates and Associated Physician Practices is amultiple site organization consisting of ambulatory clinics and hospital sitesin [place], [place], [place] and [place]. This disclosure is being madepursuant to the Care Everywhere program and may not contain all information available regarding this patient. Last updated 17.[facility] Allergies Active Allergy Reactions Criticality Noted Date Comments Codeine Other 04/10/2019 Caused weird dreams Medications * Be aware that medications may not be up to date on this document. Alwaysverify current medications with the patient. Medication Sig Dispensed Refills Start Date End Date Status amLODIPine (NORVASC) 5 MG tablet Take 5 mg by mouth 2 times daily 02/26/2019 Active Azelastine HCl 137 MCG/SPRAY SOLN 2 times daily 04/08/2019 Active SYMBICORT 160-4.5 MCG/ACT inhaler Inhale 2 puffs by mouth every 12 hours 03/20/2019 Active LORazepam (ATIVAN) 0.5 MG tablet Take 1 tablet by mouth once daily as needed 03/17/2019 Active valsartan (DIOVAN) 80 MG tablet Take 160 mg by mouth once daily 03/17/2019 Active oxybutynin CR 24hr (DITROPAN-XL) 10 MG tablet Take 1 tablet by mouth once daily 02/09/2019 Active sertraline (ZOLOFT) 25 MG tablet Take 25 mg by mouth once daily 01/17/2019 Active Multiple Vitamins-Calcium (ONE-A-DAY WOMENS PO) Take by mouth once daily Active Calcium Carb-Cholecalciferol (CALCIUM 500 +D PO) Take by mouth once daily Active Polyethylene Glycol 3350 (MIRALAX PO) Take by mouth as needed Active Fexofenadine HCl (RENU PO) Take by mouth once daily Active albuterol HFA (PROVENTIL; VENTOLIN; PROAIR) 108 (90 Base) MCG/ACT inhaler TAKE 1 PUFF BY MOUTH EVERY 6 HOURS NEEDED FOR SHORTNESS OF BREATH 12/20/2020 Active calcium citrate TABS tablet Take 400 mg by mouth once daily Active acetaminophen (TYLENOL) 500 MG tablet Take 1 (one) tablet by mouth every 4 hours as needed for Pain (Take for mild pain. Alternate with [place] for moderate-severe pain.) Maximum allowable Acetaminophen amount = 4 Grams (4000 mg) / 24 hours. 03/16/2021 Active famotidine (PEPCID) 20 MG tabletIndications:Pr imary osteoarthritis of right hip Take 1 (one) tablet by mouth once daily 30 tablet 03/21/2021 Active sulfamethoxazole-tri methoprim (BACTRIM DS; SEPTRA DS) 800-160 MG tablet Take 1 (one) tablet by mouth every 12 hours 14 tablet 03/21/2021 Active aspirin (ASPIRIN) 81 MG chew tabletIndications:Pr imary osteoarthritis of right hip Take 1 (one) tablet by mouth 2 times daily 60 tablet 03/21/2021 Active Additional Information Patient taking differently:81 mg OralDAILY, Reported on 08/11/2021 neomycin-bacitracin- polymyxin (NEOSPORIN) 400-5-5000 topical ointment Apply to affected area 3 times daily Affected area: right groin 100 g 03/21/2021 Active nitrofurantoin macrocrystal (MACRODANTIN) 50 MG capsule Take 1 capsule by mouth once daily 07/25/2021 Active meloxicam (MOBIC) 15 MG tablet Take 1 tablet by mouth once daily 03/31/2021 Active Active Problems Problem Noted Date Diagnosed Date Primary osteoarthritis of right hip 03/16/2021 Essential hypertension 04/10/2019 Depression 04/10/2019 Pulmonary emphysema 04/10/2019 Chronic hepatitis C without hepatic coma 020 Overview (06/16/2019): Hepatitis B core antibody non reactive genotype 1b 06/12/19 Fibroscan CAP 259, LSM 5.5 kPa Immunizations Name Administration Dates Next Due Covid Moderna primary monova lent 12+ yr 0.5mL 02/10/2021,06/11/2020,05/14/2020 INFLUENZA VACCINE, CELL CULT URE, TRIV. (FLUCELVAX TRIVALENT; 6MO+), 0.5 ML (CCIIV3) 12/26/2017,12/12/2016,12/29/2015 INFLUENZA VACCINE, HIGH-DOSE , QUADR. (FLUZONE HIGH-DOSE QUADRIVALENT; 65Y+), 0.7 ML (HD-IIV4) 12/02/2020 Pneumococcal Pcv13 Conj 12/29/2015 iNFLUENZA VACCINE, RECOM-DEJESUS, QUADR. (FLUBLOCK QUADRIVALENT; 18Y+) (RIV4) 01/29/2019 Family History Medical History Relation Name Comments Other - Cardiac Father Cancer - Bladder Mother Relation Name Status Comments Father Mother Social History Tobacco Use Types Packs/Day Years [...] Comments Blood Pressure 150/77 03/21/2021 9:53 AM ENGINEERING MANAGER ELECTRONICS Pulse 73 03/21/2021 9:53 AM ENGINEERING MANAGER ELECTRONICS Temperature 36.6 ??C (97.8 ??F) 03/21/2021 9:53 AM CS T Respiratory Rate 18 03/21/2021 9:53 AM ENGINEERING MANAGER ELECTRONICS Oxygen Saturation 96% 03/21/2021 9:53 AM ENGINEERING MANAGER ELECTRONICS Inhaled Oxygen Concentration - - Weight 68.5 kg (151 lb) 08/11/2021 12:29 PM CDT Height 157.5 cm (5' 2 ) 08/11/2021 12:29 PM CDT Body Mass Index 27.62 08/11/2021 12:29 PM CDT Plan of Treatment Health Maintenance Due Date Last Done Comments BONE DENSITY TESTING 1935 DTAP/TDAP/TD VACCINES (1 - Tdap) 07/28/1954 ZOSTER VACCINE (1 of 2) 07/28/1985 HEPATITIS B VACCINE (1 of 3 - Risk 3-dose series) 1995 Respiratory Syncytial Virus (RSV) Vaccine Pt: or over 60 yrs (1 - 1-dose 75+ series) 07/28/2010 PNEUMOCOCCAL VACCINE 65+ (2 of 2 - PPSV23 or PCV20) 02/23/2016 12/29/2015 COVID-19 VACCINE (4 - season) 2023 02/10/2021, 06/11/2020, 05/14/2020 INFLUENZA VACCINE (#1) 2023 , 01/29/2019, 12/26/2017, Additional history exists DEPRESSION SCREENING 04/01/2024 MEDICARE AWV ? CALENDAR YEAR 2024 HIB VACCINE Aged Out No longer eligi ble based on patient's age to complete this topic HPV VACCINE Aged Out No longer eligi ble based on patient's age to complete this topic MENINGOCOCCAL VACCINE Aged Out No velia jess eligible based on patient's age to complete this topic Goals Goal Patient Goal Type Associated Problems Recent Progress Patient-Stated? Author Medication Management General On track( 020 11:28 AM CDT) Analisa Diallo, RN Note: Expected end date: ongoing Interventions: Complete Hepatitis C therapy as prescribed Medical Devices Implanted Type Area Animal Nutrition Teacher Device Identifier Shelf Expiration Date Model / Serial / Lot Shell Actb 54mm Hip 3 Hl Por R3 Std Implanted:Qty: 1 on 03/16/2021 by Ivan Aranda MD at [facility] Right: Hip [employer] 05/19/2030 [id number] / / [id number] Screw 6.5mm 40mm Sphrcl Head Hip Actb Implanted:Qty: 1 on 03/16/2021 by Ivan Aranda MD at [facility] Right: Hip [employer] 11/13/2030 [id number] / / [id number] Description:ak Dual Mobility Liner Oxinium Dh Implanted:Qty: 1 on 03/16/2021 by Ivan Aranda MD at [facility] Right: Hip [employer] 04/06/2030 [id number] / / [id number] Description:ak Dual Mobility Insert Xlpe Implanted:Qty: 1 on 03/16/2021 by Ivan Aranda MD at [facility] Right: Hip [employer] 02/22/2030 [id number] / / [id number] Description:ak Polarstem Stem Standard With Ti/Dejesus Implanted:Qty: 1 on 03/16/2021 by Ivan Aranda MD at [facility] Right: Hip [employer] 07/19/2027 75 100 466 / / [id number] Description:ak Hd Fem Oxidized 03/14 Tapr +0 28mm Implanted:Qty: 1 on 03/16/2021 by Ivan Aranda MD at [facility] Right: Hip [employer] 09/20/2030 [id number] / / [id number] Description:elie Advance Directives * Full Code (Latest Code Status on File) Date Activated Date Inactivated Comments 03/16/2021 9:37 AM 03/21/2021 3:22 PM Care Teams Account Manager Relationship Specialty Start Date End Date Kirby Vogel MD [address] [place] [phone] PCP - General Family Medicine 01/26/19
--- OUTSIDE RECORDS SUMMARY | 2024-04-02 20:21 | XMS_ITS | Referral Summary ---
Author Organization [facility] Address [address] [place] [address] Care Team Providers Care Major Assembly Inspector Name Role Phone Kirby Vogel MD Primary Care Provider +1- [phone] Source Comments [facility],non-owned Affiliates and Associated Physician Practices is amultiple site organization consisting of ambulatory clinics and hospital sitesin [place], [place], [place] and [place]. This disclosure is being madepursuant to the Care Everywhere program and may not contain all information available regarding this patient. Last updated 17.[facility] Allergies Active Allergy Reactions Criticality Noted Date [...] Pain (Take for mild pain. Alternate with Central for moderate-severe pain.) Maximum allowable Acetaminophen amount [...] RECOM-DEJESUS, QUADR. (FLUBLOCK QUADRIVALENT; 18Y+) (RIV4) 01/29/2019 Social History Tobacco Use Types Packs/Day Years [...] Comments Blood Pressure 150/77 03/21/2021 9:53 AM SENIOR TABLEAU DEVELOPER Pulse 73 03/21/2021 9:53 AM SENIOR TABLEAU DEVELOPER Temperature 36.6 ??C (97.8 ??F) 03/21/2021 9:53 AM CS T Respiratory Rate 18 03/21/2021 9:53 AM SENIOR TABLEAU DEVELOPER Oxygen Saturation 96% 03/21/2021 9:53 AM SENIOR TABLEAU DEVELOPER Inhaled Oxygen Concentration - - Weight 68.5 kg (151 lb) 08/11/2021 12:29 PM CDT Height 157.5 cm (5' 2 ) 08/11/2021 12:29 PM CDT Body Mass Index 27.62 08/11/2021 12:29 PM CDT Plan of Treatment Not on file Goals Goal Patient Goal Type Associated Problems Recent Progress Patient-Stated? Author Medication Management General On track( 020 11:28 AM CDT) Analisa Diallo, RN Note: Expected end date: ongoing Interventions: Complete Hepatitis C therapy as prescribed Medical Devices Implanted Type Area Conference Organizer Device Identifier Shelf Expiration Date Model / Serial / Lot Shell Actb 54mm Hip 3 Hl Por R3 Std Implanted:Qty: 1 on 03/16/2021 by Ivan Aranda MD at [facility] Right: Hip [employer] 05/19/2030 [id number] / / [id number] Screw 6.5mm 40mm Sphrcl Head Hip Actb Implanted:Qty: 1 on 03/16/2021 by Ivan Aranda MD at [facility] Right: Hip [employer] 11/13/2030 [id number] / / [id number] Description:ak Dual Mobility Liner Oxinium Dh Implanted:Qty: 1 on 03/16/2021 by Ivan Aranda MD at [facility] Right: Hip [employer] 04/06/2030 [id number] / / [id number] Description:ak Dual Mobility Insert Xlpe Implanted:Qty: 1 on 03/16/2021 by Ivan Aranda MD at [facility] Right: Hip [employer] 02/22/2030 [id number] / / [id number] Description:ak Polarstem Stem Standard With Ti/Dejesus Implanted:Qty: 1 on 03/16/2021 by Ivan Aranda MD at [facility] Right: Hip [employer] 07/19/2027 75 100 466 / / [id number] Description:ak Hd Fem Oxidized 03/14 Tapr +0 28mm Implanted:Qty: 1 on 03/16/2021 by Ivan Aranda MD at [facility] Right: Hip [employer] 09/20/2030 [id number] / / [id number] Description:ak Advance Directives * Full Code (Latest Code Status on File) Date Activated Date Inactivated Comments 03/16/2021 9:37 AM 03/21/2021 3:22 PM Care Teams Major Assembly Inspector Relationship Specialty Start Date End Date Kirby Vogel MD [address] [place] [phone] PCP - General Family Medicine 01/26/19
--- OUTSIDE RECORDS SUMMARY | 2024-04-02 20:21 | XMS_ITS | Encounter Summary ---
Author Organization [facility] Address [address] [place] [address] Care Team Providers Care Mandrel Maker Name Role Phone Kirby Vogel MD Primary Care Provider +1- [phone] Encounter Details Date Type Department Care Team (Late st Contact Info) Description 08/04/2021 Orders Only [facility] - Orthopedic Surgery [address] [place] [address], [address] [place] [address] Catalino Martin MD [address] [place] [address] [place] [address] Neck pain ; Low back pain, unspecified back pain laterality, unspecified chronicity, unspecified whether sciatica present Social History Tobacco Use Types Packs/Day Years [...] as prescribed documented as of this encounter Results * XR LUMBAR SPINE [...] as visualized. LUMBAR SPINE: There are 5 vwg-ywi-dlhzocf lumbar type vertebrae. There is convex dextroscoliosis [...] as visualized. LUMBAR SPINE: There are 5 lbs-xyh-sbbylhy lumbar type vertebrae. There is convex dextroscoliosis [...] as visualized. LUMBAR SPINE: There are 5 ffl-imj-igdddkl lumbar type vertebrae. There is convex dextroscoliosis [...] as visualized. LUMBAR SPINE: There are 5 sqx-usl-krnujsu lumbar type vertebrae. There is convex dextroscoliosis [...] in this encounter Visit Diagnoses Diagnosis Neck pain- Primary Cervicalgia Low back pain, unspecified back pain laterality, unspecified chronicity, unspecified whether sciatica present Neck pain Cervicalgia Low back pain, unspecified back pain laterality, unspecified chronicity, unspecified whether sciatica present documented in this encounter Care Teams Mandrel Maker Relationship Specialty Start Date End Date Kirby Vogel MD [address] [place] [phone] PCP - General Family Medicine 01/26/19 documented as of this encounter
--- OUTSIDE RECORDS SUMMARY | 2024-04-02 20:21 | XMS_ITS | Encounter Summary ---
Author Organization [facility] Address [address] [place] [address] Care Team Providers Care Solutions Consultant Name Role Phone Kirby Vogel MD Primary Care Provider +1- [phone] Encounter Details Date Type Department Care Team (Late st Contact Info) Description 07/30/2022 Orders Only [facility] - Orthopedic Surgery [address] [place] [phone] Ivan Aranda MD [address] [facility] [address] [place] [address] History of total right hip replacement Social [...] Primary documented in this encounter Care Teams Solutions Consultant Relationship Specialty Start Date End Date Kirby Vogel MD [address] [place] [phone] PCP - General Family Medicine 01/26/19 documented as of this encounter
--- OUTSIDE RECORDS SUMMARY | 2024-04-02 20:22 | XMS_ITS | Encounter Summary ---
Author Organization [facility] Address [address] [facility] [place] [address] Care Team Providers Care Seed Collector Name Role Phone Kirby Vogel MD Primary Care Provider +1- [phone] Encounter Details Date Type Department Care Team (Late st Contact Info) Description 06/22/2020 Orders Only [facility] - COVID Vax [address] [place] [address] Jarett Bautista MD [address] [place] [address] Need for vaccination Social History Tobacco Use Types Packs/Day Years [...] as of this encounter Visit Diagnoses Diagnosis Need for vaccination Need for prophylactic vaccination and inoculation against unspecified single disease documented in this encounter Care Teams Seed Collector Relationship Specialty Start Date End Date Kirby Vogel MD [address] [place] [phone] PCP - General Family Medicine 01/26/19 documented as of this encounter
--- OUTSIDE RECORDS SUMMARY | 2024-04-02 20:22 | XMS_ITS | Encounter Summary ---
Author Organization [facility] Address [address] [place] [address] Care Team Providers Care Pipe Maker Name Role Phone Kirby Vogel MD Primary Care Provider +1- [phone] Encounter Details Date Type Department Care Team (Late st Contact Info) Description 06/12/2019 Orders Only [facility] - [address] [place] [phone] Analisa Bryant, radio journalist hepatitis C without hepatic coma (HCC) Social History Tobacco Use Types Packs/Day Years Used Date Smoking Tobacco: Former Cigarettes Q uit: 2005 Smokeless Tobacco: Never Alcohol Use Standard Drinks/Week Comments Yes 1 (1 standard drink = 0.6 oz pur e alcohol) 1 glass wine/week Sex and Gender Information Value Date Recorded Sex Assigned at Not on file Gender Identity Not on file Sexual Orientation Not on file documented as of this encounter Plan of Treatment Not on file documented as of this encounter Goals Goal Patient Goal Type Associated Problems Recent Progress Patient-Stated? Author Medication Management General On track( 020 11:28 AM CDT) No Analisa Bryant, RN Note: Expected end date: ongoing Interventions: Complete Hepatitis C therapy as prescribed documented as of this encounter Visit Diagnoses Diagnosis Chronic hepatitis C without hepatic coma (HCC)- Primary documented in this encounter Care Teams Pipe Maker Relationship Specialty Start Date End Date Kirby Vogel MD [address] [place] [phone] PCP - General Family Medicine 01/26/19 documented as of this encounter
--- OUTSIDE RECORDS SUMMARY | 2024-04-02 20:22 | XMS_ITS | Encounter Summary ---
Author Organization [facility] Address [address] [place] [address] Care Team Providers Care Vehicle Care Specialist Name Role Phone Kirby Vogel MD Primary Care Provider +1- [phone] Reason for Visit * Reason Comments Refill Request Encounter Details Date Type Department Care Team (Late st Contact Info) Description 03/21/2021 Refill HC 2 ORTHO/NEW VIS [address] [place] [address] Jayy Mendoza MD [address] [place] [address] [place] [address] Refill Request Social History Tobacco Use Types Packs/Day Years [...] On track( 020 11:28 AM CDT) No Fanning, Analisa D., RN Note: Expected end date: ongoing Interventions: Complete Hepatitis C therapy as prescribed documented as of this encounter Visit Diagnoses Not on filedocumented in this encounter Care Teams Vehicle Care Specialist Relationship Specialty Start Date End Date Kirby Vogel MD [address] [place] [phone] PCP - General Family Medicine 01/26/19 documented as of this encounter
--- OUTSIDE RECORDS SUMMARY | 2024-04-02 20:22 | XMS_ITS | Encounter Summary ---
Author Organization [facility] Address [address] [place] [address] Care Team Providers Care Social Worker Health Services Name Role Phone Kirby Vogel MD Primary Care Provider +1- [phone] Reason for Visit * Reason Comments Follow-up Encounter Details Date Type Department Care Team (Late st Contact Info) Description 03/07/2020 Telephone [facility] - [address] [phone] Donna Campa, RN Follow-up Social History Tobacco Use Types Packs/Day Years [...] as of this encounter Progress Notes * Donna Campa, RN - 03/07/2020 8:43 AM CST Patients sonJudd, calls stating he thought his mothers appointment was virtual today. He asks fora call back LUCAS at [phone]. YARD DERRICK OPERATOR documented in this encounter Plan of Treatment [...] on filedocumented in this encounter Care Teams Social Worker Health Services Relationship Specialty Start Date End Date Kirby Vogel MD [address] [place] [phone] PCP - General Family Medicine 01/26/19 documented as of this encounter
--- OUTSIDE RECORDS SUMMARY | 2024-04-02 20:22 | XMS_ITS | Encounter Summary ---
Author Organization [facility] Address [address] [place] [address] Care Team Providers Care Office Support Name Role Phone Kirby Vogel MD Primary Care Provider +1- [phone] Reason for Visit * Reason Comments Pain Hip Encounter Details Date Type Department Care Team (Late st Contact Info) Description 04/25/2021 2:00 PM MAT SEWER Office Visit [facility] - Orthopedics [address] [place] [address] [place] [phone] Unknown, Provider Ivan Aranda MD [address] [address] History of total right hip replacement (Primary [...] - Inhaled Oxygen Concentration - - Weight 68 kg (150 lb) 04/25/2021 12:49 PM MAT SEWER Height 165.1 cm (5' 5 ) 04/25/2021 12:49 PM MAT SEWER Body Mass Index 24.96 04/25/2021 12:49 PM MAT SEWER documented in this encounter Progress Notes * Ivan Aranda MD - 04/25/2021 2:00 PM CST Patient returns for follow-up 1 month after right total hip arthroplasty. Overall patient is doing well. Denies fevers chills or wound problems. No mechanical symptoms or dislocations. Continues to take aspirin. Continuing home therapy. Physical exam: Patient is awake and alert Examination of the right hip reveals flexion [...] antibiotic prophylaxis before invasive procedures. Follow-up in 3 months. Okay to stop DVT prophylaxis. Patient and family understood the treatment plan and all questions were answered. SEWER documented in this encounter Plan of Treatment [...] Primary documented in this encounter Care Teams Office Support Relationship Specialty Start Date End Date Kirby Vogel MD [address] [place] [phone] PCP - General Family Medicine 01/26/19 documented as of this encounter
--- OUTSIDE RECORDS SUMMARY | 2024-04-02 20:22 | XMS_ITS | Encounter Summary ---
Author Organization [facility] Address [address] [place] [address] Care Team Providers Care Production Packager Name Role Phone Kirby Vogel MD Primary Care Provider +1- [phone] Encounter Details Date Type Department Care Team (Latest Contact Info) Description 04/25/2021 12:33 PM CLAY TEMPERER - 04/25/2021 11:59 PM [facility] Hospital Encounter [facility] DIAGNOSTIC RAD [facility] [address] [facility] [place] [address] Ivan Aranda MD [address] [address] Discharge Disposition: Home or Self Care Social [...] Pain (Take for mild pain. Alternate with [place] for moderate-severe pain.) Maximum allowable Acetaminophen amount [...] WOMENS PO) Take by mouth once daily qoaxcnxy-czmfajhzto-zw lymyxin (NEOSPORIN) 400-5-5000 topical ointment Apply to affected area 3 times daily Affected area: right groin 100 g 03/21/2021 oxybutynin CR 24hr (DITROPAN-XL) 10 MG tablet [...] 160 mg by mouth once daily 03/17/2019 celecoxib (CELEBREX) 100 MG capsule Take 1 (one) capsule by mouth 2 times daily 60 capsule 03/21/2021 08/11/2021 docusate sodium (COLACE) 100 MG capsuleIndications:[place] r[place] osteoarthritis of right hip Take 1 (one) [...] Priority Date/Time Associated Diagnosis Comments XR PELVIS 1 OR 2VW Routine 04/25/2021 12 :45 PM CLAY TEMPERER Primary osteoarthritis of right hip documented in this encounter Results * XR PELVIS 1 OR 2VW (04/25/2021 12:45 PM CLAY TEMPERER) Anatomical Region Laterality Modality Pelvis Radiographic Nicci ging 04/25/2021 1:06 PM CLAY TEMPERER Impressions 04/25/2021 1:08 PM CLAY TEMPERER IMPRESSION: Interval right total hip arthroplasty. This report was electronically signed by SPIKE PATE MD ??on 04/25/2021 1:08 PM . Narrative 04/25/2021 1:08 PM CLAY TEMPERER Exam: XR HIP RIGHT 2VW XR PELVIS 1 VW History: ??M16.11: Primary osteoarthritis of right hip Comparison: 01/10/2021. Findings: Right hip: Interval total hip arthroplasty. The prosthetic components are intact. There is no fracture or dislocation. Vascular calcification. Pelvis: No pelvic fracture. Mild degenerative change at the sacroiliac joints, pubic symphysis, left hip. Extensive atherosclerotic disease. Procedure Note Spike Pate MD - 04/25/2021 Exam: XR HIP RIGHT [...] This report was electronically signed by SPIKE PATE MD on04/25/2021 1:08 PM . Ivan Aranda MD DIAGNOSTIC IMAGING ORDERABLES documented in this encounter Visit Diagnoses Diagnosis Primary osteoarthritis of right hip Primary localized osteoarthrosis, pelvic region and thigh documented in this encounter Care Teams Production Packager Relationship Specialty Start Date End Date Kirby Vogel MD [address] [place] [phone] PCP - General Family Medicine 01/26/19 documented as of this encounter
--- OUTSIDE RECORDS SUMMARY | 2024-04-02 20:22 | XMS_ITS | Encounter Summary ---
Author Organization [facility] Address [address] [place] [address] Care Team Providers Care Firer Automatic Stoker Name Role Phone Kirby Vogel MD Primary Care Provider [phone]- [phone] Reason for Visit * Reason Onset Date Comments Follow-up 08/31/2019 Encounter Details Date Type Department Care Team (Late st Contact Info) Description 08/31/2019 Telephone [facility] [address] [facility] [place] [address] Marina Araujo M, HOME CARE PHYSICAL THERAPIST-TELLERS SUPERVISOR [address] [place] [phone] Follow-up Social History Tobacco Use Types Packs/Day Years Used Date Smoking Tobacco: Former Cigarettes Q uit: 2005 Smokeless Tobacco: Never Alcohol Use Standard Drinks/Week Comments Yes 1 (1 standard drink = 0.6 oz pur e alcohol) 1 glass wine/week Sex and Gender Information Value Date Recorded Sex Assigned at Not on file Gender Identity Not on file Sexual Orientation Not on file COVID-19 Exposure Response Date Recorded In the last month, have you been in contact with someone who was confirmed or suspected to have Coronavirus / COVID-19? Unable to assess 08/11/2019 1:24 PM CDT documented as of this encounter Miscellaneous Notes * Telephone Encounter - Marina Araujo APRN-CNP - 08/31/2019 3:44 PM CDT Spoke with patient ok ay to take ang with epclusa. She also can take tylenol She only takes 2 tylenol as day as she needs documented in this encounter Plan of Treatment [...] on filedocumented in this encounter Care Teams Firer Automatic Stoker Relationship Specialty Start Date End Date Kirby Vogel MD [address] [place] [phone] PCP - General Family Medicine 01/26/19 documented as of this encounter
--- OUTSIDE RECORDS SUMMARY | 2024-04-02 20:22 | XMS_ITS | Encounter Summary ---
Author Organization [facility] Address [address] [place] [address] Care Team Providers Care Lumber Tripper Name Role Phone Kirby Vogel MD Primary Care Provider [phone]- [phone] Reason for Visit * Reason Comments Hepatitis C Encounter Details Date Type Department Care Team (Late st Contact Info) Description 08/18/2019 3:00 PM CDT Video Visit [facility] - [facility] [address] [facility] [place] [phone] Marina Araujo M, SCHOOL CHILDCARE ATTENDANT-FIRST COAT OPERATOR [address] [place] [address] [place] [phone] Chronic hepatitis C without hepatic coma (HCC) Social [...] PM CDT documented as of this encounter Patient Instructions * Patient Instructions* AraujoMarina, SCHOOL CHILDCARE ATTENDANT-FIRST COAT OPERATOR - 08/18/2019 3:51 PM CDT .Thank you for entrusting your healthcare to the physicians and other specialists at the [facility] clinic today. Following your visit, you may receive a survey via email or U.S. Mail. We encourage you to respond to this confidential survey about your care. Your feedback helps us to provide quality service at every visit. Thank you for your help in making our practice meet higher expectations. Contact information: To reach the clinic please call (8 am to noon, 1 to 4:30 pm weekdays). ?? Press 1 to make schedule or cancel an appointment ?? Press 2 for pharmacy refills ?? Press 3 to speak with a nurse regarding a change in your condition. ?? Many times your nurse may be busy seeing patients in clinic. In order to meet your needs timely we have implemented a nurse triage line to take your calls. ?? We are closed from 12-1 for lunch ?? After hours please call (hospital main number), ask the fiber product cutting machine operator to call the gastroenterology fellow compensation and benefits administrator. ?? Emergency: call 911 or go to your closest emergency room. We encourage you to use [employer] to send and receive messages and review your test results. Let us know if you need information on signing up for [employer]. More information about us and our services can be found on our websites at [email or web address] Information about the [facility], a bbw-fuz-pxfbcw foundation supporting liver disease research by your doctors and researchers at [facility], can be found at: [email or web address] IMPORTANT 08/18/2019 The following information and instructions are from your visit today: Ms. Medina plans to start hepatitis C treatment in September She is to call the clinic when she start epclusa so that she may be sent a lab schedule She is to follow up in the clinic after she starts epclusa She was instructed to call the clinic if she has any questions or concerns. documented in this encounter Progress Notes * Marina Araujo APRN-CNP - 08/18/2019 3:06 PM CDT Telemedicine Note Patient Verification & Telemedicine Based Consent Today's visit was conducted virtually due to COVID-19 countermeasures. The patient has given verbalconsent to have today's visit conducted by this same means with treatment provided remotely. The patient verbally consents to the billing and collection practices of the provider's medical group. Assessment & Plan Daniela is a 84 year old female who has completed a telemedicine encounter regarding: hepatitis C Patient Active Problem List Diagnosis ??? Essential hypertension ??? Depression ??? Pulmonary emphysema ??? Chronic hepatitis C without hepatic coma Hepatitis B core antibody non reactive genotype 1b 06/12/19 Fibroscan CAP 259, LSM 5.5 kPa Patient location: Home This encounter was performed using: audio and video All aspects of patient's medical history were reviewed and updated as documented in Epic Ms. Medina is a 84 year old female who presents at the [facility] today for a follow up visit for hepatitis C. She Did not start epclusa at this time. She is [facility] in her home at this time and has concerns related to going to he lab facility to get labs She denies any fatigue nausea, vomiting or abdominal pain She did receive all 12 weeks of epclusa Chief Complaint Patient presents with ??? Hepatitis C Patient Active Problem List: Essential hypertension Depression Pulmonary emphysema Chronic hepatitis C without hepatic coma Past Medical History: Diagnosis Date ??? Disorder of liver ??? Generalized anxiety disorder ??? Hepatitis C ??? Hypertension ??? Prolapsed uterus No past surgical history on file. History: Patient denies any new medical or family history Treatment: none Social History Social History Socioeconomic History ??? Marital status: Single Spouse name: Not on file ??? Number of children: Not on file ??? Years of education: Not on file ??? Highest education level: Not on file Occupational History ??? Not on file Social Needs ??? Financial resource strain: Not on file ??? Food insecurity Worry: Not on file Inability: Not on file ??? Transportation needs Medical: Not on file Non-medical: Not on file Tobacco Use ??? Smoking status: Former Smoker Last attempt to quit: 2005 Years since quittin.3 ??? Smokeless tobacco: Never Used Substance and Sexual Activity ??? Alcohol use: Yes Alcohol/week: 1.0 standard drinks Types: 1 Glasses of wine per week Comment: 1 glass wine/week ??? Drug use: Never ??? Sexual activity: Not on file Lifestyle ??? Physical activity Days per week: Not on file Minutes per session: Not on file ??? Stress: Not on file Relationships ??? Social connections Talks on phone: Not on file Gets together: Not on file Attends uatsdin service: Not on file Active member of club or organization: Not on file Attends meetings of clubs or organizations: Not on file Relationship status: Not on file ??? Intimate partner violence Fear of current or ex partner: Not on file Emotionally abused: Not on file Physically abused: Not on file Forced sexual activity: Not on file Other Topics Concern ??? Not on file Social History Narrative ??? Not on file Past Medical History: Diagnosis Date ??? Disorder of liver ??? Generalized anxiety disorder ??? Hepatitis C ??? Hypertension ??? Prolapsed uterus No past surgical history on file. Family History Problem Relation Name Age of Onset ??? Cancer - Bladder Mother ??? Other - Cardiac Father She describes her current average alcohol consumption as none I have reviewed with her regarding her Medical, Social and Family history and I have updated and corrected these sections of his [facility] electronic health record based on my discussions with her and/orher family members present at this visit today. Allergies Allergen Reactions ??? Codeine Other Caused weird dreams Current Outpatient Medications Medication Sig ??? amLODIPine (NORVASC) 5 MG tablet Take 5 mg by mouth 2 times daily ??? aspirin (ASPIRIN) 81 MG tablet Take 81 mg by mouth once daily ??? Azelastine HCl 137 MCG/SPRAY SOLN ??? Calcium Carb-Cholecalciferol (CALCIUM 500 +D PO) Take by mouth once daily ??? Cyanocobalamin (VITAMIN B12 PO) Take by mouth once daily ??? Fexofenadine HCl (RENU PO) Take by mouth once daily ??? LORazepam (ATIVAN) 0.5 MG tablet Take 1 tablet by mouth 2 times daily as needed ??? metoprolol succinate XL 24hr (TOPROL XL) 50 MG tablet Take 50 mg by mouth once daily ??? Multiple Vitamins-Calcium (ONE-A-DAY WOMENS PO) Take by mouth once daily ??? oxybutynin CR 24hr (DITROPAN-XL) 10 MG tablet Take 1 tablet by mouth once daily ??? Polyethylene Glycol 3350 (MIRALAX PO) ??? sertraline (ZOLOFT) 25 MG tablet Take 25 mg by mouth once daily ??? Sofosbuvir-Velpatasvir (EPCLUSA) 400-100 MG TABS Take 1 tablet by mouth once daily (Patient nottaking: Reported on 08/13/2019) ??? SYMBICORT 160-4.5 MCG/ACT inhaler Inhale 2 puffs by mouth every 12 hours ??? valsartan (DIOVAN) 80 MG tablet Take 80 mg by mouth once daily No current facility-administered medications for this visit. I have reviewed and confirmed with Ms. Medina her current medications, allergies, social history. Review of systems: HEENT: normal Appetite: good . Fatigue: none Chest pain: none. Shortness of breath: none. Nausea and vomiting: none. Abdominal pain: none . Reflux or GERD symptoms: none. Constipation or diarrhea: none. Edema: None Musculoskeletal pain: none Skin: rashes none Depression: she denies that this is a current problem. All other components of a 14 point review of systems were negative. Exam Vital signs not taken at this visit General appearance: Well nourished well developed, in no acute distress, appears stated age Skin: No lesions or rashes, no jaundice, Nose: Nares normal. No drainage noted Eyes: No scleral icterus, no drainage, observed conjunctivae/corneas clear Lungs/Respiratory: Patient breathing comfortably, no observed respiratory distress Mental status/Psych Alert and oriented, answered questions appropriately, normal affect Laboratory test results: Recent Labs Component Name 04/13/19 1640 SODIUM 139 POTASSIUM 4.4 CHLORIDE 105 CO2 22 BUN 23 CREATININE 0.96 GLUCOSE 99 CALCIUM 10.3 ALBUMIN 4.4 ALKPHOS 85 ALT 45* AST 42* TBIL 0.5 TPROT 7.2 EGFR 55* . Recent Labs Component Name 04/13/19 1640 WBC 7.3 RBC 4.96 HGB 14.4 HCT 43.1 MCV 87 MCHC 33.4 PLTCOUNT 228 MONOCYTPCT 7 EOSINPCT 2 LYMPHABS 1.8 MONOCYTABS 0.5 BASOABS 0.0 IMMGRANSABS 0.0 Recent Labs Component Name 04/13/19 1640 ALBUMIN 4.4 Recent Labs Component Name 04/13/19 1640 INR 0.9 Recent Labs Component Name 04/13/19 1640 ALBUMIN 4.4 Recent Labs Component Name 04/13/19 1640 TBIL 0.5 ALKPHOS 85 ALT 45* AST 42* ALBUMIN 4.4 SODIUM 139 POTASSIUM 4.4 CO2 22 CREATININE 0.96 BUN 23 HGB 14.4 WBC 7.3 PLTCOUNT 228 INR 0.9 I have reviewed the laboratory studies with Ms. Medina I spent 25 minutes with the patient, greater than 50% of the time was spent with counseling and coordination of care We discussed September My impression is that Ms. Medina has chronic hepatitis C she wishes to start treatment When she canfeel safe to leave her home. She lives in [place] which is still sheltering Only essential business are opened Plan: Ms. Medina plans to start hepatitis C treatment in September She is to call the clinic when she start epclusa so that she may be sent a lab schedule She is to follow up in the clinic after she starts epclusa She was instructed to call the clinic if she has any questions or concerns. The plan was reviewed with the patient and the patient confirmed understanding of the plan and all follow-up steps. Impression: Sincerely, Marina WEBER [address] [place] [phone] Collaborating Physican Bud Plaza MD [address] [place] [address] Address letter to: Kirby Vogel MD [address] [place] [id number] documented in this encounter Plan of Treatment [...] Primary documented in this encounter Care Teams Lumber Tripper Relationship Specialty Start Date End Date Kirby Vogel MD [address] [place] [phone] PCP - General Family Medicine 01/26/19 documented as of this encounter
--- OUTSIDE RECORDS SUMMARY | 2024-04-02 20:22 | XMS_ITS | Encounter Summary ---
Author Organization [facility] Address [address] [place] [address] Care Team Providers Care Driller'S Assistant Name Role Phone Kirby Vogel MD Primary Care Provider [phone]- [phone] Reason for Visit * Reason Comments Hepatitis C Encounter Details Date Type Department Care Team (Late st Contact Info) Description 03/07/2020 2:30 PM HOUSEKEEPING ASSISTANT Video Visit [facility] - GI [address] [facility], [place] [phone] Marina Araujo, SKIP MINER-FIELD CONTACT TECHNICIAN [address] [place] [address] [place] [phone] Chronic hepatitis C without hepatic coma (HCC) [...] as of this encounter Progress Notes * Analisa Bryant, RN - 03/07/2020 2:31 PM CST Telemedicine Note Patient Verification & Telemedicine Based Consent I am proceeding with this evaluation at the direct request of the patient. I have verified this is the correct patient and have obtained verbal consent from the patient/surrogate to perform this voluntary telemedicine encounter evaluation. I have explained risks (including potential loss of confiden tiality), benefits, alternatives, and the potential need for subsequent face to face care. Patient/surrogate understands that there is a risk of medical inaccuracies given that our recommendations will be made based on reported data. Knowing that there is a risk that this information is not reported accurately, and that the telemedicine audio, or data feed may be incomplete, the patient agrees toproceed with evaluation and holds us harmless knowing these risks. In this evaluation, we will be providing recommendations only. The patient/surrogate has been notified that other healthcare professionals (including students, residents and technical personnel) may be involved in this audio evaluation. All laws concerning confidentiality and patient access to medical records and copies of medicalrecords apply to telemedicine. I have reviewed this above verification and consent paragraph with the patient/surrogate. I have obtained the virtual visit consent as documented in the physician/advanced provider note andpatient has agreed to proceed with visit. I have additionally reviewed the patient's medical history, allergies, and performed a medication reconciliation EKEEPING ASSISTANT * Marina Araujo, SKIP [employer]-FIELD CONTACT TECHNICIAN - 03/07/2020 2:30 PM CST Patient Verification & Telephone Based Consent: I am proceeding with this evaluation at the direct request of the patient. I have verified this is the correct patient and have obtained verbal consent from the patient/surrogate to perform this voluntary telephone encounter evaluation. I have explained risks (including potential loss of confidentiality), benefits, alternatives, and the potential need for subsequent face to face care. Patient/ surrogate understands that there is a risk of medical inaccuracies given that our recommendations willbe made based on reported data. Knowing that there is a risk that this information is not reported accurately, and that the telemedicine audio, or data feed may be incomplete, the patient agrees to proceed with evaluation and holds us harmless knowing these risks. In this evaluation, we will be providing recommendations only. The patient/surrogate has been notified that other healthcare professionals (including students, residents and technical personnel) may be involved in this audio evaluation. All laws concerning confidentiality and patient access to medical records and copies of medical re cords apply to telemedicine. I have reviewed this above verification and consent paragraph with thepatient/surrogate. Telephone Note Patient Verification & Telemedicine Based Consent Today's visit was conducted virtually due to COVID-19 countermeasures. The patient has given verbalconsent to have today's visit conducted by this same means with treatment provided remotely. The patient verbally consents to the billing and collection practices of the provider's medical group. Assessment & Plan Daniela is a 84 year old female who has completed a telephone encounter regarding: Patient Active Problem List Diagnosis ??? Essential hypertension ??? Depression ??? Pulmonary emphysema ??? Chronic hepatitis C without hepatic coma Hepatitis B core antibody non reactive genotype 1b 06/12/19 Fibroscan CAP 259, LSM 5.5 kPa Encounter duration: 25 minutes Patient location: Home This encounter was performed using: audio Reason for not using video for visit: technical problems in using available video technology The plan was reviewed with the patient and the patient confirmed understanding of the plan and all follow-up steps. All aspects of patient's medical history were reviewed and updated as documented in Epic Ms. Medina is a 84 year old female who presents at the [facility] today for a follow up visit for hepatitis C. She completed epclusa in october .She complains of back pain andsciatic nerve pain she was cleaning her bathroom and hurt her back She states she had recent deaths in her family but she is doing okay She She states her Granddaughter Sofie Medina would Like to speak with us related to her status Patient states that her PCP Dr. Vogel would like her to have her HCV RNA reckeck in 6 months Chief Complaint Patient presents with ??? Hepatitis C Patient Active Problem List: Essential hypertension Depression Pulmonary emphysema Chronic hepatitis C without hepatic coma Past Medical History: Diagnosis Date ??? Disorder of liver ??? Generalized anxiety disorder ??? Hepatitis C ??? Hypertension ??? Prolapsed uterus No past surgical history on file. History: Patient denies any new medical or family history Treatment: obtained SVR with epclusa Social History Social History Socioeconomic History ??? [...] ??? Smoking status: Former Smoker Quit date: 2004 Years since quittin.9 ??? Smokeless tobacco: Never Used Substance and [...] file Gets together: Not on file Attends scientologist service: Not on file Active member of [...] updated and corrected these sections of his [facility] electronic health record based on my discussions with her and/orher family members present at this visit today. Allergies Allergen Reactions ??? Codeine Other Caused weird dreams Current Outpatient Medications Medication Sig ??? acetaminophen (TYLENOL) 500 MG tablet Take 500 mg by mouth every 4 hours as needed for Fever orPain Maximum allowable Acetaminophen amount = 4 Grams (4000 mg) / 24 hours. ??? amLODIPine (NORVASC) 5 MG tablet Take [...] by mouth once daily as needed ??? meloxicam (MOBIC) 15 MG tablet Take 15 mg by mouth once daily ??? metoprolol succinate XL 24hr (TOPROL XL) 50 MG tablet Take 50 mg by mouth once daily ??? Multiple Vitamins-Calcium (ONE-A-DAY WOMENS PO) Take by mouth once daily ??? Naproxen Sodium (ALEVE) 220 MG ??? oxybutynin CR 24hr (DITROPAN-XL) 10 MG tablet Take 1 tablet by mouth once daily ??? Polyethylene Glycol 3350 (MIRALAX PO) ??? sertraline (ZOLOFT) 25 MG tablet Take 25 mg by mouth once daily ??? SYMBICORT 160-4.5 MCG/ACT inhaler Inhale 2 puffs by mouth every 12 hours ??? valsartan (DIOVAN) 80 MG tablet Take 80 mg by mouth once daily No current facility-administered medications for this visit. I have reviewed and confirmed with Ms. Medina her current medications, allergies, social history. Review of systems: HEENT: normal Appetite: good . Fatigue: yes at times Chest pain: none. Shortness of breath: none. Nausea and vomiting: none. Abdominal pain: none . Reflux or GERD symptoms: none. Constipation or diarrhea: none. Edema: None Musculoskeletal pain: none Skin: rashes none Depression: she denies that this is a current problem. All other components of a 14 point review of systems were negative. Laboratory test results: Recent Labs Component Name 02/16/20 1128 12/03/19 1417 09/29/19 1052 SODIUM 140 137 139 POTASSIUM 4.2 4.9 4.8 CHLORIDE 102 98 100 CO2 25 27 28 BUN 25 22 28* CREATININE 0.92 0.76 0.94 GLUCOSE 99 96 84 CALCIUM 10.3 10.3 10.5* ALBUMIN 4.3 4.3 4.3 ALKPHOS 97 97 89 ALT 15 20 15 AST 23 26 23 TBIL 0.6 0.6 0.4 TPROT 7.3 7.2 7.4 EGFR 57* 72 56* . Recent Labs Component Name 02/16/20 1128 12/03/19 1417 09/29/19 1052 WBC 7.0 6.2 7.1 RBC 4.25 4.33 4.52 HGB 13.1 13.3 13.6 HCT 38.8 38.9 39.6 MCV 91 90 88 MCHC 33.8 34.2 34.3 PLTCOUNT 219 236 238 MONOCYTPCT 13 12 13 EOSINPCT 1 2 2 LYMPHABS 1.5 1.5 1.7 MONOCYTABS 0.9 0.8 1.0* BASOABS 0.0 0.1 0.0 IMMGRANSABS 0.0 0.0 0.0 Recent Labs Component Name 02/16/20 1128 12/03/19 1417 09/29/19 1052 ALBUMIN 4.3 4.3 4.3 Recent Labs Component Name 04/13/19 1640 INR 0.9 Recent Labs Component Name 02/16/20 1128 12/03/19 1417 09/29/19 1052 ALBUMIN 4.3 4.3 4.3 Recent Labs Component Name 02/16/20 1128 12/03/19 1417 09/29/19 1052 04/13/19 1640 TBIL 0.6 0.6 0.4 0.5 ALKPHOS 97 97 89 85 ALT 15 20 15 45* AST 23 26 23 42* ALBUMIN 4.3 4.3 4.3 4.4 SODIUM 140 137 139 139 POTASSIUM 4.2 4.9 4.8 4.4 CO2 25 27 28 22 CREATININE 0.92 0.76 0.94 0.96 BUN 25 22 28* 23 HGB 13.1 13.3 13.6 14.4 WBC 7.0 6.2 7.1 7.3 PLTCOUNT 219 236 238 228 INR - - - 0.9 Date of Exam: 06/12/2019 ?? Liver Stiffness: (LSM, kPa) median: 5.5 IQR (interquartile range): 0.8 IQR/Median% (ideally < 30%): 15 ?? CAP (controlled attenuation parameter): 259 ?? I have reviewed the laboratory studies with Ms. Medina Impression: My impression is that Ms. Medina has chronic hepatitis C and obtained SVR Cirrhosis none noted on fibroscan Plan: Ms. Medina obtained SVR with epclusa . She is to get her labs in 6 months and need to e faxed to Dr. Vogel She is to follow up in the clinic as needed She was instructed to call the clinic if she has any questions or concerns. The plan was reviewed with the patient and the patient confirmed understanding of the plan and all follow-up steps. Marina WEBER [address] [place] [address] Collaborating Physican Bud Plaza MD [address] [place] [address] Address letter to: Kirby Vogel MD [address] [place] [address] EKEEPING ASSISTANT documented in this encounter Plan of Treatment Not on file documented as of this encounter Goals Goal Patient Goal Type Associated Problems Recent Progress Patient-Stated? Author Medication Management General On track( 020 11:28 AM CDT) Analisa Diallo, RN Note: Expected end date: ongoing Interventions: Complete Hepatitis C therapy as prescribed documented as of this encounter Procedures Procedure Name Priority Date/Time Associated Diagnosis Comments HEPATITIS C RNA QUANTITATIVE Routine 09/22/2020 11:11 AM CDT Chronic hepatitis C without hepatic coma (HCC) CBC W AUTO DIFFERENTIAL Routine 09/22/2020 11:11 AM CDT Chronic hepatitis C without hepatic coma (HCC) COMPREHENSIVE METABOLIC PANEL Routine 09/22/2020 11:11 AM CDT Chronic hepatitis C without hepatic coma (HCC) documented in this encounter Results * HEPATITIS C RNA QUANTITATIVE (09/22/2020 11:11 AM CDT) Hepatitis C Virus Quantitation HCV Not Detected [...] Resulting Agency Comment Lab Testing performed at: [facility] ??[facility] [id number] Marina Araujo SKIP [employer]ER-FIELD CONTACT TECHNICIAN LAB - CHEMIS TRY ORDERABLES [facility] INSURANCE BILL [address] [place] [address] * (ABNORMAL) COMPREHENSIVE METABOLIC PANEL (09/22/2020 11:11 AM CDT) Glucose 105(H) 65 - 99 mg/dL [facility] INSURANCE BILL BUN 17 8 - 27 mg/dL [facility] INSURANCE BILL Creatinine 0.80 0.57 - 1.00 mg/dL [facility] INSURANCE BILL eGFR by MDRD 67 >59 mL/min/1.7 3 [facility] INSURANCE BILL eGFR by MDRD 78 >59 mL/min/1.7 3 [facility] INSURANCE BILL Comment: [facility] currently reports eGFR in compliance with the current ??recommendations of the National Kidney Foundation. [facility] will ??update reporting as new guidelines are published from the NKF-ASN ??Task force. BUN/Creatinine Ratio 21 12 - 28 [facility] INSURANCE BILL Sodium 142 134 - 144 mmol/L [facility] INSURANCE BILL Potassium 4.4 3.5 - 5.2 mmol/L [facility] INSURANCE BILL Chloride 104 96 - 106 mmol/L [facility] INSURANCE BILL CO2 24 20 - 29 mmol/L [facility] INSURANCE BILL Calcium 10.7(H) 8.7 - 10.3 mg/dL [facility] INSURANCE BILL Protein Total 7.4 6.0 - 8.5 g/dL [facility] INSURANCE BILL Albumin 4.4 3.6 - 4.6 g/dL [facility] INSURANCE BILL Globulin Total 3.0 1.5 - 4.5 g/dL [facility] INSURANCE BILL Albumin/Globulin Ratio 1.5 1.2 - 2.2 [facility] INSURANCE BILL Bilirubin Total 0.6 0.0 - 1.2 mg/dL [facility] INSURANCE BILL Alkaline Phosphatase 125(H) 48 - 121 IU/L [facility] INSURANCE BILL AST 30 0 - 40 IU/L [facility] INSURANCE BILL ALT 21 0 - 32 IU/L [facility] INSURANCE BILL Blood BLOOD SPECIMEN / Unknown 09/22/2020 11:11 AM CDT 09/22/2020 Narrative Resulting Agency Comment Lab Testing performed at: [facility] [place] [address] [facility] ??[facility] [id number] Marina Araujo SKIP MINER-FIELD CONTACT TECHNICIAN LAB - CHEMIS TRY ORDERABLES [facility] INSURANCE BILL [address] [place] [address] * CBC WITH DIFFERENTIAL (09/22/2020 11:11 AM CDT) WBC 6.8 3.4 - 10.8 x10E3/uL [facility] INSURANCE BILL RBC 4.70 3.77 - 5.28 x10E6/uL [facility] INSURANCE BILL Hemoglobin 14.2 11.1 - 15.9 g/dL [facility] INSURANCE BILL Hematocrit 42.4 34.0 - 46.6 % [facility] INSURANCE BILL MCV 90 79 - 97 fL [facility] INSURANCE BILL MCH 30.2 26.6 - 33.0 pg [facility] INSURANCE BILL MCHC 33.5 31.5 - 35.7 g/dL [facility] INSURANCE BILL RDW 13.2 11.7 - 15.4 % [facility] INSURANCE BILL Platelet Count 255 150 - 450 x10E3/uL [facility] INSURANCE BILL Granulocytes % 68 Not Estab. % [facility] INSURANCE BILL Lymphocytes % 20 Not Estab. % [facility] INSURANCE BILL Monocytes % 9 Not Estab. % [facility] INSURANCE BILL Eosinophils % 2 Not Estab. % [facility] INSURANCE BILL Basophils % 1 Not Estab. % [facility] INSURANCE BILL Immature Cells NOT NEEDED [facility] INSURANCE BILL Comment:Ancillary determined the test is not needed. Granulocytes Absolute 4.7 1.4 - 7.0 x10E3/uL [facility] INSURANCE BILL Lymphocytes Absolute 1.3 0.7 - 3.1 x10E3/uL [facility] INSURANCE BILL Monocytes Absolute 0.6 0.1 - 0.9 x10E3/uL [facility] INSURANCE BILL Eosinophils Absolute 0.1 0.0 - 0.4 x10E3/uL [facility] INSURANCE BILL Basophils Absolute 0.0 0.0 - 0.2 x10E3/uL [facility] INSURANCE BILL Immature Granulocytes 0 Not Estab. % [facility] INSURANCE BILL Immature Granulocytes Absolute 0.0 0.0 - 0.1 x10E3/uL [facility] INSURANCE BILL nRBC NOT NEEDED [facility] INSURANCE BILL Comment:Ancillary determined the test is not needed. Comment Hematology NOT NEEDED [facility] INSURANCE BILL Comment:Ancillary determined the test is not needed. Blood BLOOD SPECIMEN / Unknown 09/22/2020 11:11 AM CDT 09/22/2020 Narrative Resulting Agency Comment Lab Testing performed at: [facility] [address] ??[facility] [id number] Marina Araujo SKIP MINER-FIELD CONTACT TECHNICIAN LAB - HEMATO LOGY ORDERABLES [facility] INSURANCE BILL [address] [place] [address] documented in this encounter Visit Diagnoses Diagnosis Chronic hepatitis C without hepatic coma (HCC)- Primary documented in this encounter Care Teams Driller'S Assistant Relationship Specialty Start Date End Date Kirby Vogel MD [address] [place] [phone] PCP - General Family Medicine 01/26/19 documented as of this encounter
--- OUTSIDE RECORDS SUMMARY | 2024-04-02 20:22 | XMS_ITS | Encounter Summary ---
Author Organization [facility] Address [address] [place] [address] Care Team Providers Care Microsoft Office Instructor Name Role Phone Kirby Vogel MD Primary Care Provider +1- [phone] Reason for Visit * Reason Comments Appointment Encounter Details Date Type Department Care Team (Late st Contact Info) Description 08/10/2019 Telephone [facility] [address] [place], [place] [phone] Brittany Roldan Appointment Social History Tobacco Use Types Packs/Day Years [...] on file documented as of this encounter Miscellaneous Notes * Telephone Encounter - Brittany Roldan - 08/10/2019 12:51 PM CDT Attempt to contact patient to schedule telemedicine appointment with Mairna Araujo for August 18, 2019 patient did not answer left patient a message to return my call in the clinic. documented in this encounter Plan of Treatment [...] on filedocumented in this encounter Care Teams Microsoft Office Instructor Relationship Specialty Start Date End Date Kirby Vogel MD [address] [place] [phone] PCP - General Family Medicine 01/26/19 documented as of this encounter
--- OUTSIDE RECORDS SUMMARY | 2024-04-02 20:22 | XMS_ITS | Encounter Summary ---
Author Organization [facility] Address [address] [place] [address] Care Team Providers Care Community Resource Officer Name Role Phone Kirby Vogel MD Primary Care Provider +1- [phone] Encounter Details Date Type Department Care Team (Latest Contact Info) Description 03/13/2021 5:25 PM SAMPLE MAKER - 03/13/2021 11:59 PM [facility] Hospital Encounter [facility] [address] [place] [address] Ivan Aranda MD [address] [facility] [address] [place], [place] [phone] Discharge Disposition: Home or Self Care Social [...] Pain (Take for mild pain. Alternate with [place] for moderate-severe pain.) Maximum allowable Acetaminophen amount [...] by mouth once daily as needed 03/17/2019 Multiple Vitamins-Calcium (ONE-A-DAY WOMENS PO) Take by mouth once daily wiregglp-ogrruokykf-wa lymyxin (NEOSPORIN) 400-5-5000 topical ointment Apply to [...] 160 mg by mouth once daily 03/17/2019 acetaminophen (TYLENOL) 500 MG tablet Take 500 mg by mouth every 4 hours as needed for Fever or Pain Maximum allowable Acetaminophen amount = 4 Grams (4000 mg) / 24 hours. 03/16/2021 aspirin (ASPIRIN) 81 MG chew tabletIndications:Prim kayla osteoarthritis of right hip Take 1 (one) tablet by mouth 2 times daily 60 tablet 03/16/2021 03/21/2021 aspirin (ASPIRIN) 81 MG tablet Take 81 mg by mouth once daily 03/21/2021 celecoxib (CELEBREX) 100 MG capsule Take 1 (one) capsule by mouth 2 times daily 60 capsule 03/21/2021 08/11/2021 celecoxib (CELEBREX) 100 MG capsule Take 1 (one) capsule by mouth 2 times daily 60 capsule 03/16/2021 03/21/2021 Cyanocobalamin (VITAMIN B12 PO) Take by mouth once daily 03/16/2021 docusate sodium (COLACE) 100 MG capsuleIndications:Carol jacky osteoarthritis of right hip Take 1 (one) capsule by mouth 2 times daily 60 capsule 03/21/2021 08/11/2021 docusate sodium (COLACE) 100 MG capsuleIndications:Carol jacky osteoarthritis of right hip Take 1 (one) capsule by mouth 2 times daily 60 capsule 03/16/2021 03/21/2021 famotidine (PEPCID) 20 MG tabletIndications:Prim kayla osteoarthritis of right hip Take 1 (one) tablet by mouth once daily 30 tablet 03/16/2021 03/21/2021 HYDROcodone-acetaminop hen (NORCO) 5-325 MG tablet Take 1 (one) tablet by mouth every 4 hours as needed for Pain (Take for moderate-severe pain only. Alternate with tylenol for mild pain.) 42 tablet 03/21/2021 08/11/2021 HYDROcodone-acetaminop hen (NORCO) 5-325 MG tablet Take 1 (one) tablet by mouth every 4 hours as needed for Pain (Take for moderate-severe pain only. Alternate with tylenol for mild pain.) 40 tablet 03/16/2021 03/21/2021 meloxicam (MOBIC) 15 MG tablet Take 15 mg by mouth once daily 10/16/2019 03/21/2021 metoprolol succinate XL 24hr (TOPROL XL) 50 MG tablet Take 50 mg by mouth once daily 04/03/2019 03/16/2021 Naproxen Sodium (ALEVE) 220 MG 03/21/2021 kuzskora-uvadggnbbt-nq lymyxin (NEOSPORIN) 400-5-5000 topical ointment Apply to affected area 3 times daily Affected area: right groin 100 g 03/21/2021 03/21/2021 nystatin (MYCOSTATIN) 111046 UNIT/GM powder Apply to affected area 3 times daily 12/22/2020 03/16/2021 sulfamethoxazole-trime thoprim (BACTRIM DS; SEPTRA DS) 800-160 MG tablet Take 1 (one) tablet by mouth every 12 hours 14 tablet 03/21/2021 03/21/2021 triamcinolone acetonide (KENALOG) 0.1 % cream 02/06/2021 03/16/2021 documented as of this encounter Plan of [...] Procedure Name Priority Date/Time Associated Diagnosis Comments URINE MICROSCOPIC ONLY REFLEX TO CULTURE Routine 03/13/2021 2:00 PM SAMPLE MAKER Essential hypertension URINALYSIS REFLEX MICROSCOPIC REFLEX CULTURE Routine 03/13/2021 2:00 PM SAMPLE MAKER Essential hypertension CULTURE URINE Routine 03/13/2021 2:00 PM SAMPLE MAKER Essential hypertension documented in this encounter Results * CULTURE URINE (03/13/2021 2:00 PM SAMPLE MAKER) Culture Urine <10,000 CFU/mL urogenital kodi KELLEN 03/15/2021 7:11 AM SAMPLE MAKER [facility] MICROBIOLOGY Urine URINE SPECIMEN OBTAINED BY CLEAN CATCH PROCEDURE / Unknown Collection / Unknown 03/13/2021 2:00 PM SAMPLE MAKER 03/13/2021 5:37 PM SAMPLE MAKER Ivan Aranda MD LAB - MICROBIOLOGY ORDERABLES Performing Organization Address City/[facility]/ZIP Co de Phone Number [facility] [address] [place] [address], [facility] [phone] * (ABNORMAL) URINE MICROSCOPIC ONLY REFLEX TO CULTURE (03/13/2021 2:00 PM SAMPLE MAKER) Reflex Status Culture to follow 03/13/2021 6:06 PM SAMPLE MAKER [facility] RBC UA 0-2 None Seen, 0-2, 3-5 # /hpf 03/13/2021 6:06 PM SAMPLE MAKER [facility] WBC UA 6-10(A) None Seen, 0-5 # /hpf 03/13/2021 6:06 PM SAMPLE MAKER [facility] Bacteria UA Trace(A) None Seen 03/13/2021 6:06 PM SAMPLE MAKER [facility] Squamous Epithelial Cells 3-5 None Seen, 0-2, 3-5 /hpf 03/13/2021 6:06 PM SAMPLE MAKER [facility] Mucus UA 1+ /LPF 03/13/2021 6:06 PM SAMPLE MAKER [facility] Hyaline Casts 6-10(A) None Seen, 0-2 /LPF 03/13/2021 6:06 PM SAMPLE MAKER [facility] Urine URINE SPECIMEN OBTAINED BY CLEAN CATCH PROCEDURE / Unknown Collection / Unknown 03/13/2021 2:00 PM SAMPLE MAKER 03/13/2021 5:37 PM SAMPLE MAKER Narrative [facility] - 03/13/2021 6:06 PM SAMPLE MAKER Ivan Aranda MD LAB - URINALYSIS OR DERABLES [facility] [address] [place] [address] * (ABNORMAL) URINALYSIS REFLEX MICROSCOPIC REFLEX CULTURE (03/13/2021 2:00 PM SAMPLE MAKER) Color UA Yellow Straw, Yellow 03/13/2021 5:55 PM SAMPLE MAKER [facility] Clarity UA Slt Cloudy(A) Clear 03/13/2021 5:55 PM SAMPLE MAKER [facility] Glucose UA Negative Negative 03/13/2021 5:55 PM SAMPLE MAKER [facility] Bilirubin UA Negative Negative 03/13/2021 5:55 PM SAMPLE MAKER [facility] Ketone UA Negative Negative 03/13/2021 5:55 PM SAMPLE MAKER [facility] Specific [place] UA 1.018 1.005 - 1.030 03/13/2021 5:55 PM SAMPLE MAKER [facility] Blood UA Negative Negative 03/13/2021 5:55 PM SAMPLE MAKER [facility] pH UA 5.0 5.0 - 8.0 pH 03/13/2021 5:55 PM SAMPLE MAKER [facility] Protein UA 1+(A) Negative 03/13/2021 5:55 PM SAMPLE MAKER [facility] Urobilinogen UA Negative Negative mg/dL 03/13/2021 5:55 PM SAMPLE MAKER [facility] Nitrite UA Negative Negative 03/13/2021 5:55 PM SAMPLE MAKER [facility] Leukocyte UA Trace(A) Negative 03/13/2021 5:55 PM SAMPLE MAKER [facility] Urine Microscopy Urine microscopy to follow 03/13/2021 5:55 PM SAMPLE MAKER [facility] Reflex Status Culture to follow 03/13/2021 5:55 PM SAMPLE MAKER [facility] Urine URINE SPECIMEN OBTAINED BY CLEAN CATCH PROCEDURE / Unknown Collection / Unknown 03/13/2021 2:00 PM SAMPLE MAKER 03/13/2021 5:37 PM SAMPLE MAKER Narrative [facility] - 03/13/2021 5:55 PM SAMPLE MAKER Ivan Aranda MD LAB - URINALYSIS OR DERABLES Performing Organization Address City/State/[facility] Co de Phone Number [facility] [address] [place], [place] [phone] documented in this encounter Visit Diagnoses Diagnosis Essential hypertension documented in this encounter Care Teams Community Resource Officer Relationship Specialty Start Date End Date Kirby Vogel MD [address] [place] [phone] PCP - General Family Medicine 01/26/19 documented as of this encounter
--- OUTSIDE RECORDS SUMMARY | 2024-04-02 20:22 | XMS_ITS | Encounter Summary ---
Author Organization [facility] Address [address] [place] [address] Care Team Providers Care Container Washer Machine Name Role Phone Kirby Vogel MD Primary Care Provider [phone]- [phone] Reason for Visit * Reason Comments Pain Hip Encounter Details Date Type Department Care Team (Latest Contact Info) Description 01/10/2021 12:15 PM CDT Office Visit [facility] - Orthopedics [address] [place] [address] [place] [phone] Ivan Aranda MD [address] [address] Primary osteoarthritis of right hip (Primary Dx) Social History Tobacco Use Types [...] - Inhaled Oxygen Concentration - - Weight 70.6 kg (155 lb 9.6 oz) 01/10/2021 12:16 PM CDT Height 165.1 cm (5' 5 ) 01/10/2021 12:16 PM CDT Body Mass Index 25.89 01/10/2021 12:16 PM CDT documented in this encounter Progress Notes * Patrick Byrnes MD - 01/10/2021 12:27 PM CDT [facility] Orthopedic Adult Reconstruction Surgery Clinic Note Daniela Medina, 85 year old, female : 1935 CSN: [id number] Primary Care Physician: Kirby Vogel MD Diagnosis/Procedures 1.) 85 year old female with right hip pain HPI Date of this clinic visit: 01/10/2021 Patient is a 85 year old female who presents for new patient clinic appointment, regarding right hip pain of several years duration. Describes the pain as deep/achy without radiation. Ambulates with wheeled walker. The patient cannot walk for as long as they would like or exercise without pain. Thesymptoms are activity-related and improve with rest. No fevers, chills, new numbness/ paresthesias,gross motor weakness Of note she was recently hospitalized for UTI with sepsis, she is on abx for 10 more days. 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 PMHx Past Medical History: Diagnosis Date ??? Disorder of liver ??? Generalized anxiety disorder ??? Hepatitis C ??? Hypertension ??? Prolapsed uterus PSHx No past surgical history on file. Social Hx Social History Tobacco Use ??? Smoking status: Former Smoker Quit date: 2004 Years since quittin.7 ??? Smokeless tobacco: Never Used Substance Use Topics ??? Alcohol use: Yes Alcohol/week: 1.0 standard drink Types: 1 Glasses of wine per week Comment: 3-4 oz wine/evening Family Hx family history includes Cancer - Bladder in her mother; Other - Cardiac in her father. Allergies Allergies Allergen Reactions ??? Codeine Other Caused weird dreams Medications Current Outpatient Medications Medication ??? acetaminophen (TYLENOL) 500 MG tablet ??? amLODIPine (NORVASC) 5 MG tablet ??? aspirin (ASPIRIN) 81 MG tablet ??? Azelastine HCl 137 MCG/SPRAY SOLN ??? Calcium Carb-Cholecalciferol (CALCIUM 500 +D PO) ??? Cyanocobalamin (VITAMIN B12 PO) ??? Fexofenadine HCl (RENU PO) ??? LORazepam (ATIVAN) 0.5 MG tablet ??? meloxicam (MOBIC) 15 MG tablet ??? metoprolol succinate XL 24hr (TOPROL XL) 50 MG tablet ??? Multiple Vitamins-Calcium (ONE-A-DAY WOMENS PO) ??? Naproxen Sodium (ALEVE) 220 MG ??? oxybutynin CR 24hr (DITROPAN-XL) 10 MG tablet ??? Polyethylene Glycol 3350 (MIRALAX PO) ??? sertraline (ZOLOFT) 25 MG tablet ??? SYMBICORT 160-4.5 MCG/ACT inhaler ??? valsartan (DIOVAN) 80 MG tablet No current facility-administered medications for this visit. Review of Systems 12 point review of systems otherwise negative except as noted in HPI. Physical Exam General: Alert, cooperative, in no acute distress. CV: RRR, distal pulses equal and symmetric Resp: no increased labor of breathing Musculoskeletal: Right lower extremity: -Appearance: skin warm/dry/intact and without lesions. Leg lengths are asymmetric, right hip is shorter -Tenderness: nontender to palpation of hop -ROM: Hip exam demonstrates 90 Flexion, 10 External Rotation, 10 Internal Rotation, 20 ADduction, 40 ABduction -Motor: Able to PF/DF ankle and great toe. Extensor mechansim is intact. negative Stinchfield test -Sensation: SILT to dorsal and plantar foot -Vascular: 2+ DP pulse with toes warm and well perfused Imaging - Radiographs of an AP pelvis and 2 views of the Right hip was reviewed which reveal severe joint space narrowing, osteophyte formation, sclerosis and subchondral cyst formation with superolateral erosion of acetabulum and femoral head collapse - Please see separate radiographic report for formal read by Radiology Assessment/Plan: 85 year old female with right hip pain secondary to Degenerative Joint Disease 1. Patient was counseled to the nature of their diagnosis and demonstrated understanding. Questionssolicited and answered. 2. WBAT RLE 3. Discussed right CARLIN with patient. Risks, benefits, and alternatives to the surgical procedure were discussed with the patient and present family members. Risks discussed among others were: Infection, bleeding/blood transfusion, neurovascular damage, prosthetic joint instability, failure to improve symptoms, venous thrombosis/pulmonary embolism, and anesthesia complications including . We also discussed the procedure at length and answered any of the patient's questions. We also discussed the importance of early motion and early active ankle pumps for DVT/PE prevention. Discussed Dental visit prior to arthroplasty procedure and visiting PCP for medical clearance 4. Discussed with patient the necessity for antibiotic suppression prior to dental work and other invasive procedures 5. Recommend continued use of NSAID's, 2000 units Vitamin D daily, 1500 to 2000 mg Glucosamine/chondroitin daily, Voltaren Gel, and use of assistive devices for ambulation/balance 6. Will schedule for surgery Patrick Byrnes MD Orthopaedic Surgery Resident 01/10/21 12:27 PM Patient seen and examined with resident. I confirm history, exam, assessment and plan. In addition I note: Interval history: Briefly, this is a 85 year old female with right hip pain secondary to DJD. Exam reveals right hip limitation of and pain with ROM. Complete examination/plan noted above. I personally examined the patient and edited and agree with the above findings in the note Assessment/Plan: Conservative treatment for right hip DJD including >12 weeks of PT, NSAIDS, glucosamine/Vit D, ambulatory aids, weight loss, and corticosteroid injections has failed. Symptoms of pain, difficulty ambulating, difficulty standing, difficulty with stair climbing and difficulty withpersonal hygiene are interfering with patient's lifestyle. Will obtain medical, urology and dental c learances and schedule for right hip arthroplasty Risks, benefits, and alternatives to the surgical procedure were discussed with the patient and present family members. Risks discussed among others were: Infection, bleeding/blood transfusion, neurovascular damage, prosthetic joint instability, failure to improve symptoms, venous thrombosis/pulmonary embolism, and anesthesia complications including . We also discussed the procedure at length and answered any of the patient's questions. We also discussed the importance of early motion and early active ankle pumps for DVT/PE prevention and demonstrated this to the patient and had active participation as well. Patient understood the treatment plan and all questions were answered. Please see resident's note for further details. Ivan Aranda MD documented in this encounter Plan of Treatment Not on file documented as of this encounter Goals Goal Patient Goal Type Associated Problems Recent Progress Patient-Stated? Author Medication Management General On track( 020 11:28 AM CDT) Analisa Diallo, RN Note: Expected end date: ongoing Interventions: Complete Hepatitis C therapy as prescribed documented as of this encounter Results * XR PELVIS 1 OR 2VW (03/02/2021 2:50 PM FAMILY SERVICE WORKER) Anatomical Region Laterality Modality Pelvis Radiographic Nicci ging 03/02/2021 3:14 PM FAMILY SERVICE WORKER Narrative 03/02/2021 3:16 PM FAMILY SERVICE WORKER XR PELVIS 1 OR 2VW*[id number] EXAMINATION: ??X-ray of the pelvis, 1 view Exam Date: ??03/02/2021 2:42 PM HISTORY: Unilateral primary osteoarthritis, right hip COMPARISON: No prior study is available for comparison. FINDINGS/IMPRESSION: Severe osteoarthritis of the right hip joint with loss of the joint space and with sclerosis and erosion of the right femoral head and sclerosis of the acetabulum with apparent felton joint ankylosis. There is increased density of the right humeral head extending from the right femoral neck. Mild degenerative changes of the left hip joint with mildly decreased joint space and marginal sclerosis. Mild degenerative changes of the SI joints imaged lumbosacral spine. The osseous structures are otherwise intact. No evidence of acute fracture. Vascular atherosclerosis. *Reading Radiologist: Reena Green on 03/02/2021 at 3:16 PM Procedure Note Reena Green MD - 03/02/2021 XR PELVIS 1 OR 2VW*[id number] EXAMINATION: X-ray of the pelvis, 1 view Exam Date: 03/02/2021 2:42 PM HISTORY: Unilateral primary osteoarthritis, right hip COMPARISON: No prior study is available for comparison. FINDINGS/IMPRESSION: Severe osteoarthritis of the right hip joint with loss of the joint space and with sclerosis and erosion of the right femoral head and sclerosis of the acetabulum with apparent felton joint ankylosis. There is increased density of the right humeral head extending from the right femoral neck. Mild degenerative changes of the left hip joint with mildly decreased joint space and marginal sclerosis. Mild degenerative changes of the SI joints imaged lumbosacral spine. The osseous structures are otherwise intact. No evidence of acute fracture. Vascular atherosclerosis. *Reading Radiologist: Reena Green on 03/02/2021 at 3:16 PM Ivan Aranda MD DIAGNOSTIC IMAGING ORDERABLES documented in this encounter Visit Diagnoses Diagnosis Primary osteoarthritis of right hip- Primary Primary localized osteoarthrosis, pelvic region and thigh Primary osteoarthritis of right hip Primary localized osteoarthrosis, pelvic region and thigh documented in this encounter Care Teams Container Washer Machine Relationship Specialty Start Date End Date Kirby Vogel MD [facility] [place] [address] PCP - General Family Medicine 01/26/19 documented as of this encounter
--- OUTSIDE RECORDS SUMMARY | 2024-04-02 20:22 | XMS_ITS | Encounter Summary ---
Author Organization [facility] Address [address] [place] [address] Care Team Providers Care Central Office Repairer Name Role Phone Kirby Vogel MD Primary Care Provider +1- [phone] Encounter Details Date Type Department Care Team (Late st Contact Info) Description 03/13/2021 Orders Only [facility] [address] [place] [address] Manju Banuelos, RN History of UTI Social History Tobacco Use Types Packs/Day Years [...] this encounter Visit Diagnoses Diagnosis History of UTI Personal history of urinary (tract) infection documented in this encounter Care Teams Central Office Repairer Relationship Specialty Start Date End Date Kirby Vogel MD [address] [place] [phone] PCP - General Family Medicine 01/26/19 documented as of this encounter
--- OUTSIDE RECORDS SUMMARY | 2024-04-02 20:22 | XMS_ITS | Encounter Summary ---
Author Organization [facility] Address [address] [place] [address] Care Team Providers Care Hogshead Inspector Name Role Phone Kirby Vogel MD Primary Care Provider +1- [phone] Encounter Details Date Type Department Care Team (Latest Contact Info) Description 01/10/2021 12:01 PM CDT - 01/10/2021 11:59 PM CDT Hospital Encounter [facility] DIAGNOSTIC RAD [facility] [address] [facility] [place] [address] Ivan Aranda MD [address] [address] Discharge Disposition: Home or Self Care Social [...] Sig Dispensed Refills Start Date End Date albuterol HFA (PROVENTIL; VENTOLIN; PROAIR) 108 (90 Base) MCG/ACT inhaler TAKE 1 PUFF BY MOUTH EVERY 6 HOURS NEEDED FOR SHORTNESS OF BREATH 12/20/2020 amLODIPine (NORVASC) 5 MG tablet Take 5 mg by mouth 2 times daily 02/26/2019 Azelastine HCl 137 MCG/SPRAY SOLN 2 times daily 04/08/2019 Calcium Carb-Cholecalciferol (CALCIUM 500 +D PO) Take by mouth once daily Fexofenadine HCl (RENU PO) Take by mouth once daily LORazepam (ATIVAN) 0.5 MG tablet Take 1 tablet by mouth once daily as needed 03/17/2019 Multiple Vitamins-Calcium (ONE-A-DAY WOMENS PO) Take by mouth once daily oxybutynin CR 24hr (DITROPAN-XL) 10 MG tablet Take 1 tablet by mouth once daily 02/09/2019 Polyethylene Glycol 3350 (MIRALAX PO) Take by mouth as needed sertraline (ZOLOFT) 25 MG tablet Take 25 mg by mouth once daily 01/17/2019 SYMBICORT 160-4.5 MCG/ACT inhaler Inhale 2 puffs by mouth every 12 hours 03/20/2019 valsartan (DIOVAN) 80 MG tablet Take 160 mg by mouth once daily 03/17/2019 acetaminophen (TYLENOL) 500 MG tablet Take 500 mg by mouth every 4 hours as needed for Fever or Pain Maximum allowable Acetaminophen amount = 4 Grams (4000 mg) / 24 hours. 03/16/2021 aspirin (ASPIRIN) 81 MG tablet Take 81 mg by mouth once daily 03/21/2021 Cyanocobalamin (VITAMIN B12 PO) Take by mouth once daily 03/16/2021 meloxicam (MOBIC) 15 MG tablet Take 15 mg by mouth once daily 10/16/2019 03/21/2021 metoprolol succinate XL 24hr (TOPROL XL) 50 MG tablet Take 50 mg by mouth once daily 04/03/2019 03/16/2021 Naproxen Sodium (ALEVE) 220 MG 03/21/2021 nystatin (MYCOSTATIN) 986690 UNIT/GM powder Apply to affected area 3 times daily 12/22/2020 03/16/2021 documented as of this encounter Plan [...] Name Priority Date/Time Associated Diagnosis Comments XR HIP RIGHT 2VW OR MORE Routine 01/10/2021 12:15 PM CDT Arthralgia of hip, unspecified laterality documented in this encounter Results * XR HIP RIGHT 2VW OR MORE (01/10/2021 12:15 PM CDT) Anatomical Region Laterality Modality Pelvis, Lower Extremity Radiogra phic Imaging 01/10/2021 12:1 3 PM CDT Impressions 01/10/2021 12:15 PM CDT IMPRESSION: 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 This report was electronically signed by SPIKE PATE MD ??on 01/10/2021 12:15 PM . Narrative 01/10/2021 12:15 PM CDT Exam: XR PELVIS 1 VW XR HIP RIGHT 2VW History: ??M25.559: Arthralgia of hip, unspecified laterality Comparison: None. Findings: There is severe right hip osteoarthritis with [id number] contact superiorly, subchondral sclerosis, subchondral cysts, and osteophytes. There is abnormal lucency and sclerosis in the superior aspect of the femoral head compatible with avascular necrosis. There is mild femoral head contour flattening superiorly. No acute fracture or dislocation is seen. The pelvic radiograph demonstrates vascular calcification and mild degenerative change in the left hip. Procedure Note Spike Pate MD - 01/10/2021 Exam: XR PELVIS 1 VW XR HIP RIGHT 2VW History: M25.559: Arthralgia of hip, unspecified laterality Comparison: None. Findings: There is severe right hip osteoarthritis with [id number] contact superiorly, subchondral sclerosis, subchondral cysts, and osteophytes. There is abnormal lucency and sclerosis in the superior aspect of the femoral head compatible with avascular necrosis. There is mild femoral head contour flattening superiorly. No acute fracture or dislocation is seen. The pelvic radiograph demonstrates vascular calcification and mild degenerative change in the left hip. 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 This report was electronically signed by SPIKE PATE MD on 01/10/2021 12:15 PM . Ivan Aranda MD DIAGNOSTIC IMAGING ORDERABLES documented in this encounter Visit Diagnoses Diagnosis Arthralgia of hip, unspecified laterality documented in this encounter Care Teams Hogshead Inspector Relationship Specialty Start Date End Date Kirby Vogel MD [address] [place] [phone] PCP - General Family Medicine 01/26/19 documented as of this encounter
--- OUTSIDE RECORDS SUMMARY | 2024-04-02 20:22 | XMS_ITS | Encounter Summary ---
Author Organization [facility] Address [address] [place] [address] Care Team Providers Care Tear Down Man Name Role Phone Kirby Vogel MD Primary Care Provider +1- [phone] Encounter Details Date Type Department Care Team (Late st Contact Info) Description 07/13/2021 Orders Only [facility] [address] [place] [address] Ivan Aranda MD [address] [address] History of total right hip replacement Social [...] of this encounter Results * XR PELVIS W [...] History of total right hip replacement- Primary History of total right hip replacement documented in this encounter Care Teams Tear Down Man Relationship Specialty Start Date End Date Kirby Vogel MD [facility] [place] [address] PCP - General Family Medicine 01/26/19 documented as of this encounter
--- OUTSIDE RECORDS SUMMARY | 2024-04-02 20:22 | XMS_ITS | Encounter Summary ---
Author Organization [facility] Address [address] [place] [address] Care Team Providers Care Frame Straightener Name Role Phone Kirby Vogel MD Primary Care Provider +1- [phone] Encounter Details Date Type Department Care Team (Late st Contact Info) Description 09/08/2019 Orders Only [facility] - [address], [place] [phone] Analisa Bryant, channeler runner hepatitis C without hepatic coma (HCC) Social [...] PM CDT documented as of this encounter Plan of [...] Diagnosis Comments HEPATITIS C RNA QUANTITATIVE Routine 09/29/2019 10:52 AM CDT Chronic hepatitis C without hepatic coma (HCC) CBC W AUTO DIFFERENTIAL Routine 09/29/2019 10:52 AM CDT Chronic hepatitis C without hepatic coma (HCC) COMPREHENSIVE METABOLIC PANEL Routine 09/29/2019 10:52 AM CDT Chronic hepatitis C without hepatic coma (HCC) documented in this encounter Results * HEPATITIS C RNA QUANTITATIVE (02/16/2020 11:28 AM CHAIRMAN AND CHIEF EXECUTIVE OFFICER) Pathologist [facility] Hepatitis C Virus Quantitation HCV Not Detected IU/mL [facility] INSURANCE BILL Hepatitis C Virus Log 10 NOT NEEDED [facility] INSURANCE BILL Comment:Ancillary determined the test is not needed. Test Information [facility] INSURANCE BILL Comment:The quantitative ran ge of this assay is 15 IU/mL to 100 million IU/mL. Blood BLOOD SPECIMEN / Unknown 02/16/2020 11:28 AM CHAIRMAN AND CHIEF EXECUTIVE OFFICER 02/16/2020 Narrative Resulting Agency Comment Lab Testing performed at: [address] ??[facility] [id number] Marina Araujo SENIOR PROGRAM MANAGER-FIELD RECORDER LAB - CHEMIS TRY ORDERABLES [facility] INSURANCE BILL [address] [place] [address] * (ABNORMAL) COMPREHENSIVE METABOLIC PANEL (02/16/2020 11:28 AM CHAIRMAN AND CHIEF EXECUTIVE OFFICER) Pathologist [facility] Glucose 99 65 - 99 mg/dL [facility] INSURANCE BILL BUN 25 8 - 27 mg/dL [facility] INSURANCE BILL Creatinine 0.92 0.57 - 1.00 mg/dL [facility] INSURANCE BILL eGFR by MDRD 57(L) >59 mL/min/1.7 3 [facility] INSURANCE BILL eGFR by MDRD 66 >59 mL/min/1.7 3 [facility] INSURANCE BILL BUN/Creatinine Ratio 27 12 - 28 [facility] INSURANCE BILL Sodium 140 134 - 144 mmol/L [facility] INSURANCE BILL Potassium 4.2 3.5 - 5.2 mmol/L [facility] INSURANCE BILL Chloride 102 96 - 106 mmol/L [facility] INSURANCE BILL CO2 25 20 - 29 mmol/L [facility] INSURANCE BILL Calcium 10.3 8.7 - 10.3 mg/dL [facility] INSURANCE BILL Protein Total 7.3 6.0 - 8.5 g/dL [facility] INSURANCE BILL Albumin 4.3 3.6 - 4.6 g/dL [facility] INSURANCE BILL Globulin Total 3.0 1.5 - 4.5 g/dL [facility] INSURANCE BILL Albumin/Globulin Ratio 1.4 1.2 - 2.2 [facility] INSURANCE BILL Bilirubin Total 0.6 0.0 - 1.2 mg/dL [facility] INSURANCE BILL Alkaline Phosphatase 97 39 - 117 IU/L [facility] INSURANCE BILL AST 23 0 - 40 IU/L [facility] INSURANCE BILL ALT 15 0 - 32 IU/L [facility] INSURANCE BILL Blood BLOOD SPECIMEN / Unknown 02/16/2020 11:28 AM CHAIRMAN AND CHIEF EXECUTIVE OFFICER 02/16/2020 Narrative Resulting Agency Comment Lab Testing performed at: [place] [id number] [facility] ??[facility] [id number] Marina Araujo SENIOR PROGRAM MANAGER-FIELD RECORDER LAB - CHEMIS TRY ORDERABLES [facility] INSURANCE BILL [address] [place] [address] * CBC WITH DIFFERENTIAL (02/16/2020 11:28 AM CHAIRMAN AND CHIEF EXECUTIVE OFFICER) WBC 7.0 3.4 - 10.8 x10E3/uL [facility] INSURANCE BILL RBC 4.25 3.77 - 5.28 x10E6/uL [facility] INSURANCE BILL Hemoglobin 13.1 11.1 - 15.9 g/dL [facility] INSURANCE BILL Hematocrit 38.8 34.0 - 46.6 % [facility] INSURANCE BILL MCV 91 79 - 97 fL [facility] INSURANCE BILL MCH 30.8 26.6 - 33.0 pg [facility] INSURANCE BILL MCHC 33.8 31.5 - 35.7 g/dL [facility] INSURANCE BILL RDW 12.3 11.7 - 15.4 % [facility] INSURANCE BILL Platelet Count 219 150 - 450 x10E3/uL [facility] INSURANCE BILL Granulocytes % 64 Not Estab. % [facility] INSURANCE BILL Lymphocytes % 21 Not Estab. % [facility] INSURANCE BILL Monocytes % 13 Not Estab. % [facility] INSURANCE BILL Eosinophils % 1 Not Estab. % [facility] INSURANCE BILL Basophils % 1 Not Estab. % [facility] INSURANCE BILL Immature Cells NOT NEEDED [facility] INSURANCE BILL Comment:Ancillary determined the test is not needed. Granulocytes Absolute 4.4 1.4 - 7.0 x10E3/uL [facility] INSURANCE BILL Lymphocytes Absolute 1.5 0.7 - 3.1 x10E3/uL [facility] INSURANCE BILL Monocytes Absolute 0.9 0.1 - 0.9 x10E3/uL [facility] INSURANCE BILL [...] not needed. Blood BLOOD SPECIMEN / Unknown 02/16/2020 11:28 AM CHAIRMAN AND CHIEF EXECUTIVE OFFICER 02/16/2020 Narrative Resulting Agency Comment Lab Testing performed at: [facility] [address] [facility] ??[facility] [id number] Marina Araujo SENIOR PROGRAM MANAGER-FIELD RECORDER LAB - HEMATO LOGY ORDERABLES [facility] INSURANCE BILL [address] [place] [address] * HEPATITIS C RNA QUANTITATIVE (12/03/2019 2:17 PM CDT) Hepatitis C Virus Quantitation HCV Not Detected IU/mL [facility] INSURANCE BILL Hepatitis C Virus Log 10 NOT NEEDED [facility] INSURANCE BILL Comment:Ancillary determined the test is not needed. Test Information [facility] INSURANCE BILL Comment:The quantitative ran ge of this assay is 15 IU/mL to 100 million IU/mL. Blood BLOOD SPECIMEN / Unknown 12/03/2019 2:17 PM CDT 12/03/2019 Narrative Resulting Agency Comment Lab Testing performed at: [facility] ??[facility] [id number] Marina Araujo SENIOR PROGRAM MANAGER-FIELD RECORDER LAB - CHEMIS TRY ORDERABLES [facility] INSURANCE BILL [address] [place] [address] * (ABNORMAL) COMPREHENSIVE METABOLIC PANEL (12/03/2019 2:17 PM CDT) Glucose 96 65 - 99 mg/dL [facility] INSURANCE BILL BUN 22 8 - 27 mg/dL [facility] INSURANCE BILL Creatinine 0.76 0.57 - 1.00 mg/dL [facility] INSURANCE BILL eGFR by MDRD 72 >59 mL/min/1.7 3 [facility] INSURANCE BILL eGFR by MDRD 83 >59 mL/min/1.7 3 [facility] INSURANCE BILL BUN/Creatinine Ratio 29(H) 12 - 28 [facility] INSURANCE BILL Sodium 137 134 - 144 mmol/L [facility] INSURANCE BILL Potassium 4.9 3.5 - 5.2 mmol/L [facility] INSURANCE BILL Chloride 98 96 - 106 mmol/L [facility] INSURANCE BILL CO2 27 20 - 29 mmol/L [facility] INSURANCE BILL Calcium 10.3 8.7 - 10.3 mg/dL [facility] INSURANCE BILL Protein Total 7.2 6.0 - 8.5 g/dL [facility] INSURANCE BILL Albumin 4.3 3.6 - 4.6 g/dL [facility] INSURANCE BILL Globulin Total 2.9 1.5 - 4.5 g/dL [facility] INSURANCE BILL Albumin/Globulin Ratio 1.5 1.2 - 2.2 [facility] INSURANCE BILL Bilirubin Total 0.6 0.0 - 1.2 mg/dL [facility] INSURANCE BILL Alkaline Phosphatase 97 39 - 117 IU/L [facility] INSURANCE BILL AST 26 0 - 40 IU/L [facility] INSURANCE BILL ALT 20 0 - 32 IU/L [facility] INSURANCE BILL Blood BLOOD SPECIMEN / Unknown 12/03/2019 2:17 PM CDT 12/03/2019 Narrative Resulting Agency Comment Lab Testing performed at: [facility] [address] [facility] ??[facility] [id number] Marina Araujo SENIOR PROGRAM MANAGER-FIELD RECORDER LAB - CHEMIS TRY ORDERABLES [facility] INSURANCE BILL [address] [place] [address] * CBC WITH DIFFERENTIAL (12/03/2019 2:17 PM CDT) WBC 6.2 3.4 - 10.8 x10E3/uL [facility] INSURANCE BILL RBC 4.33 3.77 - 5.28 x10E6/uL [facility] INSURANCE BILL Hemoglobin 13.3 11.1 - 15.9 g/dL [facility] INSURANCE BILL Hematocrit 38.9 34.0 - 46.6 % [facility] INSURANCE BILL MCV 90 79 - 97 fL [facility] INSURANCE BILL MCH 30.7 26.6 - 33.0 pg [facility] INSURANCE BILL MCHC 34.2 31.5 - 35.7 g/dL [facility] INSURANCE BILL RDW 13.0 11.7 - 15.4 % [facility] INSURANCE BILL Platelet Count 236 150 - 450 x10E3/uL [facility] INSURANCE BILL Granulocytes % 62 Not Estab. % [facility] INSURANCE BILL Lymphocytes % 23 Not Estab. % [facility] INSURANCE BILL Monocytes % 12 Not Estab. % [facility] INSURANCE BILL Eosinophils % 2 Not Estab. % [facility] INSURANCE BILL Basophils % 1 Not Estab. % [facility] INSURANCE BILL Immature Cells NOT NEEDED [facility] INSURANCE BILL Comment:Ancillary determined the test is not needed. Granulocytes Absolute 3.8 1.4 - 7.0 x10E3/uL [facility] INSURANCE BILL Lymphocytes Absolute 1.5 0.7 - 3.1 x10E3/uL [facility] INSURANCE BILL Monocytes Absolute 0.8 0.1 - 0.9 x10E3/uL [facility] INSURANCE BILL Eosinophils Absolute 0.1 0.0 - 0.4 x10E3/uL [facility] INSURANCE BILL Basophils Absolute 0.1 0.0 - 0.2 x10E3/uL [facility] INSURANCE BILL Immature Granulocytes 0 Not Estab. % [facility] INSURANCE BILL Immature Granulocytes Absolute 0.0 0.0 - 0.1 x10E3/uL [facility] INSURANCE BILL nRBC NOT NEEDED [facility] INSURANCE BILL Comment:Ancillary determined the test is not needed. Comment Hematology NOT NEEDED [facility] INSURANCE BILL Comment:Ancillary determined the test is not needed. Blood BLOOD SPECIMEN / Unknown 12/03/2019 2:17 PM CDT 12/03/2019 Narrative Resulting Agency Comment Lab Testing performed at: [address] ??[facility] [id number] Marina Araujo APRN-FIELD RECORDER LAB - HEMATO LOGY ORDERABLES Performing Organization Address [facility] de Phone Number [facility] INSURANCE BILL [address] [place] [address] * HEPATITIS C RNA QUANTITATIVE (09/29/2019 10:52 AM CDT) [facility] Hepatitis C Virus Quantitation <15 IU/mL [facility] INSURANCE BILL Comment:HCV RNA detected Hepatitis C Virus Log 10 NOT NEEDED [facility] INSURANCE BILL Comment:Ancillary determined the test is not needed. Test Information [facility] INSURANCE BILL Comment:The quantitative ran ge of this assay is 15 IU/mL to 100 million IU/mL. Blood BLOOD SPECIMEN / Unknown 09/29/2019 10:52 AM CDT 09/29/2019 Narrative Resulting Agency Comment Lab Testing performed at: [address] ??[facility] [id number] Marina Araujo APRN-FIELD RECORDER LAB - CHEMIS TRY ORDERABLES Performing Organization Address [facility] Co de Phone Number [facility] INSURANCE BILL [address] [place] [address] * (ABNORMAL) COMPREHENSIVE METABOLIC PANEL (09/29/2019 10:52 AM CDT) Pathologist [facility] Glucose 84 65 - 99 mg/dL [facility] INSURANCE BILL BUN 28(H) 8 - 27 mg/dL [facility] INSURANCE BILL Creatinine 0.94 0.57 - 1.00 mg/dL [facility] INSURANCE BILL eGFR by MDRD 56(L) >59 mL/min/1.7 3 [facility] INSURANCE BILL eGFR by MDRD 64 >59 mL/min/1.7 3 [facility] INSURANCE BILL BUN/Creatinine Ratio 30(H) 12 - 28 [facility] INSURANCE BILL Sodium 139 134 - 144 mmol/L [facility] INSURANCE BILL Potassium 4.8 3.5 - 5.2 mmol/L [facility] INSURANCE BILL Chloride 100 96 - 106 mmol/L [facility] INSURANCE BILL CO2 28 20 - 29 mmol/L [facility] INSURANCE BILL Calcium 10.5(H) 8.7 - 10.3 mg/dL [facility] INSURANCE BILL Protein Total 7.4 6.0 - 8.5 g/dL [facility] INSURANCE BILL Albumin 4.3 3.6 - 4.6 g/dL [facility] INSURANCE BILL Globulin Total 3.1 1.5 - 4.5 g/dL [facility] INSURANCE BILL Albumin/Globulin Ratio 1.4 1.2 - 2.2 [facility] INSURANCE BILL Bilirubin Total 0.4 0.0 - 1.2 mg/dL [facility] INSURANCE BILL Alkaline Phosphatase 89 39 - 117 IU/L [facility] INSURANCE BILL AST 23 0 - 40 IU/L [facility] INSURANCE BILL ALT 15 0 - 32 IU/L [facility] INSURANCE BILL Blood BLOOD SPECIMEN / Unknown 09/29/2019 10:52 AM CDT 09/29/2019 Narrative Resulting Agency Comment Lab Testing performed at: [facility] ??[facility] [id number] Marina Araujo SENIOR PROGRAM MANAGER-FIELD RECORDER LAB - CHEMIS TRY ORDERABLES [facility] INSURANCE BILL [address] [place] [address] * (ABNORMAL) CBC WITH DIFFERENTIAL (09/29/2019 10:52 AM CDT) WBC 7.1 3.4 - 10.8 x10E3/uL [facility] INSURANCE BILL RBC 4.52 3.77 - 5.28 x10E6/uL [facility] INSURANCE BILL Hemoglobin 13.6 11.1 - 15.9 g/dL [facility] INSURANCE BILL Hematocrit 39.6 34.0 - 46.6 % [facility] INSURANCE BILL MCV 88 79 - 97 fL [facility] INSURANCE BILL MCH 30.1 26.6 - 33.0 pg [facility] INSURANCE BILL MCHC 34.3 31.5 - 35.7 g/dL [facility] INSURANCE BILL RDW 12.4 11.7 - 15.4 % [facility] INSURANCE BILL Platelet Count 238 150 - 450 x10E3/uL [facility] INSURANCE BILL Granulocytes % 61 Not Estab. % [facility] INSURANCE BILL Lymphocytes % 24 Not Estab. % [facility] INSURANCE BILL Monocytes % 13 Not Estab. % [facility] INSURANCE BILL Eosinophils % 2 Not Estab. % [facility] INSURANCE BILL Basophils % 0 Not Estab. % [facility] INSURANCE BILL Immature Cells NOT NEEDED [facility] INSURANCE BILL Comment:Ancillary determined the test is not needed. Granulocytes Absolute 4.3 1.4 - 7.0 x10E3/uL [facility] INSURANCE BILL Lymphocytes Absolute 1.7 0.7 - 3.1 x10E3/uL [facility] INSURANCE BILL Monocytes Absolute 1.0(H) 0.1 - 0.9 x10E3/uL [facility] INSURANCE BILL [...] not needed. Blood BLOOD SPECIMEN / Unknown 09/29/2019 10:52 AM CDT 09/29/2019 Narrative Resulting Agency Comment Lab Testing performed at: [facility] [address] [facility] ??[facility] [id number] Marina Araujo SENIOR PROGRAM MANAGER-FIELD RECORDER LAB - HEMATO LOGY ORDERABLES [facility] INSURANCE BILL [address] [place] [address] documented in this encounter Visit Diagnoses Diagnosis Chronic hepatitis C without hepatic coma (HCC)- Primary documented in this encounter Care Teams Frame Straightener Relationship Specialty Start Date End Date Kirby Vogel MD [address] [place] [phone] PCP - General Family Medicine 01/26/19 documented as of this encounter
--- OUTSIDE RECORDS SUMMARY | 2024-04-02 20:22 | XMS_ITS | Encounter Summary ---
Author Organization [facility] Address [address] [place] [address] Care Team Providers Care Steel Fabricator Name Role Phone Kirby Vogel MD Primary Care Provider +1- [phone] Reason for Visit * Reason Onset Date Comments Results 09/26/2020 Encounter Details Date Type Department Care Team (Late st Contact Info) Description 09/26/2020 Telephone [facility] [place] [address] [place] [address], [place] [address] Marina Arajuo APRN-CNP [address] [place] [address] [place] [phone] Results Social History Tobacco Use Types Packs/Day Years [...] Telephone Encounter - Marina Araujo APRN-CNP - 09/26/2020 8:33 AM CDT Attempted to call patient Regarding her lab results Left a voice mail for patient to call the clinic. Her CV RNA is noon detected 6 months after completing epclusa. Hr Livr functons test all are within normal limits. She can be considered cured of hepatitis C documented in this encounter Plan of Treatment [...] on filedocumented in this encounter Care Teams Steel Fabricator Relationship Specialty Start Date End Date Kirby Vogel MD [address] [place] [phone] PCP - General Family Medicine 01/26/19 documented as of this encounter
--- OUTSIDE RECORDS SUMMARY | 2024-04-02 20:22 | XMS_ITS | Encounter Summary ---
Author Organization [facility] Address [address] [place] [address] Care Team Providers Care Instructor Of Education Name Role Phone Kirby Vogel MD Primary Care Provider +1- [phone] Reason for Visit * Reason Comments Follow-up Encounter Details Date Type Department Care Team (Late st Contact Info) Description 08/31/2019 Telephone [facility] - Nephrology [address] [place] [phone] Soheila Basilio RN Follow-up Social History Tobacco Use Types [...] PM CDT documented as of this encounter Progress Notes * Soheila Basilio, CORWIN - 08/31/2019 2:56 PM CDT Pt called. Received Hep C medication, will start taking on 09/01/19. Would like to know if she can take tylenol and ang with Hep C med. Contact #[phone]. documented in this encounter Plan of Treatment [...] on filedocumented in this encounter Care Teams Instructor Of Education Relationship Specialty Start Date End Date Kirby Vogel MD [address] [place] [phone] PCP - General Family Medicine 01/26/19 documented as of this encounter
--- OUTSIDE RECORDS SUMMARY | 2024-04-02 20:22 | XMS_ITS | Encounter Summary ---
Author Organization [facility] Address [address] [place] [address] Care Team Providers Care Maintenance Engineer Oil Field Name Role Phone Kirby Vogel MD Primary Care Provider +1- [phone] Encounter Details Date Type Department Care Team (Latest Contact Info) Description 03/02/2021 2:00 PM PRICING DIRECTOR - 03/02/2021 11:59 PM [facility] Hospital Encounter [facility] - Orthopedics [address] [facility] [address] [place] [phone] Ivan Aranda MD [address] [facility] [address] [place] [address] Discharge Disposition: Home or Self Care Social [...] Pain (Take for mild pain. Alternate with [place] for moderate-severe pain.) Maximum allowable Acetaminophen amount [...] WOMENS PO) Take by mouth once daily nhpukdec-cgfxnxzjfl-jf lymyxin (NEOSPORIN) 400-5-5000 topical ointment Apply to [...] 03/16/2021 Naproxen Sodium (ALEVE) 220 MG 03/21/2021 xemrzcyf-igvmxskthy-xl lymyxin (NEOSPORIN) 400-5-5000 topical ointment Apply to affected area 3 times daily Affected area: right groin 100 g 03/21/2021 03/21/2021 nystatin (MYCOSTATIN) 993687 UNIT/GM powder Apply to affected area 3 [...] Comments XR PELVIS 1 OR 2VW Routine 03/02/2021 2: 50 PM PRICING DIRECTOR Primary osteoarthritis of right hip documented in this encounter Results * XR PELVIS 1 OR 2VW (03/02/2021 2:50 PM PRICING DIRECTOR) Anatomical Region Laterality Modality Pelvis Radiographic Nicci ging 03/02/2021 3:14 PM PRICING DIRECTOR Narrative 03/02/2021 3:16 PM PRICING DIRECTOR XR PELVIS 1 OR 2VW*[id number] EXAMINATION: ??X-ray of the pelvis, 1 view [...] MD - 03/02/2021 XR PELVIS 1 OR 2VW*[id number] EXAMINATION: X-ray of the pelvis, 1 view [...] thigh documented in this encounter Care Teams Maintenance Engineer Oil Field Relationship Specialty Start Date End Date Kirby Vogel MD [address] [place] [phone] PCP - General Family Medicine 01/26/19 documented as of this encounter
--- OUTSIDE RECORDS SUMMARY | 2024-04-02 20:22 | XMS_ITS | Encounter Summary ---
Author Organization [facility] Address [address] [place] [address] Care Team Providers Care Call Center Support Representative Name Role Phone Kirby Vogel MD Primary Care Provider +1- [phone] Reason for Visit * Reason Onset Date Comments Follow-up 09/30/2020 Encounter Details Date Type Department Care Team (Late st Contact Info) Description 09/30/2020 Telephone [facility] - Nephrology [address] [place] [phone] Soheila Basilio RN Follow-up Social History Tobacco [...] encounter Miscellaneous Notes * Telephone Encounter - Soheila Basilio RN - 09/30/2020 1:23 PM CDT Pt returned missed call. Given information documented by Randy Araujo CNP on 09/26/20. No concerns/questions asked at end of telephone conversation. documented in this encounter Plan of Treatment [...] on filedocumented in this encounter Care Teams Call Center Support Representative Relationship Specialty Start Date End Date Kirby Vogel MD [address] [place] [phone] PCP - General Family Medicine 01/26/19 documented as of this encounter
--- OUTSIDE RECORDS SUMMARY | 2024-04-02 20:22 | XMS_ITS | Encounter Summary ---
Author Organization [facility] Address [address] [facility] [place] [address] Care Team Providers Care Tax Assessor Name Role Phone Kirby Vogel MD Primary Care Provider +1- [phone] Encounter Details Date Type Department Care Team (Latest Contact Info) Description 08/11/2019 Travel Social History Tobacco Use Types Packs/Day Years [...] on filedocumented in this encounter Care Teams Tax Assessor Relationship Specialty Start Date End Date Kirby Vogel MD [address] [place] [phone] PCP - General Family Medicine 01/26/19 documented as of this encounter
--- OUTSIDE RECORDS SUMMARY | 2024-04-02 20:22 | XMS_ITS | Encounter Summary ---
Author Organization [facility] Address [address] [place] [address] Care Team Providers Care Medieval English Literature Professor Name Role Phone Kirby Vogel MD Primary Care Provider +1- [phone] Encounter Details Date Type Department Care Team (Latest Contact Info) Description 01/10/2021 12:01 PM CDT - 01/10/2021 11:59 PM CDT Hospital Encounter [facility] DI[facility]NOSTIC [facility] C[facility] [address] [facility] [place] [address] Ivan Aranda MD [address] [address] Discharge Disposition: Home or Self Care Social [...] Sodium (ALEVE) 220 MG 03/21/2021 nystatin (MYCOSTATIN) 648307 UNIT/GM powder Apply to affected area 3 [...] Comments XR PELVIS 1 OR 2VW Routine 01/10/2021 12 :16 PM CDT Arthralgia of hip, unspecified laterality documented in this encounter Results * XR PELVIS 1 OR 2VW (01/10/2021 12:16 PM CDT) Anatomical Region Laterality Modality Pelvis Radiographic Nicci ging 01/10/2021 12:1 3 PM CDT Impressions 01/10/2021 [...] There is severe right hip osteoarthritis with pjyp-km-ygds contact superiorly, subchondral sclerosis, subchondral cysts, and [...] There is severe right hip osteoarthritis with zhki-cj-ozjb contact superiorly, subchondral sclerosis, subchondral cysts, and [...] laterality documented in this encounter Care Teams Medieval English Literature Professor Relationship Specialty Start Date End Date Kirby Vogel MD [address] [place] [phone] PCP - General Family Medicine 01/26/19 documented as of this encounter
--- OUTSIDE RECORDS SUMMARY | 2024-04-02 20:22 | XMS_ITS | Encounter Summary ---
Author Organization [facility] Address [address] [place] [address] Care Team Providers Care Lawn Maintenance Worker Name Role Phone Kirby Vogel MD Primary Care Provider +1- [phone] Encounter Details Date Type Department Care Team (Latest Contact Info) Description 04/25/2021 12:33 PM REAL ESTATE SALES ASSOCIATE - 04/25/2021 11:59 PM [facility] Hospital Encounter [facility] DI[facility]NOSTIC RAD CSM [address] [facility] [address] [facility] [place] [address] Ivan Aranda MD [address] [address] Discharge Disposition: Home or Self Care Social [...] Pain (Take for mild pain. Alternate with Veteran for moderate-severe pain.) Maximum allowable Acetaminophen amount [...] WOMENS PO) Take by mouth once daily ecvtyqno-wugjnzbkzf-sj lymyxin (NEOSPORIN) 400-5-5000 topical ointment Apply to [...] XR HIP RIGHT 2VW OR MORE Routine 04/25/2021 12:45 PM REAL ESTATE SALES ASSOCIATE Primary osteoarthritis of right hip documented in this encounter Results * XR HIP RIGHT 2VW OR MORE (04/25/2021 12:45 PM REAL ESTATE SALES ASSOCIATE) Anatomical Region Laterality Modality Pelvis, Lower Extremity Radiogra [facility] 04/25/2021 1:06 PM REAL ESTATE SALES ASSOCIATE Impressions 04/25/2021 1:08 PM REAL ESTATE SALES ASSOCIATE IMPRESSION: Interval right total hip arthroplasty. This report was electronically signed by SPIKE PATE MD ??on 04/25/2021 1:08 PM . Narrative 04/25/2021 1:08 PM REAL ESTATE SALES ASSOCIATE Exam: XR HIP RIGHT 2VW XR PELVIS [...] thigh documented in this encounter Care Teams Lawn Maintenance Worker Relationship Specialty Start Date End Date Kirby Vogel MD [address] [place] [phone] PCP - General Family Medicine 01/26/19 documented as of this encounter
--- OUTSIDE RECORDS SUMMARY | 2024-04-02 20:22 | XMS_ITS | Encounter Summary ---
Author Organization [facility] Address [address] [place] [address] Care Team Providers Care Wildlife Conservation Professor Name Role Phone Kirby Vogel MD Primary Care Provider +1- [phone] Encounter Details Date Type Department Care Team (Late st Contact Info) Description 01/05/2021 Orders Only [facility] - Orthoped[facility] [address] [facility] [place] [address] Ivan Aranda MD [address] [facility] [address] [place] [address] Arthralgia of hip, unspecified laterality Social History Tobacco Use Types Packs/Day Years [...] There is severe right hip osteoarthritis with fxfq-fh-[id number] contact superiorly, subchondral sclerosis, subchondral cysts, and [...] There is severe right hip osteoarthritis with hapy-in-jdym contact superiorly, subchondral sclerosis, subchondral cysts, and [...] Region Laterality Modality Pelvis, Lower Extremity [facility] 01/10/2021 12:1 3 PM CDT Impressions [...] There is severe right hip osteoarthritis with xcgj-mx-hwnn contact superiorly, subchondral sclerosis, subchondral cysts, and [...] There is severe right hip osteoarthritis with sryc-uv-dlhh contact superiorly, subchondral sclerosis, subchondral cysts, and [...] Visit Diagnoses Diagnosis Arthralgia of hip, unspecified laterality- Primary Arthralgia of hip, unspecified laterality Arthralgia of hip, unspecified laterality documented in this encounter Care Teams Wildlife Conservation Professor Relationship Specialty Start Date End Date Kirby Vogel MD [address] [place] [phone] PCP - General Family Medicine 01/26/19 documented as of this encounter
--- OUTSIDE RECORDS SUMMARY | 2024-04-02 20:22 | XMS_ITS | Encounter Summary ---
Author Organization [facility] Address [address] [place] [address] Care Team Providers Care Rnp Name Role Phone Kirby Vogel MD Primary Care Provider +1- [phone] Reason for Visit * Reason Comments Future Appointment Encounter Details Date Type Department Care Team (Late st Contact Info) Description 08/12/2019 Telephone [facility] - [address] [phone] Analisa Bryant, RN Future Appointment Social History Tobacco Use Types Packs/Day [...] Progress Notes * Analisa Bryant, RN - 08/12/2019 2:09 PM CDT Called pt and left VM to call office. Wanted to do the pre-charting for upcoming Telemedicine visit with Randy Araujo documented in this encounter Plan of Treatment [...] on filedocumented in this encounter Care Teams Rnp Relationship Specialty Start Date End Date Kirby Vogel MD [address] [place] [phone] PCP - General Family Medicine 01/26/19 documented as of this encounter
--- OUTSIDE RECORDS SUMMARY | 2024-04-02 20:22 | XMS_ITS | Encounter Summary ---
Author Organization [facility] Address [address] [facility] [place] [address] Care Team Providers Care Quality Assurance Technician Name Role Phone Kirby Vogel MD Primary Care Provider +1- [phone] Encounter Details Date Type Department Care Team (Late st Contact Info) Description 03/07/2021 Orders Only [facility] [address] [place] [address] Manju Banuelos, RN History of UTI Social [...] as of this encounter Plan of Treatment Scheduled Orders Name Type Priority Associated Diagnoses Orde r Schedule URINALYSIS W/MICROSCOPIC REFLEX TO CULTURE Lab Routine History of UTI Expected: 03/13/2021, Expires: 04/07/2022 documented as of this encounter Goals Goal Patient Goal Type Associated Problems Recent Progress Patient-Stated? Author Medication Management General On track( 020 11:28 AM CDT) Analisa Diallo, RN Note: Expected end date: ongoing Interventions: Complete Hepatitis C therapy as prescribed documented as of this encounter Visit Diagnoses Diagnosis History of UTI- Primary Personal history of urinary (tract) infection documented in this encounter Care Teams Quality Assurance Technician Relationship Specialty Start Date End Date Kirby Vogel MD [address] [place] [phone] PCP - General Family Medicine 01/26/19 documented as of this encounter
--- OUTSIDE RECORDS SUMMARY | 2024-04-02 20:22 | XMS_ITS | Encounter Summary ---
Author Organization [facility] Address [address] [place] [address] Care Team Providers Care Watershed Manager Name Role Phone Kirby Vogel MD Primary Care Provider +1- [phone] Reason for Visit * Reason Comments Hepatitis C Encounter Details Date Type Department Care Team (Late st Contact Info) Description 06/12/2019 10:00 AM CDT Office Visit [facility] - GI [address] [facility] [place] [phone] Marina Araujo, DREAD-CLINICAL MOLECULAR GENETICIST [address] [place] [address] [place] [phone] Chronic hepatitis C without hepatic coma (HCC) (Primary Dx) Social History Tobacco Use Types [...] on file documented as of this encounter Patient Instructions * Patient Instructions* Marina Araujo, DREAD-ALLY - 06/12/2019 10:22 AM CDT Thank you for entrusting your healthcare to the physicians and other specialists at the [facility] clinic today. Following your [...] am to noon, 1 to 4:30 pm ). ?? Press 1 to make schedule or [...] please call (hospital main number), ask the transit coach operator to call the gastroenterology fellow system administration manager. ?? Emergency: call 911 or go to your closest emergency room. We encourage you to use [employer] to send and receive messages and review your test results. Let us know if you need information on signing up for [employer]. More information about us and our services can be found on our websites at [email or web address] and [email or web address] Information about the [facility], a vgo-cdi-cbjxag foundation supporting liver disease research by your doctors and researchers at [facility], can be found at: [email or web address] IMPORTANT 06/12/2019 The following information and instructions are from your visit today: Ms. Eden is to follow up in the clinic in 2 months Ms. Eden is to start epclusa one tablet daily. She needs to take this medication with food to help avoid nausea She was instructed to call the clinic when she receives his medication to give the nurse a start date and to make a follow up appointment and get paperwork for labs at 4 weeks of treatment She was instructed on potential side effects nausea, fatigue, insomnia and headaches and diarrhea She is to follow up in the clinic after starting treatment She was instructed to call the clinic if she has any questions or concerns. We discussed in great length the importance of notifying my nurse when the patient starts treatmentso that we may proceed with the above plan of care It is very important that you do not mis any doses of your hepatitis C medication and to notify theclinic if this occurs Discussed possible drug interactions and to not take any acid reflux medications including tums/rolaids during treatment without discussing dosing with our office first. She was instructed on importance of taking this medication as directed (medication compliance) and following up in the clinic as scheduled. Discussed the importance of compliance with patient. Further discussed that taking medication as directed is crucial to this treatment. Advised to take medications as directed and to call the office immediately with any sever side effects or issues that arise. Discussed that missing as little as one dose may decrease chances of a successful treatment. Advised to make sure to allow enough time for refills so that there is no interruption in ??therapy. Discussed the importance of getting labs as directed and keeping follow up appointments. Patient advised not to drink alcohol or take illicit drugs, especially while on treatment She verbalized understanding of the above instructions documented in this encounter Progress Notes * Analisa Bryant RN - 06/12/2019 1:46 PM CDT Folder given to patient with Hepatitis C information including: -Basics of Hepatitis C- Informational handout on Hepatitis C -medication information sheet- information on the prescribed treatment -Hepatitis C treatment information handout- sums up the process and reminds patient to contact our office once medication is received Reviewed the medication information sheet with patient. Explained how the insurance approval and medication delivery process works. Stressed the importance of contacting the office once patient receives the medication to give a start date and lab preference. Informed patient that after they contactour office, they will receive a lab schedule and a follow up appointment reminder in the mail. Pt has no questions at this time. * Marina Araujo, SPICE GRINDER-CLINICAL MOLECULAR GENETICIST - 06/12/2019 9:34 AM CDT Ms. Eden is a 83 year old female who presents at the [facility] today for a follow up visit for hepatitis C. She .presents to discuss treatment options. She compalins of fatigue . She denies any d\abdominal pain nausea or vomiting; she is accompanied by her son Judd and her daughter in law Chief Complaint Patient presents with ??? Hepatitis C Patient Active Problem List: Essential hypertension Depression Pulmonary emphysema Chronic hepatitis C without hepatic coma Past Medical History: Diagnosis Date ??? Disorder of liver ??? Generalized anxiety disorder ??? Hepatitis C ??? Hypertension ??? Prolapsed uterus No past surgical history on file. History: Patient denies any new medical or family history Treatment: none. Current symptoms: fatigue yes. Rash no. Itching no. Abdominal pain no. Joint pain no. Symptoms of depression no. Social History Social History Socioeconomic History ??? [...] Last attempt to quit: 2005 Years since quittin.2 ??? Smokeless tobacco: Never Used Substance and [...] file Gets together: Not on file Attends advent service: Not on file Active member of [...] describes her current average alcohol consumption as 1 glass of wine I have reviewed with her regarding her Medical, Social and Family history and I have updated and corrected these sections of his [facility] electronic health record based on my discussions [...] ??? Azelastine HCl 137 MCG/SPRAY SOLN ??? LORazepam (ATIVAN) 0.5 MG tablet Take 1 tablet by mouth 2 times daily as needed ??? metoprolol succinate XL 24hr (TOPROL XL) 50 MG tablet Take 50 mg by mouth once daily ??? oxybutynin CR 24hr (DITROPAN-XL) 10 MG tablet Take 1 tablet by mouth once daily ??? sertraline (ZOLOFT) 25 MG tablet Take 25 mg by mouth once daily ??? SYMBICORT 160-4.5 MCG/ACT inhaler Inhale 2 puffs by mouth every 12 hours ??? valsartan (DIOVAN) 80 MG tablet Take 80 mg by mouth once daily No current facility-administered medications for this visit. I have reviewed and confirmed with Ms. Eden her current medications, allergies, social history. Review of systems: HEENT: normal Appetite: good . Fatigue: yes Chest pain: none. Shortness of breath: none. Nausea and vomiting: none. Abdominal pain: none . Reflux or GERD symptoms: none. Constipation or diarrhea: none. Edema: None Musculoskeletal pain: none Skin: rashes none Depression: she denies that this is a current problem. All other components of a 14 point review of systems were negative. On exam today,There were no vitals taken for this visit. Wt Readings from Last 3 Encounters: 06/12/19 76.1 kg (167 lb 11.2 oz) 04/10/19 74.6 kg (164 lb 6.4 oz) I reviewed today's vital signs with the patient. She appeared alert and anicteric. General appearance: Well nourished well developed , in no acute distress HEENT: WNL: yes Eyes: no scleral icterus Lungs were clear to auscultation bilaterally with no dullness. Heart sounds were regular rate and rhythm. There were no murmurs or thrills . Abdomen was soft and nontender, non-distended. Hepatomegaly: none palpable. Splenomegaly: none palpable. Ascites: .none Masses: none. Hernias: none. Musculoskeletal : no joint tenderness or deformity Extremities: without clubbing, cyanosis, Lower extremity edema: none. Mental status: normal affect: alert and oriented Neuro: Alert, following commands, no asterixis Psych: Mood appropriate , cooperative Skin: warm and dry with no rashes .no jaundice, no spider angiomata Laboratory test results: Recent Labs Component Name [...] 14.4 WBC 7.3 PLTCOUNT 228 INR 0.9 Results for KEM EDEN ( ) as of 06/12/2019 09:34 Ref. Range 04/13/2019 16:40 Hepatitis A Virus Antibody Total Latest Ref Range: Negative Positive (Abnormal) Hepatitis B Core Virus Antibody Total Latest Ref Range: Negative Negative Hepatitis B Virus Surface Antibody Quantiative Latest Ref Range: Immunity>9.9 mIU/mL <3.1 (L) Hepatitis B Virus Surface Antigen Latest Ref Range: Negative Negative Hepatitis C Virus Log 10 Latest Units: log10 IU/mL 5.794 Hepatitis C Genotype Unknown 1b Hepatitis C Virus Quantitation Latest Units: IU/mL 622,000 I have reviewed the laboratory studies with Ms. Eden I spent 25 minutes with the patient, greater than 50% of the time was spent with counseling and coordination of care discussed treatment with epclusa for 12 weeks . Potential side effects of fatigue and nausea and headache, to take medication with food to minimize nausea. To take epclusa about the same time every day and try to not miss any doses Impression: My impression is that Ms. Eden has chronic hepatitis C she wishes to be treated She will be started on epclusa one tab for 12 weeks Plan: Ms. Eden is to follow up in the clinic in 2 months Ms. Eden is to start epclusa one tablet daily. She needs to take this medication with food to help avoid nausea She was instructed to call the clinic when she receives his medication to give the nurse a start date and to make a follow up appointment and get paperwork for labs at 4 weeks of treatment She was instructed on potential side effects nausea, fatigue, insomnia and headaches and diarrhea She is to follow up in the clinic after starting treatment She was instructed to call the clinic if she has any questions or concerns. We discussed in great length the importance of notifying my nurse when the patient starts treatmentso that we may proceed with the above plan of care It is very important that you do not mis any doses of your hepatitis C medication and to notify theclinic if this occurs Discussed possible drug interactions and to not take any acid reflux medications including tums/rolaids during treatment without discussing dosing with our office first. She was instructed on importance of taking this medication as directed (medication compliance) and following up in the clinic as scheduled. Discussed the importance of compliance with patient. Further discussed that taking medication as directed is crucial to this treatment. Advised to take medications as directed and to call the office immediately with any sever side effects or issues that arise. Discussed that missing as little as one dose may decrease chances of a successful treatment. Advised to make sure to allow enough time for refills so that there is no interruption in ??therapy. Discussed the importance of getting labs as directed and keeping follow up appointments. Patient advised not to drink alcohol or take illicit drugs, especially while on treatment She verbalized understanding of the above instructions Sincerely, Marina Araujo COLON AND RECTAL SURGEON [address] [place] [address] Collaborating Physican Nathan Fortune MD [address] [place] [address] Address letter to: Kirby Vogel MD [address] [place] [phone] documented in this encounter Plan of Treatment [...] Primary documented in this encounter Care Teams Watershed Manager Relationship Specialty Start Date End Date Kirby Vogel MD [address] [place] [phone] PCP - General Family Medicine 01/26/19 documented as of this encounter
--- OUTSIDE RECORDS SUMMARY | 2024-04-02 20:22 | XMS_ITS | Encounter Summary ---
Author Organization [facility] Address [address] [place] [address] Care Team Providers Care Claims Specialist Name Role Phone Kirby Vogel MD Primary Care Provider +1- [phone] Encounter Details Date Type Department Care Team (Late st Contact Info) Description 03/09/2021 Lab Requisition [facility] [address] [place] [address] Social History Tobacco Use Types Packs/Day Years [...] on filedocumented in this encounter Care Teams Claims Specialist Relationship Specialty Start Date End Date Kirby Vogel MD [address] [place] [phone] PCP - General Family Medicine 01/26/19 documented as of this encounter
--- OUTSIDE RECORDS SUMMARY | 2024-04-02 20:22 | XMS_ITS | Encounter Summary ---
Author Organization [facility] Address [address] [place] [address] Care Team Providers Care Occupational Therapy Co Director Name Role Phone Kirby Vogel MD Primary Care Provider [phone] Reason for Visit * Auth/Cert Specialty Diagnoses / Procedures Referred By Dominick mauricio Referred To Contact Diagnoses Diagnosis unknown Diagnosis unknown [R69] Procedures ARTHROPLASTY TOTAL HIP Referral ID Status Reason Start Date Expiration Date Visits Re quested Visits Authorized [id number] 1 1 Encounter Details Date Type Department Care Team (Late st Contact Info) Description 03/16/2021 7:25 AM TRAFFIC CONTROL OFFICER Anesthesia Event [facility] PERIOPERAT[facility] [address] [place] [address] Ivan Lucas DO [address] [facility] [place] [address] Frederick Zimmerman MD [address] [facility] [place] [address] Anesthesia Record Procedure Summary Procedure Name Responsible Anesthesiologist Anesthesia Start Time Anesthesia Stop Time ARTHROPLASTY TOTAL HIP (Right: Hip) Ivan Lucas DO 03/16/21 0725 03/16/21 0941 Events Date Time Event Comment 03/16/2021 0657 0725 An Start 0725 An Start Data 0727 Induction 0729 An Intubation 0752 PT Reassessment 0759 Timeout Anesthesia part icipated in timeout at the time documented in the record by nursing. 0928 Extubation 0932 an stop data 0941 Electnc Sig This record is electronically signed by the providers listed under staff. 0941 ANPTO2 0941 An Stop Meds Name Total fentaNYL 100 mcg/2mL injection 50 mcg lidocaine 2% injection (20 mg/ml) 40 mg propofol 200mg/20mL injection 80 mg succinylcholine (ANECTINE) 100 mg/5 mL i njection 100 mg rocuronium 50mg/5mL injection 30 mg dexamethasone 4 mg/ml injection 8 mg ondansetron 4 mg/2mL injection 4 mg ketorolac 30 mg/ml injection 15 mg sugammadex 200 mg/2 mL injection 200 mg dexMEDETOmidine (PRECEDEX) 200 mcg/2ml i njection 10 mcg atropine 0.4 mg/ml injection 0.4 mg glycopyrrolate 1mg/5mL injection 0.4 mg ePHEDrine injection 50 mg/ml 35 mg ceFAZolin (Ancef) 2,000 mg in 50 ml IVPB 2 g magnesium sulfate 2 g in 50 mL bolus 2 g tranexamic acid (Cyklokapron) 1,000 mg i n 0.9% NaCl IV 110 mL bolus 2,000 mg lidocaine (XYLOCAINE) 1 % injection 2 mL ropivacaine (NAROPIN) 5 MG/ML (0.5%) inj ection 40 mL dexamethasone (DECADRON) injection 4 mg lactated ringers infusion 1,300 mL * Agents Name Insp. N2O Exp. Sevoflurane Exp. N2O O2 Air Insp. Sevoflurane N2O * Blood No blood administrations on file. Lines, Drains, and Airways Type Details Placement Removal External Urinary Catheter 03/16/21; 03/19/21; 0900; Treatment Complete 03/16/21 0000 by Myles Patino RN 03/19/21 0900 by Shama Herrmann RN Peripheral IV Date: 03/16/21; Time : 0655; Orientation: Right; Placed By: Jaycob Paredes RN; Tolerance: Well 03/16/21 0655 by Scarlet Schneider RN 03/21/21 1231 by Tami Deleon RN ETT Date: 03/16/21; Time : 728; Placed By: JEREMÍAS Rees; Vent: easy mask; Induction: Standard IV; Blade Type: Dede; Blade Size: 3; Laryngoscopy View: Grade 4 (unable to view); Intubation Adjuncts: Stylet, Video Laryngoscope; Tube: Endotracheal Tube; Placement: Oral; Tube Type: Cuffed-inflated; Tube Size(mm): 7 MM; Depth of Insertion: 22 CM; Measured From: gum; Attempts: 1; Cuff Infated: Air; Cuff Pressure(cm H2O): 20 cm H2O; Cuff Vol(mL): 7 mL; Verified By: Direct visualization, Bilateral breath sounds, Chest Auscultation, CO2 Monitor 03/16/21 0729 by Gwendolyn Domínguez APRN-CRNA 03/16/21 0928 by Gwendolyn Domínguez APRN-CRNA Procedural Site (Incision) 03/16/21; 801; Right; Hip; 03/21/21; 202103/16/21 0802 by Jessenia Ureña 03/21/212021 by Generic, Auto Release documented in this encounter Social History Tobacco Use Types Packs/Day Years [...] of this encounter Progress Notes * Ivan Lucas DO - 03/16/2021 10:39 AM CST ANESTHESIA POSTOP EVALUATION NOTE Procedure: ARTHROPLASTY TOTAL HIP (Right Hip) Daniela Medina is a 85 year old female Patient Vitals for the past 6 hrs: BP Temp Pulse Resp SpO2 Pain Rating Score #1 Pain Scale/Observation Pulse - (SPO2/Cuff) 03/16/21 0639 150/72 97.7 ??F (36.5 ??C) 59 18 95 % -- -- -- 03/16/21 0642 -- -- -- -- -- 3 N -- 12/16/21 0935 -- 96.8 ??F (36 ??C) 72 -- -- 0 N;B -- 03/16/2136 141/77 -- 72 25 100 % -- -- 75 bpm 03/16/2137 -- -- -- -- 98 % -- -- -- 03/16/2138 -- -- -- -- 96 % -- -- -- 03/16/2139 -- -- -- -- 95 % -- -- -- 03/16/2141 136/74 -- 68 16 92 % -- -- 70 bpm 03/16/21 0945 -- -- -- -- 100 % -- -- -- 03/16/2146 141/71 -- 68 23 100 % -- -- 69 bpm 03/16/21 0950 -- -- -- -- 100 % -- -- -- 03/16/2151 152/71 -- 71 19 100 % -- -- 72 bpm 03/16/21 0952 -- -- -- -- 100 % -- -- -- 03/16/2154 -- -- 70 17 99 % -- -- 75 bpm 03/16/21 0955 -- -- 70 18 100 % -- -- 70 bpm 03/16/21 0956 163/98 -- 69 17 100 % -- -- 74 bpm 03/16/21 1001 164/96 -- 72 17 99 % -- -- 72 bpm 03/16/21 1002 -- -- -- -- 100 % -- -- -- 03/16/21 1009 -- -- -- -- 99 % -- -- -- 03/16/21 1010 -- -- -- -- 99 % -- -- -- 03/16/21 1011 130/91 -- 70 18 97 % -- -- 72 bpm 03/16/21 1012 -- -- -- -- 99 % -- -- -- 03/16/21 1014 -- -- -- -- 98 % -- -- -- 03/16/21 1015 -- -- -- -- 95 % -- -- -- 03/16/21 1016 152/92 -- 74 20 99 % -- -- 76 bpm 03/16/21 1017 -- -- -- -- 99 % -- -- -- 03/16/21 1026 143/74 -- 76 18 99 % -- -- 75 bpm 03/16/21 1027 -- -- -- -- 99 % -- -- -- 03/16/21 1030 -- -- -- -- 100 % -- -- -- 03/16/21 1031 150/80 -- 76 17 100 % -- -- 76 bpm 03/16/21 1032 -- -- -- -- 100 % -- -- -- 03/16/21 1034 -- -- -- -- 99 % -- -- -- 03/16/21 1035 -- -- -- -- 100 % -- -- -- 03/16/21 1036 153/79 -- 76 17 99 % -- -- 76 bpm Anesthesia Type: general ETT Mental Status: awake, sufficiently recovered from acute administration of anesthesia to participatein the evaluation and neurologic status has returned to expected level of consciousness Respiratory Function: natural Cardiac Function: stable Postop Pain: acceptable to the patient Postop Hydration: adequate Postop Nausea: none Assessment: no apparent anesthetic complications, patient tolerated procedure well and no evidence of recall Patient Disposition: Release from Anesthesia Care COMPLICATIONS: No complications documented. FIC CONTROL OFFICER * Ivan Lucas DO - 03/16/2021 6:55 AM CST ANESTHESIA PREOPERATIVE EVALUATION NOTE Procedure: ARTHROPLASTY TOTAL HIP (Right Hip) NPO status: Since Midnight; *Except Oral meds with H2O; NO Tobacco Since Midnight (03/16/2021 6:53 AM) Vitals: Patient Vitals for the past 6 hrs: BP Temp Pulse Resp SpO2 Pain Rating Score #1 03/16/21 0642 -- -- -- -- -- 3 03/16/21 0639 150/72 97.7 ??F (36.5 ??C) 59 18 95 % -- ANESTHESIA PRE-EVALUATION NOTE The patient is a current non-smoker (Previous smoker.). Physical Exam: Orientation X3 Airway/Mallampati Score: III Mouth Opening Distance: 2.5 fingerwidths Neck ROM: limited TM Distance: < 3 FB Teeth: poor dentition (Several missing teeth.) Heart: normal - S1 S2 Lungs: clear to ausculation bilaterally Review of Systems: History of anesthetic complications: No ANESTHESIA PLAN ASA Score: 3 (HTN, COPD, hep C.) NPO Status: No solids since midnight and No liquids within 2 hours Anesthesia Plan: general ETT Nerve Blocks: Pericapsular Nerve Group (Right.). Planned Induction: intravenous Planned Postop Destination: PACU Anesthetic plan was discussed with: patient, family Anesthetic Plan discussion was: Consented BMI, Height, Weight Tobacco History Estimated body mass index is 25.79 kg/m?? as calculated from the following: Height as of this encounter: 1.651 m (5' 5 ). Weight as of this encounter: 70.3 kg (155 lb). Social History Tobacco Use Smoking Status Former Smoker ??? Quit date: 2004 ??? Years since quittin.9 Smokeless Tobacco Never Used Alcohol History Drug History Social History Substance and Sexual Activity Alcohol Use Yes ??? Alcohol/week: 1.0 standard drink ??? Types: 1 Glasses of wine per week Comment: 3-4 oz wine/evening Social History Substance and Sexual Activity Drug Use Never Outpatient Medications: Inpatient Medications: Outpatient Medications Marked as Taking for the 03/16/21 encounter (Hospital Encounter) Medication Sig Last Dose ??? acetaminophen Take 500 mg by mouth every 4 hours as needed for Fever or Pain Maximum allowable Acetaminophen amount = 4 Grams (4000 mg) / 24 hours. 03/16/2021 at 0500 ??? amLODIPine Take 5 mg by mouth 2 times daily 03/16/2021 at 0500 ??? Azelastine HCl 03/15/2021 at pm ??? Calcium Carb-Cholecalciferol (CALCIUM 500 +D PO) Take by mouth once daily 03/15/2021 at am ??? calcium citrate Take 400 mg by mouth once daily 03/15/2021 at am ??? Fexofenadine HCl (RENU PO) Take by mouth once daily 03/16/2021 at 0500 ??? LORazepam Take 1 tablet by mouth once daily as needed 03/16/2021 at 0500 ??? Multiple Vitamins-Calcium (ONE-A-DAY WOMENS PO) Take by mouth once daily 03/15/2021 at am ??? oxybutynin CR 24hr Take 1 tablet by mouth once daily 03/15/2021 at pm ??? Polyethylene Glycol 3350 (MIRALAX PO) Take by mouth as needed Past Month at Unknown time ??? sertraline Take 25 mg by mouth once daily 03/16/2021 at 0500 ??? Symbicort Inhale 2 puffs by mouth every 12 hours 03/16/2021 at 0500 ??? valsartan Take 160 mg by mouth once daily 03/15/2021 at pm Current Facility-Administered Medications Medication Dose Last Admin ??? acetaminophen 1,000 mg ??? ceFAZolin 2 g ??? celecoxib 200 mg ??? gentamicin 280 mg ??? lactated ringers ??? lidocaine 0.2 mL ??? magnesium sulfate 2 g ??? tranexamic acid 1,000 mg ??? tranexamic acid 1,000 mg Allergies: Allergies Allergen Reactions ??? Codeine Other Caused weird dreams Relevant Problems No relevant active problems Problem List: Patient Active Problem List Diagnosis Date Noted ??? Essential hypertension 04/10/2019 Priority: Not Prioritized ??? Depression 04/10/2019 Priority: Not Prioritized ??? Pulmonary emphysema 04/10/2019 Priority: Not Prioritized ??? 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 COPD (chronic obstructive pulmonary disease) ??? Generalized anxiety disorder ??? Hepatitis C ??? History of blood transfusion ??? Hypertension ??? Polio ??? Prolapsed uterus ??? Recurrent UTI Surgical History: Past Surgical History: Procedure Laterality Date ??? Bladder Suspension ??? COLONOSCOPY ??? OTHER SURGERY prolapse uterus Covid Vaccine: Lab Results: Recent Labs Component Name 03/02/21 1355 WBC 8.6 RBC 4.29 HCT 39.4 HGB 12.6 PLTCOUNT 255 MCV 91.8 MCH 29.4 MCHC 32.0 MPV 10.0 Recent Labs Component Name 03/02/21 1355 ABORH A POS ABSCG NEG Recent Labs Component Name 03/13/21 1400 BLOODUA Negative WBCUA 6-10* NITRITEUA Negative PROTEINUA 1+* Recent Labs Component Name 03/02/21 1355 SODIUM 134* POTASSIUM 3.5 CALCIUM 9.9 CHLORIDE 100 CO2 25 GLUCOSE 98 BUN 26* CREATININE 0.78 No results found for requested labs within last 120 days. Recent Labs Result Component Current Result Albumin 3.9 (03/02/2021) Alkaline Phosphatase 88 (03/02/2021) ALT 22 (03/02/2021) Anion Gap 9 (03/02/2021) AST 30 (03/02/2021) Bilirubin Total 0.7 (03/02/2021) eGFR by MDRD >60 (03/02/2021) FIC CONTROL OFFICER documented in this encounter Procedure Notes * Gwendolyn Domínguez APRN-CRNA - 03/16/2021 7:54 AM CSTAssociated Order(s): ETT Placement Endotracheal Tube Placement: Patient Location: OR. Intubation Event Date/Time: 03/16/2021 7:29 AM Procedure: intubation (67535). Procedure Section: Sedation: IV sedation. Indications for Airway Management: airway protection Induction: standard IV Patient Position: sniffing and supine Mask Ventilation: easy. Blade Type: Dede Blade Size: 3 Laryngoscopy View: grade 4 (unable to view) Intubation Adjuncts: stylet and video laryngoscope Tube: endotracheal tube Placement: oral Tube type: cuff - inflated Tube Size (MM): 7 Depth of Insertion (CM): 22 Measured From: gums Cuff volume (mL): 7 Cuff inflation pressure (CM H20): 20 Cuff Inflated With: air Number of Attempts: 1. Placement Verified By: direct visualization, bilateral breath sounds, chest auscultation and CO2 monitor Tube secured with: adhesive tape. Dentition unchanged? Yes Difficult Airway? No. Procedure Start Time: 03/16/2021 7:29 AM. Staff Section Anesthesia Provider: Gwendolyn Domínguez APRN-NIKITA, Performed the procedure Provider #1: Ivan Lucas DO. Additional Comments: First look DL with no visualization. Glidescope used and unable to pass ETT through cords on first attempt. Dr. Lucas had successful placement with glidescope. FIC CONTROL OFFICER * Ivan Lucas DO - 03/16/2021 7:17 AM CSTAssociated Order(s): Peripheral Nerve Block Peripheral Nerve Block Procedure: Peripheral Nerve Block Patient Location: Pre-op Preprocedure Section: Indications: postop pain management. Pre-anesthetic Checklist: Patient identified, IV Checked, Site examined and clear, Risks and benefits discussed, Surgical consent verified, Monitors and equipment, Time-out performed, Informed consent obtained, Pre-op evaluation done, Questions answered/anesthesia questions answered, Allergies reviewed and Removal hand/wrist jewelry Monitors: Pulse Ox. Patient Condition: awake Patient Position: supine Patient Sedated? No Procedure Section Laterality: right Block Performed: Pericapsular Nerve Group Prep: Chloraprep Strerile Field: gloves, mask and hat/cap Skin localized with: lidocaine (XYLOCAINE) 1 % injection, 2 mL Needle Type: Echogenic insultaed Needle Gauge: 21 Needle Length: 80 mm Ultrasound Guided? Yes Technique: in plane Visualization: Preliminary scan performed, Important anatomical structures identified, Needle [...] 03/16/2021 7:17 AM. Procedure Total Time: 6 minutes. Staff Section Anesthesia Provider: Ivan Lucas DO, Performed the procedure FIC CONTROL OFFICER documented in this encounter Miscellaneous Notes * Anesthesia Transfer of Care - Gwendolyn Domínguez APRN-CRNA - 03/16/2021 9:41 AM CST ANESTHESIA TRANSFER OF CARE NOTE Today's Date: 03/16/2021 Date of : 1935 Patient: Daniela Medina Procedure(s): ARTHROPLASTY TOTAL HIP Surgeon(s): Primary: Ivan Aranda MD Preop Diagnosis: Pre-op Diagnois: * Diagnosis unknown [R69] Pre-op Meds (From admission, onward) Start Stop Status Route Frequency Ordered 03/16/21 09 0.9% NaCl infusion 03/16 09 Sent IV CONTINUOUS 03/16/21 0903/16/21916 0.9% NaCl irrigation 1,000 mL with povidone-iodine (Betadine) 35 mL irrigation -- Sent PRN 03/16/21 0917 03/16/21 0615 acetaminophen (Tylenol) tablet 1,000 mg 03/16 1814 Verified PO ONCE 03/16/21 0613 03/16/21 09 acetaminophen (Tylenol) tablet 1,000 mg 03/21 1159 Sent PO EVERY 6 HOURS 03/16/21 0937 03/16/21 0714 albuterol HFA (Proventil; Ventolin; Proair) 108 (90 Base) MCG/ACT inhaler 1 puff Note to Pharmacy: OP sig: TAKE 1 PUFF BY MOUTH EVERY 6 HOURS NEEDED FOR SHORTNESS OF BREATH Patient not taking: Reported on 03/02/2021 -- Verified IN EVERY 6 HOURS PRN 03/16/21 0717 03/16/21 2100 amLODIPine (Norvasc) tablet 5 mg Note to Pharmacy: OP sig: Take 5 mg by mouth 2 times daily -- Verified PO 2 TIMES DAILY 03/16/21 0717 03/16/21 2100 aspirin chew tablet 81 mg -- Sent PO 2 TIMES DAILY 03/16/21 0937 03/16/21 0746 atropine injection -- Sent IV PRN 03/16/21 0801 03/16/21 09 bisacodyl (Dulcolax) suppository 10 mg Or Linked Group Details -- Sent RE DAILY PRN 03/16/21 0937 03/16/21936 bisacodyl EC (Dulcolax) tablet 5 mg Or Linked Group Details -- Sent PO DAILY PRN 03/16/21 0937 03/16/21 2100 budesonide-formoterol (Symbicort) 160-4.5 MCG/ACT inhaler 2 puff -- Sent IN EVERY 12 HOURS 03/16/21 0717 03/16/21 0917 bupivacaine PF (Marcaine PF) 0.5 % injection -- Sent PRN 03/16/21 0917 03/17/21 0900 calcium 500 MG tablet 500 mg -- Sent PO DAILY 03/16/21 0717 03/17/21 0800 calcium-vitamin D (Os-Gonzalez 250 Plus D 125 Units) tablet 1 tablet -- Sent PO DAILY WITH BREAKFAST 03/16/21 0717 03/16/21 0612 ceFAZolin (Ancef) 2,000 mg in 50 ml IVPB -- Verified IV PRE-OP MULTIPLE 03/16/21 0613 03/16/21 1300 ceFAZolin (Ancef) 2,000 mg in 50 ml IVPB 03/17 1259 Sent IV EVERY 8 HOURS 03/16/21 0937 03/16/21 2100 celecoxib (CeleBREX) capsule 100 mg -- Sent PO 2 TIMES DAILY 03/16/21 0928 03/16/21 0615 celecoxib (CeleBREX) capsule 200 mg 03/16 0656 Completed PO PRE-OP ONCE 03/16/21 0613 03/16/21 0756 dexAMETHasone (Decadron) injection -- Sent IV PRN 03/16/21 0803 03/16/21 0828 dexmedeTOMIDine (Precedex) injection -- Sent IV PRN 03/16/21 0828 03/16/21 0945 docusate sodium (Colace) capsule 100 mg 03/16 0859 Sent PO 2 TIMES DAILY 03/16/21 0937 03/16/21 0746 ePHEDrine injection -- Sent IV PRN 03/16/21 0801 03/16/21 0945 famotidine (Pepcid) tablet 20 mg 03/16 0859 Sent PO 2 TIMES DAILY 03/16/21 0937 03/16/21 0751 fentaNYL (PF) (Sublimaze) injection -- Sent IV PRN 03/16/21 0812 03/16/21 0615 gentamicin (Garamycin) 280 mg in 0.9% NaCl IV 100 mL IVPB 03/16 0727 Completed IV PRE-OP ONCE 03/16/21 0613 03/16/21 0746 glycopyrrolate (Robinul) injection -- Sent IV PRN 03/16/21 0801 03/16/21 09 ketorolac (Toradol) injection -- Sent IV PRN 03/16/21 0904 03/16/21 0615 lactated ringers infusion -- Verified IV PRE-OP CONTINUOUS 03/16/21 0613 03/16/21 07 lidocaine hcl (PF) (Xylocaine MPF) 2 % injection -- Sent IV PRN 03/16/21 0803 03/16/21 06 lidocaine PF (Xylocaine MPF) 1 % injection 0.2 mL -- Verified INFILTRATION PRE-OP MULTIPLE 03/16/21 0603/17/21 09 loratadine (Claritin) tablet 10 mg -- Sent PO DAILY 03/16/21 0703/16/21 07 LORazepam (Ativan) tablet 0.5 mg Note to Pharmacy: OP sig: Take 1 tablet by mouth once daily as needed -- Sent PO DAILY PRN 03/16/21 0717 03/16/21 0937 magnesium hydroxide (Milk Of Magnesia) suspension 30 mL Or Linked Group Details -- Sent PO DAILY PRN 03/16/21 0937 03/16/21 0615 magnesium sulfate 2 g in 50 mL bolus 03/16 730 Completed IV ONCE 03/16/21 0603/16/21 09 ondansetron (disintegrating) (Zofran ODT) tablet 4 mg -- Sent PO EVERY 6 HOURS PRN 03/16/21 0937 03/16/21 09 ondansetron (Zofran) injection 4 mg -- Sent IV EVERY 6 HOURS PRN 03/16/21 0937 03/16/21 0756 Ondansetron HCl (Zofran) injection -- Sent IV PRN 03/16/21 0804 03/17/21 09 oxybutynin CR 24hr (Ditropan-XL) tablet 10 mg Note to Pharmacy: OP sig: Take 1 tablet by mouth once daily -- Sent PO DAILY 03/16/21 0717 03/16/21 09 oxyCODONE (immediate release) (Roxicodone) tablet 10 mg Or Linked Group Details -- Sent PO EVERY 4 HOURS PRN 03/16/21 0937 03/16/21 0937 oxyCODONE (immediate release) (Roxicodone) tablet 5 mg Or Linked Group Details -- Sent PO EVERY 4 HOURS PRN 03/16/21 0937 03/16/21 09 prochlorperazine (Compazine) injection 5 mg -- Sent IV EVERY 6 HOURS PRN 03/16/21 0937 03/16/21 09 prochlorperazine (Compazine) injection 5 mg -- Sent IM EVERY 6 HOURS PRN 03/16/21 0937 03/16/21 07 propofol (Diprivan) injection -- Sent IV PRN 03/16/21 0803 03/16/21 0733 rocuronium (Zemuron) injection -- Sent IV PRN 03/16/21 0803 03/17/21 09 sertraline (Zoloft) tablet 25 mg Note to Pharmacy: OP sig: Take 25 mg by mouth once daily -- Sent PO DAILY 03/16/21 0717 03/16/21936 sodium phosphate rectal (Fleet) enema 133 mL Or Linked Group Details -- Sent RE DAILY PRN 03/16/21 0937 03/16/21 07 succinylcholine (Anectine) injection -- Sent IV PRN 03/16/21 0803 03/16/21 0913 sugammadex (Bridion) injection -- Sent IV PRN 03/16/21 0913 03/16/21 0615 tranexamic acid (Cyklokapron) 1,000 mg in 0.9% NaCl IV 110 mL bolus 03/16 09 Completed IV PRE-OP ONCE 03/16/21 0603/16/21 06 tranexamic acid (Cyklokapron) 1,000 mg in 0.9% NaCl IV 110 mL bolus 03/16 1814 Verified IV INTRA-OP ONCE 03/16/21 0613 03/17/21 09 valsartan (Diovan) tablet 160 mg Note to Pharmacy: OP sig: Take 160 mg by mouth once daily -- Sent PO DAILY 03/16/21 0717 03/16/21 09 vancomycin (Vancocin) 1 g in 0.9% NaCl irrigation 3,000 mL irrigation -- Sent PRN 03/16/21 0918 03/16/21 09 vancomycin (Vancocin) injection -- Sent PRN 03/16/21 0900 Post-op Diagnosis: * Diagnosis unknown [R69] . Allergies Allergen Reactions ??? Codeine Other Caused weird dreams Vitals: Patient Vitals for the past 3 hrs: BP Pulse Resp SpO2 Pain Rating Score #1 03/16/21 0938 -- -- -- 96 % -- 03/16/21 0937 -- -- -- 98 % -- 03/16/21 0936 141/77 72 25 100 % -- 03/16/21 0642 -- -- -- -- 3 Lines, Drains, and Airways Type Details Placement Removal Peripheral IV Date: 03/16/21; Time: 654; Orientation: Right; Location: Wrist; Placed By: Jaycob Paredes RN; Gauge: 20 Gauge; Locals: Injectable; Tolerance: Well 03/16/21654 by Scarlet Schneider, CORWIN ETT Date: 03/16/21; Time: 728; Placed By: JEREMÍAS Rees; Vent: easy mask; Induction: Standard IV; Blade Type: Dede; Blade Size: 3; Laryngoscopy View: Grade 4 (unable to view); Intubation Adjuncts: Stylet, Video Laryngoscope; Tube: Endotracheal Tube; Placement: Oral; Tube Type:Cuffed- inflated; Tube Size(mm): 7 MM; Depth of Insertion: 22 CM; Measured From: gum; Attempts: 1; Cuff Infated: Air; Cuff Pressure(cm H2O): 20 cm H2O; Cuff Vol(mL): 7 mL; Verified By: Direct visualization, Bilateral breath sounds, Chest Auscultation, CO2 Monitor 03/16/21 07 by Gwendolyn Domínguez APRN-CRNA 03/16/21 09 by Gwendolyn Domínguez APRN-CRNA Intraprocedure I/O Totals Intake lactated ringers infusion 1300.00 mL Total Intake 1300 mL Output Estimated Blood Loss 300 mL Total Output 300 mL Net Net Volume 1000 mL Patient Transfer Location: PACU Transport Airway: supplemental O2 and spontaneous respirations Complications: None Handoff Given? Yes Checklist or Protocol - The awllace handoff elements that must be included in the transfer of care checklist include: 1. Identification of patient. 2. Identification of responsible practitioner (PACU nurse or advanced practitioner). 3. Discussion of pertinent medical history. 4. Discussion of the surgical/procedure course (procedure, reason for surgery, procedure performed). 5. Intraoperative anesthetic management and issue/concerns. 6. Expectations/Plans for the early post-procedure period. 7. Opportunity for questions and acknowledgement of understanding of report from the receiving PACUteam. JEREMÍAS Rees FIC CONTROL OFFICER documented in this encounter Plan of Treatment Not on file documented as of this encounter Goals Goal Patient Goal Type Associated Problems Recent Progress Patient-Stated? Author Medication Management General On track( 020 11:28 AM CDT) Analisa Diallo, RN Note: Expected end date: ongoing Interventions: Complete Hepatitis C therapy as prescribed documented as of this encounter Procedures Procedure Name Priority Date/Time Associated Diagnosis Comments ENDOTRACHEAL TUBE NOTE Routine 03/16/2021 7:54 AM TRAFFIC CONTROL OFFICER PERIPHERAL BLOCK Routine 03/16/2021 7:17 AM TRAFFIC CONTROL OFFICER documented in this encounter Results * ETT LINE PERFORMABLE (03/16/2021 7:54 AM TRAFFIC CONTROL OFFICER) Narrative Gwendolyn Domínguez APRN-CRNA - 03/16/2021 7:54 AM TRAFFIC CONTROL OFFICER Gwendolyn Domínguez APRN-CRNA ? 03/16/2021 ??7:59 AM Endotracheal Tube Placement: ? Patient Location: OR. Intubation Event Date/Time: ??03/16/2021 7:29 AM Procedure: intubation ([id number]). Procedure Section: ?? Sedation: IV sedation. Indications [...] AM. Staff Section ? Anesthesia Provider: Gwendolyn Domínguez, DREAD-NIKITA, Performed the procedure ? Provider #1: Ivan Lucas, . Additional Comments: First look DL with no visualization. ??Glidescope used and unable to pass ETT through cords on first attempt. ??Dr. Lucas had successful placement with glidescope. Ivan Lucas DO GENERAL ANESTHESIA O RDERABLES * Peripheral Nerve Block (03/16/2021 7:17 AM TRAFFIC CONTROL OFFICER) Narrative Ivan Lucas DO - 03/16/2021 7:17 AM TRAFFIC CONTROL OFFICER Ivan Lucas, ? 03/16/2021 ??9:56 AM Peripheral ??Nerve Block [...] Ivan Lucas DO GENERAL ANESTHESIA O RDERABLES documented in this encounter Visit Diagnoses Not on filedocumented in this encounter Administered Medications Inactive Administered Medications - up to 3 most recent administrations Medication Order MAR Action Action Date Dose Rate Site atropine injection Intravenous, PRN, Starting on Yaz 03/16/21 at 0746, Until Yaz 03/16/21 at 0941, Anesthesia Intra-op $ Given 03/16/2021 7:46 AM TRAFFIC CONTROL OFFICER 0.4 mg ceFAZolin (Ancef) 2,000 mg in 50 ml IVPB 2,000 mg (2 g), at 100 mL/hr, Intravenous, PRE-OP MULTIPLE, Starting on Yaz 03/16/21 at 0612, Until Yaz 03/16/21 at 1237, Administer 30 minutes prior to surgical incision., Indication for anti-infective therapy: Surgical prophylaxis, Pre-op $ Given 03/16/2021 7:26 AM TRAFFIC CONTROL OFFICER 2 g dexAMETHasone (Decadron) injection Intravenous, PRN, Starting on Yaz 03/16/21 at 0756, Until Yaz 03/16/21 at 0941, Anesthesia Intra-op $ Given 03/16/2021 7:56 AM TRAFFIC CONTROL OFFICER 8 mg dexAMETHasone (Decadron) injection Infiltration, Starting on Yaz 03/16/21 at 0717, Until Yaz 03/16/21 at 0956, Anesthesia Intra-op $ Given 03/16/2021 7:17 AM TRAFFIC CONTROL OFFICER 4 mg dexmedeTOMIDine (Precedex) injection Intravenous, PRN, Starting on Yaz 03/16/21 at 0828, Until Yaz 03/16/21 at 0941, Anesthesia Intra-op $ Given 03/16/2021 8:28 AM TRAFFIC CONTROL OFFICER 10 mcg ePHEDrine injection Intravenous, PRN, Starting on Yaz 03/16/21 at 0746, Until Yaz 03/16/21 at 0941, Anesthesia Intra-op $ Given 03/16/2021 9:13 AM TRAFFIC CONTROL OFFICER 10 mg $ Given 03/16/2021 9:01 AM TRAFFIC CONTROL OFFICER 5 mg $ Given 03/16/2021 8:48 AM TRAFFIC CONTROL OFFICER 5 mg fentaNYL (PF) (Sublimaze) injection Intravenous, PRN, Starting on Yaz 03/16/21 at 0751, Until Yaz 03/16/21 at 0941, Anesthesia Intra-op $ Given 03/16/2021 8:12 AM TRAFFIC CONTROL OFFICER 25 mcg $ Given 03/16/2021 7:51 AM TRAFFIC CONTROL OFFICER 25 mcg glycopyrrolate (Robinul) injection Intravenous, PRN, Starting on Yaz 03/16/21 at 0746, Until Yaz 03/16/21 at 0941, Anesthesia Intra-op $ Given 03/16/2021 7:46 AM TRAFFIC CONTROL OFFICER 0.4 mg ketorolac (Toradol) injection Intravenous, PRN, Starting on Yaz 03/16/21 at 0904, Until Yaz 03/16/21 at 0941, Anesthesia Intra-op $ Given 03/16/2021 9:04 AM TRAFFIC CONTROL OFFICER 15 mg lactated ringers infusion at 20 mL/hr, Intravenous, PRE-OP CONTINUOUS, Starting on Yaz 03/16/21 at 0615, Until Yaz 03/16/21 at 1237, Pre-op $ New Bag/Syringe 03/16/2021 8:34 AM TRAFFIC CONTROL OFFICER $ New Bag/Syringe 03/16/2021 6:57 AM TRAFFIC CONTROL OFFICER 20 mL/ hr lidocaine (Xylocaine) 1 % injection Infiltration, Starting on Yaz 03/16/21 at 0717, Until Yaz 03/16/21 at 0956, Anesthesia Intra-op $ Given 03/16/2021 7:17 AM TRAFFIC CONTROL OFFICER 2 mL lidocaine hcl (PF) (Xylocaine MPF) 2 % injection Intravenous, PRN, Starting on Yaz 03/16/21 at 0727, Until Yaz 03/16/21 at 0941, Anesthesia Intra-op $ Given 03/16/2021 7:27 AM TRAFFIC CONTROL OFFICER 40 mg magnesium sulfate 2 g in 50 mL bolus 2 g, at 150 mL/hr, Administer over 20 Minutes, ONCE, 1 dose, On Yaz 03/16/21 at 0615, MAXIMUM rate 2g/10min $ Given 03/16/2021 7:30 AM TRAFFIC CONTROL OFFICER 2 g Ondansetron HCl (Zofran) injection Intravenous, PRN, Starting on Yaz 03/16/21 at 0756, Until Yaz 03/16/21 at 0941, Anesthesia Intra-op $ Given 03/16/2021 7:56 AM TRAFFIC CONTROL OFFICER 4 mg propofol (Diprivan) injection Intravenous, PRN, Starting on Yaz 03/16/21 at 0727, Until Yaz 03/16/21 at 0941, Anesthesia Intra-op $ Given 03/16/2021 7:27 AM TRAFFIC CONTROL OFFICER 80 mg rocuronium (Zemuron) injection Intravenous, PRN, Starting on Yaz 03/16/21 at 0733, Until Yaz 03/16/21 at 0941, Anesthesia Intra-op $ Given 03/16/2021 8:56 AM TRAFFIC CONTROL OFFICER 10 mg $ Given 03/16/2021 7:33 AM TRAFFIC CONTROL OFFICER 20 mg ropivacaine (Naropin) 5 MG/ML (0.5%) injection Infiltration, Starting on Yaz 03/16/21 at 0717, Until Yaz 03/16/21 at 0956, Anesthesia Intra-op $ Given 03/16/2021 7:17 AM TRAFFIC CONTROL OFFICER 40 mL succinylcholine (Anectine) injection Intravenous, PRN, Starting on Yaz 03/16/21 at 0727, Until Yaz 03/16/21 at 0941, Anesthesia Intra-op $ Given 03/16/2021 7:27 AM TRAFFIC CONTROL OFFICER 100 mg sugammadex (Bridion) injection Intravenous, PRN, Starting on Yaz 03/16/21 at 0913, Until Yaz 03/16/21 at 0941, Anesthesia Intra-op $ Given 03/16/2021 9:13 AM TRAFFIC CONTROL OFFICER 200 mg tranexamic acid (Cyklokapron) 1,000 mg in 0.9% NaCl IV 110 mL bolus 1,000 mg, at 220 mL/hr, Intravenous, PRE-OP ONCE, 1 dose, On Yaz 03/16/21 at 0615, Pre-op $ Bolus New Bag 03/16/2021 9:00 AM TRAFFIC CONTROL OFFICER 1,000 mg $ New Bag/Syringe 03/16/2021 7:33 AM TRAFFIC CONTROL OFFICER 1,000 mg documented in this encounter Care Teams Occupational Therapy Co Director Relationship Specialty Start Date End Date Kirby Vogel MD [facility] [place] [address] PCP - General Family Medicine 01/26/19 documented as of this encounter
--- OUTSIDE RECORDS SUMMARY | 2024-04-02 20:22 | XMS_ITS | Encounter Summary ---
Author Organization [facility] Address [address] [place] [address] Care Team Providers Care Lead Installer Name Role Phone Kirby Vogel MD Primary Care Provider +1- [phone] Reason for Visit * Reason Onset Date Comments Follow-up 07/02/2019 Encounter Details Date Type Department Care Team (Late st Contact Info) Description 07/02/2019 Telephone [facility] [place] [address] [place] [address], [place] [address] Marina Araujo APRN-CNP [address] [place] [address] [place] [id number] Follow-up Social History Tobacco Use Types Packs/Day [...] Telephone Encounter - Marina Araujo APRN-CNP - 07/02/2019 11:15 AM CDT Spoke with patient she has concerns About starting therapy at this time. As she will need labs at 4weeks. She is is sheltering at home . She was instructed to receive all her refills so that she hasthe entire treatment of epclusa. She can start anytime she feels the environment is safe. She was instructed to call the clinci with her start date and we will send her a scheduled for labs and follow up appointment, she verbalized understanding documented in this encounter Plan of Treatment [...] on filedocumented in this encounter Care Teams Lead Installer Relationship Specialty Start Date End Date Kirby Vogel MD [address] [place] [id number] PCP - General Family Medicine 01/26/19 documented as of this encounter
--- OUTSIDE RECORDS SUMMARY | 2024-04-02 20:22 | XMS_ITS | Encounter Summary ---
Author Organization [facility] Address [address] [place] [address] Care Team Providers Care Natural [employer] Field Processing Supervisor Name Role Phone Kirby Vogel MD Primary Care Provider +1- [phone] Encounter Details Date Type Department Care Team (Latest Contact Info) Description 03/02/2021 1:46 PM STEWARD/STEWARDESS CHIEF CARGO VESSEL - 03/02/2021 1:59 PM [facility] Hospital Encounter [facility] [address] [place] [address] Ivan Aranda MD [address] [id number] Discharge Disposition: Home or Self Care Social [...] - Inhaled Oxygen Concentration - - Weight 70.3 kg (155 lb) 03/02/2021 1:58 PM STEWARD/STEWARDESS CHIEF CARGO VESSEL Height 165.1 cm (5' 5 ) 03/02/2021 1:58 PM STEWARD/STEWARDESS CHIEF CARGO VESSEL Body Mass Index 25.79 03/02/2021 1:58 PM STEWARD/STEWARDESS CHIEF CARGO VESSEL documented in this encounter Medications at Time of Discharge Medication Sig Dispensed Refills Start Date End Date acetaminophen (TYLENOL) 500 MG tablet Take 1 (one) tablet by mouth every 4 hours as needed for Pain (Take for mild pain. Alternate with Ira for moderate-severe pain.) Maximum allowable Acetaminophen amount [...] +D PO) Take by mouth once daily famotidine (PEPCID) 20 MG tabletIndications:Prim kayla osteoarthritis of right hip Take 1 (one) tablet by mouth once daily 30 tablet 03/21/2021 Fexofenadine HCl (RENU PO) Take by mouth once daily LORazepam (ATIVAN) 0.5 MG tablet Take 1 tablet by mouth once daily as needed 03/17/2019 Multiple Vitamins-Calcium (ONE-A-DAY WOMENS PO) Take by mouth once daily bdsytpvd-thogmmcgeg-or lymyxin (NEOSPORIN) 400-5-5000 topical ointment Apply to [...] 03/16/2021 docusate sodium (COLACE) 100 MG capsuleIndications:Carol rico osteoarthritis of right hip Take 1 (one) capsule by mouth 2 times daily 60 capsule 03/21/2021 08/11/2021 docusate sodium (COLACE) 100 MG capsuleIndications:Craol rico osteoarthritis of right hip Take 1 [...] 03/16/2021 Naproxen Sodium (ALEVE) 220 MG 03/21/2021 mfalnrfn-icbbkyscas-no lymyxin (NEOSPORIN) 400-5-5000 topical ointment Apply to affected area 3 times daily Affected area: right groin 100 g 03/21/2021 03/21/2021 nystatin (MYCOSTATIN) [id number] UNIT/GM powder Apply to affected area 3 [...] URINE MICROSCOPIC ONLY REFLEX TO CULTURE Routine 03/02/2021 1:55 PM STEWARD/STEWARDESS CHIEF CARGO VESSEL Pre-op testing CULTURE MSSA/MRSA STAT 03/02/2021 1:5 5 PM STEWARD/STEWARDESS CHIEF CARGO VESSEL Pre-op testing URINALYSIS REFLEX MICROSCOPIC REFLEX CULTURE STAT 03/02/2021 1:55 PM STEWARD/STEWARDESS CHIEF CARGO VESSEL Pre-op testing TRANSFERRIN STAT 03/02/2021 1:55 PM STEWARD/STEWARDESS CHIEF CARGO VESSEL Pre-op testing HEMOGLOBIN A1C STAT 03/02/2021 1:55 PM STEWARD/STEWARDESS CHIEF CARGO VESSEL Pre-op testing FRUCTOSAMINE STAT 03/02/2021 1:55 PM STEWARD/STEWARDESS CHIEF CARGO VESSEL Pre-op testing CULTURE URINE Routine 03/02/2021 1:55 PM STEWARD/STEWARDESS CHIEF CARGO VESSEL Pre-op testing TYPE + SCREEN PANEL STAT 03/02/2021 1 :55 PM STEWARD/STEWARDESS CHIEF CARGO VESSEL Pre-op testing CBC W AUTO DIFFERENTIAL STAT 03/02/2021 1:55 PM STEWARD/STEWARDESS CHIEF CARGO VESSEL Pre-op testing COMPREHENSIVE METABOLIC PANEL STAT 03/02/2021 1:55 PM STEWARD/STEWARDESS CHIEF CARGO VESSEL Pre-op testing documented in this encounter Results * CULTURE URINE (03/02/2021 1:55 PM STEWARD/STEWARDESS CHIEF CARGO VESSEL) Pathologist [facility] Culture Urine <10,000 CFU/mL urogenital kodi KELLEN 03/03/2021 9:28 PM STEWARD/STEWARDESS CHIEF CARGO VESSEL [facility] Urine URINE SPECIMEN OBTAINED BY CLEAN CATCH PROCEDURE / Unknown Collection / Unknown 03/02/2021 1:55 PM STEWARD/STEWARDESS CHIEF CARGO VESSEL 03/02/2021 2:52 PM STEWARD/STEWARDESS CHIEF CARGO VESSEL Ivan Aranda MD LAB - MICROBIOLOGY ORDERABLES [facility] [address] [phone] * (ABNORMAL) URINE MICROSCOPIC ONLY REFLEX TO CULTURE (03/02/2021 1:55 PM STEWARD/STEWARDESS CHIEF CARGO VESSEL) Reflex Status Culture to follow 03/02/2021 3:13 PM STEWARD/STEWARDESS CHIEF CARGO VESSEL [facility] RBC UA 6-10(A) None Seen, 0-2, 3-5 # /hpf 03/02/2021 3:13 PM STEWARD/STEWARDESS CHIEF CARGO VESSEL [facility] WBC UA 21-50(A) None Seen, 0-5 # /hpf 03/02/2021 3:13 PM STEWARD/STEWARDESS CHIEF CARGO VESSEL [facility] Bacteria UA Trace(A) None Seen 03/02/2021 3:13 PM STEWARD/STEWARDESS CHIEF CARGO VESSEL [facility] Squamous Epithelial Cells 6-10(A) None Seen, 0-2, 3-5 /hpf 03/02/2021 3:13 PM STEWARD/STEWARDESS CHIEF CARGO VESSEL [facility] Mucus UA 1+ /LPF 03/02/2021 3:13 PM STEWARD/STEWARDESS CHIEF CARGO VESSEL [facility] Urine URINE SPECIMEN OBTAINED BY CLEAN CATCH PROCEDURE / Unknown Collection / Unknown 03/02/2021 1:55 PM STEWARD/STEWARDESS CHIEF CARGO VESSEL 03/02/2021 2:52 PM STEWARD/STEWARDESS CHIEF CARGO VESSEL Narrative [facility] - 03/02/2021 3:13 PM STEWARD/STEWARDESS CHIEF CARGO VESSEL Ivan Aranda MD LAB - URINALYSIS OR DERABLES [facility] [address] [place], [place] [id number] * HEMOGLOBIN A1C (03/02/2021 1:55 PM STEWARD/STEWARDESS CHIEF CARGO VESSEL) Hemoglobin A1c 5.1 4.2 - 5.6 % 03/02/2021 3:50 PM STEWARD/STEWARDESS CHIEF CARGO VESSEL [facility] Estimated Average Glucose 100 mg/dL 03/02/2021 3:50 PM STEWARD/STEWARDESS CHIEF CARGO VESSEL [facility] Blood BLOOD SPECIMEN / Unknown Venipuncture / Unknown 03/02/2021 1:55 PM STEWARD/STEWARDESS CHIEF CARGO VESSEL 03/02/2021 2:52 PM STEWARD/STEWARDESS CHIEF CARGO VESSEL Narrative [facility] - 03/02/2021 3:50 PM STEWARD/STEWARDESS CHIEF CARGO VESSEL The following cutoff levels are recommended by [place] [employer]. ?? A1c ??> 6.5% : [...] - CHEMISTRY ORD ERABLES Performing Organization Address [facility] Co de Phone Number [facility] [address] [place] [address] * FRUCTOSAMINE (03/02/2021 1:55 PM STEWARD/STEWARDESS CHIEF CARGO VESSEL) Pathologist [facility] Fructosamine 217 0 - 285 umol/L 03/04/2021 9:10 AM STEWARD/STEWARDESS CHIEF CARGO VESSEL [facility] ([facility]) Comment: Published reference interval for apparently healthy subjects between age 20 and 60 is 205 - 285 umol/L and in a poorly controlled diabetic population is 228 - 563 umol/L with a mean of 396 umol/L. Blood BLOOD SPECIMEN / Unknown Venipuncture / Unknown 03/02/2021 1:55 PM STEWARD/STEWARDESS CHIEF CARGO VESSEL 03/02/2021 2:52 PM STEWARD/STEWARDESS CHIEF CARGO VESSEL Narrative [facility] ([facility]) - 03/04/2021 9:10 AM STEWARD/STEWARDESS CHIEF CARGO VESSEL Performed at: ??01 - [facility] [address] ??[id number] [employer]ed Circuit Board Reworker: Bean Chung PhD, Phone: ??[phone] Ivan Aranda MD LAB - CHEMISTRY ORD ERABLES Performing Organization Address [facility] Co de Phone Number [facility] ([facility]) [address] [place] [address] * CULTURE MSSA/MRSA (03/02/2021 1:55 PM STEWARD/STEWARDESS CHIEF CARGO VESSEL) [facility] Culture Negative for Staphylococcus aureus (MRSA/MSSA) 03/03/2021 3:24 PM STEWARD/STEWARDESS CHIEF CARGO VESSEL [facility] Microbiology SPECIMEN FROM NASAL FOSSAE / Unknown Collection / Unknown 03/02/2021 1:55 PM STEWARD/STEWARDESS CHIEF CARGO VESSEL 03/02/2021 2:52 PM STEWARD/STEWARDESS CHIEF CARGO VESSEL Ivan Aranda MD LAB - MICROBIOLOGY ORDERABLES Performing Organization Address City/[facility]/ZIP Co de Phone Number [facility] [address] [place], [place] [address] [phone] * TRANSFERRIN (03/02/2021 1:55 PM STEWARD/STEWARDESS CHIEF CARGO VESSEL) Transferrin 250 173 - 360 mg/dL 03/02/2021 3:19 PM STEWARD/STEWARDESS CHIEF CARGO VESSEL [facility] Blood BLOOD SPECIMEN / Unknown Venipuncture / Unknown 03/02/2021 1:55 PM STEWARD/STEWARDESS CHIEF CARGO VESSEL 03/02/2021 2:52 PM STEWARD/STEWARDESS CHIEF CARGO VESSEL Ivan Aranda MD LAB - CHEMISTRY ORD ERABLES Performing Organization Address City/[facility]/ZIP Co de Phone Number [facility] [address] [place] [address] * (ABNORMAL) URINALYSIS REFLEX MICROSCOPIC REFLEX CULTURE (03/02/2021 1:55 PM STEWARD/STEWARDESS CHIEF CARGO VESSEL) Color UA Yellow Straw, Yellow 03/02/2021 3:08 PM STEWARD/STEWARDESS CHIEF CARGO VESSEL [facility] Clarity UA Slt Cloudy(A) Clear 03/02/2021 3:08 PM STEWARD/STEWARDESS CHIEF CARGO VESSEL [facility] Glucose UA Negative Negative 03/02/2021 3:08 PM STEWARD/STEWARDESS CHIEF CARGO VESSEL [facility] Bilirubin UA Negative Negative 03/02/2021 3:08 PM STEWARD/STEWARDESS CHIEF CARGO VESSEL [facility] Ketone UA Negative Negative 03/02/2021 3:08 PM STEWARD/STEWARDESS CHIEF CARGO VESSEL [facility] Specific [place] UA 1.016 1.005 - 1.030 03/02/2021 3:08 PM STEWARD/STEWARDESS CHIEF CARGO VESSEL [facility] Blood UA Negative Negative 03/02/2021 3:08 PM STEWARD/STEWARDESS CHIEF CARGO VESSEL [facility] pH UA 5.0 5.0 - 8.0 pH 03/02/2021 3:08 PM STEWARD/STEWARDESS CHIEF CARGO VESSEL [facility] Protein UA Negative Negative 03/02/2021 3:08 PM STEWARD/STEWARDESS CHIEF CARGO VESSEL [facility] Urobilinogen UA Negative Negative mg/dL 03/02/2021 3:08 PM STEWARD/STEWARDESS CHIEF CARGO VESSEL [facility] Nitrite UA Negative Negative 03/02/2021 3:08 PM STEWARD/STEWARDESS CHIEF CARGO VESSEL [facility] Leukocyte UA 1+(A) Negative 03/02/2021 3:08 PM STEWARD/STEWARDESS CHIEF CARGO VESSEL [facility] Urine Microscopy Urine microscopy to follow 03/02/2021 3:08 PM STEWARD/STEWARDESS CHIEF CARGO VESSEL [facility] Reflex Status Culture to follow 03/02/2021 3:08 PM STEWARD/STEWARDESS CHIEF CARGO VESSEL [facility] Urine URINE SPECIMEN OBTAINED BY CLEAN CATCH PROCEDURE / Unknown Collection / Unknown 03/02/2021 1:55 PM STEWARD/STEWARDESS CHIEF CARGO VESSEL 03/02/2021 2:52 PM STEWARD/STEWARDESS CHIEF CARGO VESSEL Narrative [facility] - 03/02/2021 3:08 PM STEWARD/STEWARDESS CHIEF CARGO VESSEL Ivan Aranda MD LAB - URINALYSIS OR DERABLES Performing Organization Address City/[facility]/ZIP Co de Phone Number [facility] [address] [place] [address] * TYPE + SCREEN PANEL (03/02/2021 1:55 PM STEWARD/STEWARDESS CHIEF CARGO VESSEL) ABO Rh A POS 03/02/2021 3:33 PM STEWARD/STEWARDESS CHIEF CARGO VESSEL [facility] Comment:No history; collect retype. Antibody Screen NEG 3:33 PM STEWARD/STEWARDESS CHIEF CARGO VESSEL [facility] Blood Bank BLOOD SPECIMEN / Unknown Venipuncture / Unknown 03/02/2021 1:55 PM STEWARD/STEWARDESS CHIEF CARGO VESSEL 03/02/2021 2:52 PM STEWARD/STEWARDESS CHIEF CARGO VESSEL Ivan Aranda MD LAB - BLOOD BANK OR DERABLES [facility] [address] [place] [address] * (ABNORMAL) COMPREHENSIVE METABOLIC PANEL (03/02/2021 1:55 PM STEWARD/STEWARDESS CHIEF CARGO VESSEL) Glucose 98 70 - 105 mg/dL 03/02/2021 3:19 PM STEWARD/STEWARDESS CHIEF CARGO VESSEL [facility] Sodium 134(L) 136 - 145 mmol/L 03/02/2021 3:19 PM STEWARD/STEWARDESS CHIEF CARGO VESSEL [facility] Potassium 3.5 3.5 - 5.1 mmol/L 03/02/2021 3:[address] [facility] Chloride 100 98 - 107 mmol/L 03/02/2021 3:[address] [facility] CO2 25 23 - 31 mmol/L 03/02/2021 3:[address] [facility] Calcium 9.9 8.4 - 10.4 mg/dL 03/02/2021 3:[address] [facility] Anion Gap 9 8 - 18 mmol/L 03/02/2021 3:[address] [facility] BUN 26(H) 9.8 - 20.1 mg/dL 03/02/2021 3:[address] [facility] Creatinine 0.78 0.57 - 1.11 mg/dL 03/02/2021 3:[address] [facility] Alkaline Phosphatase 88 40 - 150 U/L 03/02/2021 3:[address] [facility] ALT 22 0 - 61 U/L 03/02/2021 3:[address] [facility] AST 30 5 - 34 U/L 03/02/2021 3:[address] [facility] Protein Total 7.2 6.4 - 8.3 gm/dL 03/02/2021 3:[address] [facility] Albumin 3.9 3.2 - 4.6 gm/dL 03/02/2021 3:[address] [facility] Bilirubin Total 0.7 0.2 - 1.2 mg/dL 03/02/2021 3:[address] [facility] eGFR by MDRD >60 mL/min/1.7 3m2 03/02/2021 3:[address] [facility] eGFR by MDRD >60 mL/min/1.7 3m2 03/02/2021 3:[address] [facility] Blood BLOOD SPECIMEN / Unknown Venipuncture / Unknown 03/02/2021 1:55 PM STEWARD/STEWARDESS CHIEF CARGO VESSEL 03/02/2021 2:52 PM [facility] Ivan Aranda MD LAB - CHEMISTRY ORD ERABLES [facility] [address], [place] [id number] * (ABNORMAL) CBC W AUTO DIFFERENTIAL (03/02/2021 1:55 PM STEWARD/STEWARDESS CHIEF CARGO VESSEL) [facility] WBC 8.6 4.4 - 10.7 x10E9/L 03/02/2021 3:[address] [facility] WBC Corrected 03/02/2021 3:[address] [facility] RBC 4.29 3.80 - 5.20 x10E12/L 03/02/2021 3:[address] [facility] Hemoglobin 12.6 12.0 - 15.6 gm/dL 03/02/2021 3:[address] [facility] Hematocrit 39.4 35.9 - 45.5 % 03/02/2021 3:[address] [facility] MCV 91.8 80.7 - 98.3 fl 03/02/2021 3:[address] [facility] MCH 29.4 26.7 - 34.0 pg 03/02/2021 3:[address] [facility] MCHC 32.0 30.8 - 35.9 gm/dL 03/02/2021 3:[address] [facility] Platelet Count 255 153 - 416 x10E9/L 03/02/2021 3:[address] [facility] RDW-CV 13.7 12.1 - 14.9 % 03/02/2021 3:[address] [facility] MPV 10.0 9.4 - 12.9 fl 03/02/2021 3:[address] [facility] Neutrophils % 71.8 44.0 - 73.0 % 03/02/2021 3:[address] [facility] Lymphocytes % 16.7(L) 20.0 - 43.0 % 03/02/2021 3:[address] [facility] Monocytes % 10.1 5.0 - 13.0 % 03/02/2021 3:[address] [facility] Eosinophils % 0.9 0.0 - 6.0 % 03/02/2021 3:[address] [facility] Basophils % 0.3 0.0 - 2.0 % 03/02/2021 3:[address] [facility] Immature Granulocytes 0.2 0 - 1 % 03/02/2021 3:[address] [facility] Neutrophil Absolute 6.17 2.01 - 7.14 x10E9/L 03/02/2021 3:[address] [facility] Lymphocytes Absolute 1.44 1.07 - 3.94 x10E9/L 03/02/2021 3:06 PM STEWARD/STEWARDESS CHIEF CARGO VESSEL [facility] Monocytes Absolute 0.87 0.26 - 1.07 x10E9/L 03/02/2021 3:06 PM STEWARD/STEWARDESS CHIEF CARGO VESSEL [facility] Eosinophils Absolute 0.08 0 - 0.47 x10E9/L 03/02/2021 3:06 PM STEWARD/STEWARDESS CHIEF CARGO VESSEL [facility] Basophils Absolute 0.03 0 - 0.08 x10E9/L 03/02/2021 3:06 PM STEWARD/STEWARDESS CHIEF CARGO VESSEL [facility] Immature Granulocytes Absolute 0.02 0.00 - 0.06 x10E9/L 03/02/2021 3:06 PM STEWARD/STEWARDESS CHIEF CARGO VESSEL [facility] nRBC Auto 0 /100 WBC 03/02/2021 3:06 PM STEWARD[employer] [facility] Blood BLOOD SPECIMEN / Unknown Venipuncture / Unknown 03/02/2021 1:55 PM STEWARD[employer]EWARDESS CHIEF [employer] 03/02/2021 2:52 PM STEWARD/STEWARDESS [employer]IE[employer] Ivan Aranda MD LAB - HEMATOLOGY OR DERABLES Performing Organization Address [facility] Co de Phone Number [facility] [address] [place] [address] documented in this encounter Visit Diagnoses Diagnosis Pre-op testing- Primary Preoperative examination, unspecified documented in this encounter Care Teams [employer] Supervisor Relationship Specialty Start Date End Date Kirby Vogel MD [address] [place] [address] [phone] PCP - General Family Medicine 01/26/19 documented as of this encounter
--- OUTSIDE RECORDS SUMMARY | 2024-04-02 20:22 | XMS_ITS | Encounter Summary ---
Author Organization [facility] Address [address] [place] [address] Care Team Providers Care Blast Setter Name Role Phone Kirby Vogel MD Primary Care Provider [phone] Reason for Visit * Auth/Cert Specialty Diagnoses / Procedures Referred By Dominick mauricio Referred To Contact Diagnoses Diagnosis unknown Diagnosis unknown [R69] Procedures ARTHROPLASTY TOTAL HIP Referral ID Status Reason Start Date Expiration Date Visits Re quested Visits Authorized [id number] 1 1 Encounter Details Date Type Department Care Team (Late st Contact Info) Description 03/16/2021 7:30 AM DROSS SKIMMER - 03/16/2021 10:17 AM [facility] Surgery [facility] [address] [place] [address] Ivan Aranda MD [address] [id number] ARTHROPLASTY TOTAL HIP Surgery Details Date/Time Status Location OR Service Patient Class Case Class Case Type Trauma Case? 03/16/2021 7:[address] [facility] MAIN OR OR 01 Orthopedics Surgery Day Care Over Night Elective > 5 days Panel 1 Procedure LRB Anes Op Region Wound Class Comments ARTHROPLASTY TOTAL HIP Right General Hip Clean Surgeon Surgeon Role Service Panel Ivan Aranda MD Primary Orthopedics 1 Special Needs NEEDS UREÑA AND NEPHEW--REP. (ALEX Wynne # [phone]) NOTIFIED BY SURGEON PER OFFICE (LISS)--02/17 KWCase confirmed with Alex 03-14-2021-MAB documented in this encounter Social History Tobacco [...] Sign Reading Time Taken Comments Blood Pressure 152/92 03/16/2021 10:16 AM DROSS SKIMMER Pulse 74 03/16/2021 10:16 AM DROSS SKIMMER Temperature 36 ??C (96.8 ??F) 03/16/2021 9:35 AM DROSS SKIMMER Respiratory Rate 20 03/16/2021 10:16 AM DROSS SKIMMER Oxygen Saturation 99% 03/16/2021 10:17 AM DROSS SKIMMER Inhaled Oxygen Concentration - - Weight 70.3 kg (155 lb) 03/16/2021 6:39 AM DROSS SKIMMER Height 165.1 cm (5' 5 ) 03/16/2021 6:39 AM DROSS SKIMMER Body Mass Index 25.79 03/16/2021 6:39 AM DROSS SKIMMER documented in this encounter Discharge Summaries * Jayy Mendoza MD - 03/21/2021 10:50 AM CST ORTHOPAEDIC DISCHARGE SUMMARY NAME: Daniela Medina DATE: 1935 ADMIT DATE: 03/16/2021 DISCHARGE DATE: 03/21/2021 ADMITTING PHYSICIAN: Ivan Aranda MD ATTENDING PHYSICIAN: Ivan Aranda MD PCP: Kirby Vogel MD Admission Diagnosis: Active Problems: Primary osteoarthritis of right hip Discharge Diagnoses: Active Problems: Primary osteoarthritis of right hip Past Medical History: Past Medical History: Diagnosis Date ??? COPD (chronic obstructive pulmonary disease) ??? Generalized anxiety disorder ??? Hepatitis C ??? History of blood transfusion ??? Hypertension ??? Polio ??? Prolapsed uterus ??? Recurrent UTI Diagnostic Studies: XR pelvis shows well-positioned femoral and acetabular components Procedures: R CARLIN Consults: None Hospital Course: Daniela was admitted on 03/16/2021 for the above procedure. Tolerated well. Workedwith PT, recommended SNF. Discharged to SNF in stable condition. Condition at discharge: stable Disposition: SNF Discharge Medications: Current Discharge Medication List START taking these medications Instructions Authorizing Provider aspirin 81 MG chew tablet Commonly known as: Aspirin Quantity Dispensed: 60 tablet Replaces: aspirin 81 MG tablet Take 1 (one) tablet by mouth 2 times daily Jayy Mendoza MD celecoxib 100 MG capsule Commonly known as: CeleBREX Quantity Dispensed: 60 capsule Take 1 (one) capsule by mouth 2 times daily Jayy Mendoza MD docusate sodium 100 MG capsule Commonly known as: Colace Quantity Dispensed: 60 capsule Take 1 (one) capsule by mouth 2 times daily Jayy Mendoza MD famotidine 20 MG tablet Commonly known as: Pepcid Quantity Dispensed: 30 tablet Take 1 (one) tablet by mouth once daily Jayy Mendoza MD HYDROcodone-acetaminophen 5-325 MG tablet Commonly known as: [place] Quantity Dispensed: 42 tablet Take 1 (one) tablet by mouth every 4 hours as needed for Pain (Take for moderate-severe pain only. Alternate with tylenol for mild pain.) Kyler Joshi MD vaoamzrh-wnoldnnbro-yqfzswtea 400-5-5000 topical ointment Commonly known as: Neosporin Quantity Dispensed: 100 g Apply to affected area 3 times daily Affected area: right groin Jayy Mendoza MD sulfamethoxazole-trimethoprim 800-160 MG tablet Commonly known as: Bactrim DS; Septra DS Quantity Dispensed: 14 tablet Take 1 (one) tablet by mouth every 12 hours Jayy Mendoza MD CONTINUE taking these medications which have CHANGED Instructions Authorizing Provider acetaminophen 500 MG tablet What changed: reasons to take this Commonly known as: TYLENOL Take 1 (one) tablet by mouth every 4 hours as needed for Pain (Take for mild pain. Alternate with [place] for moderate-severe pain.) Maximum allowable Acetaminophen amount = 4 Grams (4000 mg) / 24 hours. Jayy Mendoza MD CONTINUE taking these medications which have NOT CHANGED Instructions Authorizing Provider albuterol HFA 108 (90 Base) MCG/ACT inhaler Commonly known as: Proventil; Ventolin; Proair TAKE 1 PUFF BY MOUTH EVERY 6 HOURS NEEDED FOR SHORTNESS OF BREATH RENU PO Take by mouth once daily amLODIPine 5 MG tablet Commonly known as: Norvasc Take 5 mg by mouth 2 times daily Azelastine HCl 137 MCG/SPRAY Soln CALCIUM 500 +D PO Take by mouth once daily calcium citrate Tabs tablet Take 400 mg by mouth once daily LORazepam 0.5 MG tablet Commonly known as: Ativan Take 1 tablet by mouth once daily as needed MIRALAX PO Take by mouth as needed ONE-A-DAY WOMENS PO Take by mouth once daily oxybutynin CR 24hr 10 MG tablet Commonly known as: Ditropan-XL Take 1 tablet by mouth once daily sertraline 25 MG tablet Commonly known as: Zoloft Take 25 mg by mouth once daily Symbicort 160-4.5 MCG/ACT inhaler Generic drug: budesonide-formoterol Inhale 2 puffs by mouth every 12 hours valsartan 80 MG tablet Commonly known as: Diovan Take 160 mg by mouth once daily STOP taking these medications Aleve 220 MG Generic drug: Naproxen Sodium aspirin 81 MG tablet Commonly known as: ASPIRIN Replaced by: aspirin 81 MG chew tablet meloxicam 15 MG tablet Commonly known as: Mobic Patient Instructions: Discharge Procedure Orders Why you were hospitalized Order Specific Question Answer Comments Your discharge diagnosis is: Status post right hip replacement [[id number]] No special diet needed Resume your normal home diet as tolerated. Weight bearing as tolerated Slowly increase the amount of weight you put on your right leg as tolerated. Activity per Physical Therapy Continue to follow the activity instructions/precautions given to you by the Physical Therapist. CISCO hose Wear support hose (CISCO hose) during the day, okay to remove at night. Special incision care ?? Keep wound clean and dry. Change surgical dressing 7 days after surgery. After that you should perform daily or every other day dressing changes with dry gauze and tape as needed for saturation. After zoraida/sutures have been removed it is OK to shower but leave wound covered with a dressing inthe shower. After shower, remove the wet dressing, pat dry, and apply antibiotic ointment over wound then place a clean dry dressing. ?? Apply an antibiotic ointment (neosporin/bacitracin) to incision daily after initial surgical dressing has been removed ?? Do not get incision wet in shower until zoraida are removed. No tub soaks. No scrubbing around incision. ?? Ossian to be removed on post op day 14 by home care nurse Follow up with provider Order Specific Question Answer Comments Follow Up Instructions: Please call [phone] to make a follow-up appointment in [address] Aranda. S SKIMMER documented in this encounter Medications at Time of Discharge Medication Sig Dispensed Refills Start Date End Date acetaminophen (TYLENOL) 500 MG tablet Take 1 (one) tablet by mouth every 4 hours as needed for Pain (Take for mild pain. Alternate with [place]aco for moderate-severe pain.) Maximum allowable Acetaminophen amount [...] WOMENS PO) Take by mouth once daily nbrxcvmg-adyqmdqdus-kr lymyxin (NEOSPORIN) 400-5-5000 topical ointment Apply to [...] 03/21/2021 08/11/2021 documented as of this encounter Progress Notes * Tami Deleon, RN - 03/21/2021 1:30 PM CST Discharge orders received and initiated. Report called to accepting facility and given to nurse. Discharged to [facility]. To sharla per . Accompanied by son and hosp staff member.No c/o voiced S SKIMMER * Vivian Don MSW - 03/21/2021 11:23 AM CST Facility Transfer Note Level of Care: Skilled Rehab Payor Source: Managed Care Plan Facility Name: (include name of person confirming admission):[facility]: [phone] (f) [phone] Jessica DC Made Aware of Special Needs (if applicable): N/A RN Call Report to: [phone] 100 zoila RN Fax D/C Orders to: [phone] Transportation: Family/Friend Certificate of Medical Necessity rationale: n/a Date/time of transfer: 03/21/21, time: 1:00pm Accepting MD: Dr. arnulfo Bhatt Completed and Signed [id number] (if applicable): n/a Family/Other Notified of Transfer (name/phone): Extended Emergency Contact Information Primary Emergency Contact: Judd Medina Address: [address] [place] [address] Relation: Son Secondary Emergency Contact: ShanAlex obando Relation: Daughter Authorization Skilled Care: auth received Authorization for Transportation:n/a Comments: SW spoke w/ pt's son who will transport pt at d/c. RADHA Momin [phone] S SKIMMER * Paula Rodriguez, PT - 03/21/2021 11:22 AM CST Physical Therapy Treatment. Chart review completed. Patient OK to be seen for physical therapy per nursing. See Filed Flowsheetunder Summary for details. POD #5 s/p R CARLIN (03/16/21) Precautions: falls, WBAT R LE, posterior hip precautions SUBJECTIVE: I need to go to the bathroom. Pain Rating Score #: 6 Pain Location : Hip Pain Orientation: Right OBJECTIVE: Observation: Patient presents sitting up in chair on RA. Cognition: Orientation Level: Oriented X4 Level of Consciousness-Adult: Alert Mobility: Sit to Stand: Stand By Assist Stand to Sit: Stand By Assist Toilet Transfers: Stand By Assist;Requires Verbal Cues for Technique Distance Ambulated: 220 FEET Ambulation: Assistive Device: Gait Belt;Walker-2 Wheeled Ambulation: Level of Assistance: Stand By Assist;Requires Verbal Cues for Technique Ambulation: Gait Deviations: Antalgic;Cesar - Decreased;Increased Trunk Flexion;Increased Weight Bearing through Upper Extremity;Push Off - Decreased;Step Length - Decreased Activity Tolerance and Oxygen Requirements: Activity Tolerance: Tolerates ADLs without rest breaks ASSESSMENT: Patient tolerates therapy well this session. Progresses to SBA with gait going 220 ft. Pt needs VCs for walker management and safety in bathroom 2/2 leaving walker prematurely to wash hands at sink. If this is the last Physical Therapy visit, this serves as the discharge summary. All vitals stablethroughout visit; All lines, monitors, IV's, equipment in place and intact pre and post visit. Patient left in chair with call light and phone within reach. Chair alarm reactivated. Nurse informed about today's treatment session. RECOMMENDATIONS/PLAN: Pt would benefit from continued skilled PT to improve safety and level of independence with transfers, standing balance, and ambulation in order to improve functional mobility and decrease risk for falls. PT Discharge Recommendations: Alf Facility [id number] S SKIMMER * Arti Mtz RN - 03/21/2021 10:53 AM CST [facility] Acute Rehab update: Per CM, family choice is SNF. AR will withdraw auth. AR will sign off now. Thanks for referral, Arti Mtz RN, BSN Clinical Liaison [facility] [phone] S SKIMMER * Michelle Mazariegos RN - 03/21/2021 10:44 AM CST Case Management Progress Note Anticipated level of care at discharge: Acute Rehab Facility, Retirement - Skilled Facility Discharge Plan: [facility] Basic Needs Assessment (BNA) Score: 10 Complex Needs Assessment (BODY COMPONENT ENGINEER) Score: Social Support Domain Score: Medical Status and Health Trajectory Domain Score: Medical Home and Access to Services Domain Score: Nurse Assessment: CM was informed by [employer] that family went around the process of waiting for authorization from AR and had facility to start auth. Patient has been accepted to [facility]. CM has contacted resident for rapid COVID test and discharge orders. Anticipated Discharge Date: Anticipated Discharge Date: 03/20/21 Transportation at Discharge: other (TBD) Transportation to MD:Family Equipment at Home: Equipment At Home: Walker-2 Wheeled;Cane-Straight;Grab Bars;Chair-Shower;Walker-4 Wheeled with Seat;Toilet Seat - Raised;Hand Held Shower Additional DME needed: Pharmacy benefit or affordability concerns: No Patient/Automatic Buffing Wheel Former voiced concerns for Food Security/affordability: No Auth Number (if required) NH: DME: Medications: Transportation: Name: Michelle Padilla RN, BSN, MSN, CM S SKIMMER * Vivian Don MSW - 03/21/2021 10:39 AM CST Social Work Progress Note SW following for AR b/u. AR following, and submitted auth 03/17/21. SW received a call from [employer] that they have approved the [facility] auth, and started it on 03/20/21 per families request. SW updated CM, and AR liasion. See CM/SW notes for updates. Discharge Plan Disposition: AR vs SNF Transportation: Transportation at discharge: other (TBD) Anticipated Discharge Date: Anticipated Discharge Date: 03/20/21 Contacts: Extended Emergency Contact Information Primary Emergency Contact: Judd Medina Address: [address] [place] [address] Relation: Son Secondary Emergency Contact: Alex Medina Relation: Daughter Comments: Name/Phone number: RADHA Momin [phone] S SKIMMER * Tami Deleon RN - 03/21/2021 8:17 AM CST Problem: Pain/Discomfort Goal: Patient exhibits reduced pain/discomfort as evidenced by pain scores Outcome: Progressing Goal: Patient uses pharmacological and non-pharmacological pain management strategies. Outcome: Progressing Goal: Patient verbalizes acceptable level of pain relief and ability to engage in desired activity. Outcome: Progressing S SKIMMER * Jayy Mendoza MD - 03/21/2021 6:[address] [facility] Orthopedic Surgery Daily Progress Note Daniela Medina, 85 year old, female : 1935 CSN: [id number] Primary Care Physician: Kirby Vogel MD - Admission Date/Time: 03/16/2021 5:54 AM - Hospital Day: 5 Subjective Patient seen and examined this AM on rounds. No new problems or issues overnight. Pain controlled this morning. Denies any new numbness/paresthesias. Vitals Temp (24hrs), Av.3 ??F (36.8 ??C), Min:97.6 ??F (36.4 ??C), Max:99.1 ??F (37.3 ??C) BP 163/56 Pulse 75 Temp 98.4 ??F (36.9 ??C) (Oral) Resp 18 Ht 5' 5 (1.651 m) Wt 155 lb (70.3 kg) SpO2 96% BMI 25.79 kg/m2 Labs Recent Labs Component Name 03/18/21 0354 03/17/21 0232 03/02/21 1355 09/22/20 1111 02/16/20 1128 02/16/20 1128 WBC - - 8.6 6.8 - 7.0 HGB 7.6* 8.4* 12.6 14.2 - 13.1 HCT - - 39.4 42.4 - 38.8 PLTCOUNT - - 255 255 - 219 - = values in this interval not displayed. Recent Labs Component Name 04/13/19 1640 INR 0.9 Physical Exam General appearance: Awake, cooperative, no acute distress Right lower extremity: -Appearance: dressing c/d/I, cellulitis to inner groin -Motor: Able to plantarflex ankle, able to dorsiflex ankle, able to plantarflex great toe, able to dorsiflex great toe -Sensation: SILT to dorsal and plantar foot -Vascular: 2+ DP pulse with toes warm and well perfused Assessment/Plan Daniela Medina is a 85 year old, female POD5 s/p R CARLIN 1. Activity/Weight-bearing status: WBAT RLE w PHP 2. Current Dispo: pending placement 3. Anticoagulation Status: ASA 81 BID 4. Antibiotics: Nabila-op Ancef completed, start Bactrim x 7d and triple antibiotic ointment to groinfor cellulitis 5. Wound care: Continue current dressings until POD#7 6. Diet: regular 7. PT/OT 8. Pain Control 9. Orthopedics will continue to follow. Please page with any questions or concerns Please give the following instructions to the patient upon discharge/transfer: 1. Hip Precautions as follows: ? Posterior hip precautions- no flexion past 90 degrees, no adduction past midline, no internal rotation 2. Thigh high CISCO hose when up during the day. May remove at night while sleeping 3. Patient may discontinue compression stocking after two weeks. 4. Ankle flexion exercises every hour during the day to prevent swelling and deep vein thrombosis prevention. 5. Continue ASA 81 mg po bid for one month for DVT prophylaxis. 6. Keep wound clean and dry. Change surgical dressing 7 days after surgery. After that you should perform daily or every other day dressing changes with dry gauze and tape as needed for saturation. After zoraida/sutures have been removed it is OK to shower but leave wound covered with a dressing inthe shower. After shower, remove the wet dressing, pat dry, and apply antibiotic ointment over wound then place a clean dry dressing. 7. Apply an antibiotic ointment (neosporin/bacitracin) to incision daily after initial surgical dressing has been removed 8. Do not get incision wet in shower until zoraida are removed. No tub soaks. No scrubbing around incision. 9. Zoraida to be removed on post op day 14 10. Call [phone] to schedule the first follow-up appointment with Dr. Aranda in 4 week(s) or for any questions Jayy Mendoza MD 03/21/2021 6:04 AM S SKIMMER * Harriet Liu, PT - 03/20/2021 2:45 PM CST Physical Therapy Treatment Summary Chart review completed. Nursing consented for PT. Explained purpose of PT and patient consented to participate in therapy. PPE worn by staff: gloves;mask - procedural PPE worn by patient: mask - procedural Admit: 1. Primary osteoarthritis of right hip SUBJECTIVE: Patient states she's ready to walk and doesn't need to rest first. OBJECTIVE: Orientation Level: Oriented X4 Precautions: PHP's; WBAT L LE Transfers: Sit to Stand: Stand By Assist Stand to Sit: Stand By Assist;Requires Verbal Cues for Technique Mobility: Distance Ambulated: 280 FEET Ambulation: Assistive Device: Gait Belt;Walker-2 Wheeled Ambulation: Level of Assistance: Stand By Assist;Minimum Assistance;Requires Verbal Cues for Technique Ambulation: Gait Deviations: Antalgic;Cesar - Decreased;Base of Support - Decreased;Heel Strike -Decreased;Increased Weight Bearing through Upper Extremity;Push Off - Decreased;Step Length - Decreased;Hip/knee flexion during swing phase-- decreased Weight Bearing Status-RLE: Weight Bearing as Tolerated Activity Tolerance: Activity Tolerance: Tolerates ADLs without rest breaks ASSESSMENT: Making progress. Gait distance increased this afternoon. Patient presented ambulating out of bathroom with OT. Son present and encouraged patient during session. Reviewed PHP's with patient and provided written handout. Patient was instructed to perform frequent QS and ankle pumps. Patient continues to require verbal cues for correction of gait deviations noted above. Call light and phone in reach with patient seated in recliner at end of session per her request. Pillow placed as abductor wedge with legs elevated. All lines, monitors, IV's, equipment in place and intact pre and post visit. Pt educated in PT plan of care, fall precautions, and benefits of OOB activity. Please refer to the Filed Flowsheet PT Treatment for further details. RECOMMENDATIONS/PLAN: Continue per CARLIN protocol Recommend continued PT via acute rehab post discharge. [email or web address] [id number] S SKIMMER * Harriet iLu, PT - 03/20/2021 2:44 PM CST Problem: Mobility Goal: STG - Patient will ambulate Description: X 150 ft with ww with sba 03/20/2021 1444 by Harriet Liu, PT Outcome: Progressing 03/20/2021 0951 by Harriet Liu, PT Outcome: Progressing Goal: STG - Patient will tolerate ____ repetitions of exercises. Description: R LE per CARLIN protocol 03/20/2021 1444 by Harriet Liu, PT Outcome: Progressing 03/20/2021 0951 by Harriet Liu, PT Outcome: Progressing Problem: Transfers Goal: STG - Patient to transfer to and from sit to supine Description: Min a 03/20/2021 1444 by Harriet Liu, PT Outcome: Progressing 03/20/2021 0951 by Harriet Liu, PT Outcome: Progressing Goal: STG - Patient will transfer sit to and from stand Description: With ww with sba 03/20/2021 1444 by Harriet Liu, PT Outcome: Progressing 03/20/2021 0951 by Harriet Liu, PT Outcome: Progressing Problem: Therapy - Total Hip Arthroplasty Goal: STG - Patient will maintain hip precautions with all transfers and ambulation. Description: Posterior CARLIN precautions 03/20/2021 1444 by Harriet Liu, PT Outcome: Progressing 03/20/2021 0951 by Harriet Liu, PT Outcome: Progressing S SKIMMER * Risa Montiel, OT - 03/20/2021 2:01 PM CST Occupational Therapy Treatment Summary Chart reviewed for diagnosis and medical systems review. Nursing consented for OT. Explained purpose of OT and patient consented to participate in therapy. PPE worn by staff: eye protection;gloves;mask - surgical Precautions: WBAT RLE with PHP, falls, bed/chair alarm SUBJECTIVE: Pt is pleasant and agreeable to therapy. Psychosocial: Patient Behaviors: Calm;Cooperative OBJECTIVE: Pain Assessment: Pain Rating Score #: 2 Pain Location : Hip Pain Orientation: Right Cognition: Orientation Level: Oriented X4 Level of Consciousness-Adult: Alert Cognition: Follows Commands-Consistent;Attention/concentration-normal for age;Processing-Appropriate;Judgement-appropriate;Safety awareness-decreased Functional Mobility: Bed Mobility: Supine to Sit: Activity Does Not Occur (pt up in chair upon arrival) Sit to Supine: Activity Does Not Occur (pt ambulating w/PT upon OT departure) Transfers: Sit to Stand: Stand By Assist;Requires Verbal Cues for Technique Stand to Sit: Stand By Assist;Requires Verbal Cues for Technique Type of Transfer: (pt ambulates in room w/walker) Toilet Transfers: Minimal Assistance;Requires Verbal Cues for Safety;Requires Verbal Cues for Technique (BSC placed over toilet) ADL Tasks: Feeding: Modified [place] (dentures) Oral Facial Hygiene: Stand By Assist;Minimal Assistance (standing up at sink, steadying) Bathing: Moderate Assistance Upper Body Dressing: Minimal Assistance Lower Body Dressing: Moderate Assistance (using AD, per previous session) Toileting: Minimal Assistance (completes nabila care) RUE Assessment: AROM - Right Upper Extremity: Within Functional Limits Strength - Right Upper Extremity: Within Functional Limits Technical Systems Architect Strength - Right Upper Extremity: WFL LUE Assessment: AROM - Left Upper Extremity: Within Functional Limits Strength - Left Upper Extremity: Within Functional Limits Technical Systems Architect Strength - Left Upper Extremity: WFL Activity Tolerance/Vital Signs: Activity Tolerance: Requires rest breaks ASSESSMENT: Pt seated in chair upon arrival, alert and oriented x4. Pt reports 2/10 pain in RLE. Ptis able to verbalize 3/3 posterior hip precautions without cueing but does require some additional education/clarification. Pt stands from chair w/SBA, requires verbal cues for technique. Pt ambulates using walker from chair to bathroom, requires SBA and cues for proper walker management as pt has tendency to try to parts picker walker during ambulation. Pt completes multiple grooming tasks while standing up at sink including brushing teeth/dentures and combing hair. Pt requires SBA-min A for standing grooming tasks, cues provided for increased safety during dynamic standing. Pt transfers to toilet w/min A and is able to complete nabila care w/min A. Pt performs hand hygiene standing up at sink w/SBA and PT enters. Pt ambulating w/PT upon OT departure. Call light and phone in reach. All lines, monitors, IV's, equipment in place and intact pre and post visit. RNTami, notified of patient's performance/location end of session. Educated patient/family in role of OT in acute care setting, importance of OOB activity for ADLs and functional mobility, fall precautions, transfer safety. Please refer to the Filed Flowsheet OT Treatment for further details. Refer to care plan for goals. RECOMMENDATIONS/PLAN: Pt would benefit from continued skilled OT while in acute care to increase independence w/ADLs and improve functional mobility. Recommend further therapy at d/c via AR when medically appropriate. If this is the last Occupational Therapy visit, this serves as the discharge summary. [phone] S SKIMMER * Jayy Mendoza MD - 03/20/2021 12:[address] [facility] Orthopedic Surgery Daily Progress Note Daniela Medina, 85 year old, female : 1935 CSN: [id number] Primary Care Physician: Kirby Vogel MD - Admission Date/Time: 03/16/2021 5:54 AM - Hospital Day: 4 Subjective Patient seen and examined this AM on rounds. No new problems or issues overnight. Pain controlled this morning. Denies any new numbness/paresthesias. Mobilizing well with PT. Vitals Temp (24hrs), Av.2 ??F (36.8 ??C), Min:97.6 ??F (36.4 ??C), Max:99 ??F (37.2 ??C) BP 153/79 Pulse 75 Temp 97.6 ??F (36.4 ??C) (Oral) Resp 18 Ht 5' 5 (1.651 m) Wt 155 lb (70.3 kg) SpO2 98% BMI 25.79 kg/m2 Labs Recent Labs Component Name 03/18/21 0354 03/17/21 0232 03/02/21 1355 09/22/20 1111 02/16/20 1128 02/16/20 1128 WBC - - 8.6 6.8 - 7.0 HGB 7.6* 8.4* 12.6 14.2 - 13.1 HCT - - 39.4 42.4 - 38.8 PLTCOUNT - - 255 255 - 219 - = values in this interval not displayed. Recent Labs Component Name 04/13/19 1640 INR 0.9 Physical Exam General appearance: Awake, cooperative, no acute distress Right lower extremity: -Appearance: dressing w moderate saturation -Motor: Able to plantarflex ankle, able to dorsiflex ankle, able to plantarflex great toe, able to dorsiflex great toe -Sensation: SILT to dorsal and plantar foot -Vascular: 2+ DP pulse with toes warm and well perfused Assessment/Plan Daniela Medina is a 85 year old, female POD4 s/p R CARLIN 1. Activity/Weight-bearing status: WBAT RLE w PHP 2. Current Dispo: pending placement 3. Anticoagulation Status: ASA 81 BID 4. Antibiotics: Nabila-op Ancef completed 5. Wound care: aquacel changed today, continue until POD7 6. Diet: regular 7. PT/OT 8. Pain Control 9. Orthopedics will continue to follow. Please page with any questions or concerns Please give the following instructions to the patient upon discharge/transfer:? Hip Precautions as follows: ? Posterior hip precautions- no flexion past 90 degrees, no adduction past midline, no internal rotation ?? Thigh high CISCO hose when up during the day. ??May remove at night while sleeping ?? Patient may discontinue compression stocking after two weeks. ?? Ankle flexion exercises every hour during the day to prevent swelling and deep vein thrombosis prevention. ?? Continue??ASA 81??mg po bid for one month for DVT prophylaxis. ?? Keep wound clean and dry. Change surgical dressing 7 days after surgery. After that you should perform daily or every other day dressing changes with dry gauze and tape as needed for saturation. After zoraida/sutures have been removed it is OK to shower but leave wound covered with a dressing inthe shower. After shower, remove the wet dressing, pat dry, and apply antibiotic ointment over wound then place a clean dry dressing. ?? Apply an antibiotic ointment (neosporin/bacitracin) to incision daily after initial surgical dressing has been removed ?? Do not get incision wet in shower until zoraida are removed. No tub soaks. ??No scrubbing aroundincision. ? Zoraida to be removed on post op day 14 by home care nurse ?? Call [phone] to schedule the first follow-up appointment with Dr. Aranda in??4??week(s) orfor any questions Jayy Mendoza MD 03/20/2021 12:28 PM S SKIMMER * Harriet Liu, PT - 03/20/2021 9:52 AM CST Physical Therapy Treatment Summary Chart review completed. Nursing consented for PT. Explained purpose of PT and patient consented to participate in therapy. PPE worn by staff: gloves;mask - procedural PPE worn by patient: mask - procedural Admit: 1. Primary osteoarthritis of right hip SUBJECTIVE: Patient c/o her stomach being upset but stated she'd still like to walk. Keep the basin close. Pain Assessment: Pain Rating Score #: 2 Pain Location : Hip Pain Orientation: Right OBJECTIVE: Patient presents walking back from bathroom with nursing assist. Orientation Level: Oriented X4 Precautions: CARLIN posterior precautions; WBAT R LE Transfers: Sit to Stand: Stand By Assist Stand to Sit: Stand By Assist;Requires Verbal Cues for Technique Mobility: Distance Ambulated: 200 FEET Ambulation: Assistive Device: Gait Belt;Walker-2 Wheeled Ambulation: Level of Assistance: Stand By Assist;Minimum Assistance;Requires Verbal Cues for Technique Ambulation: Gait Deviations: Antalgic;Cesar - Decreased;Hip/knee flexion during swing phase-- decreased;Increased Weight Bearing through Upper Extremity;Heel Strike - Decreased;Push Off - Decreased Weight Bearing Status-RLE: Weight Bearing as Tolerated Exercise: R CARLIN protocol exercises as noted on flow sheet ASSESSMENT: Making progress. Good tolerance for treatment despite her c/o upset stomach. Patient requires frequent verbal cues during ambulation for increasing push off, hip and knee flex and heel strike R LE. Reviewed posterior precautions with patient. She only recalled 2/3 at start of session. Call light and phone in reach with chair alarm activated and patient seated in recliner with legs elevated, pillow between legs at end of session. All lines, monitors, IV's, equipment in place and intact pre and post visit. Pt educated in PT plan of care, fall precautions, and benefits of OOB activity. Please refer to the Filed Flowsheet PT Treatment for further details. RECOMMENDATIONS/PLAN: Continue BID per plan of care. Recommend acute rehab post discharge for maximizing strength, endurance and safe independent functional mobility to enable her to return to prior living situation. Harriet PT ascom [phone] S SKIMMER * Harriet Liu PT - 03/20/2021 9:51 AM CST Problem: Mobility Goal: STG - Patient will ambulate Description: X 150 ft with ww with sba Outcome: Progressing Goal: STG - Patient will tolerate ____ repetitions of exercises. Description: R LE per CARLIN protocol Outcome: Progressing Problem: Transfers Goal: STG - Patient to transfer to and from sit to supine Description: Min a Outcome: Progressing Goal: STG - Patient will transfer sit to and from stand Description: With ww with sba Outcome: Progressing Problem: Therapy - Total Hip Arthroplasty Goal: STG - Patient will maintain hip precautions with all transfers and ambulation. Description: Posterior CARLIN precautions Outcome: Progressing S SKIMMER * Vivian Don MSW - 03/20/2021 9:40 AM CST New Facility Referral Follow-p SW following [facility] b/u. AR following, and started auth 03/17/21. Per CM/SW umerdle pt's son wants SNF refs sent to [facility] and [place] as b/u/. SW sent refs. See CM/SW notes for updates. Level of Care (SNF/Medicaid NH/Rehab/Group Home Care/LTACH): AR vs SNF Referrals initiated: Continued Care and Services - Admitted Since 03/16/2021 Destination Service Provider Request Status Selected Services Address Phone Fax Patient Preferred [facility] Pending - Request Sent N/A [address] [address] [phone] -- [facility] Pending - Request Sent N/A [facility] [id number] [phone] -- If Medicare-3 day qualifying stay verified: No monitoring facility responses Comments/changes:Extended Emergency Contact Information Primary Emergency Contact: Judd Medina Address: [address] [place] [address] Relation: Son Secondary Emergency Contact: Alex Medina Relation: Daughter Name: RADHA Momin Phone: RADHA Momin [phone] S SKIMMER * Michelle Mazariegos RN - 03/20/2021 9:39 AM CST Case Management Progress Note Anticipated level of care at discharge: Acute Rehab Facility, Retirement - Skilled Facility Discharge Plan: AR vs SNF Basic Needs Assessment (BNA) Score: 10 Complex Needs Assessment (BODY COMPONENT ENGINEER) Score: Social Support Domain Score: Medical Status and Health Trajectory Domain Score: Medical Home and Access to Services Domain Score: Nurse Assessment: Patient admitted for primary osteoarthritis of right hip. Patient is pending authfor AR. CM spoke with patient's son, Judd who has requested as a back SNF selection 1) [facility] 2) [place]. CM has relayed choices to [facility]. CM will continue to follow for POC and provide additional assistance as needed. Anticipated Discharge Date: Anticipated Discharge Date: 03/20/21 Transportation at Discharge: other (TBD) Transportation to MD:Family Equipment at Home: Equipment At Home: Walker-2 Wheeled;Cane-Straight;Grab Bars;Chair-Shower;Walker-4 Wheeled with Seat;Toilet Seat - Raised;Hand Held Shower Additional DME needed: Pharmacy benefit or affordability concerns: No Patient/Automatic Buffing Wheel Former voiced concerns for Food Security/affordability: No Auth Number (if required) NH: DME: Medications: Transportation: Name: Michelle Padilla RN, BSN, MSN, CM S SKIMMER * Shama Herrmann RN - 03/19/2021 8:21 PM CST Problem: Pain/Discomfort Goal: Patient exhibits reduced pain/discomfort as evidenced by pain scores 03/19/20212019 by Shama Herrmann, RN Outcome: Progressing 03/19/20212019 by Shama Herrmann RN Outcome: Progressing 03/19/20212019 by Shama Herrmann RN Outcome: Progressing Goal: Patient uses pharmacological and non-pharmacological pain management strategies. 03/19/20212019 by Shama Herrmann RN Outcome: Progressing 03/19/20212019 by Shama Herrmann RN Outcome: Progressing 03/19/20212019 by Shama Herrmann RN Outcome: Progressing Goal: Patient verbalizes acceptable level of pain relief and ability to engage in desired activity. 03/19/20212019 by Shama Herrmann RN Outcome: Progressing 03/19/20212019 by Shama Herrmann RN Outcome: Progressing 03/19/20212019 by Shama Herrmann RN Outcome: Progressing Problem: Fall Risk Goal: Fall risk and fall related injury risk are minimized (interventions related to the fall risk can be found in the flowsheet documentation) 03/19/20212019 by Shama Herrmann RN Outcome: Progressing 03/19/20212019 by Shama Herrmann RN Outcome: Progressing 03/19/20212019 by Shama Herrmann RN Outcome: Progressing Problem: Procedural Site (Incision) Care Goal: Incision remains intact with edges well approximated 03/19/20212019 by Shama Herrmann RN Outcome: Progressing 03/19/20212019 by Shama Herrmann RN Outcome: Progressing 03/19/20212019 by Shama Herrmann, CORWIN Outcome: Progressing Goal: Incision is free of infection. 03/19/20212019 by Shama Herrmann RN Outcome: Progressing 03/19/20212019 by Shama Herrmann RN Outcome: Progressing 03/19/20212019 by Shama Herrmann, RN Outcome: Progressing Problem: Activity Intolerance/Impaired Mobility Goal: Mobility/activity is maintained at optimum level for patient 03/19/20212019 by Shama Herrmann, CORWIN Outcome: Progressing 03/19/20212019 by Shama Herrmann, CORWIN Outcome: Progressing Problem: Hip Precautions Goal: Hip precautions are followed 03/19/20212019 by Shama Herrmann RN Outcome: Progressing 03/19/20212019 by Shama Herrmann RN Outcome: Progressing S SKIMMER * Moo Ramos, PT - 03/19/2021 1:34 PM CST Physical Therapy Treatment Summary Chart review completed. Nursing consented for PT. Explained purpose of PT and patient consented to participate in therapy. PPE worn by staff: gloves;mask - procedural PPE worn by patient: gown - patient, clean;mask - procedural;socks - clean Precautions: fall risk, post-op R CARLIN SUBJECTIVE: Pt reports she has to go to the bathroom again Patient's Goal for the Day: Walk farther in the hallway than this morning. Pain Assessment: Pain Rating Score #: 2 Pain Location : Hip Pain Orientation: Right OBJECTIVE: Orientation Level: Oriented X4 Transfers: Sit to Stand: Stand By Assist Stand to Sit: Stand By Assist Mobility: Distance Ambulated: 115 FEET (x2) Ambulation: Assistive Device: Gait Belt;Walker-2 Wheeled Ambulation: Level of Assistance: Stand By Assist;Minimum Assistance Ambulation: Gait Deviations: Antalgic;Cesar - Decreased;Stance Time - Decreased;Step Length - Decreased Activity Tolerance and O2 Requirements: Activity Tolerance: Requires standing rest breaks Exercise: Ankle pumps, quad sets, (x10 each) ASSESSMENT: Pt agreeable and excited for PT. Pt demonstrates SBA to transfer sit <> stand. Ptambulates to the bathroom with SBA, and utilizes bathroom with mod I. Pt ambulates 115 ft x2 with 2standing rest breaks on the way back to her room. She decreases in cesar and gait speed when she is closer to her room as she fatigues. Pt left in recliner with BLE elevated and lunch in front of her. Call light and phone in reach with chair alarm activated. All lines, monitors, IV's, equipment in place and intact pre and post visit. RNShama, notified of patient's performance/location end of session. Pt educated in PT plan of care, fall precautions, and benefits of OOB activity. Please refer to the Filed Flowsheet for further details. Refer to Plan of Care for PT goals. RECOMMENDATIONS/PLAN: Continue physical therapy through discharge, recommend Inpatient vs. Outpatient PT If this is the last Physical Therapy visit, this note serves as the discharge summary. KIMBERLEE Jimenez [phone] S SKIMMER * Shama Herrmann RN - 03/19/2021 11:30 AM CST [id number] Pt is alert and oriented x 4. Up with assist with walker. Dressing intact. Moderate amount of drainage. Pt requesting [facility] for SNF if not accepted to our Rehab. Tylenol for pain. Voiding per bathroom. Had BM. Shama RN S SKIMMER * Moo Ramos, PT - 03/19/2021 10:13 AM CST Physical Therapy Treatment Summary Chart review completed. Nursing consented for PT. Explained purpose of PT and patient consented to participate in therapy. PPE worn by staff: gloves;mask - procedural PPE worn by patient: gown - patient, clean;mask - procedural;socks - clean Precautions: fall risk, post-op SUBJECTIVE: Pt reports she needs to go to the bathroom Patient's Goal for the Day: Go to the bathroom and walk in the cummings Pain Assessment: Pain Rating Score #: 2 Pain Location : Hip Pain Orientation: Right OBJECTIVE: Orientation Level: Oriented X4 Bed Mobility: Supine to Sit: Stand By Assist;Requires Verbal Cues for Technique Transfers: Sit to Stand: Minimal Assistance Stand to Sit: Stand By Assist;Minimal Assistance Mobility: Distance Ambulated: 100 FEET (x2) Ambulation: Assistive Device: Gait Belt;Walker-2 Wheeled Ambulation: Level of Assistance: Stand By Assist;Minimum Assistance Ambulation: Gait Deviations: Cesar - Decreased;Antalgic;Step Length - Decreased;Stance Time - Decreased Activity Tolerance and O2 Requirements: Activity Tolerance: Requires standing rest breaks Exercise: Ankle pumps, quad sets, (x10 each) ASSESSMENT: Pt agreeable to therapy. Pt required use of bathroom prior to ambulation, required min A sit to stand from bed and navigated bathroom with SBA. Pt then ambulates in hallway to nurses station with SBA, however, she required 2 standing rest breaks on the way back to her room. Pt required verbal cues on proper stand to sit transfer into her recliner. Pt followed posterior hip precautionsthroughout session. Call light and phone in reach with chair alarm activated. All lines, monitors, IV's, equipment in place and intact pre and post visit. RNShama, notified of patient's performance/location end of session. Pt educated in PT plan of care, fall precautions, and benefits of OOB activity. Please refer to the Filed Flowsheet for further details. Refer to Plan of Care for PT goals. RECOMMENDATIONS/PLAN: Continue physical therapy through discharge, recommend Inpatient vs. Outpatient PT If this is the last Physical Therapy visit, this note serves as the discharge summary. KIMBERLEE Jimenez [phone] S SKIMMER * Patrick Byrnes MD - 03/19/2021 5:[address] [facility] Orthopedic Surgery Daily Progress Note Daniela Medina, 85 year old, female : 1935 CSN: [id number] Primary Care Physician: Kirby Vogel MD - Admission Date/Time: 03/16/2021 5:54 AM - Hospital Day: 3 Subjective Patient seen and examined this AM on rounds. No new problems or issues overnight. Pain controlled this morning. Denies any new numbness/paresthesias. Vitals Temp (24hrs), Av ??F (36.7 ??C), Min:97.6 ??F (36.4 ??C), Max:98.6 ??F (37 ??C) BP 131/69 Pulse 82 Temp 98.6 ??F (37 ??C) (Oral) Resp 18 Ht 5' 5 (1.651 m) Wt 155 lb (70.3 kg) SpO2 92% BMI 25.79 kg/m2 Labs Recent Labs Component Name 03/18/21 0354 03/17/21 0232 03/02/21 1355 09/22/20 1111 02/16/20 1128 02/16/20 1128 WBC - - 8.6 6.8 - 7.0 HGB 7.6* 8.4* 12.6 14.2 - 13.1 HCT - - 39.4 42.4 - 38.8 PLTCOUNT - - 255 255 - 219 - = values in this interval not displayed. Recent Labs Component Name 04/13/19 1640 INR 0.9 Physical Exam General appearance: Awake, cooperative, no acute distress, Right lower extremity: -Appearance: dressings c/d/i -Motor: Able to plantarflex ankle, able to dorsiflex ankle, able to plantarflex great toe, able to dorsiflex great toe -Sensation: SILT to dorsal and plantar foot -Vascular: 2+ DP pulse with toes warm and well perfused Assessment/Plan Daniela Medina??is a 85 year old,??female??POD3 s/p R CARLIN ?? 1. Activity/Weight-bearing status: WBAT??RLE??w PHP 2. Current Dispo: rehab, auth pending 3. Anticoagulation Status: ASA??81 BID 4. Antibiotics: Nabila-op Ancef 5. Wound care: Continue current dressings until POD#7 6. Diet: regular 7. PT/OT 8. Pain Control 9. Orthopedics will continue to follow. Please page with any questions or concerns ?? Please give the following instructions to the patient upon discharge/transfer:? Hip Precautions as follows: ? Posterior hip precautions- no flexion past 90 degrees, no adduction past midline, no internal rotation ?? Thigh high CISCO hose when up during the day. ??May remove at night while sleeping ?? Patient may discontinue compression stocking after two weeks. ?? Ankle flexion exercises every hour during the day to prevent swelling and deep vein thrombosis prevention. ?? Continue??ASA 81??mg po bid for one month for DVT prophylaxis. ?? Keep wound clean and dry. Change surgical dressing 7 days after surgery. After that you should perform daily or every other day dressing changes with dry gauze and tape as needed for saturation. After zoraida/sutures have been removed it is OK to shower but leave wound covered with a dressing inthe shower. After shower, remove the wet dressing, pat dry, and apply antibiotic ointment over wound then place a clean dry dressing. ?? Apply an antibiotic ointment (neosporin/bacitracin) to incision daily after initial surgical dressing has been removed ?? Do not get incision wet in shower until zoraida are removed. No tub soaks. ??No scrubbing aroundincision. ? Zoraida to be removed on post op day 14 by home care nurse ?? Call [phone] to schedule the first follow-up appointment with Dr. Aranda in??4??week(s) orfor any questions Patrick Byrnes MD 03/19/2021 5:52 AM S SKIMMER * Luba Pendleton COTA - 03/18/2021 2:36 PM CST Occupational Therapy Treatment Summary: Chart reviewed for diagnosis and medical systems review. Nursing consented for OT. Educated on OT plan of care and benefits of participating in ADL tasks. Precautions: Weight Bearing Status-LLE: Weight Bearing as Tolerated Weight Bearing Status-RLE: Weight Bearing as Tolerated Patient participated in education/review of precautions/restrictions this session. SUBJECTIVE: It just comes and goes. re: pain Psychosocial: Patient Behaviors: Calm;Cooperative OBJECTIVE: Cognition: Orientation Level: Oriented X4 Level of Consciousness-Adult: Alert Cognition: Follows Commands-Consistent Pain Assessment: Pain Rating Score #: (did not rate) Pain Location : Hip Pain Orientation: Right Functional Mobility: Bed Mobility: Supine to Sit: Activity Does Not Occur (Patient in recliner at start/end of session. ) Sit to Supine: Activity Does Not Occur Transfers: Sit to Stand: Minimal Assistance Stand to Sit: Minimal Assistance Type of Transfer: Stand Pivot Transfer Toilet Transfers: Minimal Assistance ADL Tasks: Feeding: Set-up Oral Facial Hygiene: Stand By Assist (seated) Bathing: Moderate Assistance Upper Body Dressing: Minimal Assistance Lower Body Dressing: Moderate Assistance (using AE) Toileting: Moderate Assistance Vital Signs/Activity Tolerance/O2 Requirements: Activity Tolerance: Requires rest breaks SpO2: 90 % Pulse: 76 Resp: 16 BP: 132/51 INTERVENTION/ASSESSMENT: Patient consented to participate in therapeutic follow up of ADL task assessment including lower body dressing, toileting, functional mobility/transfers.Patient seated in chair upon arrival, agreeable to OT tx session.Further education provided PHP precautions and on AE (sock aid, shoe horn, sueding machine operator) to perform lower body dressing tasks. Patient was able to return demonstration of task with Mod A and increase time. Functional mobility to/from bathroom with Min A and useof 2-wheeled walker, cues for safety. Mod A for nabila care and clothing management. Patient positioned comfortably in chair at end of session, denies further needs at this time. Patient left in chair with alarm reactivated. Call light and phone within reach. -Refer to Plan of Care for OT goals. -See Filed Flowsheet under Summary for details. -All lines, monitors, IV's, and equipment in place and intact pre and post visits. CORWIN Monique notified of patient's performance and position at end of session. Rationale for therapy: Patient will benefit from OT to address the above issues. Patient will be seen for:ADL retraining, functional transfers, balance, endurance, exercise. RECOMMENDATIONS/PLAN: OT will continue to follow during the acute stay to address deficits and improve function. Will progress as tolerated. Patient will benefit from INPATIENT REHAB upon discharge from acute care to maximize ADL and functional mobility/transfer independence and safety. KRISTI Langston/Azar x [phone] S SKIMMER * Clarissa Guzman, PT - 03/18/2021 12:45 PM CST Physical Therapy Treatment Summary The following assessments were completed: Patient OK to be seen for treatment per nursing. Patient agreeable to participate in Therapy See Filed Flowsheet for further details. Subjective: Patient with no new complaints this afternoon. Agreeable to participate in PT treatmentsession. Pain Rating Score #: 3 Pain Location : Hip Pain Orientation: Right Objective: Cognition: Orientation Level: Oriented X4 Level of Consciousness-Adult: Alert Cognition: Follows Commands-Consistent Mobility: Supine to Sit: Activity Does Not Occur (Patient in recliner at start/end of session. ) Sit to Supine: Activity Does Not Occur Sit to Stand: Minimal Assistance Stand to Sit: Minimal Assistance Distance Ambulated: 60 FEET Ambulation: Assistive Device: Gait Belt;Walker-2 Wheeled Ambulation: Level of Assistance: Minimum Assistance;Requires Verbal Cues for Technique;Requires Verbal Cues for Safety Ambulation: Gait Deviations: Antalgic;Cesar - Decreased;Increased Trunk Flexion;Increased Weight Bearing through Upper Extremity;Step Length - Decreased Weight Bearing Status-LLE: Weight Bearing as Tolerated Weight Bearing Status-RLE: Weight Bearing as Tolerated Stairs: Number: 0 Balance: Balance Scales/Tests Used: Sitting: Static/Dynamic;Standing: Static/Dynamic Sitting - Static: Good Sitting - Dynamic: Good Standing - Static: Fair +;With Both Upper Extremity's Support Standing - Dynamic: Fair;Fair -;With Both Upper Extremity's Support Activity Tolerance and Oxygen Requirements: Activity Tolerance: Requires rest breaks Assessment: Patient cooperative throughout second PT treatment session today. Very tired but eager to participate. Able to ambulate 60 feet with wheeled walker and Min A for safety and balance. Patient continues to present with impairments in generalized strength, endurance/activity tolerance, static and dynamic standing balance, and a decrease in overall level of safety and independence with basic functional mobility tasks. She will benefit from continued skilled physical therapy services in the acute care setting in order to further address impairments and maximize functional independence prior to discharge. Plan: Continue per current POC with skilled PT acute care services during hospitalization for progression of mobility, endurance, and education in order to optimize function & progress toward goals as able. All vitals stable throughout visit; All lines, monitors, IV's, equipment in place and intact pre and post visit. Left patient in recliner at end of session with chair alarm on. RNMartell, notified of patient's performance/location end of session. Pt educated in transfers, gait, PT plan of care, fall precautions, and benefits of OOB activity. Please refer to the Filed Flowsheet for further details. Refer to Plan of Care for PT goals. Recommendations: When medically cleared, recommend that this patient discharge to acute inpatient rehabilitation. If this is the last Physical Therapy visit, this serves as the discharge summary. KIMBERLEE Romo Ascom # [id number] S SKIMMER * Clarissa Guzman PT - 03/18/2021 9:30 AM CST Physical Therapy Treatment Summary The following assessments were completed: Patient OK to be seen for treatment per nursing. Patient agreeable to participate in Therapy See Filed Flowsheet for further details. Subjective: Patient with no new complaints today. Agreeable to participate in PT treatment session. Pain Rating Score #: 0 Objective: Cognition: Orientation Level: Oriented X4 Level of Consciousness-Adult: Alert Cognition: Follows Commands-Consistent Mobility: Supine to Sit: Minimal Assistance Sit to Supine: Activity Does Not Occur (Left patient in recliner at end of session. ) Sit to Stand: Minimal Assistance Stand to Sit: Minimal Assistance Distance Ambulated: 25 FEET Ambulation: Assistive Device: Gait Belt;Walker-2 Wheeled Ambulation: Level of Assistance: Minimum Assistance;Requires Verbal Cues for Technique;Requires Verbal Cues for Safety Ambulation: Gait Deviations: Antalgic;Cesar - Decreased;Increased Trunk Flexion;Increased Weight Bearing through Upper Extremity;Step Length - Decreased Weight Bearing Status-LLE: Weight Bearing as Tolerated Weight Bearing Status-RLE: Weight Bearing as Tolerated Stairs: Number: 0 Balance: Balance Scales/Tests Used: Sitting: Static/Dynamic;Standing: Static/Dynamic Sitting - Static: Good Sitting - Dynamic: Good Standing - Static: Fair +;With Both Upper Extremity's Support Standing - Dynamic: Fair;Fair -;With Both Upper Extremity's Support Activity Tolerance and Oxygen Requirements: Activity Tolerance: Requires rest breaks Assessment: Patient pleasant and cooperative throughout PT treatment session. Ambulation distance limited this visit by urinary incontinence episode. Reviewed posterior hip precautions with patient who was able to both verbalize and demonstrate proper understanding of the information provided. Alsoreviewed and performed CARLIN protocol exercises for BLEs within appropriate ROM on RLE. Will plan to progress ambulation distance at next visit this afternoon. Plan: Continue per current POC with skilled PT acute care services during hospitalization for progression of mobility, endurance, and education in order to optimize function & progress toward goals as able. All vitals stable throughout visit; All lines, monitors, IV's, equipment in place and intact pre and post visit. Left patient in recliner at end of session with chair alarm on. RNMartell, notified of patient's performance/location end of session. Pt educated in transfers, gait, PT plan of care, fall precautions, and benefits of OOB activity. Please refer to the Filed Flowsheet for further details. Refer to Plan of Care for PT goals. Recommendations: When medically cleared, recommend that this patient discharge to acute inpatient rehabilitation. If this is the last Physical Therapy visit, this serves as the discharge summary. KIMBERLEE Romo Ascom # [id number] S SKIMMER * Patrick Byrnes MD - 03/18/2021 8:[address] [facility] Orthopedic Surgery Daily Progress Note Daniela Medina, 85 year old, female : 1935 CSN: [id number] Primary Care Physician: Kirby Vogel MD - Admission Date/Time: 03/16/2021 5:54 AM - Hospital Day: 2 Subjective Patient seen and examined this AM on rounds. No new problems or issues overnight. Pain controlled this morning. Denies any new numbness/paresthesias. Vitals Temp (24hrs), Av.9 ??F (36.6 ??C), Min:97.4 ??F (36.3 ??C), Max:98.7 ??F (37.1 ??C) BP 132/51 Pulse 76 Temp 97.6 ??F (36.4 ??C) (Oral) Resp 16 Ht 5' 5 (1.651 m) Wt 155 lb (70.3 kg) SpO2 90% BMI 25.79 kg/m2 Labs Recent Labs Component Name 03/18/21 0354 03/17/21 0232 03/02/21 1355 09/22/20 1111 02/16/20 1128 02/16/20 1128 WBC - - 8.6 6.8 - 7.0 HGB 7.6* 8.4* 12.6 14.2 - 13.1 HCT - - 39.4 42.4 - 38.8 PLTCOUNT - - 255 255 - 219 - = values in this interval not displayed. Recent Labs Component Name 04/13/19 1640 INR 0.9 Physical Exam General appearance: Awake, cooperative, no acute distress Right lower extremity: -Appearance: dressings c/d/i -Motor: Able to plantarflex ankle, able to dorsiflex ankle, able to plantarflex great toe, able to dorsiflex great toe -Sensation: SILT to dorsal and plantar foot -Vascular: 2+ DP pulse with toes warm and well perfused Assessment/Plan Daniela Medina is a 85 year old, female POD1 s/p R CARLIN ?? 1. Activity/Weight-bearing status: WBAT RLE w PHP 2. Current Dispo: rehab, auth pending 3. Anticoagulation Status: ASA 81 BID 4. Antibiotics: Nabila-op Ancef 5. Wound care: Continue current dressings until POD#7 6. Diet: regular 7. PT/OT 8. Pain Control 9. Orthopedics will continue to follow. Please page with any questions or concerns ?? Please give the following instructions to the patient upon discharge/transfer:? Hip Precautions as follows: ? Posterior hip precautions- no flexion past 90 degrees, no adduction past midline, no internal rotation ?? Thigh high CISCO hose when up during the day. ??May remove at night while sleeping ?? Patient may discontinue compression stocking after two weeks. ?? Ankle flexion exercises every hour during the day to prevent swelling and deep vein thrombosis prevention. ?? Continue??ASA 81??mg po bid for one month for DVT prophylaxis. ?? Keep wound clean and dry. Change surgical dressing 7 days after surgery. After that you should perform daily or every other day dressing changes with dry gauze and tape as needed for saturation. After zoraida/sutures have been removed it is OK to shower but leave wound covered with a dressing inthe shower. After shower, remove the wet dressing, pat dry, and apply antibiotic ointment over wound then place a clean dry dressing. ?? Apply an antibiotic ointment (neosporin/bacitracin) to incision daily after initial surgical dressing has been removed ?? Do not get incision wet in shower until zoraida are removed. No tub soaks. ??No scrubbing aroundincision. ? Zoraida to be removed on post op day 14 by home care nurse ?? Call [phone] to schedule the first follow-up appointment with Dr. Aranda in??4??week(s) orfor any questions Patrick Byrnes MD 03/18/2021 8:58 AM S SKIMMER * Kendra Jimenez RN - 03/18/2021 3:51 AM CST Problem: Pain/Discomfort Goal: Patient exhibits reduced pain/discomfort as evidenced by pain scores Outcome: Progressing Goal: Patient uses pharmacological and non-pharmacological pain management strategies. Outcome: Progressing Goal: Patient verbalizes acceptable level of pain relief and ability to engage in desired activity. Outcome: Progressing Problem: Fall Risk Goal: Fall risk and fall related injury risk are minimized (interventions related to the fall risk can be found in the flowsheet documentation) Outcome: Progressing S SKIMMER * Michelle Mazariegos RN - 03/17/2021 3:58 PM CST Case Management Initial Assessment Case Management screen completed & Welcome Letter given. Anticipated level of care at discharge: Acute Rehab Facility, Retirement - Skilled Facility Discharge Plans: AR vs SNF Basic Needs Assessment (BNA) Score: 10 Assessment completed via phone Lives with: Alone Family Support (name and phone): Extended Emergency Contact Information Primary Emergency Contact: Judd Medina Address: [address] [place] [address] Relation: Son Secondary Emergency Contact: CarolAlex Relation: Daughter Patient or customer care representative requests care coordination reach out to family or caregiver listed above regarding discharge planning and at time of discharge? Yes Anticipated Discharge Date: 03/20/21 Prior Level of Functioning: Alert and oriented, independent with ADLs and ambulation, patient resides alone, son and daughter does shopping, housekeeping. Family provides transportation to MD appointments. Nurse Assessment: Patient admitted for primary osteoarthritis of right hip > WBAT RLE, DVT Ppx, wound care, PT/OT, pain management. Patient will discharge to AR vs SNF when medically stable. CM will continue to follow POC and provide additional assistance as needed. Anticipated level of care at discharge: Acute Rehab Facility, Retirement - Skilled Facility Transportation at Discharge: other (TBD) Transportation to MD appointments: Family Equipment at Home: Equipment At Home: Walker-2 Wheeled;Cane-Straight;Grab Bars;Chair-Shower Additional equipment needed at home but does not have: None identified at this time If no PCP, action taken: Dr. Kirby Vogel Pharmacy benefit: Yes Medication affordability concerns: No Hunger Screening: Within the past 12 months the food we bought just didn't last and we didn't have money to get more.: Never true Within the past 12 months we worried whether our food would run out before we got money to buy more: Never true Food Bank Resources Provided: Not offered to the patient Net Making Supervisor Referral: Yes If patient requires HHC at discharge, he/she requests: N/A Will continue to follow. For any questions or needs please contact: [employer]ass [employer] Name/Phone number: Michelle Mazariegos RN, BSN, MSN, CM S SKIMMER * Arti Mtz RN - 03/17/2021 2:47 PM CST [facility] Acute Rehab update: [facility] auth: Auth initiated @ 241 03/17 Clinical faxed Ref # [id number] Thanks for referral, Arti Mtz RN, BSN Clinical Liaison [facility] Acute Rehab Hospital [phone] S SKIMMER * Christina Stanton, PT - 03/17/2021 2:26 PM CST Physical Therapy Treatment Summary Patient was seen BID this date for physical therapy. Pt consented to treatment. R CARLIN. Post precautions. WBAT Son at bedside- discussed DC plans acute rehab Subjective: I am feeling better - less painful. I need to go to the bathroom. Pain: R hip pain- unrated Objective: Transfers: Supine to/from sit with min assistance - ed in use of leg chief physical therapist Sit to/from stand with min assistance- for R LE placement Ambulation: Patient ambulated 120 feet , 2 x 15 ft with ww and min assistance Exercise: Patient performed 10 reps of R CARLIN HEP. Patient educated in CARLIN precautions. Patient able to recall 2/3 Patient remained in reach of call light. Applied ice pack post-treatment. Assessment/Plan: Patient progressing with gait and transfer training- improved stride length, sequence.patient will benefit from continued inpatient therapy prior to DC home. Continue PT BID per protocol. Viktoriya PT [id number] 03/17/2021 S SKIMMER * Christina Stanton, PT - 03/17/2021 9:58 AM CST Physical Therapy Treatment Summary Chart review completed. Nursing consented for PT. Explained purpose of PT and patient consented to participate in therapy. PPE worn by staff: gloves;mask - surgical PPE worn by patient: gown - patient, clean;socks - clean SUBJECTIVE: agrees to PT. Patient's Goal for the Day: walk- sit Up and eat breakfast Pain Assessment: Pain Rating Score #: 0 OBJECTIVE: Orientation Level: Oriented X4 Precautions: R CARLIN precautions. Reviewed precautions with patient/ provided handout. Patient able to recall 1/3 precautions Fall precautions Bed Mobility: Supine to Sit: Minimal Assistance Sit to Supine: Moderate Assistance;X 2 Transfers: Sit to Stand: Minimal Assistance;Moderate Assistance;Requires Verbal Cues for Safety;Requires Verbal Cues for Technique Stand to Sit: Minimal Assistance;Requires Verbal Cues for Safety;Requires Verbal Cues for Technique Mobility: Distance Ambulated: 50 FEET (1x 100 ft) Ambulation: Assistive Device: Gait Belt;Walker-2 Wheeled Ambulation: Level of Assistance: Minimum Assistance;Requires Verbal Cues for Technique;Requires Verbal Cues for Safety Weight Bearing Status-RLE: Weight Bearing as Tolerated Balance: Standing balance with ww with min a Exercise: instr in sitting AP LAQ x 10 reps. Ed in hourly AP Activity Tolerance: on RA SpO2: 96 % Pulse: 66 BP: 116/59 ASSESSMENT: Patient sitting up in recliner when therapist entered room. Patient requires min a for balnce and safety with gait and transfers. repeated VC for safety-patient attempting to stand without ww- cues for hand placement and maintaining CARLIN precautions. Patient impulsive- distracted- improved safety with VC. . Call light and phone in reach with Chair alarm activated. All lines, monitors, IV's, equipment in place and intact pre and post visit. RN, notified of patient's performance/location end of session. Pt educated in PT plan of care, fall precautions, and benefits of OOB activity Please refer to the Filed Flowsheet PT Treatment for further details. RECOMMENDATIONS/PLAN: Continued skilled PT BID per protocol during stay to address functional impairments. Recommend acute rehab Viktoriya PT [id number] S SKIMMER * Didier Benedict, OT - 03/17/2021 9:02 AM CST Occupational Therapy Initial Evaluation Orders received. Chart reviewed for diagnosis and medical systems review. Nursing consented for OT. Explained purpose of OT and patient consented to participate in therapy. PPE worn by staff: gloves;mask - surgical PPE worn by patient: gown - patient, clean;socks - clean Precautions: WBAT RLE, PHP, Fall risk Weight Bearing Status-RLE: Weight Bearing as Tolerated SUBJECTIVE: It feels good to be up Prior to admission, pt lived in apartment alone and was independent with ADLs, IADLs, and functional mobility with AD. Pt's family reports they will be able to assist pt at discharge, but are concerned about being able to meet her needs initially - may benefit from rehab Psychosocial: Patient Behaviors: Calm;Cooperative Pt's goal for therapy: Regain functional independence Occupational Profile/PLOF: Type of Residence: Senior Apartment Lives with:: Alone Home Structure: One Story Steps to Enter: No Handrails: None Ramp: No Primary Bedroom: First Floor Primary Bathroom: First Floor Bathroom : Walk in Shower Equipment At Home: Walker-2 Wheeled;Cane-Straight;Grab Bars;Chair-Shower Mobility: Independent;Ambulate-In Home ;With Assistive Device Fallen Within 6 Mos: 3 Have Help at Home?: Yes, there is help at home now How often is assistance provided?: weekly - pt's children assist with groceries and transportation Level of Help Sufficient?: Other (Comment) (TBD) Oxygen at Home: No Activity at Home: Sedentary Who manages medications?: Family Vision: Corrected with glasses Hearing Exceptions: No impairment Cognition: Orientation Level: Oriented X4 Level of Consciousness-Adult: Alert Cognition: Follows Commands-Consistent;Attention/concentration-normal for age;Processing-Appropriate Pain Assessment: Pain Rating Score #: 0 RUE Assessment: AROM - Right Upper Extremity: Within Functional Limits Strength - Right Upper Extremity: Within Functional Limits Technical Systems Architect Strength: Technical Systems Architect Strength - Right Upper Extremity: WFL LUE Assessment: AROM - Left Upper Extremity: Within Functional Limits Strength - Left Upper Extremity: Within Functional Limits Technical Systems Architect Strength: Technical Systems Architect Strength - Left Upper Extremity: WFL: Basic ADL's: Feeding: Set-up Oral Facial Hygiene: Stand By Assist (seated) Bathing: Moderate Assistance Upper Body Dressing: Minimal Assistance Lower Body Dressing: Moderate Assistance (using AE) Toileting: Moderate Assistance (clothing management and balance, Damion for pericare) Functional Mobility: Bed Mobility: Supine to Sit: Minimal Assistance Sit to Supine: Activity Does Not Occur (Pt in recliner at end of session) Transfers: Sit to Stand: Minimal Assistance;Moderate Assistance;Requires Verbal Cues for Safety;Requires Verbal Cues for Technique Stand to Sit: Minimal Assistance;Requires Verbal Cues for Safety;Requires Verbal Cues for Technique Toilet Transfers: Minimal Assistance;Requires Verbal Cues for Safety;Requires Verbal Cues for Technique (to [facility]) Oxygen Therapy: 2L NC upon OT arrival. O2 removed to trial room air with pt's SpO2 remaining at 96%. O2 left off atend of OT session with PT to monitor during ambulation and adjust accordingly - see PT noted Vitals: Activity Tolerance: Requires rest breaks SpO2: 96 % (on room air) Pulse: 66 BP: 116/59 ASSESSMENT: Pt in bed upon OT arrival, agreeable to therapy session. Pt with urinary incontinence in bed and requesting to transfer to [facility]. Pt incontinent again on the floor upon standing. Pt reportsshe typically wears depends at home. Pt required Damion to transfer from EOB>BSC>recliner [id number]. Pt able to complete pericare with Damion, but requires ModA for clothing management. Pt educatedon posterior hip precautions and AE for LB dressing, but pt will require continued education/reinforcement. Pt required Damion to jayden clean gown and ModA to jayden clean socks while using AE. Pt required verbal cues for safety and technique during all functional mobility and functional tasks this date. Pt in recliner at end of session in care of PT. Call light and phone in reach with chair alarm activated. All lines, monitors, IV's, equipment in place and intact pre and post visit. RN, notified of patient's performance/location end of session. Educated patient/family in fall prevention, role of OT, ADL assessment, functional mobility, transfers, AE, PHP Problem list: Decreased ROM, decreased endurance, decreased balance, impaired functional mobility, decreased coordination, impaired safety awareness, cognitive impairment, decreased knowledge of condition, decreased pain tolerance, need for family/caregiver training Functional limitation: Decreased independence with transfers; decreased ability to perform ADLs, decreased UE strength, decreased safety with functional mobility. Rationale for therapy: Patient will benefit from OT to address the above issues. Patient will be seen for: ADL retraining, functional transfers, balance, endurance, exercise. Refer to Plan of Care for OT goals. Refer to filed flow sheet for further details. RECOMMENDATIONS/PLAN: Pt would benefit from continued OT in [place] prior to returning home. If pt declines AR, pt would require HHOT and 22/10 supervision/care. OT Discharge Recommendations: Inpatient Rehab If this is the last Occupational Therapy visit, this serves as the discharge summary. ANAMIKA Velásquez, OTR/L [phone] S SKIMMER * Jayy Mendoza MD - 03/17/2021 7:[address] [facility] Orthopedic Surgery Daily Progress Note Daniela Medina, 85 year old, female : 1935 CSN: [id number] Primary Care Physician: Kirby Vogel MD - Admission Date/Time: 03/16/2021 5:54 AM - Hospital Day: 1 Subjective Patient seen and examined this AM on rounds. No new problems or issues overnight. Pain controlled this morning. Denies any new numbness/paresthesias. Vitals Temp (24hrs), Av.7 ??F (36.5 ??C), Min:96.8 ??F (36 ??C), Max:98.3 ??F (36.8 ??C) BP 127/65 Pulse 65 Temp 98.3 ??F (36.8 ??C) (Oral) Resp 18 Ht 5' 5 (1.651 m) Wt 155 lb (70.3 kg) SpO2 98% BMI 25.79 kg/m2 Labs Recent Labs Component Name 03/17/21 0232 03/02/21 1355 09/22/20 1111 02/16/20 1128 02/16/20 1128 WBC - 8.6 6.8 - 7.0 HGB 8.4* 12.6 14.2 - 13.1 HCT - 39.4 42.4 - 38.8 PLTCOUNT - 255 255 - 219 - = values in this interval not displayed. Recent Labs Component Name 04/13/19 1640 INR 0.9 Physical Exam General appearance: Awake, cooperative, no acute distress, Right lower extremity: -Appearance: dressing c/d/i -Motor: Able to plantarflex ankle, able to dorsiflex ankle, able to plantarflex great toe, able to dorsiflex great toe -Sensation: SILT to dorsal and plantar foot -Vascular: 2+ DP pulse with toes warm and well perfused Assessment/Plan Daniela Medina is a 85 year old, female POD1 s/p R CARLIN 1. Activity/Weight-bearing status: WBAT RLE w PHP 2. Current Dispo: home w home PT 3. Anticoagulation Status: ASA 81 BID 4. Antibiotics: Nabila-op Ancef 5. Wound care: Continue current dressings until POD#7 6. Diet: regular 7. PT/OT 8. Pain Control 9. Orthopedics will continue to follow. Please page with any questions or concerns Please give the following instructions to the patient upon discharge/transfer: ?? Hip Precautions as follows: ? Posterior hip precautions- no flexion past 90 degrees, no adduction past midline, no internal rotation ?? Thigh high CISCO hose when up during the day. May remove at night while sleeping ?? Patient may discontinue compression stocking after two weeks. ?? Ankle flexion exercises every hour during the day to prevent swelling and deep vein thrombosis prevention. ?? Continue ASA 81 mg po bid for one month for DVT prophylaxis. ?? Keep wound clean and dry. Change surgical dressing 7 days after surgery. After that you should perform daily or every other day dressing changes with dry gauze and tape as needed for saturation. After zoraida/sutures have been removed it is OK to shower but leave wound covered with a dressing inthe shower. After shower, remove the wet dressing, pat dry, and apply antibiotic ointment over wound then place a clean dry dressing. ?? Apply an antibiotic ointment (neosporin/bacitracin) to incision daily after initial surgical dressing has been removed ?? Do not get incision wet in shower until zoraida are removed. No tub soaks. No scrubbing around incision. ?? Zoraida to be removed on post op day 14 by home care nurse ?? Call [phone] to schedule the first follow-up appointment with Dr. Aranda in 4 week(s) or for any questions Jayy Mendoza MD 03/17/2021 7:40 AM S SKIMMER * Maximino Christina Jimena, PT - 03/16/2021 2:32 PM CST Physical Therapy Evaluation PT orders received. Chart reviewed for diagnosis and medical systems review. Nursing consented for PT. Explained purpose of PT and patient consented to participate in therapy. Sp R CARLIN. Posterior precautions. WBAT Son at bedside. Reports he and his sister will assist with patient's care at [place]. they are able to provide 22/10 care. Reports patient has been declining in strength, mobility for past year- recently requiring wh walker- reports 3 falls- co light headed/ dizzy. Family are concerned patient may require acute rehab post op. SUBJECTIVE: I am ready to sit up and eat lunch. Home Situation: Type of Residence: Senior Apartment Lives with:: Alone Steps to Enter: No Handrails: None Home Structure: One Story Equipment At Home: Walker-2 Wheeled Prior Level of Functioning: Mobility: Independent;Ambulate-In Home ;With Assistive Device Fallen Within 6 Mos: 3 Have Help at Home?: Yes, there is help at home now How often is assistance provided?: weekly Activity at Home: Sedentary Pain Assessment: no co pain R LE Patient/family stated goal: To walk indep - OBJECTIVE: Precautions: R post. Hip precautions. WBAT. Hip abd cushion fall precautions,skin precautions Ed patient /son in R CARLIN precautions. Cognition: Cognition: Follows Commands-Consistent;Processing-Appropriate;Follows one step commands;Judgement-appropriate;Safety awareness-appropriate Level of Consciousness-Adult: Alert ROM and Strength: Strength - Right Lower Extremity: Exceptions (sp CARLIN.nerve block. AP / quad weakness) Strength - Left Lower Extremity: Within Functional Limits Sensation: Sensation - Right Lower Extremity: (grossly intact to LT) Posture: Sitting Posture: Good Vertical Alignment Balance: sitting EOB with sba Bed Mobility: Supine to Sit: Minimal Assistance Sit to Supine: Moderate Assistance;X 2 Transfers: Sit to Stand: Activity Does Not Occur (pt with numbness / weakness / nerve block) Mobility: not able to progress to gait training this session 2/2 quad weakness Weight Bearing Status-RLE: Weight Bearing as Tolerated Exercise: instr in AP Activity Tolerance: supine SpO2: 96 % Pulse: 72 BP: 107/69 ASSESSMENT: Patient alert and eager to work with PT. Patient tolerated sitting EOB with assist- notable to progress to transfer to chair 2/2 R LE weakness Sp nerve block. PT will continue assessmentin am. 03/17/2021. Call light and phone in reach with bed alarm activated. All lines, monitors, IV's, equipment in place and intact pre and post visit. RN, notified of patient's performance/location end of session. Pt educated in PT plan of care, fall precautions, and benefits of OOB activity. Problem list: decreased strength, decreased balance, decreased endurance, decreased ROM, decreased coordination Functional limitations: Decreased independence with ambulation/transfers, decreased safety with functional mobility. Rationale for therapy: Patient will benefit from PT to address the above issues. Please refer to Filed Flowsheet PT Evaluation for further details. Refer to Plan of Care for PT goals. RECOMMENDATIONS/PLAN: Continue PT BID per protocol CARLIN. PT Discharge Recommendations: To Be Determined Viktoriya DWYER [id number] SKIMMER * Jayy Mendoza MD - 03/16/2021 9:43 AM CST Orthopaedic Surgery Postoperative Check Surgery Date: 03/16/2021 Diagnosis: Right hip OA Procedure Preformed: Procedure(s): ARTHROPLASTY TOTAL HIP Subjective Complaints: none Postoperative vitals: Patient Vitals for the past 6 hrs: Temp Pulse Resp BP 03/16/21 0941 -- 68 16 136/74 03/16/21 0936 -- 72 25 141/77 03/16/21 0935 96.8 ??F (36 ??C) 72 -- -- 03/16/21 0639 97.7 ??F (36.5 ??C) 59 18 150/72 Physical Exam General appearance: Resting in PACU Right lower extremity: Motor: Able to flex and extend great toe, plantarflex and dorsiflex ankle. Sensation grossly intact distally. 2+DP, Toes warm and well perfused distally, symmetric to contralateral. Dressing/cisco hose/hip ABduction pillow is intact, clean, and dry. Assessment/Plan Daniela Medina is a(n) 85 year old, female with right hip arthritis - s/p right Total Hip Arthroplasty by Dr. Aranda on 03/16 1. Activity/Weight-bearing status: WBAT RLE with posterior hip precautions 2. Current Dispo: pending PT 3. Anticoagulation Status: ASA 81 BID 4. Antibiotics: Nabila-op Ancef 5. Wound care: Continue current dressings until POD#7 6. Diet: regular 7. PT/OT 8. Pain Control 9. Orthopedics will continue to follow. Please page with any questions or concerns For questions regarding the orthopaedic care of this patient, please page myself through the dowel setting machine operator or amion from 6AM-5PM. After 5PM, please page ortho poured concrete wall technician via [employer]. Thank you! Please give the following instructions to the patient upon discharge/transfer: ?? Hip Precautions as follows: ?? Posterior hip precautions- no flexion past 90 degrees, no adduction past midline, no internal rotation ?? Thigh high CISCO hose when up during the day. May remove at night while sleeping ?? Patient may discontinue compression stocking after two weeks. ?? Ankle flexion exercises every hour during the day to prevent swelling and deep vein thrombosis prevention. ?? Continue ASA 81 mg po bid for one month for DVT prophylaxis. ?? Keep wound clean and dry. Change surgical dressing 7 days after surgery. After that you should perform daily or every other day dressing changes with dry gauze and tape as needed for saturation. After zoraida/sutures have been removed it is OK to shower but leave wound covered with a dressing inthe shower. After shower, remove the wet dressing, pat dry, and apply antibiotic ointment over wound then place a clean dry dressing. ?? Apply an antibiotic ointment (neosporin/bacitracin) to incision daily after initial surgical dressing has been removed ?? Do not get incision wet in shower until zoraida are removed. No tub soaks. No scrubbing around incision. ?? Ossian to be removed on post op day 14 by home care nurse ?? Call [phone] to schedule the first follow-up appointment with Dr. Aranda in 4 week(s) or for any questions S SKIMMER documented in this encounter H&P Notes * Ivan Aranda MD - 03/14/2021 1:26 PM CST [facility] Orthopaedic Adult Reconstruction Surgery H&P Note Daniela Medina, 85 year old, female : 1935 CSN: [id number] Diagnosis/Procedures 1.) right hip pain secondary to degenerative joint disease History HPI: Patient is a 85 year old female with right Hip Degenerative Joint Disease no longer respondingto conservative care. she presents today for right Total Hip Replacement. There have not been any changes in the patient's medical history since she was previously seen. Patient has tried NSAIDs, physical therapy exercises, glucosamine chondroitin, Vitamin D, injections, and weight loss. They deny any new antibiotics, blood thinners, or otherwise pertinent change in medical history since last seen. Objective There were no vitals taken for this visit. PMHx Past Medical History: Diagnosis Date ??? Disorder of liver ??? Generalized anxiety disorder ??? Hepatitis C ??? Hypertension ??? Prolapsed uterus PSHx Past Surgical History: Procedure Laterality Date ??? OTHER SURGERY prolapse uterus Social Hx Social History Tobacco Use ??? Smoking status: Former Smoker Quit date: 2004 Years since quittin.9 ??? Smokeless tobacco: Never Used Substance Use Topics ??? Alcohol use: Yes Alcohol/week: 1.0 standard drink Types: 1 Glasses of wine per week Comment: 3-4 oz wine/evening Family Hx family history includes Cancer - Bladder in her mother; Other - Cardiac in her father. Allergies Allergies Allergen Reactions ??? Codeine Other Caused weird dreams Medications No current facility-administered medications for this encounter. Current Outpatient Medications Medication ??? acetaminophen (TYLENOL) 500 MG tablet ??? albuterol HFA (PROVENTIL; VENTOLIN; PROAIR) 108 (90 Base) MCG/ACT inhaler ??? amLODIPine (NORVASC) 5 MG tablet ??? aspirin (ASPIRIN) 81 MG tablet ??? Azelastine HCl 137 MCG/SPRAY SOLN ??? Calcium Carb-Cholecalciferol (CALCIUM 500 +D PO) ??? calcium citrate TABS tablet ??? Cyanocobalamin (VITAMIN B12 PO) ??? Fexofenadine HCl (RENU PO) ??? LORazepam (ATIVAN) 0.5 MG tablet ??? meloxicam (MOBIC) 15 MG tablet ??? metoprolol succinate XL 24hr (TOPROL XL) 50 MG tablet ??? Multiple Vitamins-Calcium (ONE-A-DAY WOMENS PO) ??? Naproxen Sodium (ALEVE) 220 MG ??? nystatin (MYCOSTATIN) 406423 UNIT/GM powder ??? oxybutynin CR 24hr (DITROPAN-XL) 10 MG tablet ??? Polyethylene Glycol 3350 (MIRALAX PO) ??? sertraline (ZOLOFT) 25 MG tablet ??? SYMBICORT 160-4.5 MCG/ACT inhaler ??? triamcinolone acetonide (KENALOG) 0.1 % cream ??? valsartan (DIOVAN) 80 MG tablet Review of Systems A 10 point Review of Systems was performed and is only significant for the above. Physical Exam General exam: patient cooperative with exam Constitutional: well developed, well nourished, no acute distress Head: normocephalic, atraumatic ENT: moist oral mucosa Eyes: non-icteric sclera Cardiovascular: regular rate Respiratory: effort normal, no respiratory distress Neurological: awake, AOx4 Psychiatric: no distress, mood and affect normal, behavior normal, judgment and thought content normal. Extremities: The unaffected left lower extremity was compared to the contralateral, affected right lower extremity and showed no obvious deformity, no tenderness, no swelling, no skin wound, and normal range of motion/motor/sensory function with warm well perfused digits distally. right Lower Extremity: Exam shows no wounds or lesions over the affected area. Motor was intact EHL/FHL/GS/AT as evidenced by flexing and extending great toe, dorsiflexing and plantarflexing ankle. Quad/hamstring/Hip flexion were intact as evidenced by flexing and extending knee, raising the leg off the bed at the hip. Sensation to light touch was intact and symmetric to contralateral side over all toes distally. Digits were warm and well perfused distally. Imaging - Radiographs of an AP pelvis and 2 views of the Right hip was reviewed which reveal joint space narrowing, osteophyte formation, sclerosis and subchondral cyst formation Assessment/Plan: 85 year old female with right hip pain secondary to degenerative joint disease 1. In light of the patient's above mentioned condition, and following discussion of various treatment options, surgical management was elected for treatment of her condition. Following discussion of the indications, contraindications, risks, benefits, and potential complications the patient agreed to the procedure and consent was obtained. 2. Consent signed and in chart 3. Correct surgical site is marked 4. Proceed to OR today for right total hip arthroplasty 5. Continue NPO 6. Hold DVT chemoprophylaxis 7. Antibiotics prior to incision 8. Type and screen 9. Plan for postop PT/OT 10. Ortho will continue to follow. Please page with any questions or concerns Jayy Mendoza MD Orthopaedic Surgery 03/14/21 1:26 PM Patient seen and examined, agree with above resident note. Site marked This patient? s prior H&P was reviewed, the patient was examined and no change has occurred in the patient's condition since the prior H&P was completed. Briefly, this is a 85 year old female with right hip pain secondary to severe osteoarthritis. Exam reveals right hip limitation of and pain with ROM. Complete examination/plan noted above. I personally examined the patient and edited and agree with the above findings in the note Assessment/Plan: Conservative treatment for severe right hip osteoarthritis including >12 weeks of PT, NSAIDS, glucosamine/Vit D, ambulatory aids, and weight loss has failed. Further conservative treatment which has been unsuccessful is contraindicated as it would lead to further debility and wor sening deconditioning. Symptoms of pain, difficulty ambulating, increased risk of falling due to poor range of motion and instability/locking/and catching, difficulty standing, difficulty with stair climbing and difficulty with personal hygiene are interfering with patient's lifestyle. Will proceedwith previously discussed right hip arthroplasty Risks, benefits, and alternatives to the surgical procedure were discussed with the patient and present family members. Risks discussed among others but not limited to were: Infection, bleeding/bloodtransfusion, neurovascular damage, prosthetic joint instability, periprosthetic fracture, failure to improve symptoms, venous thrombosis/pulmonary embolism, and anesthesia complications including myocardial infarction, stroke, or even . We also discussed the procedure at length and answered any of the patient's questions. We also discussed the importance of early motion and early active ankle pumps for DVT/PE prevention and demonstrated this to the patient and had active participation as well. Patient understood the treatment plan and all questions were answered. In addition to the standard procedural informed consent, the specific risks related to COVID-19 were also discussed, including the possibility of an infection being present with a negative test, the risk of benjie COVID-19, and the known implications of this infection. See consent form. The patient is admitted with a diagnosis or diagnoses of severe osteoarthritis right hip and current medical/postoperative needs are included below. The patient has the following complex medical factors: No current facility-administered medications on file prior to encounter. Current Outpatient Medications on File Prior to Encounter Medication Sig Dispense Refill ??? acetaminophen (TYLENOL) [...] Take 50 mg by mouth once daily (Patient not taking: Reported on 03/02/2021) ??? Multiple Vitamins-Calcium (ONE-A-DAY WOMENS PO) Take [...] Take 160 mg by mouth once daily Past Medical History: Diagnosis Date ??? Disorder of liver ??? Generalized anxiety disorder ??? Hepatitis C ??? Hypertension ??? Prolapsed uterus Past Surgical History: Procedure Laterality Date ??? OTHER SURGERY prolapse uterus Social History Occupational History ??? Not on file Tobacco Use ??? Smoking status: Former Smoker Quit date: 2004 Years since quittin.9 ??? Smokeless tobacco: Never Used Vaping Use ??? Vaping Use: Never used Substance and Sexual Activity ??? Alcohol use: Yes Alcohol/week: 1.0 standard drink Types: 1 Glasses of wine per week Comment: 3-4 oz wine/evening ??? Drug use: Never ??? Sexual activity: Not on file Family History Problem Relation Name Age of Onset ??? Cancer - Bladder Mother ??? Other - Cardiac Father . Daniela Medina needs to be admitted for 1-2 days postoperatively after total hip/knee arthroplasty for the following reasons: 1. Postoperative monitoring after anesthesia and blood loss > 200cc 2. Postoperative pain control (including intravenous narcotic medications) 3. To complete physical therapy for safe return to patient's previous living conditions including teaching of hip precautions where applicable or to perform knee ROM exercises where applicable 4. Postoperative medical evaluation and care of comorbid conditions by hospitalist team 5. Postoperative monitoring of hemoglobin/hematocrit and to evaluate for transfusion necessity after major orthopaedic surgery Please see resident's note for further details. S SKIMMER documented in this encounter Consult Notes * Rochelle Sorto - 03/20/2021 10:39 AM CSTAssociated Order(s): IP CONSULT TO PASTORAL CARE Gear Shaver Set Up Operator visited with patient today per consult for communion. Patient was sitting in her recliner as she had completed PT. Patient was pleasant and welcoming of business continuity coordinator's visit. Gear Shaver Set Up Operator provided supportive presence, attentive listening, and engaged patient in conversation about her andrea. Patient expressed feelings of not having enough andrea. Patient has been unable to attend [facility] due to the pandemic. Gear Shaver Set Up Operator provided prayer and communion for patient and will offer communion daily. Patient stated she has been fully vaccinated, received her COVID booster, and the flu shot as well.Patient reports no other emotional/spiritual concerns at this time and was grateful for business continuity coordinator's visit. Pastoral Care remains available as needed/requested. Rochelle Sorto Gear Shaver Set Up Operator [facility] Pastoral Care pager - Call [phone] (Mon-Fri: 7AM - 9PM and Sat/Sun 7AM - 3PM). Pastoral Care poured concrete wall technician pager - Call [phone] (outside of the times listed above) and enter a 10 digit call back number. Please allow the poured concrete wall technician business continuity coordinator 30 minutes to arrive to the hospital. S SKIMMER * Vivian Don MSW - 03/17/2021 12:44 PM CSTAssociated Order(s): IP CONSULT TO MACHINE PRECISION ENGRAVER Social Work Progress Note SW following to assist w/rehab placement. Pt has been referred to [facility]. If pt has insurance otherthan Medicaid, pt will need to choose 2-3 SNFs as a b/u option in the event not accepted or approved for [facility]. CM will provide pt w/SNF list and SW will send referrals if/when needed. Please refer to SW/CM notes for updates. Discharge Plan Disposition: [facility] vs [facility] Transportation: TBD Anticipated Discharge Date: TBD Contacts: Extended Emergency Contact Information Primary Emergency Contact: Judd Medina Address: [address] [place] [address] Relation: Son Secondary Emergency Contact: Alex Medina Relation: Daughter Comments: Pt admitted for right hip pain for degenerative joint disease. Name/Phone number: RADHA Momin [phone] S SKIMMER * Arti Mtz RN - 03/17/2021 12:32 PM CSTAssociated Order(s): IP CONSULT TO PHYSICAL MED AND REHAB [facility] following. Will continue to follow for medical stability as well as ability to tolerate/participate in two therapies for possible admission acute rehab upon DC. Thank you for the referral. Arti Mtz RN, BSN Clinical Liaison [facility] [phone] S SKIMMER documented in this encounter OR Notes * Brief Op Note - Jayy Mendoza MD - 03/16/2021 9:42 AM CST Brief Op Note Procedure: ARTHROPLASTY TOTAL HIP Patient Name: Daniela Medina Date of Service: 03/16/2021 Pre-Op Diagnosis: Right hip OA Post-Op Diagnosis: same Surgeon(s) and Role: * Ivan Aranda MD - Primary Parcel Post Order Clerk(s): Jayy Mendoza PGY4, Bebo Stockton MS3 Anesthesia Type: general ETT Complications: none Findings: significant wear with osteophytes EBL: 300 mL Urine Output : none IV Fluid Intake: see anesthesia record Drains: * No LDAs found * Specimen(s): * No specimens in log * Implant(s): Implant Name Type Inv. Item Serial No. Picker Box Operator Lot No. LRB No. Used Action Shell Actb 54Mm Hip 3 Hl Por R3 Std Shell Actb 54Mm Hip 3 Hl Por R3 Std [employer] [id number] Right 1 Implanted Screw 6.5Mm 40Mm Sphrcl Head Hip Actb Screw 6.5Mm 40Mm Sphrcl Head Hip Actb [employer] [id number] Right 1 Implanted Dual Mobility Liner Oxinium DH [employer] [id number] Right 1 Implanted Dual Mobility Insert XLPE [employer] [id number] Right 1 Implanted POLARSTEM Stem Standard with Ti/DEJESUS [employer] [id number] Right 1 Implanted Hd Fem Oxidized 03/14 Tapr +0 28Mm Hd Fem Oxidized 03/14 Tapr +0 28Mm [employer] [id number] Right 1 Implanted Jayy Mendoza MD S SKIMMER * Operative - Ivan Aranda MD - 03/16/2021 8:02 AM CST DATE OF SURGERY: 03/16/2021 PREOP DX: Severe osteoarthritis right hip POSTOP DX: Severe osteoarthritis right hip PROCEDURE: 1. Right total hip arthroplasty SURGEON: Randy Aranda MD MAGNETO SPECIALIST(S): Jayy Mendoza MD ANESTHESIA: GET INDICATIONS FOR PROCEDURE: Pt is an 85 y/o who presented to clinic for severe right hip pain. Conservative measures were exhausted including NSAIDs, weight loss, vitamin D and glucosamine/chondroitinsupplementation, activity modification, physical therapy, and pain medications. Xrays revealed severe osteoarthritis with joint space narrowing, sclerosis, and osteophyte formation with limb shortening. Risks, benefits, and alternatives to the surgical procedure were discussed with the patient and present family members. Risks discussed among others were: Infection, bleeding/blood transfusion, skyla rovascular damage, prosthetic joint instability, failure to improve [...] the treatment plan and all questions were answered, consent was obtained. PROCEDURE: Patient was brought to the OR and induced under general anesthesia then placed in the left side down lateral decubitus position with an axillary roll on the left chest wall and the left leg well padded. The right arm was also supported and well padded. The pegboard was used for lateral positioning. The patient was given preoperative antibiotics per the SCIP protocol. Patient received 1g tranexamic acid prior to the start of the procedure and another gram at closure to decrease bloodloss. After an appropriate timeout verifying surgical site and patient allergies/comorbidities, theright hip was prepped and draped in the usual sterile fashion using alcohol and chloraprep. A #10 blade was used to make the posterolateral incision. Electrocautery was used to dissect down to the fascia. The fascia was split proximally and distally and gluteus grady was split in line with its fibers proximally. The Charnley retractor was placed deep to the fascia. The sciatic nerve was palpated and identified but was not formally dissected out to avoid devascularization. The short external ro tators and capsule were removed from the proximal femur in the usual fashion as a continuous sleevewith electrocautery protecting the abductors with a no-name retractor. The hip was then internally rotated and dislocated. The femoral neck cut was made according to preoperative templating. The femoral neck retractor was placed deep to the femoral neck and a sharp hohmann retractor was placed to protect the abductors. The box osteotome was used to remove the lateral femoral neck bone. The entry reamer was used to enter the femoral canal. The canal was suctioned throughout the case prior to instrumentation to avoid embolization. The hip was thoroughly irrigated throughout the case with antibiotic impregnated saline. Sequential broaching was then undertaken starting with the entry broach andbroached up to a size 3 which gave excellent fit and fill of the proximal femur and excellent axialand rotational stability. Attention was then directed to the acetabulum. A rent was created in the anterior capsule with a curved clamp and a sharp cobra retractor was placed directly on bone over the anterior rim of the acetabulum to retract the femur anteriorly. All soft tissue was then removed from the base and peripheryof the acetabulum. The capsule was tagged posteriorly for retraction. Sequential reaming was then undertaken starting first medially to the medial wall up to a size 53mm in the position of 40 degreesof abduction and 25 degrees of anteversion. Good bleeding bone was circumferential in the acetabulum and all soft tissue was cleared for component impaction. The acetabular component size 54 was thenimpacted in the position of 40 degrees of abduction and 25 degrees of anteversion using the guide from the set as well as anatomic landmarks including the sciatic notch posteriorly. A trial liner wasplaced. The standard neck was placed and a +0 head size 28/42 +0 dual mobility given her age and cognitive dysfunction and risk of instability. The hip was reduced and taken through a range of motion - the hip was stable at 90 degrees of flexion with internal rotation past 60 degrees without subluxation. At 30 degrees of flexion and adduction of the knee it was stable to internal rotation past 60 degrees. The hip had full extension and abduction without impingement. The hip was stable anteriorly to external rotation. Limb lengths were clinically equal. Trials were removed, a screw was drilled for andmeasured in the acetabulum to ensure it was within bone. The hip thoroughly irrigated and the acetabular component size was 54mm, the acetabular liner was then impacted. Osteophytes were removed fromthe periphery of the cup with an osteotome to prevent impingement. The femoral broach was removed and the canal irrigated and suctioned. The stem was then impacted size 3. The head was then placed size 28/42 +0. Hip was again taken through a range of motion after reduction and the hip was stable asnoted previously. Thorough irrigation with the above solution and dilute betadine solution with 35cc betadine solution in 1000cc of saline (3 minute soak) was followed by sprinkling of 1 g vancomycinin the soft tissues. The short external rotators were repaired back the the posterior femur with #3 vicryl sutures and the fascia closed with 1 stratafix running barbed suture followed by 2-0 vicryl for the sub Q and skin zoraida for the skin. An aquacel dressing was then placed. 30 cc 1/2 % marcaine with epi was infiltrated in the joint and periarticular tissues during closure. The patient was placed into an abduction pillow and awakened from general anesthesia then taken to recovery room in stable condition. There were no complications. In recovery the patient had a palpable DP pulse and could dorsiflex and plantarflex the ankles and toes, indicating good neurovascular function. SPECIMENS: None. DRAINS: None. COMPLICATIONS: None ESTIMATED BLOOD LOSS: 400cc DISPOSITION: TO RR in stable condition POSTOP PLAN: Pt will be up in the AM WBAT and will be maintained on posterior hip precautions with physical therapy. IMPLANTS - noncemented titanium femoral component with oxinium (ceramicized metal head with ceramiccoating) femoral head inside highly cross linked polyethylene large head inside oxinium liner inside titanium noncemented acetabular shell Implant Name Type Inv. Item Serial No. Picker Box Operator Lot No. LRB No. Used Action Shell Actb 54Mm Hip 3 Hl Por R3 Std Shell Actb 54Mm Hip 3 Hl Por R3 Std [employer] [id number] Right 1 Implanted Screw 6.5Mm 40Mm Sphrcl Head Hip Actb Screw 6.5Mm 40Mm Sphrcl Head Hip Actb [employer] [id number] Right 1 Implanted Dual Mobility Liner Oxinium [employer] [id number] Right 1 Implanted Dual Mobility Insert XLPE [employer] [id number] Right 1 Implanted POLARSTEM Stem Standard with Ti/DEJESUS [facility] [id number] Right 1 Implanted Hd Fem Oxidized 03/14 Tapr +0 28Mm Hd Fem Oxidized 03/14 Tapr +0 28Mm [facility] [employer] [facility] [id number] Right 1 Implanted COUNTS: Sponge and needle counts were correct at the end of procedure and I was present for the entire case. Ivan Aranda MD S SKIMMER documented in this encounter Plan of Treatment Scheduled Orders Name Type Priority Associated Diagnoses Order Schedule INITIATE RT BRONCHODILATOR PROTOCOL Respiratory Care Routine ONCE for 1 Occurrences starting 03/16/2021 until 03/16/2021 documented as of this encounter Goals Goal Patient Goal Type Associated Problems Recent Progress Patient-Stated? Author Medication Management General On track( 020 11:28 AM CDT) Analisa Diallo, RN Note: Expected end date: ongoing Interventions: Complete Hepatitis C therapy as prescribed documented as of this encounter Procedures Procedure Name Priority Date/Time Associated Diagnosis Comments CARDIAC RHYTHM STRIP ORDER 03/23/2021 11:45 AM DROSS SKIMMER APHERESIS/TRANSFUSI ON ORDER 03/23/2021 11:45 AM DROSS SKIMMER IMAGING/RADIOLOGY/X RAY RESULTS ORDER 03/22/2021 4:49 PM DROSS SKIMMER SARS-COV-2 (COVID-19) RAPID STAT 03/21/2021 11:52 AM DROSS SKIMMER Primary osteoarthritis of right hip HEMOGLOBIN AM Draw 03/18/2021 3:54 AM DROSS SKIMMER Primary osteoarthritis of right hip HEMOGLOBIN AM Draw 03/17/2021 2:32 AM DROSS SKIMMER Primary osteoarthritis of right hip XR PELVIS 1 OR 2VW STAT 03/16/2021 10:40 AM DROSS SKIMMER Primary osteoarthritis of right hip BLOOD TYPE VERIFICATION Routine 03/16/2021 6:56 AM DROSS SKIMMER NM TOTAL HIP REPLACEMENT 03/16/2021 6:35 AM DROSS SKIMMER Diagnosis unknown Special Needs NEEDS UREÑA AND NEPHEW--REP. (ALEX Wynne # [phone]) NOTIFIED BY SURGEON PER OFFICE (LISS)--02/17 KWCase confirmed with Alex 03-14-2021-MAB documented in this encounter Results * CARDIAC RHYTHM STRIP ORDER (03/23/2021 11:45 AM DROSS SKIMMER) Narrative 03/23/2021 11:45 AM DROSS SKIMMER Ordered by an unspecified provider. Scanned Document CARDIAC SERVICES ORD ERABLES * APHERESIS/TRANSFUSION ORDER (03/23/2021 11:45 AM DROSS SKIMMER) Narrative 03/23/2021 11:45 AM DROSS SKIMMER Ordered by an unspecified provider. Scanned Document NURSING - VITAL SIGN S AND ASSESSMENT * IMAGING RADIOLOGY XRAY RESULTS ORDER (03/22/2021 4:49 PM DROSS SKIMMER) Anatomical Region Laterality Modality Other Narrative 03/22/2021 4:49 PM DROSS SKIMMER Ordered by an unspecified provider. Scanned Document IMAGING * SARS-COV-2 (COVID-19) RAPID (03/21/2021 11:52 AM DROSS SKIMMER) COVID-19 PCR Not detected Not detected 03/21/20 12:[address] [facility] Microbiology SPECIMEN FROM NASOPHARYNGEAL STRUCTURE / Unknown Collection / Unknown 03/21/2021 11:52 AM DROSS SKIMMER 03/21/2021 11:59 AM DROSS SKIMMER N[address] [facility] - 03/21/2021 12:42 PM DROSS SKIMMER The Cepheid Xpert Xpress SARS-COV-2 has been [...] LAB - MICROBIOLOGY ORDERABLES Performing Organization Address [facility] Co de Phone Number [facility] [address] [place] [address] [phone] * (ABNORMAL) HEMOGLOBIN (03/18/2021 3:54 AM DROSS SKIMMER) Hemoglobin 7.6(L) 12.0 - 15.6 gm/dL 03/18/2021 4:[address] [facility] Blood BLOOD SPECIMEN / Unknown Lab Venipuncture / Unknown 03/18/2021 3:54 AM DROSS SKIMMER 03/18/2021 4:21 AM DROSS SKIMMER Ivan Aranda MD LAB - HEMATOLOGY OR DERABLES Performing Organization Address [facility] de Phone Number [facility] [address] [place] [address] [phone] * (ABNORMAL) HEMOGLOBIN (03/17/2021 2:32 AM DROSS SKIMMER) Hemoglobin 8.4(L) 12.0 - 15.6 gm/dL 03/17/2021 3:[address] [facility] Blood BLOOD SPECIMEN / Unknown Lab Venipuncture / Unknown 03/17/2021 2:32 AM DROSS SKIMMER 03/17/2021 3:40 AM DROSS SKIMMER vIan Aranda MD LAB - HEMATOLOGY OR DERABLES Performing Organization Address [facility] Co de Phone Number [facility] [address] [place] [address] [phone] * XR PELVIS 1 OR 2 VW (IN PACU) (03/16/2021 10:40 AM DROSS SKIMMER) Anatomical Region Laterality Modality Pelvis Radiographic Nicci ging 03/16/2021 10:5 3 AM DROSS SKIMMER Impressions 03/16/2021 10:55 AM DROSS SKIMMER A status post right total hip arthroplasty which appears uncomplicated. Alignment is anatomic. *Reading Radiologist: Samson Gallardo on 03/16/2021 at 10:55 AM Narrative 03/16/2021 10:55 AM DROSS SKIMMER XR PELVIS, AP VIEW. HISTORY: Unilateral primary osteoarthritis, right hip COMPARISON: 03/02/2021. FINDINGS: In the interval since the prior study, a right total hip arthroplasty was performed. The acetabular component is transfixed to the adjacent ilium with a single screw. The femoral component is not cemented. The position of the prosthesis is optimal. There is mild abduction of right hip without evidence of rotation. Soft tissue air and surgical skin zoraida on lateral aspect of the hip indicate the recent surgery. Vascular calcifications in bilateral superficial femoral arteries are noted. The appearance of the left hip and the remainder of bony pelvis has not changed. Procedure Note Samson Gallardo MD - 03/16/2021 XR PELVIS, AP VIEW. HISTORY: Unilateral primary osteoarthritis, right hip COMPARISON: 03/02/2021. FINDINGS: In the interval since the prior study, a right total hip arthroplasty was performed. The acetabular component is transfixed to the adjacent ilium with a single screw. The femoral component is not cemented. The position of the prosthesis is optimal. There is mild abduction of right hip without evidence of rotation. Soft tissue air and surgical skin zoraida on lateral aspect of the hip indicate the recent surgery. Vascular calcifications in bilateral superficial femoral arteries are noted. The appearance of the left hip and the remainder of bony pelvis has not changed. IMPRESSION A status post right total hip arthroplasty which appears uncomplicated. Alignment is anatomic. *Reading Radiologist: Samson Gallardo on 03/16/2021 at 10:55 AM Ivan Aranda MD DIAGNOSTIC IMAGING ORDERABLES * BLOOD TYPE VERIFICATION (03/16/2021 6:56 AM DROSS SKIMMER) ABO Rh A POS 03/16/2021 7:[address] [facility] Blood Bank BLOOD SPECIMEN / Unknown Venipuncture / Unknown 03/16/2021 6:56 AM DROSS SKIMMER 03/16/2021 7:02 AM DROSS SKIMMER Ivan Lucas DO LAB - BLOOD BANK ORD ERABLES [facility] [address] [place] [address], [facility] [phone] documented in this encounter Visit Diagnoses Diagnosis Primary osteoarthritis of right hip- Primary Primary localized osteoarthrosis, pelvic region and thigh Primary osteoarthritis of right hip Primary localized osteoarthrosis, pelvic region and thigh Diagnosis unknown Other unknown and unspecified cause of morbidity or mortality documented in this encounter Administered Medications Inactive Administered Medications - up to 3 most recent administrations Medication Order MAR Action Action Date Dose Rate Site 0.9% NaCl infusion at 75 mL/hr, Intravenous, CONTINUOUS, Starting on Sat03/16/21 at 0945, Until [place] 03/19/21 at 1730, Post-op $ New Bag/Syringe 03/18/2021 10:34 PM DROSS SKIMMER 75 mL/hr $ New Bag/Syringe 03/17/2021 9:25 PM DROSS SKIMMER 75 mL/ hr $ New Bag/Syringe 03/17/2021 6:21 AM DROSS SKIMMER 75 mL/ hr 0.9% NaCl irrigation 1,000 mL with povidone-iodine (Betadine) 35 mL irrigation PRN, Starting on Sat03/16/21 at 0917, Until Sat03/16/21 at 1022, Intra-op $ Given 03/16/2021 9:17 AM DROSS SKIMMER 1,035 mL Operative Site acetaminophen (Tylenol) tablet 1,000 mg 1,000 mg, Oral, EVERY 6 HOURS, 20 doses, First dose on Sat03/16/21 at 1200, Last dose on Sat03/21/21 at 0700, Post-op $ Given 03/21/2021 12:39 AM DROSS SKIMMER 1,000 mg $ Given 03/20/2021 6:17 PM DROSS SKIMMER 1,000 mg $ Given 03/20/2021 1:07 PM DROSS SKIMMER 1,000 mg acetaminophen (Tylenol) tablet 500 mg 500 mg, Oral, EVERY 4 HOURS PRN, Mild Pain, Starting on Sat03/21/21 at 0603, Until Sat03/21/21 at 1522 amLODIPine (Norvasc) tablet 5 mg 5 mg, Oral, 2 TIMES DAILY, First dose on Sat03/16/21 at 2100, Until Discontinued $ Given 03/21/2021 9:45 AM DROSS SKIMMER 5 mg $ Given 03/20/2021 9:34 PM DROSS SKIMMER 5 mg $ Given 03/20/2021 9:26 AM DROSS SKIMMER 5 mg aspirin chew tablet 81 mg 81 mg, Oral, 2 TIMES DAILY, First dose on Sat03/16/21 at 2100, Until Discontinued, Post-op $ Given 03/21/2021 9:44 AM DROSS SKIMMER 81 mg $ Given 03/20/2021 9:33 PM DROSS SKIMMER 81 mg $ Given 03/20/2021 9:26 AM DROSS SKIMMER 81 mg bisacodyl (Dulcolax) suppository 10 mg 10 mg, Rectal, DAILY PRN, Constipation, Starting on Sat03/16/21 at 0937, Until Sat03/21/21 at 1522, Use MOM first. If MOM ineffective then use bisacodyl. If bisacodyl ineffective use Fleets enema. Use rectally if oral is ineffective, or patient is unable to take oral medications, Post-op bisacodyl EC (Dulcolax) tablet 5 mg 5 mg, Oral, DAILY PRN, Constipation, Starting on Sat03/16/21 at 0937, Until Sat03/21/21 at 1522, Use MOM first. If MOM ineffective then use bisacodyl. If bisacodyl ineffective use Fleets enema., Post-op budesonide-formoterol (Symbicort) 160-4.5 MCG/ACT inhaler 2 puff 2 puff, Inhalation, EVERY 12 HOURS, First dose on Sat03/16/21 at 2100, Until Discontinued, Rinse mouth after usage . WASTE DISPOSAL INSTRUCTION: Send to Pharmacy for Disposal. . $ Given 03/21/2021 8:54 AM DROSS SKIMMER 2 puffs $ Given 03/20/2021 9:36 PM DROSS SKIMMER 2 puffs $ Given 03/20/2021 8:52 AM DROSS SKIMMER 2 puffs bupivacaine PF (Marcaine PF) 0.5 % injection PRN, Starting on Sat03/16/21 at 0917, Until Sat03/16/21 at 1022, Intra-op $ Given 03/16/2021 9:17 AM DROSS SKIMMER 30 mL Ope rative Site calcium tablet 500 mg 500 mg, Oral, DAILY, First dose on Sat03/17/21 at 0900, Until Discontinued $ Given 03/21/2021 9:45 AM DROSS SKIMMER 500 mg $ Given 03/20/2021 9:27 AM DROSS SKIMMER 500 mg $ Given 03/19/2021 9:28 AM DROSS SKIMMER 500 mg calcium-vitamin D (Os-Gonzalez 250 Plus D 125 Units) tablet 1 tablet 1 tablet, Oral, DAILY WITH BREAKFAST, First dose on Sat03/17/21 at 0800, Until Discontinued $ Given 03/21/2021 9:48 AM DROSS SKIMMER 1 tablet $ Given 03/20/2021 9:26 AM DROSS SKIMMER 1 tablet $ Given 03/19/2021 9:29 AM DROSS SKIMMER 1 tablet ceFAZolin (Ancef) 2,000 mg in 50 ml IVPB 2,000 mg (2 g), at 100 mL/hr, Intravenous, EVERY 8 HOURS, 3 doses, First dose on Sat03/16/21 at 1330, Last dose on Sat03/17/21 at 0530, Indication for anti-infective therapy: Surgical prophylaxis, Post-op $ New Bag/Syringe 03/17/2021 6:22 AM DROSS SKIMMER 2,000 mg 100 mL/hr $ New Bag/Syringe 03/16/2021 11:00 PM DROSS SKIMMER 2,000 mg 100 m L/hr $ New Bag/Syringe 03/16/2021 2:54 PM DROSS SKIMMER 2,000 mg 100 mL /hr celecoxib (CeleBREX) capsule 100 mg 100 mg, Oral, 2 TIMES DAILY, First dose on Sat03/16/21 at 2100, Until Discontinued $ Given 03/21/2021 9:45 AM DROSS SKIMMER 100 mg $ Given 03/20/2021 9:33 PM DROSS SKIMMER 100 mg $ Given 03/20/2021 9:26 AM DROSS SKIMMER 100 mg celecoxib (CeleBREX) capsule 200 mg 200 mg, Oral, PRE-OP ONCE, 1 dose, On Sat03/16/21 at 0615, Pre-op $ Given 03/16/2021 6:56 AM DROSS SKIMMER 200 mg docusate sodium (Colace) capsule 100 mg 100 mg, Oral, 2 TIMES DAILY, 730 doses, First dose on Sat03/16/21 at 0945, Last dose on Sat03/15/22 at 2100, Post-op $ Given 03/21/2021 9:44 AM DROSS SKIMMER 100 mg $ Given 03/20/2021 9:33 PM DROSS SKIMMER 100 mg $ Given 03/20/2021 9:27 AM DROSS SKIMMER 100 mg famotidine (Pepcid) tablet 20 mg 20 mg, Oral, 2 TIMES DAILY, 730 doses, First dose on Yaz 03/16/21 at 0945, Last dose on Yaz 03/15/22 at 2100, Post-op $ Given 03/21/2021 9:44 AM DROSS SKIMMER 20 mg $ Given 03/20/2021 9:33 PM DROSS SKIMMER 20 mg $ Given 03/20/2021 9:27 AM DROSS SKIMMER 20 mg gentamicin (Garamycin) 280 mg in 0.9% NaCl IV 100 mL IVPB 280 mg, at 200 mL/hr, Intravenous, PRE-OP ONCE, 1 dose, On Yaz 03/16/21 at 0615, Indication for anti-infective therapy: Surgical prophylaxis, Pre-op $ New Bag/Syringe 03/16/2021 6:57 AM DROSS SKIMMER 280 mg 200 mL/hr HYDROcodone-acetaminophen ([place]) 5-325 MG tablet 1 tablet 1 tablet, Oral, EVERY 4 HOURS PRN, Moderate Pain, Starting on 03/21/21 at 0603, Until 03/21/21 at 1522 HYDROcodone-acetaminophen ([place]) 5-325 MG tablet 2 tablet 2 tablet, Oral, EVERY 4 HOURS PRN, Severe Pain, Starting on 03/21/21 at 0603, Until 03/21/21 at 1522 lactated ringers infusion at 20 mL/hr, Intravenous, PRE-OP CONTINUOUS, Starting on Yaz 03/16/21 at 0615, Until Yaz 03/16/21 at 1237, Pre-op $ New Bag/Syringe 03/16/2021 8:34 AM DROSS SKIMMER $ New Bag/Syringe 03/16/2021 6:57 AM DROSS SKIMMER 20 mL/ hr lidocaine PF (Xylocaine MPF) 1 % injection 0.2 mL 0.2 mL, Infiltration, PRE-OP MULTIPLE, 3 doses, Starting on Yaz 03/16/21 at 0613, Until Yaz 03/16/21 at 1237, May be used (0.2 ml locally to anesthetize prior to insertion)., Pre-op $ Given 03/16/2021 6:56 AM DROSS SKIMMER 0.2 mL loratadine (Claritin) tablet 10 mg 10 mg, Oral, DAILY, First dose on Sat03/17/21 at 0900, Until Discontinued $ Given 03/21/2021 9:45 AM DROSS SKIMMER 10 mg $ Given 03/20/2021 9:26 AM DROSS SKIMMER 10 mg $ Given 03/19/2021 9:29 AM DROSS SKIMMER 10 mg LORazepam (Ativan) tablet 0.5 mg 0.5 mg, Oral, DAILY PRN, Anxiety, Starting on Sat03/16/21 at 0716, Until Sat03/21/21 at 1522 $ Given 03/18/2021 8:22 PM DROSS SKIMMER 0.5 mg $ Given 03/16/2021 11:05 PM DROSS SKIMMER 0.5 mg magnesium hydroxide (Milk Of Magnesia) suspension 30 mL 30 mL, Oral, DAILY PRN, Constipation, Starting on Sat03/16/21 at 0937, Until Sat03/21/21 at 1522, Use MOM first. If MOM ineffective then use bisacodyl. If bisacodyl ineffective use Fleets enema. Shake well before using., Post-op $ Given 03/20/2021 1:11 PM DROSS SKIMMER 30 mL pzssoucz-oxltbtggao-fekbzihqi (Neosporin) topical ointment Topical, 3 TIMES DAILY, First dose on Sat03/21/21 at 0900, Until Discontinued, Apply to right inner groin area of redness $ Given 03/21/2021 11:43 AM DROSS SKIMMER ondansetron (disintegrating) (Zofran ODT) tablet 4 mg 4 mg, Oral, EVERY 6 HOURS PRN, Nausea/Vomiting, Starting on Sat03/16/21 at 0937, Until Sat03/21/21 at 1522, Dissolved orally on tongue Dissolved orally on tongue, Post-op ondansetron (Zofran) injection 4 mg 4 mg, Intravenous, EVERY 6 HOURS PRN, Nausea/Vomiting, Starting on Sat03/16/21 at 0937, Until Sat03/21/21 at 1522, Administer IV if patient is NPO, actively vomiting, or unable to swallow., Post-op oxybutynin CR 24hr (Ditropan-XL) tablet 10 mg 10 mg, Oral, DAILY, First dose on Sat03/17/21 at 0900, Until Discontinued, Do not crush, chew, or cut in half. $ Given 03/21/2021 9:44 AM DROSS SKIMMER 10 mg $ Given 03/20/2021 9:27 AM DROSS SKIMMER 10 mg $ Given 03/19/2021 9:30 AM DROSS SKIMMER 10 mg oxyCODONE (immediate release) (Roxicodone) tablet 5 mg 5 mg, Oral, EVERY 4 HOURS PRN, Mild Pain, Moderate Pain, Starting on Sat03/16/21 at 0937, Until Sat03/21/21 at 0603, Post-op $ Given 03/18/2021 9:57 AM DROSS SKIMMER 5 mg $ Given 03/17/2021 9:21 AM DROSS SKIMMER 5 mg prochlorperazine (Compazine) injection 5 mg 5 mg, Intravenous, EVERY 6 HOURS PRN, Nausea/Vomiting, Starting on Sat03/16/21 at 0937, Until Sat03/21/21 at 1522, If no relief from ondansetron (ZOFRAN), use prochlorperazine (COMPAZINE) in addition to ondansetron., Post-op prochlorperazine (Compazine) injection 5 mg 5 mg, Intramuscular, EVERY 6 HOURS PRN, Nausea/Vomiting, Starting on Sat03/16/21 at 0937, Until Sat03/21/21 at 1522, If no relief from ondansetron (ZOFRAN), use prochlorperazine (COMPAZINE) in addition to ondansetron. Use IM route if IV is unavailable., Post-op sertraline (Zoloft) tablet 25 mg 25 mg, Oral, DAILY, First dose on Sat03/17/21 at 0900, Until Discontinued, Avoid concurrent administration with grapefruit juice $ Given 03/21/2021 9:45 AM DROSS SKIMMER 25 mg $ Given 03/20/2021 9:26 AM DROSS SKIMMER 25 mg $ Given 03/19/2021 9:28 AM DROSS SKIMMER 25 mg sodium phosphate rectal (Fleet) enema 133 mL 133 mL (1 enema), Rectal, DAILY PRN, Constipation, Starting on Sat03/16/21 at 0937, Until Sat03/21/21 at 1522, Use MOM first. If MOM ineffective then use bisacodyl. If bisacodyl ineffective use Fleets enema., Post-op sulfamethoxazole-trimethoprim (Bactrim DS; Septra DS) 800-160 MG tablet 1 tablet 1 tablet, Oral, EVERY 12 HOURS, 14 doses, First dose on Sat03/21/21 at 0715, Last dose on Sat03/27/21 at 2100, Indication for anti-infective therapy: Surgical prophylaxis $ Given 03/21/2021 9:44 AM DROSS SKIMMER 1 tablet valsartan (Diovan) tablet 160 mg 160 mg, Oral, DAILY, First dose on Sat03/17/21 at 0900, Until Discontinued $ Given 03/21/2021 9:44 AM DROSS SKIMMER 160 mg $ Given 03/20/2021 9:27 AM DROSS SKIMMER 160 mg $ Given 03/19/2021 9:29 AM DROSS SKIMMER 160 mg vancomycin (Vancocin) 1 g in 0.9% NaCl irrigation 3,000 mL irrigation PRN, Starting on Sat03/16/21 at 0917, Until Yaz 03/16/21 at 1022, Intra-op $ Given 03/16/2021 9:17 AM DROSS SKIMMER 2,500 mL Operative Site vancomycin (Vancocin) injection PRN, Starting on Sat03/16/21 at 0900, Until Yaz 03/16/21 at 1022, Intra-op $ Given 03/16/2021 9:00 AM DROSS SKIMMER 1,000 mg Operative Site documented in this encounter Active and Recently Administered Medications Times are shown in DROSS SKIMMER. Scheduled Medication Order 03/19/2021 03/20/2021 03/21/2021 acetaminophen (Tylenol) tablet 1,000 mg (CANCELED) 1,000 mg, Oral, EVERY 6 HOURS, 20 doses, First dose on Sat03/16/21 at 1200, Last dose on Sat03/21/21 at 0700, Post-op 0131 ($ Given - Provider: Myles Patino RN)0640 ($ Given - Provider: Myles Patino RN)1420 ($ Given - Provider: Shama Herrmann RN)1856 ($ Given - Provider: Shama Herrmann RN) 0106 ($ Given - Provider: Myles Patino RN)0621 ($ Given - Provider: Myles Patino RN)1307 ($ Given - Provider: Tami Deleon, CORWIN)1817 ($ Given - Provider: Tami Deleon RN) 0039 ($ Given - Provider: Garett Ledezma RN) amLODIPine (Norvasc) tablet 5 mg 5 mg, Oral, 2 TIMES DAILY, First dose on Yaz 03/16/21 at 2100, Until Discontinued 0928 ($ Given - Provider: Shama Herrmann RN)211 ($ Given - Provider: Myles Patino RN) 09 ($ Given - Provider: Tami Deleon, CORWIN)213 ($ Given - Provider: Garett Ledezma, CORWIN) 0945 ($ Given - Provider: Tami Deleon RN) aspirin chew tablet 81 mg 81 mg, Oral, 2 TIMES DAILY, First dose on Yaz 03/16/21 at 2100, Until Discontinued, Post-op 0930 ($ Given - Provider: Shama Herrmann RN)211 ($ Given - Provider: Myles Patino RN) 09 ($ Given - Provider: Tami Deleon RN)213 ($ Given - Provider: Garett Ledezma, CORWIN) 0944 ($ Given - Provider: Tami Deleon RN) budesonide-formoterol (Symbicort) 160-4.5 MCG/ACT inhaler 2 puff 2 puff, Inhalation, EVERY 12 HOURS, First dose on Sat03/16/21 at 2100, Until Discontinued, Rinse mouth after usage . WASTE DISPOSAL INSTRUCTION: Send to Pharmacy for Disposal. . 0934 ($ Given - Provider: Jade Evangelista RCP)2141 ($ Given - Provider: Neida Gonzalez RCP) 0852 ($ Given - Provider: Sara Casper RCP)2135 ($ Given - Provider: Kala Beach RCP) 0854 ($ Given - Provider: Sara Casper RCP) calcium tablet 500 mg 500 mg, Oral, DAILY, First dose on Sat03/17/21 at 0900, Until Discontinued 09 ($ Given - Provider: Shama Herrmann RN) 0927 ($ Given - Provider: Tami Deleon RN) 0945 ($ Given - Provider: Tami Deleon RN) calcium-vitamin D (Os-Gonzalez 250 Plus D 125 Units) tablet 1 tablet 1 tablet, Oral, DAILY WITH BREAKFAST, First dose on Sat03/17/21 at 0800, Until Discontinued 0929 ($ Given - Provider: Shama Herrmann RN) 09 ($ Given - Provider: Tami Deleon RN) 0948 ($ Given - Provider: Tami Deleon RN) celecoxib (CeleBREX) capsule 100 mg 100 mg, Oral, 2 TIMES DAILY, First dose on Sat03/16/21 at 2100, Until Discontinued 927 ($ Given - Provider: Shama Herrmann RN)2117 ($ Given - Provider: Myles Patino RN) 09 ($ Given - Provider: Tami Deleon RN)2132 ($ Given - Provider: Garett Ledezma RN) 0945 ($ Given - Provider: Tami Deleon RN) docusate sodium (Colace) capsule 100 mg 100 mg, Oral, 2 TIMES DAILY, 730 doses, First dose on Sat03/16/21 at 0945, Last dose on Sat03/15/22 at 2100, Post-op 28 ($ Given - Provider: Shama Herrmann RN)2117 ($ Given - Provider: Myles Patino RN) 09 ($ Given - Provider: Tami Deleon RN)2132 ($ Given - Provider: Garett Ledezma RN) 0944 ($ Given - Provider: Tami Deleon RN) famotidine (Pepcid) tablet 20 mg 20 mg, Oral, 2 TIMES DAILY, 730 doses, First dose on Sat03/16/21 at 0945, Last dose on Sat03/15/22 at 2100, Post-op 0928 ($ Given - Provider: Shama Herrmann RN)2117 ($ Given - Provider: Myles Patino RN) 09 ($ Given - Provider: Tami Deleon RN)213 ($ Given - Provider: Garett Ledezma RN) 0944 ($ Given - Provider: Tami Deleon RN) loratadine (Claritin) tablet 10 mg 10 mg, Oral, DAILY, First dose on Sat03/17/21 at 0900, Until Discontinued 09 ($ Given - Provider: Shama Herrmann RN) 09 ($ Given - Provider: Tami Deleon RN) 0945 ($ Given - Provider: Tami Deleon RN) rjzgynig-vkgqqewdxm-uehhr yxin (Neosporin) topical ointment Topical, 3 TIMES DAILY, First dose on Sat03/21/21 at 0900, Until Discontinued, Apply to right inner groin area of redness 1143 ($ Given - Provider: Tami Deleon RN) oxybutynin CR 24hr (Ditropan-XL) tablet 10 mg 10 mg, Oral, DAILY, First dose on Sat03/17/21 at 0900, Until Discontinued, Do not crush, chew, or cut in half. 09 ($ Given - Provider: Shama Herrmann RN) 09 ($ Given - Provider: Tami Deleon RN) 0944 ($ Given - Provider: Tami Deleon RN) sertraline (Zoloft) tablet 25 mg 25 mg, Oral, DAILY, First dose on Sat03/17/21 at 0900, Until Discontinued, Avoid concurrent administration with grapefruit juice 09 ($ Given - Provider: Shama Herrmann RN) 09 ($ Given - Provider: Tami Deleon RN) 0945 ($ Given - Provider: Tami Deleon RN) sulfamethoxazole-trimetho prim (Bactrim DS; Septra DS) 800-160 MG tablet 1 tablet 1 tablet, Oral, EVERY 12 HOURS, 14 doses, First dose on Sat03/21/21 at 0715, Last dose on Sat03/27/21 at 2100, Indication for anti-infective therapy: Surgical prophylaxis 09 ($ Given - Provider: Tami Deleon RN) valsartan (Diovan) tablet 160 mg 160 mg, Oral, DAILY, First dose on Sat03/17/21 at 0900, Until Discontinued 09 ($ Given - Provider: Shama Herrmann RN) 09 ($ Given - Provider: Tami Deleon RN) 0944 ($ Given - Provider: Tami Deleon RN) PRN Medication Order 03/19/2021 03/20/2021 03/21/2021 acetaminophen (Tylenol) tablet 500 mg(Linked Group 1) 500 mg, Oral, EVERY 4 HOURS PRN, Mild Pain, Starting on Sat03/21/21 at 0603, Until Sat03/21/21 at 1522 albuterol HFA (Proventil; Ventolin; Proair) 108 (90 Base) MCG/ACT inhaler 1 puff 1 puff, Inhalation, EVERY 6 HOURS PRN, Shortness of Breath, Wheezing, Starting on Yaz 03/16/21 at 0714, Until Sat03/21/21 at 1522, Shake well before using. WASTE DISPOSAL INSTRUCTION: Send to Pharmacy for Disposal. bisacodyl (Dulcolax) suppository 10 mg(Linked Group 2) 10 mg, Rectal, DAILY PRN, Constipation, Starting on Sat03/16/21 at 0937, Until Sat03/21/21 at 1522, Use MOM first. If MOM ineffective then use bisacodyl. If bisacodyl ineffective use Fleets enema. Use rectally if oral is ineffective, or patient is unable to take oral medications, Post-op 1311 (See Alternative - Provider: Tami Deleon RN) bisacodyl EC (Dulcolax) tablet 5 mg(Linked Group 2) 5 mg, Oral, DAILY PRN, Constipation, Starting on Yaz 03/16/21 at 0937, Until Sat03/21/21 at 1522, Use MOM first. If MOM ineffective then use bisacodyl. If bisacodyl ineffective use Fleets enema., Post-op 1311 (See Alternative - Provider: Tami Deleon RN) HYDROcodone-acetaminophen ([place]) 5-325 MG tablet 1 tablet(Linked Group 1) 1 tablet, Oral, EVERY 4 HOURS PRN, Moderate Pain, Starting on Sat03/21/21 at 0603, Until Tu03/21/21 at 1522 HYDROcodone-acetaminophen ([place]) 5-325 MG tablet 2 tablet(Linked Group 1) 2 tablet, Oral, EVERY 4 HOURS PRN, Severe Pain, Starting on Sat03/21/21 at 0603, Until Sat03/21/21 at 1522 LORazepam (Ativan) tablet 0.5 mg 0.5 mg, Oral, DAILY PRN, Anxiety, Starting on Yaz 03/16/21 at 0716, Until Sat03/21/21 at 1522 magnesium hydroxide (Milk Of Magnesia) suspension 30 mL(Linked Group 2) 30 mL, Oral, DAILY PRN, Constipation, Starting on Sat03/16/21 at 0937, Until Sat03/21/21 at 1522, Use MOM first. If MOM ineffective then use bisacodyl. If bisacodyl ineffective use Fleets enema. Shake well before using., Post-op 1311 ($ Given - Provider: Tami Deleon RN) ondansetron (disintegrating) (Zofran ODT) tablet 4 mg 4 mg, Oral, EVERY 6 HOURS PRN, Nausea/Vomiting, Starting on Sat03/16/21 at 0937, Until Sat03/21/21 at 1522, Dissolved orally on tongue Dissolved orally on tongue, Post-op ondansetron (Zofran) injection 4 mg 4 mg, Intravenous, EVERY 6 HOURS PRN, Nausea/Vomiting, Starting on Yaz 03/16/21 at 0937, Until Sat03/21/21 at 1522, Administer IV if patient is NPO, actively vomiting, or unable to swallow., Post-op prochlorperazine (Compazine) injection 5 mg 5 mg, Intravenous, EVERY 6 HOURS PRN, Nausea/Vomiting, Starting on Yaz 03/16/21 at 0937, Until Sat03/21/21 at 1522, If no relief from ondansetron (ZOFRAN), use prochlorperazine (COMPAZINE) in addition to ondansetron., Post-op prochlorperazine (Compazine) injection 5 mg 5 mg, Intramuscular, EVERY 6 HOURS PRN, Nausea/Vomiting, Starting on Yaz 03/16/21 at 0937, Until Sat03/21/21 at 1522, If no relief from ondansetron (ZOFRAN), use prochlorperazine (COMPAZINE) in addition to ondansetron. Use IM route if IV is unavailable., Post-op sodium phosphate rectal (Fleet) enema 133 mL(Linked Group 2) 133 mL (1 enema), Rectal, DAILY PRN, Constipation, Starting on Yaz 03/16/21 at 0937, Until Sat03/21/21 at 1522, Use MOM first. If MOM ineffective then use bisacodyl. If bisacodyl ineffective use Fleets enema., Post-op 1311 (See Alternative - Provider: Tami Deleon RN) Linked Groups Order Group 1: acetaminophen (Tylenol) tablet 500 mgJump to med 500 mg, Oral, EVERY 4 HOURS PRN, Mild Pain, Starting on Sat03/21/21 at 0603, Until Sat03/21/21 at 1522 Or HYDROcodone-acetaminophen ([place]) 5-325 MG tablet 1 tabletJump to med 1 tablet, Oral, EVERY 4 HOURS PRN, Moderate Pain, Starting on Sat03/21/21 at 0603, Until Sat03/21/21 at 1522 Or HYDROcodone-acetaminophen ([place]) 5-325 MG tablet 2 tabletJump to med 2 tablet, Oral, EVERY 4 HOURS PRN, Severe Pain, Starting on Sat03/21/21 at 0603, Until Sat03/21/21 at 1522 Group 2: magnesium hydroxide (Milk Of Magnesia) suspension 30 mLJump to med 30 mL, Oral, DAILY PRN, Constipation, Starting on Yaz 03/16/21 at 0937, Until Sat03/21/21 at 1522, Use MOM first. If MOM ineffective then use bisacodyl. If bisacodyl ineffective use Fleets enema. Shake well before using., Post-op Or bisacodyl EC (Dulcolax) tablet 5 mgJump to med 5 mg, Oral, DAILY PRN, Constipation, Starting on Yaz 03/16/21 at 0937, Until Sat03/21/21 at 1522, Use MOM first. If MOM ineffective then use bisacodyl. If bisacodyl ineffective use Fleets enema., Post-op Or bisacodyl (Dulcolax) suppository 10 mgJump to med 10 mg, Rectal, DAILY PRN, Constipation, Starting on Yaz 03/16/21 at 0937, Until Sat03/21/21 at 1522, Use MOM first. If MOM ineffective then use bisacodyl. If bisacodyl ineffective use Fleets enema. Use rectally if oral is ineffective, or patient is unable to take oral medications, Post-op Or sodium phosphate rectal (Fleet) enema 133 mLJump to med 133 mL (1 enema), Rectal, DAILY PRN, Constipation, Starting on Yaz 03/16/21 at 0937, Until Sat03/21/21 at 1522, Use MOM first. If MOM ineffective then use bisacodyl. If bisacodyl ineffective use Fleets enema., Post-op documented in this encounter Care Teams Blast Setter Relationship Specialty Start Date End Date Kirby Vogel MD [address] [place] [phone] PCP - General Family Medicine 01/26/19 documented as of this encounter
--- OUTSIDE RECORDS SUMMARY | 2024-04-02 20:22 | XMS_ITS | Encounter Summary ---
Author Organization [facility] Address [address] [place] [address] Care Team Providers Care Machine Puller Over Name Role Phone Kirby Vogel MD Primary Care Provider +1- [phone] Encounter Details Date Type Department Care Team (Late st Contact Info) Description 04/24/2021 Orders Only [facility] - Orthoped[facility] [address] [facility] [place] [phone] Ivan Aranda MD [address] [facility] [address] [place] [address] Primary osteoarthritis of right hip Social History Tobacco Use Types Packs/Day Years [...] PELVIS 1 OR 2VW (04/25/2021 12:45 PM INTERMEDIATE PROJECT MANAGER) Anatomical Region Laterality Modality Pelvis Radiographic Nicci ging 04/25/2021 1:06 PM INTERMEDIATE PROJECT MANAGER Impressions 04/25/2021 1:08 PM INTERMEDIATE PROJECT MANAGER IMPRESSION: Interval right total hip arthroplasty. This report was electronically signed by SPIKE PATE MD ??on 04/25/2021 1:08 PM . Narrative 04/25/2021 1:08 PM INTERMEDIATE PROJECT MANAGER Exam: XR HIP RIGHT 2VW XR PELVIS [...] RIGHT 2VW OR MORE (04/25/2021 12:45 PM INTERMEDIATE PROJECT MANAGER) Anatomical Region Laterality Modality Pelvis, Lower Extremity Radiogra phic Imaging 04/25/2021 1:06 PM INTERMEDIATE PROJECT MANAGER Impressions 04/25/2021 1:08 PM INTERMEDIATE PROJECT MANAGER IMPRESSION: Interval right total hip arthroplasty. This report was electronically signed by SPIKE PATE MD ??on 04/25/2021 1:08 PM . Narrative 04/25/2021 1:08 PM INTERMEDIATE PROJECT MANAGER Exam: XR HIP RIGHT 2VW XR PELVIS [...] thigh documented in this encounter Care Teams Machine Puller Over Relationship Specialty Start Date End Date Kirby Vogel MD [address] [place] [phone] PCP - General Family Medicine 01/26/19 documented as of this encounter
--- OUTSIDE RECORDS SUMMARY | 2024-04-02 20:22 | XMS_ITS | Encounter Summary ---
Author Organization [facility] Address [address] [place] [address] Care Team Providers Care Patient Care Secretary Name Role Phone Kirby Vogel MD Primary Care Provider +1- [phone] Reason for Visit * Reason Onset Date Comments Results 12/08/2019 Encounter Details Date Type Department Care Team (Late st Contact Info) Description 12/08/2019 Telephone [facility] [address] [place] [address], [facility] [place] [phone] Marina Araujo APRN-CNP [address] [place] [address] [place] [phone] Results Social History Tobacco Use Types Packs/Day [...] Telephone Encounter - Marina Araujo APRN-CNP - 12/08/2019 9:58 AM CDT Left a message on patient phone to call the clinic regarding her test results . Her HCV RNA is not detected at end of treatment. She will need to check HCV RNA in 3 months to see if she has obtained SVR documented in this encounter Plan of Treatment [...] on filedocumented in this encounter Care Teams Patient Care Secretary Relationship Specialty Start Date End Date Kirby Vogel MD [address] [place] [phone] PCP - General Family Medicine 01/26/19 documented as of this encounter
--- OUTSIDE RECORDS SUMMARY | 2024-04-02 20:22 | XMS_ITS | Encounter Summary ---
Author Organization [facility] Address [address] [place] [address] Care Team Providers Care Firefighting Equipment Specialist Name Role Phone Kirby Vogel MD Primary Care Provider +1- [phone] Encounter Details Date Type Department Care Team (Latest Contact Info) Description 06/12/2019 Travel Social History Tobacco Use Types Packs/Day [...] on filedocumented in this encounter Care Teams Firefighting Equipment Specialist Relationship Specialty Start Date End Date Kirby Vogel MD [address] [place] [phone] PCP - General Family Medicine 01/26/19 documented as of this encounter
--- OUTSIDE RECORDS SUMMARY | 2024-04-02 20:22 | XMS_ITS | Encounter Summary ---
Author Organization [facility] Address [address] [place] [address] Care Team Providers Care Workforce Specialist Name Role Phone Kirby Vogel MD Primary Care Provider +1- [phone] Reason for Visit * Reason Comments Hepatitis C Encounter Details Date Type Department Care Team (Late st Contact Info) Description 10/27/2019 3:30 PM CDT Video Visit [facility] - [address] [place] [address], [place] [phone] Marina Araujo APRN-CNP [address] [place] [address] [place] [phone] Chronic hepatitis C without hepatic coma (HCC) [...] as of this encounter Progress Notes * Marina Araujo APRN-CNP - 10/27/2019 3:05 PM CDT Telemedicine Note Patient Verification & [...] year old female who presents at the [facility] [place] today for a follow up visit for hepatitis C. She started epclusa .09/01/2019 She is on 7 weeks of treatment. She is sheltering at home. She states he family does not wish her to leave Her home She is complaining of back right hip and sciatic pain. She denies any fatigue, abdominal pain ,nausea for vomiting Chief Complaint Patient presents with ??? Hepatitis C Patient Active Problem List: Essential hypertension Depression Pulmonary emphysema Chronic hepatitis C without hepatic coma Past Medical History: Diagnosis Date ??? Disorder of liver ??? Generalized anxiety disorder ??? Hepatitis C ??? Hypertension ??? Prolapsed uterus No past surgical history on file. History: Patient denies any new medical or family history Treatment: responding to epclusa. Social History Social History Socioeconomic History ??? [...] Last attempt to quit: 2005 Years since quittin.5 ??? Smokeless tobacco: Never Used Substance and [...] file Gets together: Not on file Attends church service: Not on file Active member of [...] She describes her current average alcohol consumption asa glass of wine per night I have reviewed with her regarding her Medical, Social and Family history and I have updated and corrected these sections of his [facility] electronic health record based on my [...] mouth 2 times daily as needed ??? meloxicam (MOBIC) 15 [...] 1 tablet by mouth once daily ??? SYMBICORT 160-4.5 MCG/ACT inhaler Inhale 2 puffs by mouth every 12 hours ??? valsartan (DIOVAN) 80 MG tablet Take 80 mg by mouth once daily No current facility-administered medications for this visit. I have reviewed and confirmed with Ms. Medina her current medications, allergies, social history. Review of systems: HEENT: normal Appetite: good Fatigue: yes Chest pain: none. Shortness of breath: none. Nausea and vomiting: none. Abdominal pain: none . Reflux or GERD symptoms: none. Constipation or diarrhea: none. Edema: None Musculoskeletal pain: back hip and sciatic pain Skin: rashes none Depression: she denies that [...] Laboratory test results: Recent Labs Component Name 09/29/19 1052 04/13/19 1640 SODIUM 139 139 POTASSIUM 4.8 4.4 CHLORIDE 100 105 CO2 28 22 BUN 28* 23 CREATININE 0.94 0.96 GLUCOSE 84 99 CALCIUM 10.5* 10.3 ALBUMIN 4.3 4.4 ALKPHOS 89 85 ALT 15 45* AST 23 42* TBIL 0.4 0.5 TPROT 7.4 7.2 EGFR 56* 55* . Recent Labs Component Name 09/29/19 1052 04/13/19 1640 WBC 7.1 7.3 RBC 4.52 4.96 HGB 13.6 14.4 HCT 39.6 43.1 MCV 88 87 MCHC 34.3 33.4 PLTCOUNT 238 228 MONOCYTPCT 13 7 EOSINPCT 2 2 LYMPHABS 1.7 1.8 MONOCYTABS 1.0* 0.5 BASOABS 0.0 0.0 IMMGRANSABS 0.0 0.0 Recent Labs Component Name 09/29/19 1052 04/13/19 1640 ALBUMIN 4.3 4.4 Recent Labs Component Name 04/13/19 1640 INR 0.9 Recent Labs Component Name 09/29/19 1052 04/13/19 1640 ALBUMIN 4.3 4.4 Recent Labs Component Name 09/29/19 1052 04/13/19 1640 TBIL 0.4 0.5 ALKPHOS 89 85 ALT 15 45* AST 23 42* ALBUMIN 4.3 4.4 SODIUM 139 139 POTASSIUM 4.8 4.4 CO2 28 22 CREATININE 0.94 0.96 BUN 28* 23 HGB 13.6 14.4 WBC 7.1 7.3 PLTCOUNT 238 228 INR - 0.9 HCV RNA detected < I have reviewed the laboratory studies with Ms. Medina I spent 25 minutes with the patient, greater than 50% of the time was spent with counseling and coordination of care discussing the need to take the epclusa for the entire 12 weeks we discussed that she is responding to treatment My impression is that Ms. Medina has chronic hepatitis C/ Cirrhosis Plan: Ms. Medina is to continue therapy consisting of epclusa for a total of 12 weeks . She is to get her labs at end of treatment and 1-2 weeks before her appointment. She is to follow up in the clinic in end of January the first of March She was instructed to call the clinic if she has any questions or concerns. The plan was reviewed with the patient and the patient confirmed understanding of the plan and all follow-up steps. Impression: Sincerely, Marina Araujo SENIOR LABEL SPECIALIST [address] [place] [address] Collaborating Physican Bud Plaza MD [address] [place] [address] Address letter to: Kirby Vogel MD [address] [place] [phone] documented in this encounter Plan of Treatment [...] Primary documented in this encounter Care Teams Workforce Specialist Relationship Specialty Start Date End Date Kirby Vogel MD [address] [place] [phone] PCP - General Family Medicine 01/26/19 documented as of this encounter
--- OUTSIDE RECORDS SUMMARY | 2024-04-02 20:22 | XMS_ITS | Encounter Summary ---
Author Organization [facility] Address [address] [place] [address] Care Team Providers Care Early Childhood Services Coordinator Name Role Phone Kirby Vogel MD Primary Care Provider +1- [phone] Reason for Visit * Reason Onset Date Comments Follow-up 03/07/2020 Encounter Details Date Type Department Care Team (Late st Contact Info) Description 03/07/2020 Telephone [facility] [address] [place] [address], [place] [phone] Marina Araujo APRN-ALLY [address] [place] [address] [place] [phone] Follow-up Social History Tobacco Use Types Packs/Day [...] Telephone Encounter - Marina Araujo APRN-CNP - 03/07/2020 10:26 AM RUNNER MAN Spoke with patients brigette Whaley His mothers' visit was to be seen in the clinic but we can make it a phone visit. will need to speak with the clinic and someone will call him back with the change to a phone visit. Then we will avani his mother ER MAN documented in this encounter Plan of Treatment Not on file documented as of this encounter Goals Goal Patient Goal Type Associated Problems Recent Progress Patient-Stated? Author Medication Management General On track( 020 11:28 AM CDT) Anailsa Diallo, RN Note: Expected end date: ongoing Interventions: Complete Hepatitis C therapy as prescribed documented as of this encounter Visit Diagnoses Not on filedocumented in this encounter Care Teams Early Childhood Services Coordinator Relationship Specialty Start Date End Date Kirby Vogel MD [address] [place] [phone] PCP - General Family Medicine 01/26/19 documented as of this encounter
--- OUTSIDE RECORDS SUMMARY | 2024-04-02 20:22 | XMS_ITS | Encounter Summary ---
Author Organization [facility] Address [address] [place] [address] Care Team Providers Care Tow Picker Name Role Phone Kirby Vogel MD Primary Care Provider +1- [phone] Reason for Visit * Reason Comments Appointment Encounter Details Date Type Department Care Team (Late st Contact Info) Description 08/11/2019 Telephone [facility] [address] [place], [place] [phone] Brittany Roldan Appointment Social History Tobacco Use [...] * Telephone Encounter - Brittany Roldan - 08/11/2019 9:37 AM CDT Attempt to schedule patient for phone visit with Marina Araujo patient did not answer left patient a message to return my call in clinic documented in this encounter Plan of Treatment [...] on filedocumented in this encounter Care Teams Tow Picker Relationship Specialty Start Date End Date Kirby Vogel MD [address] [place] [phone] PCP - General Family Medicine 01/26/19 documented as of this encounter
--- OUTSIDE RECORDS SUMMARY | 2024-04-02 20:22 | XMS_ITS | Encounter Summary ---
Author Organization [facility] Address [address] [place] [address] Care Team Providers Care Bullet Assembly Press Operator Name Role Phone Kirby Vogel MD Primary Care Provider +1- [phone] Encounter Details Date Type Department Care Team (Late st Contact Info) Description 10/30/2019 Orders Only [facility] - [address], [place] [phone] Analisa Bryant, technical services assistant hepatitis C without hepatic coma (HCC) Social [...] Diagnosis Comments HEPATITIS C RNA QUANTITATIVE Routine 12/03/2019 2:17 PM CDT Chronic hepatitis C without hepatic coma (HCC) CBC W AUTO DIFFERENTIAL Routine 12/03/2019 2:17 PM CDT Chronic hepatitis C without hepatic coma (HCC) COMPREHENSIVE METABOLIC PANEL Routine 12/03/2019 2:17 PM CDT Chronic hepatitis C without hepatic coma (HCC) documented in this encounter Results * HEPATITIS C RNA QUANTITATIVE (12/03/2019 2:17 PM CDT) Pathologist [facility] Hepatitis C Virus Quantitation HCV Not Detected [...] Resulting Agency Comment Lab Testing performed at: [address] ??[facility] [id number] Marina Araujo HEALTHCARE ADMINISTRATOR-CEMENT FINISHING SUPERVISOR LAB - CHEMIS TRY ORDERABLES [facility] INSURANCE BILL [address] [place] [address] * (ABNORMAL) COMPREHENSIVE METABOLIC PANEL (12/03/2019 2:17 PM CDT) Pathologist [facility] Glucose 96 65 - 99 mg/dL [facility] [...] Resulting Agency Comment Lab Testing performed at: [facility] [address] ??[facility] [id number] Marina Araujo HEALTHCARE ADMINISTRATOR-CEMENT FINISHING SUPERVISOR LAB - CHEMIS TRY ORDERABLES [facility] INSURANCE BILL [address] [place] [address] * CBC WITH DIFFERENTIAL (12/03/2019 2:17 PM [...] Resulting Agency Comment Lab Testing performed at: [facility] ??[facility] [id number] Marina Araujo HEALTHCARE ADMINISTRATOR-CEMENT FINISHING SUPERVISOR LAB - HEMATO LOGY ORDERABLES [facility] INSURANCE BILL [address] [place] [address] documented in this encounter Visit Diagnoses Diagnosis Chronic hepatitis C without hepatic coma (HCC) documented in this encounter Care Teams Bullet Assembly Press Operator Relationship Specialty Start Date End Date Kirby Vogel MD [address] [place] [phone] PCP - General Family Medicine 01/26/19 documented as of this encounter
--- OUTSIDE RECORDS SUMMARY | 2024-04-02 20:22 | XMS_ITS | Encounter Summary ---
Author Organization [facility] Address [address] [place] [address] Care Team Providers Care Jewelry Store Manager Name Role Phone Kirby Vogel MD Primary Care Provider +1- [phone] Reason for Visit * Reason Onset Date Comments Results 03/03/2021 Encounter Details Date Type Department Care Team (Late st Contact Info) Description 03/03/2021 Telephone [facility] [address] [place], [place] [phone] Manju Banuelos, RN Results Social History Tobacco Use Types Packs/Day [...] encounter Miscellaneous Notes * Telephone Encounter - Manju Banuelos, RN - 03/03/2021 11:55 AM ROTARY DRYER OPERATOR Spoke with patient's daughter, Latia, who states patient has hx of UTI but no symptoms at this time. Sent macrobid to take x5 days, will follow cx. RY DRYER OPERATOR documented in this encounter Plan of [...] on filedocumented in this encounter Care Teams Jewelry Store Manager Relationship Specialty Start Date End Date Kirby Vogel MD [address] [place] [phone] PCP - General Family Medicine 01/26/19 documented as of this encounter
--- OUTSIDE RECORDS SUMMARY | 2024-04-02 20:22 | XMS_ITS | Encounter Summary ---
Author Organization [facility] Address [address] [place] [address] Care Team Providers Care Robot Programmer Name Role Phone Kirby Vogel MD Primary Care Provider [phone] Reason for Visit * Auth/Cert Specialty Diagnoses / Procedures Referred By Dominick mauricio Referred To Contact Diagnoses Diagnosis unknown Diagnosis unknown [R69] Procedures ARTHROPLASTY TOTAL HIP Referral ID Status Reason Start Date Expiration Date Visits Re quested Visits Authorized [id number] 1 1 Encounter Details Date Type Department Care Team (Latest Contact Info) Description 03/16/2021 5:54 AM WELDER APPRENTICE GAS - 03/21/2021 1:30 PM [facility] Hospital Encounter [facility] 2 ORTHO/NEW VIS [address] [place] [address] Ivan Aranda MD [address] [facility] [address] [place], [place] [id number] Surgery General Discharge Disposition: Rehab:Inpatient Social History Tobacco Use Types Packs/Day Years [...] Comments Blood Pressure 150/77 03/21/2021 9:53 AM WELDER APPRENTICE GAS Pulse 73 03/21/2021 9:53 AM WELDER APPRENTICE GAS Temperature 36.6 ??C (97.8 ??F) 03/21/2021 9:53 AM CS T Respiratory Rate 18 03/21/2021 9:53 AM WELDER APPRENTICE GAS Oxygen Saturation 96% 03/21/2021 9:53 AM WELDER APPRENTICE GAS Inhaled Oxygen Concentration - - Weight 70.3 kg (155 lb) 03/16/2021 6:39 AM WELDER APPRENTICE GAS Height 165.1 cm (5' 5 ) 03/16/2021 6:39 AM WELDER APPRENTICE GAS Body Mass Index 25.79 03/16/2021 6:39 AM WELDER APPRENTICE GAS documented in this encounter Discharge Summaries * [...] HYDROcodone-acetaminophen 5-325 MG tablet Commonly known as: Dayton Quantity Dispensed: 42 tablet Take 1 (one) tablet by mouth every 4 hours as needed for Pain (Take for moderate-severe pain only. Alternate with tylenol for mild pain.) Kyler Joshi MD zjsdloim-fzjaeulbbp-yasyttopi 400-5-5000 topical ointment Commonly known as: Neosporin [...] Pain (Take for mild pain. Alternate with Dayton for moderate-severe pain.) Maximum allowable Acetaminophen amount [...] diagnosis is: Status post right hip replacement [[id number]] No special diet needed Resume your normal [...] Answer Comments Follow Up Instructions: Please call [phone] to make a follow-up appointment in [address] Aranda. ER APPRENTICE GAS documented in this encounter Medications at Time of Discharge Medication Sig Dispensed Refills Start Date End Date acetaminophen (TYLENOL) 500 MG tablet Take 1 (one) tablet by mouth every 4 hours as needed for Pain (Take for mild pain. Alternate with Dayton for moderate-severe pain.) Maximum allowable Acetaminophen amount = 4 Grams (4000 mg) / 24 hours. 03/16/2021 albuterol HFA (PROVENTIL; VENTOLIN; PROAIR) 108 (90 Base) MCG/ACT inhaler TAKE 1 PUFF BY MOUTH EVERY 6 HOURS NEEDED FOR SHORTNESS OF BREATH 12/20/2020 amLODIPine (NORVASC) 5 MG tablet Take 5 mg by mouth 2 times daily 02/26/2019 aspirin (ASPIRIN) 81 MG chew tabletIndications:Prim kalya osteoarthritis of right hip Take 1 (one) [...] WOMENS PO) Take by mouth once daily wwombktj-xeyguegioh-zs lymyxin (NEOSPORIN) 400-5-5000 topical ointment Apply to [...] of this encounter Progress Notes * Tami Deleon RN - 03/21/2021 1:30 PM CST Discharge orders received and initiated. Report called to accepting facility and given to nurse. Discharged to [facility]. To lobby per wc. Accompanied by son and hosp staff member.No c/o voiced ER APPRENTICE GAS * Vivian Don MSW - 03/21/2021 11:23 AM CST Facility Transfer Note Level of Care: Skilled Rehab Payor Source: Managed Care Plan Facility Name: (include name of person confirming admission):[facility]: [phone] (f) [phone] , [place] Made Aware of Special Needs (if applicable): N/A RN Call Report to: [phone] Danielle cummings RN Fax D/C Orders to: [phone] Transportation: Family/Friend Certificate of Medical Necessity rationale: n/a Date/time of transfer: 03/21/21, time: 1:00pm Accepting MD: Dr. arnulfo Bhatt Completed and Signed [id number] (if applicable): n/a Family/Other Notified of Transfer (name/phone): Extended Emergency Contact Information Primary Emergency Contact: Judd Medina Address: [address] [place] [address] Relation: Son Secondary Emergency Contact: Alex Medina Relation: Daughter Authorization Skilled Care: auth received Authorization for Transportation:n/a Comments: SW spoke w/ pt's son who will transport pt at d/c. RADHA Momin [phone] ER APPRENTICE GAS * Paula Rodriguez, PT - 03/21/2021 11:22 [...] decrease risk for falls. PT Discharge Recommendations: Intermediate Facility [facility] #[id number] ER APPRENTICE GAS * Arti Mtz RN - 03/21/2021 10:53 AM CST [facility] Acute Rehab update: Per CM, family choice is SNF. AR will withdraw auth. AR will sign off now. Thanks for referral, Arti Mtz RN, BSN Clinical Liaison [facility] [phone] ER APPRENTICE GAS * Michelle Mazariegos RN - 03/21/2021 10:44 AM CST Case Management Progress Note Anticipated level of care at discharge: Acute Rehab Facility, Usp - Skilled Facility Discharge Plan: [facility] Basic Needs Assessment (BNA) Score: 10 Complex Needs Assessment (MANAGING CONSULTANT CLINICAL PROFESSOR) Score: Social Support Domain Score: Medical Status and Health Trajectory Domain Score: Medical Home and Access to Services Domain Score: Nurse Assessment: CM was informed by RETAIL ASSOCIATE MANAGER BILINGUAL that family went around the process of waiting for authorization from AR and had facility to start auth. Patient has been accepted to [facility]. CM has contacted resident for rapid COVID test and discharge orders. Anticipated Discharge Date: Anticipated Discharge Date: 03/20/21 Transportation at Discharge: other (TBD) Transportation to MD:Family Equipment at Home: Equipment At Home: Walker-2 Wheeled;Cane-Straight;Grab Bars;Chair-Shower;Walker-4 Wheeled with Seat;Toilet Seat - Raised;Hand Held Shower Additional DME needed: Pharmacy benefit or affordability concerns: No Patient/Receiver Setter voiced concerns for Food Security/affordability: No Auth Number (if required) NH: DME: Medications: Transportation: Name: Michelle Padilla RN, BSN, MSN, CM ER APPRENTICE GAS * Vivian Don MSW - 03/21/2021 10:39 AM CST Social Work Progress Note SW following for AR b/u. AR following, and submitted auth 03/17/21. SW received a call from [facility] that they have approved the [facility] auth, and started it on 03/20/21 per families request. SW updated CM, and AR liasion. See CM/SW notes for updates. Discharge Plan Disposition: AR vs SNF Transportation: Transportation at discharge: other (TBD) Anticipated Discharge Date: Anticipated Discharge Date: 03/20/21 Contacts: Extended Emergency Contact Information Primary Emergency Contact: Judd Medina Address: [address] [place] [address] Relation: Son Secondary Emergency Contact: Alex Medina Relation: Daughter Comments: Name/Phone number: RADHA Momin [phone] ER APPRENTICE GAS * Tami Deleon RN - 03/21/2021 8:17 AM CST Problem: Pain/Discomfort Goal: Patient exhibits reduced pain/discomfort as evidenced by pain scores Outcome: Progressing Goal: Patient uses pharmacological and non-pharmacological pain management strategies. Outcome: Progressing Goal: Patient verbalizes acceptable level of pain relief and ability to engage in desired activity. Outcome: Progressing ER APPRENTICE GAS * Jayy Mendoza MD - 03/21/2021 6:03 AM CST [facility] Orthopedic Surgery Daily Progress Note Daniela Medina, 85 year old, female : 1935 CSN: [id number] Primary Care Physician: Kirby Vogel MD - [...] on post op day 14 10. Call [phone] to schedule the first follow-up appointment with Dr. Aranda in 4 week(s) or for any questions Jayy Mendoza MD 03/21/2021 6:04 AM ER APPRENTICE GAS * Harriet Liu, PT - 03/20/2021 2:45 [...] via acute rehab post discharge. ascom [id number] ER APPRENTICE GAS * Harriet Liu, PT - 03/20/2021 2:44 PM CST Problem: [...] 0951 by Harriet Liu, PT Outcome: Progressing ER APPRENTICE GAS * Risa Montiel, OT - 03/20/2021 2:01 [...] placed over toilet) ADL Tasks: Feeding: Modified Crane (dentures) Oral Facial Hygiene: Stand By Assist;Minimal Assistance (standing up at sink, steadying) Bathing: Moderate Assistance Upper Body Dressing: Minimal Assistance Lower Body Dressing: Moderate Assistance (using AD, per previous session) Toileting: Minimal Assistance (completes nabila care) RUE Assessment: AROM - Right Upper Extremity: Within Functional Limits Strength - Right Upper Extremity: Within Functional Limits Realty Specialist Strength - Right Upper Extremity: WFL LUE Assessment: AROM - Left Upper Extremity: Within Functional Limits Strength - Left Upper Extremity: Within Functional Limits Realty Specialist Strength - Left Upper Extremity: WFL Activity [...] as pt has tendency to try to pick up man walker during ambulation. Pt completes multiple grooming [...] this serves as the discharge summary. [phone] ER APPRENTICE GAS * Jayy Mendoza MD - 03/20/2021 12:28 PM CST [facility] Orthopedic Surgery Daily Progress Note Daniela Medina, 85 year old, female : 1935 CSN: [id number] Primary Care Physician: Kirby Vogel MD - [...] 14 by home care nurse ?? Call [phone] to schedule the first follow-up appointment with Dr. Aranda in??4??week(s) orfor any questions Jayy Mendoza MD 03/20/2021 12:28 PM ER APPRENTICE GAS * Harriet Liu, PT - 03/20/2021 9:52 [...] prior living situation. Harriet PT ascom [id number] ER APPRENTICE GAS * Harriet Liu PT - 03/20/2021 9:51 [...] ambulation. Description: Posterior CARLIN precautions Outcome: Progressing ER APPRENTICE GAS * Vivian Don MSW - 03/20/2021 9:40 AM CST New Facility Referral Follow-p SW following AR b/u. AR following, and started auth 03/17/21. Per CM/SW huddle pt's son wants SNF refs sent to [facility], and [facility] as b/u/. SW sent refs. See CM/SW notes for updates. Level of Care (SNF/Medicaid NH/Rehab/Mcfp Care/LTACH): AR vs SNF Referrals initiated: Continued Care and Services - Admitted Since 03/16/2021 Destination Service Provider Request Status Selected Services Address Phone Fax Patient Preferred [facility] Pending - Request Sent N/A [address] [address] [phone] -- [facility] Pending - Request Sent N/A [address] [facility] [place] [address] [phone] -- If Medicare-3 day qualifying stay verified: No monitoring facility responses Comments/changes:Extended Emergency Contact Information Primary Emergency Contact: Judd Medina Address: [address] [place] [address] Relation: Son Secondary Emergency Contact: SullyAlex dasilva Relation: Daughter Name: RADHA Momin Phone: RADHA Momin [phone] ER APPRENTICE GAS * Michelle Mazariegos RN - 03/20/2021 9:39 AM CST Case Management Progress Note Anticipated level of care at discharge: Acute Rehab Facility, Usp - Skilled Facility Discharge Plan: AR vs SNF Basic Needs Assessment (BNA) Score: 10 Complex Needs Assessment (MANAGING CONSULTANT CLINICAL PROFESSOR) Score: Social Support Domain Score: Medical Status and Health Trajectory Domain Score: Medical Home and Access to Services Domain Score: Nurse Assessment: Patient admitted for primary osteoarthritis of right hip. Patient is pending authfor AR. CM spoke with patient's son, Judd who has requested as a back SNF selection 1) [facility] 2) [facility]. CM has relayed choices to RETAIL ASSOCIATE MANAGER BILINGUAL. CM will continue to follow for POC and provide additional assistance as needed. Anticipated Discharge Date: Anticipated Discharge Date: 03/20/21 Transportation at Discharge: other (TBD) Transportation to MD:Family Equipment at Home: Equipment At Home: Walker-2 Wheeled;Cane-Straight;Grab Bars;Chair-Shower;Walker-4 Wheeled with Seat;Toilet Seat - Raised;Hand Held Shower Additional DME needed: Pharmacy benefit or affordability concerns: No Patient/Receiver Setter voiced concerns for Food Security/affordability: No Auth Number (if required) NH: DME: Medications: Transportation: Name: Michelle Padilla RN, BSN, MSN, CM ER APPRENTICE GAS * Shama Herrmann RN - 03/19/2021 8:21 PM CST Problem: Pain/Discomfort Goal: Patient exhibits reduced pain/discomfort as evidenced by pain scores 03/19/20212019 by Shama Herrmann RN Outcome: Progressing 03/19/20212019 by Shama Herrmann RN Outcome: Progressing 03/19/20212019 by Shama Herrmann, RN Outcome: Progressing Goal: Patient uses pharmacological and non-pharmacological pain management strategies. 03/19/20212019 by Shama Herrmann RN Outcome: Progressing 03/19/20212019 by Shama Herrmann, CORWIN Outcome: Progressing 03/19/20212019 by Shama Herrmann, RN Outcome: Progressing Goal: Patient verbalizes acceptable [...] by Shama Herrmann RN Outcome: Progressing Goal: Incision is free of infection. 03/19/20212019 by Shama Herrmann RN Outcome: Progressing 03/19/20212019 by Shama Herrmann RN Outcome: Progressing 03/19/20212019 by Shama Herrmann RN Outcome: Progressing Problem: Activity Intolerance/Impaired Mobility Goal: Mobility/activity is maintained at optimum level for patient 03/19/20212019 by Shama Herrmann RN Outcome: Progressing 03/19/20212019 by Shama Herrmann RN Outcome: Progressing Problem: Hip Precautions Goal: Hip precautions are followed 03/19/20212019 by Shama Herrmann RN Outcome: Progressing 03/19/20212019 by Shama Herrmann RN Outcome: Progressing ER APPRENTICE GAS * Moo Ramos, PT - 03/19/2021 1:34 [...] place and intact pre and post visit. Shama OLIVIA, notified of patient's performance/location end of session. [...] as the discharge summary. KIMBERLEE Jimenez [phone] ER APPRENTICE GAS * Shama Herrmann RN - 03/19/2021 11:30 AM CST 1228-1996 Pt is alert and oriented x 4. Up with assist with walker. Dressing intact. Moderate amount of drainage. Pt requesting [facility] for SNF if not accepted to our Rehab. Tylenol for pain. Voiding per bathroom. Had DILEEP. Shama RN ER APPRENTICE GAS * Moo Ramos, PT - 03/19/2021 10:13 [...] as the discharge summary. KIMBERLEE Jimenez [phone] ER APPRENTICE GAS * Patrick Byrnes MD - 03/19/2021 5:51 AM CST [facility] Orthopedic Surgery Daily Progress Note Daniela Medina, 85 year old, female : 1935 CSN: [id number] Primary Care Physician: Kirby Vogel MD - [...] No tub soaks. ??No scrubbing aroundincision. ? Baldwin to be removed on post op day 14 by home care nurse ?? Call [phone] to schedule the first follow-up appointment with Dr. Aranda in??4??week(s) orfor any questions Patrick Byrnes MD 03/19/2021 5:52 AM ER APPRENTICE GAS * Luba Pendleton COTA - 03/18/2021 2:36 [...] and on AE (sock aid, shoe horn, regional director of finance) to perform lower body dressing tasks. Patient [...] independence and safety. KRISTI Langston/Azar x [phone] ER APPRENTICE GAS * Clarissa Guzman, PT - 03/18/2021 12:45 [...] the discharge summary. KIMBERLEE Romo Ascom # [phone] ER APPRENTICE GAS * Clarissa Guzman PT - 03/18/2021 9:30 [...] the discharge summary. KIMBERLEE Romo Ascom # [phone] ER APPRENTICE GAS * Patrick Byrnes MD - 03/18/2021 8:57 AM CST [facility] Orthopedic Surgery Daily Progress Note Daniela Medina, 85 year old, female : 1935 CSN: [id number] Primary Care Physician: Kirby Vogel MD - [...] 14 by home care nurse ?? Call [phone] to schedule the first follow-up appointment with Dr. Aranda in??4??week(s) orfor any questions Patrick Byrnes MD 03/18/2021 8:58 AM ER APPRENTICE GAS * Kendra Jimenez RN - 03/18/2021 3:51 [...] found in the flowsheet documentation) Outcome: Progressing ER APPRENTICE GAS * Michelle Mazariegos RN - 03/17/2021 3:58 PM CST Case Management Initial Assessment Case Management screen completed & Welcome Letter given. Anticipated level of care at discharge: Acute Rehab Facility, Usp - Skilled Facility Discharge Plans: AR vs SNF Basic Needs Assessment (BNA) Score: 10 Assessment completed via phone Lives with: Alone Family Support (name and phone): Extended Emergency Contact Information Primary Emergency Contact: Judd Medina Address: [address] [place] [address] Relation: Son Secondary Emergency Contact: Alex Medina Relation: Daughter Patient or special service representative requests care coordination reach out to [...] of care at discharge: Acute Rehab Facility, Usp - Skilled Facility Transportation at Discharge: other [...] Resources Provided: Not offered to the patient Cottage Cheese Maker Referral: Yes If patient requires HHC at discharge, he/she requests: N/A Will continue to follow. For any questions or needs please contact: Food Mobile Driver Name/Phone number: Michelle Mazariegos RN, BSN, MSN, CM ER APPRENTICE GAS * Arti Mtz RN - 03/17/2021 2:47 PM CST [facility] Acute Rehab update: [facility] auth: Auth initiated @ 241 03/17 Clinical faxed Ref # [id number] Thanks for referral, Arti Mtz RN, BSN Clinical Liaison [facility]hab [facility] [phone] ER APPRENTICE GAS * Christina Stanton, PT - 03/17/2021 2:26 [...] assistance - ed in use of leg capping machine operator Sit to/from stand with min assistance- VC for R LE placement Ambulation: Patient ambulated [...] BID per protocol. Viktoriya PT 7958 03/17/2021 ER APPRENTICE GAS * Christina Stanton, PT - 03/17/2021 9:58 [...] functional impairments. Recommend acute rehab Viktoriya PT 7958 ER APPRENTICE GAS * Didier Benedict, OT - 03/17/2021 9:02 [...] - Right Upper Extremity: Within Functional Limits Realty Specialist Strength: Realty Specialist Strength - Right Upper Extremity: WFL LUE Assessment: AROM - Left Upper Extremity: Within Functional Limits Strength - Left Upper Extremity: Within Functional Limits Realty Specialist Strength: Realty Specialist Strength - Left Upper Extremity: WFL: Basic [...] for Safety;Requires Verbal Cues for Technique (to [facility]) Oxygen Therapy: 2L NC upon OT arrival. [...] in bed and requesting to transfer to [facility]. Pt incontinent again on the floor upon standing. Pt reportsshe typically wears depends at home. Pt required Damion to transfer from EOB>BSC>recliner [id number]. Pt able to complete pericare with Damion, [...] declines AR, pt would require HHOT and 24/ supervision/care. OT Discharge Recommendations: Inpatient Rehab If this is the last Occupational Therapy visit, this serves as the discharge summary. ANAMIKA Velásquez, OTR/L [phone] ER APPRENTICE GAS * Jayy Mendoza MD - 03/17/2021 7:40 AM CST [facility] Orthopedic Surgery Daily Progress Note Daniela Medina, 85 year old, female : 1935 CSN: [id number] Primary Care Physician: Kirby Vogel MD - [...] 14 by home care nurse ?? Call [phone] to schedule the first follow-up appointment with Dr. Aranda in 4 week(s) or for any questions Jayy Mendoza MD 03/17/2021 7:40 AM ER APPRENTICE GAS * Christina Stanton, PT - 03/16/2021 2:32 PM CST Physical Therapy Evaluation PT orders received. Chart reviewed for diagnosis and medical systems review. Nursing consented for PT. Explained purpose of PT and patient consented to participate in therapy. Sp R CARLIN. Posterior precautions. WBAT Son at bedside. Reports he and his sister will assist with patient's care at [place]. they are able to provide 22/10 care. [...] PT Discharge Recommendations: To Be Determined Viktoriya PT 7958 ER APPRENTICE GAS * Jayy Mendoza MD - 03/16/2021 9:43 [...] this patient, please page myself through the metal buggy operator or amion from 6AM-5PM. After 5PM, please page ortho logistics operations manager via amion. Thank you! Please give the following instructions [...] tub soaks. No scrubbing around incision. ?? Baldwin to be removed on post op day 14 by home care nurse ?? Call [phone] to schedule the first follow-up appointment with Dr. Aranda in 4 week(s) or for any questions ER APPRENTICE GAS documented in this encounter H&P Notes * Ivan Aranda MD - 03/14/2021 1:26 PM CST [facility] H&P Note Daniela Medina, 85 year old, female : 1935 CSN: [id number] Diagnosis/Procedures 1.) right hip pain secondary to [...] Sodium (ALEVE) 220 MG ??? nystatin (MYCOSTATIN) 903383 UNIT/GM powder ??? oxybutynin CR 24hr (DITROPAN-XL) [...] Former Smoker Quit date: 2005 Years since quittin.9 ??? Smokeless tobacco: Never [...] Please see resident's note for further details. ER APPRENTICE GAS documented in this encounter Consult Notes * Rochelle Sorto - 03/20/2021 10:39 AM CSTAssociated Order(s): IP CONSULT TO PASTORAL CARE Emergency Dispatch Operator visited with patient today per consult for communion. Patient was sitting in her recliner as she had completed PT. Patient was pleasant and welcoming of sandwich and drink cart operator's visit. Emergency Dispatch Operator provided supportive presence, attentive listening, and engaged patient in conversation about her andrea. Patient expressed feelings of not having enough andrea. [facility]. Emergency Dispatch Operator provided prayer and communion for patient and will offer communion daily. Patient stated she has been fully vaccinated, received her COVID booster, and the flu shot as well.Patient reports no other emotional/spiritual concerns at this time and was grateful for sandwich and drink cart operator's visit. Pastoral Care remains available as needed/requested. Rochelel Sorto Emergency Dispatch Operator [place] Past[facility] pager - Call [phone] (Mon-Fri: 7AM - 9PM and Sat/Sun 7AM - 3PM). Pastoral Care logistics operations manager pager - Call [phone] (outside of the times listed above) and enter a 10 digit call back number. Please allow the logistics operations manager sandwich and drink cart operator 30 minutes to arrive to the hospital. ER APPRENTICE GAS * Vivian Don MSW - 03/17/2021 12:44 PM CSTAssociated Order(s): IP CONSULT TO MUSIC THEORY PROFESSOR Social Work Progress Note SW following to assist w/rehab placement. Pt has been referred to [facility] AR. If pt has insurance otherthan Medicaid, pt will need to choose 2-3 SNFs as a b/u option in the event not accepted or approved for AR. CM will provide pt w/SNF list and SW will send referrals if/when needed. Please refer to SW/CM notes for updates. Discharge Plan Disposition: AR vs [facility] SNF Transportation: TBD Anticipated Discharge Date: TBD Contacts: Extended Emergency Contact Information Primary Emergency Contact: CarolJudd Address: [address] [place] [address] Relation: Son Secondary Emergency Contact: Alex Medina Relation: Daughter Comments: Pt admitted for right hip pain for degenerative joint disease. Name/Phone number: Lazarokarolina Don, RADHA [phone] ER APPRENTICE GAS * Arti Mtz RN - 03/17/2021 12:32 PM CSTAssociated Order(s): IP CONSULT TO PHYSICAL MED AND REHAB [facility] Rehab following. Will continue to follow for medical stability as well as ability to tolerate/participate in two therapies for possible admission acute rehab upon DC. Thank you for the referral. Arti Mtz, RN, BSN Clinical Liaison [facility] [phone] ER APPRENTICE GAS documented in this encounter OR Notes * Brief Op Note - Jayy Mendoza MD - 03/16/2021 9:42 AM CST Brief Op Note Procedure: ARTHROPLASTY TOTAL HIP Patient Name: Daniela Medina Date of Service: 03/16/2021 Pre-Op Diagnosis: Right hip OA Post-Op Diagnosis: same Surgeon(s) and Role: * Ivan Aranda MD - Primary Mechanical Engineering Specialist(s): Jayy Mendoza PGY4, Bebo Stockton MS3 Anesthesia Type: general ETT Complications: none Findings: significant wear with osteophytes EBL: 300 mL Urine Output : none IV Fluid Intake: see anesthesia record Drains: * No LDAs found * Specimen(s): * No specimens in log * Implant(s): Implant Name Type Inv. Item Serial No. Retail Client Solutions Analyst Lot No. [id number] No. Used Action Shell Actb 54Mm Hip 3 Hl Por R3 Std Shell Actb 54Mm Hip 3 Hl Por R3 Std [employer] [id number] Right 1 Implanted Screw 6.5Mm 40Mm Sphrcl Head Hip Actb Screw 6.5Mm 40Mm Sphrcl Head Hip Actb [employer] [id number] Right 1 Implanted Dual Mobility Liner Oxinium DH [employer] [id number] Right 1 Implanted Dual Mobility Insert XLPE [employer] [id number] Right 1 Implanted POLARSTEM Stem Standard with Ti/DEJESUS [employer] [id number] Right 1 Implanted Hd Fem Oxidized 12/14 Tapr +0 28Mm Hd Fem Oxidized /14 Tapr +0 28Mm [employer] [id number] Right 1 Implanted Jayy Mendoza MD ER APPRENTICE GAS * Operative - Ivan Aranda MD - 03/16/2021 8:02 AM CST DATE OF SURGERY: 03/16/2021 PREOP DX: Severe osteoarthritis right hip POSTOP DX: Severe osteoarthritis right hip PROCEDURE: 1. Right total hip arthroplasty SURGEON: Randy Aranda MD RETAIL SALES DIRECTOR(S): Jayy Mendoza MD ANESTHESIA: GET INDICATIONS FOR [...] Implant Name Type Inv. Item Serial No. Retail Client Solutions Analyst Lot No. LRB No. Used Action Shell Actb 54Mm Hip 3 Hl Por R3 Std Shell Actb 54Mm Hip 3 Hl Por R3 Std [employer] [id number] Right 1 Implanted Screw 6.5Mm 40Mm Sphrcl Head Hip Actb Screw 6.5Mm 40Mm Sphrcl Head Hip Actb [employer] [id number] Right 1 Implanted Dual Mobility Liner Oxinium DH [employer] [id number] Right 1 Implanted Dual Mobility Insert XLPE [employer] [id number] Right 1 Implanted POLARSTEM Stem Standard with Ti/DEJESUS [employer] [id number] Right 1 Implanted Hd Fem Oxidized 12/14 Tapr +0 28Mm Hd Fem Oxidized 12/14 Tapr +0 28Mm [employer] [id number] Right 1 Implanted COUNTS: Sponge and needle counts were correct at the end of procedure and I was present for the entire case. Ivan Aranda MD ER APPRENTICE GAS documented in this encounter Plan of Treatment [...] CARDIAC RHYTHM STRIP ORDER 03/23/2021 11:45 AM WELDER APPRENTICE GAS APHERESIS/TRANSFUSI ON ORDER 03/23/2021 11:45 AM WELDER APPRENTICE GAS IMAGING/RADIOLOGY/X RAY RESULTS ORDER 03/22/2021 4:49 PM WELDER APPRENTICE GAS SARS-COV-2 (COVID-19) RAPID STAT 03/21/2021 11:52 AM WELDER APPRENTICE GAS Primary osteoarthritis of right hip HEMOGLOBIN AM Draw 03/18/2021 3:54 AM WELDER APPRENTICE GAS Primary osteoarthritis of right hip HEMOGLOBIN AM Draw 03/17/2021 2:32 AM WELDER APPRENTICE GAS Primary osteoarthritis of right hip XR PELVIS 1 OR 2VW STAT 03/16/2021 10:40 AM WELDER APPRENTICE GAS Primary osteoarthritis of right hip BLOOD TYPE VERIFICATION Routine 03/16/2021 6:56 AM WELDER APPRENTICE GAS IA TOTAL HIP REPLACEMENT 03/16/2021 6:35 AM WELDER APPRENTICE GAS Diagnosis unknown Special Needs NEEDS [employer]--REP. (ALEX Wynne # [phone]) NOTIFIED BY SURGEON PER OFFICE (LISS)--02/17 KWCase confirmed with Alex 03-14-2021-MAB documented in this encounter Results * CARDIAC RHYTHM STRIP ORDER (03/23/2021 11:45 AM WELDER APPRENTICE GAS) Narrative 03/23/2021 11:45 AM WELDER APPRENTICE GAS Ordered by an unspecified provider. Scanned Document CARDIAC SERVICES ORD ERABLES * APHERESIS/TRANSFUSION ORDER (03/23/2021 11:45 AM WELDER APPRENTICE GAS) Narrative 03/23/2021 11:45 AM WELDER APPRENTICE GAS Ordered by an unspecified provider. Scanned Document NURSING - VITAL SIGN S AND ASSESSMENT * IMAGING RADIOLOGY XRAY RESULTS ORDER (03/22/2021 4:49 PM WELDER APPRENTICE GAS) Anatomical Region Laterality Modality Other Narrative 03/22/2021 4:49 PM WELDER APPRENTICE GAS Ordered by an unspecified provider. Scanned Document IMAGING * SARS-COV-2 (COVID-19) RAPID (03/21/2021 11:52 AM WELDER APPRENTICE GAS) COVID-19 PCR Not detected Not detected 03/21/20 12:42 PM WELDER APPRENTICE GAS [facility] Microbiology SPECIMEN FROM NASOPHARYNGEAL STRUCTURE / Unknown Collection / Unknown 03/21/2021 11:52 AM WELDER APPRENTICE GAS 03/21/2021 11:59 AM WELDER APPRENTICE GAS Narrative [facility] - 03/21/2021 12:42 PM WELDER APPRENTICE GAS The Cepheid Xpert Xpress SARS-COV-2 has been [...] Ivan Aranda MD LAB - MICROBIOLOGY ORDERABLES [facility] [address] [place] [address] [phone] * (ABNORMAL) HEMOGLOBIN (03/18/2021 3:54 AM WELDER APPRENTICE GAS) Hemoglobin 7.6(L) 12.0 - 15.6 gm/dL 03/18/2021 4:29 AM WELDER APPRENTICE GAS [facility] Blood BLOOD SPECIMEN / Unknown Lab Venipuncture / Unknown 03/18/2021 3:54 AM WELDER APPRENTICE GAS 03/18/2021 4:21 AM WELDER APPRENTICE GAS Ivan Aranda MD LAB - HEMATOLOGY OR DERABLES Performing Organization Address [facility] Co de Phone Number [facility] [address] [place], [place] [phone] * (ABNORMAL) HEMOGLOBIN (03/17/2021 2:32 AM WELDER APPRENTICE GAS) Hemoglobin 8.4(L) 12.0 - 15.6 gm/dL 03/17/2021 3:58 AM WELDER APPRENTICE GAS [facility] Blood BLOOD SPECIMEN / Unknown Lab Venipuncture / Unknown 03/17/2021 2:32 AM WELDER APPRENTICE GAS 03/17/2021 3:40 AM WELDER APPRENTICE GAS Ivan Aranda MD LAB - HEMATOLOGY OR DERABLES Performing Organization Address [place]/[facility] Co de Phone Number [facility] [address] [place] [address] [phone] * XR PELVIS 1 OR 2 VW (IN PACU) (03/16/2021 10:40 AM WELDER APPRENTICE GAS) Anatomical Region Laterality Modality Pelvis Radiographic Nicci ging 03/16/2021 10:5 3 AM WELDER APPRENTICE GAS Impressions 03/16/2021 10:55 AM WELDER APPRENTICE GAS A status post right total hip arthroplasty which appears uncomplicated. Alignment is anatomic. *Reading Radiologist: Samson Gallardo on 03/16/2021 at 10:55 AM Narrative 03/16/2021 10:55 AM WELDER APPRENTICE GAS XR PELVIS, AP VIEW. HISTORY: Unilateral primary [...] * BLOOD TYPE VERIFICATION (03/16/2021 6:56 AM WELDER APPRENTICE GAS) ABO Rh A POS 03/16/2021 7:2 5 AM WELDER APPRENTICE GAS [facility] Blood Bank BLOOD SPECIMEN / Unknown Venipuncture / Unknown 03/16/2021 6:56 AM WELDER APPRENTICE GAS 03/16/2021 7:02 AM WELDER APPRENTICE GAS Ivan Lucas DO LAB - BLOOD BANK ORD ERABLES [facility] [address] [phone] documented in this encounter Visit Diagnoses Diagnosis Primary osteoarthritis of right hip- Primary Primary localized osteoarthrosis, pelvic region and thigh Primary osteoarthritis of right hip Primary localized osteoarthrosis, pelvic region and thigh documented in this encounter Administered Medications Inactive Administered Medications - up to 3 most recent administrations Medication Order MAR Action Action Date Dose Rate Site 0.9% NaCl infusion at 75 mL/hr, Intravenous, CONTINUOUS, Starting on Yaz 03/16/21 at 0945, Until [place] 03/19/21 at 1730, Post-op $ New Bag/Syringe 03/18/2021 10:34 PM WELDER APPRENTICE GAS 75 mL/hr $ New Bag/Syringe 03/17/2021 9:25 PM WELDER APPRENTICE GAS 75 mL/ hr $ New Bag/Syringe 03/17/2021 6:21 AM WELDER APPRENTICE GAS 75 mL/ hr acetaminophen (Tylenol) tablet 1,000 mg 1,000 mg, Oral, EVERY 6 HOURS, 20 doses, First dose on Sat03/16/21 at 1200, Last dose on Sat03/21/21 at 0700, Post-op $ Given 03/21/2021 12:39 AM WELDER APPRENTICE GAS 1,000 mg $ Given 03/20/2021 6:17 PM WELDER APPRENTICE GAS 1,000 mg $ Given 03/20/2021 1:07 PM WELDER APPRENTICE GAS 1,000 mg acetaminophen (Tylenol) tablet 500 mg 500 mg, Oral, EVERY 4 HOURS PRN, Mild Pain, Starting on Sat03/21/21 at 0603, Until Sat03/21/21 at 1522 amLODIPine (Norvasc) tablet 5 mg 5 mg, Oral, 2 TIMES DAILY, First dose on Sat03/16/21 at 2100, Until Discontinued $ Given 03/21/2021 9:45 AM WELDER APPRENTICE GAS 5 mg $ Given 03/20/2021 9:34 PM WELDER APPRENTICE GAS 5 mg $ Given 03/20/2021 9:26 AM WELDER APPRENTICE GAS 5 mg aspirin chew tablet 81 mg 81 mg, Oral, 2 TIMES DAILY, First dose on Sat03/16/21 at 2100, Until Discontinued, Post-op $ Given 03/21/2021 9:44 AM WELDER APPRENTICE GAS 81 mg $ Given 03/20/2021 9:33 PM WELDER APPRENTICE GAS 81 mg $ Given 03/20/2021 9:26 AM WELDER APPRENTICE GAS 81 mg bisacodyl (Dulcolax) suppository 10 mg [...] Disposal. . $ Given 03/21/2021 8:54 AM WELDER APPRENTICE GAS 2 puffs $ Given 03/20/2021 9:36 PM WELDER APPRENTICE GAS 2 puffs $ Given 03/20/2021 8:52 AM WELDER APPRENTICE GAS 2 puffs calcium tablet 500 mg 500 mg, Oral, DAILY, First dose on Sat03/17/21 at 0900, Until Discontinued $ Given 03/21/2021 9:45 AM WELDER APPRENTICE GAS 500 mg $ Given 03/20/2021 9:27 AM WELDER APPRENTICE GAS 500 mg $ Given 03/19/2021 9:28 AM WELDER APPRENTICE GAS 500 mg calcium-vitamin D (Os-Gonzalez 250 Plus D 125 Units) tablet 1 tablet 1 tablet, Oral, DAILY WITH BREAKFAST, First dose on Sat03/17/21 at 0800, Until Discontinued $ Given 03/21/2021 9:48 AM WELDER APPRENTICE GAS 1 tablet $ Given 03/20/2021 9:26 AM WELDER APPRENTICE GAS 1 tablet $ Given 03/19/2021 9:29 AM WELDER APPRENTICE GAS 1 tablet ceFAZolin (Ancef) 2,000 mg in 50 ml IVPB 2,000 mg (2 g), at 100 mL/hr, Intravenous, EVERY 8 HOURS, 3 doses, First dose on Yaz 03/16/21 at 1330, Last dose on Sat03/17/21 at 0530, Indication for anti-infective therapy: Surgical prophylaxis, Post-op $ New Bag/Syringe 03/17/2021 6:22 AM WELDER APPRENTICE GAS 2,000 mg 100 mL/hr $ New Bag/Syringe 03/16/2021 11:00 PM WELDER APPRENTICE GAS 2,000 mg 100 m L/hr $ New Bag/Syringe 03/16/2021 2:54 PM WELDER APPRENTICE GAS 2,000 mg 100 mL /hr celecoxib (CeleBREX) capsule 100 mg 100 mg, Oral, 2 TIMES DAILY, First dose on Yaz 03/16/21 at 2100, Until Discontinued $ Given 03/21/2021 9:45 AM WELDER APPRENTICE GAS 100 mg $ Given 03/20/2021 9:33 PM WELDER APPRENTICE GAS 100 mg $ Given 03/20/2021 9:26 AM WELDER APPRENTICE GAS 100 mg celecoxib (CeleBREX) capsule 200 mg 200 mg, Oral, PRE-OP ONCE, 1 dose, On Yaz 03/16/21 at 0615, Pre-op $ Given 03/16/2021 6:56 AM WELDER APPRENTICE GAS 200 mg docusate sodium (Colace) capsule 100 mg 100 mg, Oral, 2 TIMES DAILY, 730 doses, First dose on Yaz 03/16/21 at 0945, Last dose on Sat03/15/22 at 2100, Post-op $ Given 03/21/2021 9:44 AM WELDER APPRENTICE GAS 100 mg $ Given 03/20/2021 9:33 PM WELDER APPRENTICE GAS 100 mg $ Given 03/20/2021 9:27 AM WELDER APPRENTICE GAS 100 mg famotidine (Pepcid) tablet 20 mg 20 mg, Oral, 2 TIMES DAILY, 730 doses, First dose on Yaz 03/16/21 at 0945, Last dose on Yaz 03/15/22 at 2100, Post-op $ Given 03/21/2021 9:44 AM WELDER APPRENTICE GAS 20 mg $ Given 03/20/2021 9:33 PM WELDER APPRENTICE GAS 20 mg $ Given 03/20/2021 9:27 AM WELDER APPRENTICE GAS 20 mg gentamicin (Garamycin) 280 mg in 0.9% NaCl IV 100 mL IVPB 280 mg, at 200 mL/hr, Intravenous, PRE-OP ONCE, 1 dose, On Sat03/16/21 at 0615, Indication for anti-infective therapy: Surgical prophylaxis, Pre-op $ New Bag/Syringe 03/16/2021 6:57 AM WELDER APPRENTICE GAS 280 mg 200 mL/hr HYDROcodone-acetaminophen (Dayton) 5-325 MG tablet 1 tablet 1 tablet, Oral, EVERY 4 HOURS PRN, Moderate Pain, Starting on Sat03/21/21 at 0603, Until Sat03/21/21 at 1522 HYDROcodone-acetaminophen (Day[place]) 5-325 MG tablet 2 tablet 2 tablet, Oral, EVERY 4 HOURS PRN, Severe Pain, Starting on Sat03/21/21 at 0603, Until Sat03/21/21 at 1522 lactated ringers infusion at 20 mL/hr, Intravenous, PRE-OP CONTINUOUS, Starting on Sat03/16/21 at 0615, Until Sat03/16/21 at 1237, Pre-op $ New Bag/Syringe 03/16/2021 8:34 AM WELDER APPRENTICE GAS $ New Bag/Syringe 03/16/2021 6:57 AM WELDER APPRENTICE GAS 20 mL/ hr lidocaine PF (Xylocaine MPF) 1 % injection 0.2 mL 0.2 mL, Infiltration, PRE-OP MULTIPLE, 3 doses, Starting on Sat03/16/21 at 0613, Until Sat03/16/21 at 1237, May be used (0.2 ml locally to anesthetize prior to insertion)., Pre-op $ Given 03/16/2021 6:56 AM WELDER APPRENTICE GAS 0.2 mL loratadine (Claritin) tablet 10 mg 10 mg, Oral, DAILY, First dose on Sat03/17/21 at 0900, Until Discontinued $ Given 03/21/2021 9:45 AM WELDER APPRENTICE GAS 10 mg $ Given 03/20/2021 9:26 AM WELDER APPRENTICE GAS 10 mg $ Given 03/19/2021 9:29 AM WELDER APPRENTICE GAS 10 mg LORazepam (Ativan) tablet 0.5 mg 0.5 mg, Oral, DAILY PRN, Anxiety, Starting on Sat03/16/21 at 0716, Until Sat03/21/21 at 1522 $ Given 03/18/2021 8:22 PM WELDER APPRENTICE GAS 0.5 mg $ Given 03/16/2021 11:05 PM WELDER APPRENTICE GAS 0.5 mg magnesium hydroxide (Milk Of Magnesia) suspension 30 mL 30 mL, Oral, DAILY PRN, Constipation, Starting on Sat03/16/21 at 0937, Until Sat03/21/21 at 1522, Use MOM first. If MOM ineffective then use bisacodyl. If bisacodyl ineffective use Fleets enema. Shake well before using., Post-op $ Given 03/20/2021 1:11 PM WELDER APPRENTICE GAS 30 mL onxvegpo-bhrxsslvfk-kanmhfbct (Neosporin) topical ointment Topical, 3 TIMES DAILY, First dose on Sat03/21/21 at 0900, Until Discontinued, Apply to right inner groin area of redness $ Given 03/21/2021 11:43 AM WELDER APPRENTICE GAS ondansetron (disintegrating) (Zofran ODT) tablet 4 mg [...] in half. $ Given 03/21/2021 9:44 AM WELDER APPRENTICE GAS 10 mg $ Given 03/20/2021 9:27 AM WELDER APPRENTICE GAS 10 mg $ Given 03/19/2021 9:30 AM WELDER APPRENTICE GAS 10 mg oxyCODONE (immediate release) (Roxicodone) tablet 5 mg 5 mg, Oral, EVERY 4 HOURS PRN, Mild Pain, Moderate Pain, Starting on Sat03/16/21 at 0937, Until Sat03/21/21 at 0603, Post-op $ Given 03/18/2021 9:57 AM WELDER APPRENTICE GAS 5 mg $ Given 03/17/2021 9:21 AM WELDER APPRENTICE GAS 5 mg prochlorperazine (Compazine) injection 5 mg [...] grapefruit juice $ Given 03/21/2021 9:45 AM WELDER APPRENTICE GAS 25 mg $ Given 03/20/2021 9:26 AM WELDER APPRENTICE GAS 25 mg $ Given 03/19/2021 9:28 AM WELDER APPRENTICE GAS 25 mg sodium phosphate rectal (Fleet) enema [...] Surgical prophylaxis $ Given 03/21/2021 9:44 AM WELDER APPRENTICE GAS 1 tablet valsartan (Diovan) tablet 160 mg 160 mg, Oral, DAILY, First dose on Sat03/17/21 at 0900, Until Discontinued $ Given 03/21/2021 9:44 AM WELDER APPRENTICE GAS 160 mg $ Given 03/20/2021 9:27 AM WELDER APPRENTICE GAS 160 mg $ Given 03/19/2021 9:29 AM WELDER APPRENTICE GAS 160 mg documented in this encounter Active and Recently Administered Medications Times are shown in WELDER APPRENTICE GAS. Scheduled Medication Order 03/19/2021 03/20/2021 03/21/2021 acetaminophen (Tylenol) tablet 1,000 mg (CANCELED) 1,000 mg, Oral, EVERY 6 HOURS, 20 doses, First dose on Sat03/16/21 at 1200, Last dose on Sat03/21/21 at 0700, Post-op 0131 ($ Given - Provider: Myles Patino, RN)0640 ($ Given - Provider: Myles Patino RN)1420 ($ Given - Provider: Shama Herrmann RN)1856 ($ Given - Provider: Shama Herrmann RN) 0106 ($ Given - Provider: Myles Patino RN)0621 ($ Given - Provider: Myles Patino RN)1307 ($ Given - Provider: Tami Deleon RN)1817 ($ Given - Provider: Tami Deleon RN) 0039 ($ Given - Provider: Garett Ledezma RN) amLODIPine (Norvasc) tablet 5 mg 5 mg, Oral, 2 TIMES DAILY, First dose on Sat03/16/21 at 2100, Until Discontinued 0928 ($ Given - Provider: Shama Herrmann RN)2119 ($ Given - Provider: Myles Patino RN) 0926 ($ Given - Provider: Tami Deleon RN)2134 ($ Given - Provider: Garett Ledezma RN) 0945 ($ Given - Provider: Tami Deleon RN) aspirin chew tablet 81 mg 81 mg, Oral, 2 TIMES DAILY, First dose on Sat03/16/21 at 2100, Until Discontinued, Post-op 0930 ($ Given - Provider: Shama Herrmann RN)2118 ($ Given - Provider: Myles Patino RN) 0926 ($ Given - Provider: Tami Deleon RN)2133 ($ Given - Provider: Garett Ledezma RN) 0944 ($ Given - Provider: Tami Deleon RN) budesonide-formoterol (Symbicort) 160-4.5 MCG/ACT inhaler 2 puff 2 puff, Inhalation, EVERY 12 HOURS, First dose on Sat03/16/21 at 2100, Until Discontinued, Rinse mouth after usage . WASTE DISPOSAL INSTRUCTION: Send to Pharmacy for Disposal. . 0957 ($ Given - Provider: Jade Evangelista RCP)2145 ($ Given - Provider: Neida Gonzalez RCP) 0852 ($ Given - Provider: Sara Casper RCP)2135 ($ Given - Provider: Kala Beach RCP) 0854 ($ Given - Provider: Sara Casper RCP) calcium tablet 500 mg 500 mg, Oral, DAILY, First dose on Sat03/17/21 at 0900, Until Discontinued 927 ($ Given - Provider: Shama Herrmann RN) 09 ($ Given - Provider: Tami Deleon RN) 0945 ($ Given - Provider: Tami Deleon RN) calcium-vitamin D (Os-Gonzalez 250 Plus D 125 Units) tablet 1 tablet 1 tablet, Oral, DAILY WITH BREAKFAST, First dose on Sat03/17/21 at 0800, Until Discontinued 928 ($ Given - Provider: Shama Herrmann RN) [...] Herrmann RN)2117 ($ Given - Provider: Myles Patino, CORWIN) 09 ($ Given - Provider: Tami Deleon RN)2133 ($ Given - Provider: Garett Ledezma, RN) 0944 ($ Given - Provider: Tami Deleon RN) loratadine (Claritin) tablet 10 mg 10 mg, Oral, DAILY, First dose on Sat03/17/21 at 0900, Until Discontinued 09 ($ Given - Provider: Shama Herrmann RN) 09 ($ Given - Provider: Tami Deleon RN) 0945 ($ Given - Provider: Tami Deleon RN) aoqaqlpq-hlinczbwow-xizui yxin (Neosporin) topical ointment Topical, 3 TIMES DAILY, First dose on Sat03/21/21 at 0900, Until Discontinued, Apply to right inner groin area of redness 1143 ($ Given - Provider: Tami Deleon RN) oxybutynin CR 24hr (Ditropan-XL) tablet 10 mg 10 mg, Oral, DAILY, First dose on Sat03/17/21 at 0900, Until Discontinued, Do not crush, chew, or cut in half. 0930 ($ Given - Provider: Shama Herrmann RN) 09 ($ Given - Provider: Tami Deleon RN) 0944 ($ Given - Provider: Tami Deleon RN) sertraline (Zoloft) tablet 25 mg 25 mg, Oral, DAILY, First dose on Sat03/17/21 at 0900, Until Discontinued, Avoid concurrent administration with grapefruit juice 0928 ($ Given - Provider: Shama Herrmann RN) 09 ($ Given - Provider: Tami Deleon RN) 0945 ($ Given - Provider: Tami Deleon RN) sulfamethoxazole-trimetho prim (Bactrim DS; Septra DS) 800-160 MG tablet 1 tablet 1 tablet, Oral, EVERY 12 HOURS, 14 doses, First dose on Sat03/21/21 at 0715, Last dose on Sat03/27/21 at 2100, Indication for anti-infective therapy: Surgical prophylaxis 0944 ($ Given - Provider: Tami Deleon RN) valsartan (Diovan) tablet 160 mg 160 mg, Oral, DAILY, First dose on Sat03/17/21 at 0900, Until Discontinued 0929 ($ Given - Provider: [...] PRN, Shortness of Breath, Wheezing, Starting on Sat03/16/21 at 0714, Until Sat03/21/21 at 1522, Shake [...] Alternative - Provider: Tami Deleon RN) HYDROcodone-acetaminophen (Day[place]) 5-325 MG tablet 1 tablet(Linked Group 1) 1 tablet, Oral, EVERY 4 HOURS PRN, Moderate Pain, Starting on Sat03/21/21 at 0603, Until Sat03/21/21 at 1522 HYDROcodone-acetaminophen (Day[place]) 5-325 MG tablet 2 tablet(Linked Group 1) [...] 03/16/21 at 0937, Until Sat03/21/21 at 1522, Dissolved [...] 0603, Until Sat03/21/21 at 1522 Or HYDROcodone-acetaminophen (Day[place]) 5-325 MG tablet 1 tabletJump to med 1 tablet, Oral, EVERY 4 HOURS PRN, Moderate Pain, Starting on Sat03/21/21 at 0603, Until Sat03/21/21 at 1522 Or HYDROcodone-acetaminophen (Day[place]) 5-325 MG tablet 2 tabletJump to med [...] Post-op documented in this encounter Care Teams Robot Programmer Relationship Specialty Start Date End Date Kirby Vogel MD [address] [place] [phone] PCP - General Family Medicine 01/26/19 documented as of this encounter
--- OUTSIDE RECORDS SUMMARY | 2024-04-02 20:22 | XMS_ITS | Encounter Summary ---
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 (HCC) Social [...] Diagnosis Comments HEPATITIS C RNA QUANTITATIVE Routine 02/16/2020 11:28 AM POLICE DISPATCHER Chronic hepatitis C without hepatic coma (HCC) CBC W AUTO DIFFERENTIAL Routine 02/16/2020 11:28 AM POLICE DISPATCHER Chronic hepatitis C without hepatic coma (HCC) COMPREHENSIVE METABOLIC PANEL Routine 02/16/2020 11:28 AM POLICE DISPATCHER Chronic hepatitis C without hepatic coma (HCC) documented in this encounter Results * HEPATITIS C RNA QUANTITATIVE (02/16/2020 11:28 AM POLICE DISPATCHER) Pathologist [facility] [place] Hepatitis C Virus Quantitation HCV Not Detected IU/mL [facility] INSURANCE BILL Hepatitis C Virus Log 10 NOT NEEDED [facility] INSURANCE BILL Comment:Ancillary determined the test is not needed. Test Information LAB [facility] INSURANCE BILL Comment:The quantitative ran ge of this assay is 15 IU/mL to 100 million IU/mL. Blood BLOOD SPECIMEN / Unknown 02/16/2020 11:28 AM POLICE DISPATCHER 02/16/2020 Narrative Resulting Agency Comment Lab Testing performed at: [address] ??[facility] [phone] Marina Araujo FINAL DRESSING CUTTER-FINANCIAL RETIREMENT PLAN SPECIALIST LAB - CHEMIS TRY ORDERABLES [facility] INSURANCE BILL [address] [place] [address] * (ABNORMAL) COMPREHENSIVE METABOLIC PANEL (02/16/2020 11:28 AM POLICE DISPATCHER) Glucose 99 65 - 99 mg/dL [facility] [...] BLOOD SPECIMEN / Unknown 02/16/2020 11:28 AM POLICE DISPATCHER 02/16/2020 Narrative Resulting Agency Comment Lab Testing performed at: [facility] ??[facility] [phone] Marina Araujo FINAL DRESSING CUTTER-FINANCIAL RETIREMENT PLAN SPECIALIST LAB - CHEMIS TRY ORDERABLES [facility] INSURANCE BILL [id number] [place] [address] * CBC WITH DIFFERENTIAL (02/16/2020 11:28 AM POLICE DISPATCHER) WBC 7.0 3.4 - 10.8 x10E3/uL [facility] [...] BLOOD SPECIMEN / Unknown 02/16/2020 11:28 AM POLICE DISPATCHER 02/16/2020 Narrative Resulting Agency Comment Lab Testing performed at: [facility] ??[facility] [phone] Marina Araujo FINAL DRESSING CUTTER-FINANCIAL RETIREMENT PLAN SPECIALIST LAB - HEMATO LOGY ORDERABLES [facility] INSURANCE BILL [address] [place] [address] documented in this encounter Visit Diagnoses Diagnosis Chronic hepatitis C without hepatic coma (HCC) documented in this encounter Care Teams Test Desk Supervisor Relationship Specialty Start Date End Date Kirby Vogel MD [address] [place] [phone] PCP - General Family Medicine 01/26/19 documented as of this encounter
--- OUTSIDE RECORDS SUMMARY | 2024-04-02 20:23 | XMS_ITS | Encounter Summary ---
Author Organization [facility] Address [address] [place] [address] Care Team Providers Care Marketing Forecaster Name Role Phone Kirby Voegl MD Primary Care Provider [phone]- [phone] Reason for Visit * Radiology Services (Routine) - Closed Specialty Diagnoses / Procedures Referred By Dominick mauricio Referred To Contact Gastroenterology Diagnoses Chronic hepatitis C without hepatic coma (HCC) Procedures PROC FIBROSCAN Marina Araujo APRN-SMT OPERATOR [address] [place] [address] zs [address] [place] [address] Referral ID Status Reason Start Date Expiration Date Visits Re quested Visits Authorized [id number] Closed 04/10/2019 10/07/2019 1 1 Encounter Details Date Type Department Care Team (Latest Contact Info) Description 06/12/2019 9:20 AM CDT Procedure visit [facility] [address] [place] [address] Marina Araujo, DRIER AND GRINDER TENDER-SMT OPERATOR [address] [place] [address] Chronic hepatitis C without hepatic coma (HCC) [...] Sign Reading Time Taken Comments Blood Pressure 138/82 06/12/2019 8:56 AM CDT Pulse 66 06/12/2019 8:56 AM CDT Temperature 36.6 ??C (97.9 ??F) 06/12/2019 8:56 AM CD T Respiratory Rate 18 06/12/2019 8:56 AM CDT Oxygen Saturation 94% 06/12/2019 8:56 AM CDT Inhaled Oxygen Concentration - - Weight 76.1 kg (167 lb 11.2 oz) 06/12/2019 8:56 AM CDT Height 162.6 cm (5' 4 ) 06/12/2019 8:56 AM CDT Body Mass Index 28.79 06/12/2019 8:56 AM CDT documented in this encounter Progress Notes * Analisa Bryant, RN - 06/12/2019 9:08 AM CDT Diagnosis: Hepatitis C RN verified patient not , no implanted devices and NPO for prior 3 hours. Vital signs taken, procedure explained and consent signed. Date of Exam: 06/12/2019 Liver Stiffness: (LSM, kPa) median: 5.5 IQR (interquartile range): 0.8 IQR/Median% (ideally < 30%): 15 CAP (controlled attenuation parameter): 259 Technical Difficulty: None Ordering Provider: Marina Araujo SUPERVISOR EXTRUSION Phone Fax Fibroscan interpretation: I have personally reviewed the Fibroscan report and associated tracings. The calculated Liver Stiffness Measurement (LSM, kPa) indicates that: The probability of advanced liver fibrosis is: low. The loss of ultrasound signal, (controlled attenuation parameter, CAP [dB/m]), indicates that the probability of hepatic steatosis is: moderate. uBd Plaza MD The following criteria are used [...] are based on the following published data: Gregory PJ, Lia M, aMkayla M, et al. Accuracy of FibroScan controlled attenuation parameter and liver stiffness measurement in assessing steatosis and fibrosis in patients with nonalcoholic fatty liver disease. Gastroenterology 2019;156:0017-7678. Sung MS, Huan R, Van Francisco ML, et al. Vibration-controlled transient elastography to assess fibrosis and steatosis in patients with nonalcoholic fatty liver disease. Clin Gastroenterol Hepatol 2019;17:156-163. Note: 1. Fibroscan cannot reliably identify earlier stages of fibrosis (ie distinguish F0 from F1 and F2)and thus a histologic stage cannot be predicted from the Fibroscan reading. 2. Assessing the likelihood of advanced fibrosis in patients with indeterminate liver stiffness measurement (LSM) by Fibroscan (e.g., 8-15 kPa) can be improved by also calculating the FIB4 score (Gerardoyduke et al. Hepatology Communications 2019;3:6602-2748) or NAFLD Fibrosis score (Brasher et al. Clinical Gastroenterology and Hepatology 2019;17:3720-1006. from routine clinical data. 3. Liver stiffness [...] change as additional supporting data becomes available. [email or web address] documented in this encounter Procedure Notes * Analisa Bryant, RN - 06/12/2019 9:15 AM CDTAssociated Order(s): PROC FIBROSCAN Diagnosis: Hepatitis C RN verified patient not , no implanted devices and NPO for prior 3 hours. Vital signs taken, procedure explained and consent signed. Date of Exam: 06/12/2019 Liver Stiffness: (LSM, kPa) median: 5.5 IQR (interquartile range): 0.8 IQR/Median% (ideally < 30%): 15 CAP (controlled attenuation parameter): 259 Technical Difficulty: None Ordering Provider: Marina Araujo SUPERVISOR EXTRUSION Phone Fax Fibroscan interpretation: I have personally [...] are based on the following published data: Gregory MORA, Lia M, Makayla M, et al. Accuracy of FibroScan controlled attenuation parameter and liver stiffness measurement in assessing steatosis and fibrosis in patients with nonalcoholic fatty liver disease. Gastroenterology 2019;156:9372-4178. Sung BAE, Huan Balbuena, Gulshan Singh ML, et al. Vibration-controlled transient elastography to assess fibrosis and steatosis in patients with nonalcoholic fatty liver disease. Clin Gastroenterol Hepatol 2019;17:156-163. Note: 1. Fibroscan cannot reliably identify earlier stages of fibrosis (ie distinguish F0 from F1 and F2)and thus a histologic stage cannot be predicted from the Fibroscan reading. 2. Assessing the likelihood of advanced fibrosis in patients with indeterminate liver stiffness measurement (LSM) by Fibroscan (e.g., 8-15 kPa) can be improved by also calculating the FIB4 score (Dustin et al. Hepatology Communications 2019;3:0218-0007) or NAFLD Fibrosis score (Brasher et al. Clinical Gastroenterology and Hepatology 2019;17:5644-6331. from routine clinical data. 3. Liver stiffness [...] change as additional supporting data becomes available. [email or web address] documented in this encounter Plan of Treatment Not on file documented as of this encounter Goals Goal Patient Goal Type Associated Problems Recent Progress Patient-Stated? Author Medication Management General On track( 020 11:28 AM CDT) Analisa Diallo, RN Note: Expected end date: ongoing Interventions: Complete Hepatitis C therapy as prescribed documented as of this encounter Procedures Procedure Name Priority Date/Time Associated Diagnosis Comments [place] LIVER ELASTOGRAPHY Routine 06/12/2019 9:15 AM CDT Chronic hepatitis C without hepatic coma (HCC) documented in this encounter Results * PROC FIBROSCAN (06/12/2019 9:15 AM CDT) [...] Technical Difficulty: None Ordering Provider: Marina Araujo NP Phone Fax Fibroscan interpretation: I have personally [...] are based on the following published data: Gregory MORA, Lia M, Makayla M, et al. Accuracy of FibroScan controlled attenuation parameter and liver stiffness measurement in assessing steatosis and fibrosis in patients with nonalcoholic fatty liver disease. Gastroenterology 2019;156:3518-5246. Sung BAE, Huan R, Gulshan Singh ML, et al. Vibration-controlled transient elastography to [...] improved by also calculating the FIB4 score (Enriquee et al. Hepatology Communications 2019;3:2442-0145) or NAFLD Fibrosis score (Brasher et al. Clinical Gastroenterology and Hepatology 2019;17:7720-0962. from routine clinical data. 3. Liver stiffness [...] change as additional supporting data becomes available. [email or web address] Marina Araujo DRIER AND GRINDER TENDER-SMT OPERATOR PROCEDURE/NM NOR SURGICAL ORDERABLES documented in this encounter Visit Diagnoses Diagnosis Chronic hepatitis C without hepatic coma (HCC)- Primary documented in this encounter Care Teams Marketing Forecaster Relationship Specialty Start Date End Date Kirby Vogel MD [address] [place] [phone] PCP - General Family Medicine 01/26/19 documented as of this encounter
--- OUTSIDE RECORDS SUMMARY | 2024-04-02 20:23 | XMS_ITS | Encounter Summary ---
Author Organization [facility] Address [address] [place] [address] Care Team Providers Care Escalation Engineer Name Role Phone Kirby Vogel MD Primary Care Provider +1- [phone] Reason for Visit * Reason Comments Reminder Call Encounter Details Date Type Department Care Team (Late st Contact Info) Description 04/03/2019 Telephone [facility] - [address] [phone] Analisa Bryant, RN Reminder Call Social History Tobacco Use Types Packs/Day Years Used Date Smoking Tobacco: Never Assessed Sex and Gender Information Value Date Recorded Sex Assigned at Not on file Gender Identity Not on file Sexual Orientation Not on file documented as of this encounter Progress Notes * Aanlisa Bryant, RN - 04/03/2019 3:09 PM CST Called patient and left a voicemail to call the office if unable to make upcoming OV Wanted to confirm that patient will be coming to office visit with Marina Araujo on 04/10/19 TS COORDINATOR documented in this encounter Plan of Treatment Not on file documented as of this encounter Visit Diagnoses Not on filedocumented in this encounter Care Teams Escalation Engineer Relationship Specialty Start Date End Date Kirby Vogel MD [address] [place] [phone] PCP - General Family Medicine 01/26/19 documented as of this encounter
--- OUTSIDE RECORDS SUMMARY | 2024-04-02 20:23 | XMS_ITS | Encounter Summary ---
Author Organization [facility] Address [address] [place] [address] Care Team Providers Care Technical Sales Manager Name Role Phone Kirby Vogel MD Primary Care Provider [phone]- [phone] Reason for Referral * Radiology Services (Routine) - Closed Specialty Diagnoses / Procedures Referred By Dominick mauricio Referred To Contact Gastroenterology Diagnoses Chronic hepatitis C without hepatic coma (HCC) Procedures PROC FIBROSCAN Marina Araujo APRN-CNP [address] [address] [facility] [address] [place] [address] Referral ID Status Reason Start Date Expiration Date Visits Re quested Visits Authorized [id number] Closed 04/10/2019 10/07/2019 1 1 CTOR TALENT Reason for Visit * Reason Comments Establish Care Hepatitis C * Evaluate & Treat (Routine) - Closed Specialty Diagnoses / Procedures Referred By Dominick mauricio Referred To Contact Gastroenterology Diagnoses HCV (hepatitis C virus) HCV Procedures [place] OFFICE/OUTPT VISIT,ANGELA QUEZADA IV, Michael E, MD [address] [place] [address] Marina Araujo APRN-CNP [address] [facility] [address] [place] [address] Referral ID Status Reason Start Date Expiration Date Visits Re quested Visits Authorized [id number] Closed 01/26/2019 07/25/2019 1 1 Encounter Details Date Type Department Care Team (Late st Contact Info) Description 04/10/2019 9:00 AM DIRECTOR TALENT Office Visit [facility] - [address], [facility] [place] [address] Marina Araujo APRN-CNP [address] [facility] [address] [place] [address] Chronic hepatitis C without hepatic coma (HCC) (Primary Dx) Social History Tobacco Use Types Packs/Day Years Used Date Smoking Tobacco: Former Cigarettes Q uit: 2005 Smokeless Tobacco: Never Alcohol Use Standard Drinks/Week Comments Yes 1 (1 standard drink = 0.6 oz pur e alcohol) Sex and Gender Information Value Date Recorded Sex Assigned at Not on file Gender Identity Not on file Sexual Orientation Not on file documented as of this encounter Last Filed Vital Signs Vital Sign Reading Time Taken Comments Blood Pressure 142/64 04/10/2019 9:15 AM DIRECTOR TALENT Pulse 69 04/10/2019 9:15 AM DIRECTOR TALENT Temperature 36.7 ??C (98.1 ??F) 04/10/2019 9:15 AM CS T Respiratory Rate 20 04/10/2019 9:15 AM DIRECTOR TALENT Oxygen Saturation 96% 04/10/2019 9:15 AM DIRECTOR TALENT Inhaled Oxygen Concentration - - Weight 74.6 kg (164 lb 6.4 oz) 04/10/2019 9:15 A M DIRECTOR TALENT Height 162.6 cm (5' 4 ) 04/10/2019 9:15 AM DIRECTOR TALENT Body Mass Index 28.22 04/10/2019 9:15 AM DIRECTOR TALENT documented in this encounter Patient Instructions * Patient Instructions* Marina Araujo APRN-CNP - 04/10/2019 9:43 AM DIRECTOR TALENT Thank you for entrusting your healthcare to the physicians and other specialists at the [facility] Gastroenterology and Hepatology clinic today. Following [...] please call (hospital main number), ask the radiotelephone technical operator to call the gastroenterology fellow insurance verification rep. ?? Emergency: call 911 or go to your closest emergency room. We encourage you to use [employer] to send and receive messages and review your test results. Let us know if you need information on signing up for [employer]. More information about us and our services can be found on our websites at [email or web address] and [email or web address] Information about the [facility], a bfu-gbk-nozrln foundation supporting liver disease research by your doctors and researchers at [facility], can be found at: [email or web address] IMPORTANT 04/10/2019 The following information and instructions are from your visit today: Ms. Medina will have additional lab work will be obtained to further characterize her disease . She will be scheduled for a fibroscan test on the day of her appointment She was instructed on disease process and means of transmission We reviewed potential side effects of the new treatments We discussed treatment options based on genotype She was instructed to call the clinic if her has questions or concerns She will follow up in the clinic 6-8 weeks CTOR TALENT documented in this encounter Progress Notes * Marina Araujo APRN-CNP - 04/10/2019 9:41 AM CST Ms. Medina is a 83 year old female presents at the [facility] today for aninitial visit for hepatitis C. She was diagnosed in 2018 She denies any abdominal pain ,nausea. Or vomiting She complains of joint pain and fatigue She is accompanied by her son Judd and daughter in law Serafin Chief Complaint Patient presents with ??? Establish Care ??? Hepatitis C Patient Active Problem List: Essential hypertension Depression Pulmonary emphysema Chronic hepatitis C without hepatic coma History: First aware of having HCV: Reason for being tested: elevated LFTs Risk factors: IVDU: No; transfusions before 1991: Yes; other risks: She had 4 transusion with the of children none identified. Prior evaluation: none Prior liver biops(ies): none. Prior treatment: none. Current symptoms: fatigue. Other coexisting liver diseases: none No past medical history on file. No past surgical history on file. No past medical history on file. No past surgical history on file. Social History Socioeconomic History ??? Marital status: Single Spouse name: Not on file ??? Number of children: Not on file ??? Years of education: Not on file ??? Highest education level: Not on file Occupational History ??? Not on file Social Needs ??? Financial resource strain: Not on file ??? Food insecurity: Worry: Not on file Inability: Not on file ??? Transportation needs: Medical: Not on file Non-medical: Not on file Tobacco Use ??? Smoking status: Former Smoker Last attempt to quit: 2005 Years since quittin.0 ??? Smokeless tobacco: Never Used Substance and Sexual Activity ??? Alcohol use: Yes Alcohol/week: 1.0 standard drinks Types: 1 Glasses of wine per week ??? Drug use: Never ??? Sexual activity: Not on file Lifestyle ??? Physical activity: Days per week: Not on file Minutes per session: Not on file ??? Stress: Not on file Relationships ??? Social connections: Talks on phone: Not on file Gets together: Not on file Attends [employer] service: Not on file Active member of club or organization: Not on file Attends meetings of clubs or organizations: Not on file Relationship status: Not on file ??? Intimate partner violence: Fear of current or ex partner: Not on file Emotionally abused: Not on file Physically abused: Not on file Forced sexual activity: Not on file Other Topics Concern ??? Not on file Social History Narrative ??? Not on file No family history of liver diesease She describes her current average alcohol consumption as a glass of wine 3-4 times a week Allergies Allergen Reactions ??? Codeine Other Caused [...] Ms. Medina her current medications, allergies, social history and family history. Review of systems: HEENT: WNL Fatigue: yes Appetite good Chest pain: none. Shortness of breath: none. Nausea and vomiting: none. Abdomen: no pain Reflux or GERD symptoms: none. Constipation or diarrhea: none. Musculoskeletal pain knee pain Depression: she denies that this is a current problem. All other components of a 14 point review of systems were negative. I reviewed today's vital signs with the patient. On exam today, BP 142/64 Pulse 69 Temp 98.1 ??F (36.7 ??C) (Oral) Resp 20 Ht 1.626 m (5' 4 ) Wt 74.6 kg (164 lb 6.4 oz) SpO2 96% BMI 28.22 kg/m2 She appeared alert and anicteric. General appearance: Well nourished well developed ,in no acute distress HEENT: WNL: yes Eyes: no scleral icterus Lungs were clear to auscultation bilaterally with no dullness. Heart sounds were regular rate and rhythm. There were no murmurs or thrills . Abdomen was soft and nontender, non-distended. Hepatomegaly: none palpable. Splenomegaly: none palpable. Ascites: none. Masses: none. Hernias: none. Musculoskeletal : no joint tenderness or deformity Extremities: without clubbing, cyanosis, Lower extremity edema: none. Mental status: normal affect: alert and oriented Neuro: Alert, following commands, no asterixis Psych: Mood appropriate , cooperative Skin: warm and dry with no rashes .no jaundice, no spider angiomata . Relevant test results: Her lab results of 12/08/2018evealed A hemoglobin of 12.1, a hematocrit of 38.7, a platelet count of 680,000, an AST of 41, an ALT of 31, an alkaline phosphatase of 89, a total bilirubin of 0.7, an albumin of 3.8, and a creatinine of 0.9. Hepatitis A IGM Negative Hepatitis B surface antigen negative Hepatitis B surface antibody 134 hepatitis B core antibody Non reactive HCV RNA is 1,270,000 U/s abdomen done at [facility] 11/23/2018 Impression Chlelithiasis Bilateral Hydronephrisis ct scan of pelvis and abdomen [facility] 11/23/2018 IMPRESSION 1. MODERATE left and severe right hydroureteronephrosis likely due to architectural distortion in extrinsic Compression of the distal ureters resulting from prominent pelvic floor relaxation 2. Cholelithiasis 3. Small bilateral pleural effusions 4. Small amount of ascites in deep pelvis 5. Diverticulosis 6. Small fat containing umbilical hrnia ?? I spent 45 minutes with the patient, greater than 50% of the time was spent with counseling and coordination of care discussing the diagnosis of hepatitis C effects on her liver. Modes of transmission throughblood only . Potential treatments, potential side effects of medication t Impression: My impression is that Ms. Medina has chronic hepatitis C. We discussed the chronic nature of the disease, modes of transmission, risk of progression to cirrhosis and the complications of cirrhosis. We discussed currently available treatment options Plan: Ms. Medina will have additional lab work will be obtained to further characterize her disease . She will be scheduled for a fibroscan test on the day of her appointment She was instructed on disease process and means of transmission We reviewed potential side effects of the new treatments We discussed treatment options based on genotype She was instructed to call the clinic if her has questions or concerns She will follow up in the clinic 6-8 weeks Sincerely Marina WEBER [address] [place] [address] Collaborating physican Nathan Fortune MD [address] [place] [address] Address letter to: Kirby Vogel MD [address] [place] [address] CTOR TALENT documented in this encounter Plan of Treatment Not on file documented as of this encounter Procedures Procedure Name Priority Date/Time Associated Diagnosis Comments HEPATITIS B SURFACE ANTIBODY QUANT Routine 04/13/2019 4:40 PM DIRECTOR TALENT Chronic hepatitis C without hepatic coma (HCC) HEPATITIS C GENOTYPE Routine 04/13/2019 4:40 PM DIRECTOR TALENT Chronic hepatitis C without hepatic coma (HCC) HEPATITIS C RNA QUANTITATIVE Routine 04/13/2019 4:40 PM DIRECTOR TALENT Chronic hepatitis C without hepatic coma (HCC) PT-INR Routine 04/13/2019 4:40 PM DIRECTOR TALENT Chronic hepatitis C without hepatic coma (HCC) CBC W AUTO DIFFERENTIAL Routine 04/13/2019 4:40 PM DIRECTOR TALENT Chronic hepatitis C without hepatic coma (HCC) COMPREHENSIVE METABOLIC PANEL Routine 04/13/2019 4:40 PM DIRECTOR TALENT Chronic hepatitis C without hepatic coma (HCC) HEPATITIS B CORE ANTIBODY TOTAL Routine 04/13/2019 4:40 PM DIRECTOR TALENT Chronic hepatitis C without hepatic coma (HCC) HEPATITIS B SURFACE ANTIGEN W RFLX CONFIRMATION Routine 04/13/2019 4:40 PM DIRECTOR TALENT Chronic hepatitis C without hepatic coma (HCC) HEPATITIS A ANTIBODY Routine 04/13/2019 4:40 PM DIRECTOR TALENT Chronic hepatitis C without hepatic coma (HCC) [...] Technical Difficulty: None Ordering Provider: Marina Araujo COACH BUILDER Phone Fax Fibroscan interpretation: I have personally [...] following published data: Gregory PJ, Lia M, Makayla M, et al. Accuracy of FibroScan controlled attenuation parameter and liver stiffness measurement in assessing steatosis and fibrosis in patients with nonalcoholic fatty liver disease. Gastroenterology 2019;156:1617-6296. Sung MS, Huan R, Van Nattabby ML, et al. Vibration-controlled transient elastography to [...] FIB4 score (Dustin et al. Hepatology Communications 2019;3:0231-5284) or NAFLD Fibrosis score (Brasher et al. Clinical Gastroenterology and Hepatology 2019;17:8589-7009. from routine clinical data. 3. Liver stiffness [...] change as additional supporting data becomes available. [email or web address] Marina Araujo ANIMAL IMPERSONATOR-[facility] PROCEDURE/SD NOR SURGICAL ORDERABLES * HEPATITIS C GENOTYPE (04/13/2019 4:40 PM DIRECTOR TALENT) Hepatitis C Genotype 1b [facility] INSURANCE BILL Please Note [facility] INSURANCE BILL Comment: This test was developed and its performance characteristics determined by [employer]. ??It has not been cleared or approved by the U.S. Food and Drug Administration. ? . The FDA has determined that such clearance or approval is not necessary. This test is used for clinical purposes. ??It should not be regarded as investigational or for research. Blood BLOOD SPECIMEN / Unknown 04/13/2019 4:40 PM DIRECTOR TALENT 04/13/2019 Narrative Resulting Agency Comment Lab Testing performed at: [address] ??[facility] [id number] Marina Araujo ANIMAL IMPERSONATOR-[facility]FFIC [facility] LAB - CHEMIS TRY ORDERABLES Performing Organization Address [facility] [[email or web address]] de Phone Number [facility] INSURANCE BILL [address] [place] [address] * HEPATITIS C RNA QUANTITATIVE (04/13/2019 4:40 PM DIRECTOR TALENT) Hepatitis C Virus Quantitation 622,000 IU/mL [facility] INSURANCE BILL Hepatitis C Virus Log 10 5.794 log10 IU/mL [facility] INSURANCE BILL Test Information [facility] INSURANCE BILL Comment:The quantitative ran ge of this assay is 15 IU/mL to 100 million IU/mL. Blood BLOOD SPECIMEN / Unknown 04/13/2019 4:40 PM DIRECTOR TALENT 04/13/2019 Narrative Resulting Agency Comment Lab Testing performed at: [address] ??[facility] [id number] Marina Araujo ANIMAL IMPERSONATOR-[facility] LAB - CHEMIS TRY ORDERABLES Performing Organization Address [facility] [[email or web address]] de Phone Number [facility] INSURANCE BILL [address] [place] [address] * HEPATITIS B CORE ANTIBODY (04/13/2019 4:40 PM DIRECTOR TALENT) Hepatitis B Core Virus Antibody Total Negative Negative [facility] INSURANCE BILL Blood BLOOD SPECIMEN / Unknown 04/13/2019 4:40 PM DIRECTOR TALENT 04/13/2019 Narrative Resulting Agency Comment Lab Testing performed at: [address] ??[facility] [phone] Marina Araujo ANIMAL IMPERSONATOR-[facility] LAB - CHEMIS TRY ORDERABLES [facility] INS[facility] B[facility] [address] [place] [address] * (ABNORMAL) HEPATITIS B SURFACE ANTIBODY QUANT (04/13/2019 4:40 PM DIRECTOR TALENT) Hepatitis B Virus Surface Antibody Quantitative <3.1(L) Immunity>9 .9 mIU/mL [facility] INSURANCE BILL Comment: ? Status of Immunity ? Anti- HBs Level ? Inconsistent with Immunity ? 0.0 - 9.9 ? Consistent with Immunity ?>9.9 Blood BLOOD SPECIMEN / Unknown 04/13/2019 4:40 PM DIRECTOR TALENT 04/13/2019 Narrative Resulting Agency Comment Lab Testing performed at: [employer] [address] ??[facility] [phone] Marina Araujo ANIMAL IMPERSONATOR-[facility] LAB - SEROLO GY ORDERABLES [facility] INSURANCE BILL [address] [place] [address] * (ABNORMAL) HEPATITIS A ANTIBODY (04/13/2019 4:40 PM DIRECTOR TALENT) Pathologist [facility] Hepatitis A Virus Antibody Total Positive(A ) Negative [facility] INSURANCE BILL Blood BLOOD SPECIMEN / Unknown 04/13/2019 4:40 PM DIRECTOR TALENT 04/13/2019 Narrative Resulting Agency Comment Lab Testing performed at: [employer] [address] ??[place] [phone] Marina Araujo APRN-AIR TRAFFIC CONTR[employer] SPECIALIST [facility] LAB - CHEMIS TRY ORDERABLES Performing Organization Address [facility] Co de Phone Number [employer] INSURANCE BILL [address] [place] [address] * HEPATITIS B SURFACE ANTIGEN W RFLX CONFIRMATION (04/13/2019 4:40 PM DIRECTOR TALENT) Pathologist [facility] Hepatitis B Virus Surface Antigen Negative Negative [facility] INSURANCE BILL Blood BLOOD SPECIMEN / Unknown 04/13/2019 4:40 PM DIRECTOR TALENT 04/13/2019 Narrative Resulting Agency Comment Lab Testing performed at: [employer] [address] ??[place] [phone] Marina Araujo ANIMAL IMPERSONATOR-[facility] [employer] LAB - CHEMIS TRY ORDERABLES Performing Organization Address [facility] [[email or web address]] de Phone Number [employer] INSURANCE BILL [address] [place] [address] * PT-INR (04/13/2019 4:40 PM DIRECTOR TALENT) Pathologist [facility] INR 0.9 0.8 - 1.2 [facility] INSURANCE BILL Comment: ? Reference interval is for non-anticoagulated patients. ?. ? Suggested INR therapeutic range for Vitamin K ? antagonist therapy: ?Standard Dose (moderate intensity ? therapeutic range): ? 2.0 - 3.0 ?Higher intensity therapeutic range ? 2.5 - 3.5 PT 9.8 9.1 - 12.0 sec [facility] INSURANCE BILL Blood BLOOD SPECIMEN / Unknown 04/13/2019 4:40 PM DIRECTOR TALENT 04/13/2019 Narrative Resulting Agency Comment [facility] performed [facility]: [facility] [address] ??[facility] [phone] Marina Araujo ANIMAL IMPERSONATOR-[facility] LAB - COAGUL ATION ORDERABLES [facility] INSURANCE BILL [address] [place] [address] * (ABNORMAL) COMPREHENSIVE METABOLIC PANEL (04/13/2019 4:40 PM DIRECTOR TALENT) Glucose 99 65 - 99 mg/dL [facility] INSURANCE BILL BUN 23 8 - 27 mg/dL [facility] INSURANCE BILL Creatinine 0.96 0.57 - 1.00 mg/dL [facility] INSURANCE BILL eGFR by MDRD 55(L) >59 mL/min/1.7 3 [facility] INSURANCE BILL eGFR by MDRD 63 >59 mL/min/1.7 3 [facility] INSURANCE BILL BUN/Creatinine Ratio 24 12 - 28 [facility] INSURANCE BILL Sodium 139 134 - 144 mmol/L [facility] INSURANCE BILL Potassium 4.4 3.5 - 5.2 mmol/L [facility] INSURANCE BILL Chloride 105 96 - 106 mmol/L [facility] INSURANCE BILL CO2 22 20 - 29 mmol/L [facility] INSURANCE BILL Calcium 10.3 8.7 - 10.3 mg/dL [facility] INSURANCE BILL Protein Total 7.2 6.0 - 8.5 g/dL [facility] INSURANCE BILL Albumin 4.4 3.5 - 4.7 g/dL [facility] INSURANCE BILL Comment: ? Effective April 20, 2019 Albumin reference ? interval will be changing to: ?Age ?Male ?Female ? 0 - ??7 days ?3.6 - 4.9 ?3.6 - 4.9 ? 8 - 30 days ?3.4 - 4.7 ?3.4 - 4.7 ? 1 - ??6 month ? 3.7 - 4.8 ?3.7 - 4.8 ?7 months - ??2 years ? 3.9 - 5.0 ?3.9 - 5.0 ? 3 - ??5 years ? 4.0 - 5.0 ?4.0 - 5.0 ? 6 - 12 years ? 4.1 - 5.0 ?4.0 - 5.0 ?13 - 30 years ? 4.1 - 5.2 ?3.9 - 5.0 ?31 - 50 years ? 4.0 - 5.0 ?3.8 - 4.8 ?51 - 60 years ? 3.8 - 4.9 ?3.8 - 4.9 ?61 - 70 years ? 3.8 - 4.8 ?3.8 - 4.8 ?71 - 80 years ? 3.7 - 4.7 ?3.7 - 4.7 ?81 - 89 years ? 3.6 - 4.6 ?3.6 - 4.6 ?>89 years ? 3.5 - 4.6 ?3.5 - 4.6 Globulin Total 2.8 1.5 - 4.5 g/dL [facility] INSURANCE BILL Albumin/Globulin Ratio 1.6 1.2 - 2.2 [facility] INSURANCE BILL Bilirubin Total 0.5 0.0 - 1.2 mg/dL [facility] INSURANCE BILL Alkaline Phosphatase 85 39 - 117 IU/L [facility] INSURANCE BILL AST 42(H) 0 - 40 IU/L [facility] INSURANCE BILL ALT 45(H) 0 - 32 IU/L [facility] INSURANCE BILL Blood BLOOD SPECIMEN / Unknown 04/13/2019 4:40 PM DIRECTOR TALENT 04/13/2019 Narrative Resulting Agency Comment Lab Testing performed at: [facility] [address] ??[facility] [phone] Marina Araujo ANIMAL IMPERSONATOR-AIR TRAFFIC CONTROL SPECIALIST CENTER LAB - CHEMIS TRY ORDERABLES [facility] INSURANCE BILL [address] [place] [address] * CBC WITH DIFFERENTIAL (04/13/2019 4:40 PM DIRECTOR TALENT) WBC 7.3 3.4 - 10.8 x10E3/uL [facility] INSURANCE BILL RBC 4.96 3.77 - 5.28 x10E6/uL [facility] INSURANCE BILL Hemoglobin 14.4 11.1 - 15.9 g/dL [facility] INSURANCE BILL Hematocrit 43.1 34.0 - 46.6 % [facility] INSURANCE BILL MCV 87 79 - 97 fL [facility] INSURANCE BILL MCH 29.0 26.6 - 33.0 pg [facility] INSURANCE BILL MCHC 33.4 31.5 - 35.7 g/dL [facility] INSURANCE BILL RDW 14.8 11.7 - 15.4 % [facility] INSURANCE BILL Comment:Please note refere nce interval change Platelet Count 228 150 - 450 x10E3/uL [facility] INSURANCE BILL Granulocytes % 67 Not Estab. % [facility] INSURANCE BILL Lymphocytes % 24 Not Estab. % [facility] INSURANCE BILL Monocytes % 7 Not Estab. % [facility] INSURANCE BILL Eosinophils % 2 Not Estab. % [facility] INSURANCE BILL Basophils % 0 Not Estab. % [facility] INSURANCE BILL Immature Cells NOT NEEDED [facility] INSURANCE BILL Comment:Ancillary determined the test is not needed. Granulocytes Absolute 4.8 1.4 - 7.0 x10E3/uL [facility] INSURANCE BILL Lymphocytes Absolute 1.8 0.7 - 3.1 x10E3/uL [facility] INSURANCE BILL Monocytes Absolute 0.5 0.1 - 0.9 x10E3/uL [facility] INSURANCE BILL [...] not needed. Blood BLOOD SPECIMEN / Unknown 04/13/2019 4:40 PM DIRECTOR TALENT 04/13/2019 Narrative Resulting Agency Comment Lab Testing performed at: [employer] ??[facility] [phone] Marina Araujo ANIMAL IMPERSONATOR-[facility] [employer] [facility] LAB - HEMATO LOGY ORDERABLES [facility] INSURANCE BILL [address] [place] [address] documented in this encounter Visit Diagnoses Diagnosis Chronic hepatitis C without hepatic coma (HCC)- Primary Chronic hepatitis C without hepatic coma (HCC)- Primary documented in this encounter Care Teams Technical Sales Manager Relationship Specialty Start Date End Date Kirby Vogel MD [address] [place] [address] PCP - General Family Medicine 01/26/19 documented as of this encounter
== END 2024-03-26 08:48 | disposition home or self-care (01) ==
PROVIDERS: PCP Family Medicine; Visit Provider Emergency Medicine
DX: M79.89 Other specified soft tissue disorders (principal); R60.0 Localized edema
CPT/HCPCS: 93971

== ENCOUNTER 2024-09-11 11:46 | Outpatient (CLI) | payer MEDICARE, SELFPAY ==
--- NOTE | ~2024-09-11 | XR_ITS ---
Lumbosacral Spine: AP and lateral views Clinical History: Pain Findings: Dextroscoliosis is present. There is probable moderate compression for L2, likely chronic. There is severe degenerative disc 9 throughout the lumbar spine. There is severe facet arthropathy th roughout the lumbar spine. The sacroiliac joints are normally outlined. Impression: Severe degenerative spondylosis throughout the lumbar spine with associated dextro scoliosis. Chronic moderate compression fracture of L2. Reviewed, dictated and finalized at location M. Impression: Severe degenerative spondylosis throughout the lumbar spine with associated dex tro scoliosis. Chronic moderate compression fracture of L2.
--- NOTE | ~2024-09-11 | XR_ITS ---
AP view of the pelvis and AP and lateral views of the right hip Clinical history: Pain Findings: No acute fracture or dislocation is seen. 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 There is minimal degenerative change of the left hip joint.. Soft tissues are unremarkable. Impression: No acute abnormality is seen. Right hip arthroplasty. Reviewed, dictated and finalized at location . Impression: No acute abnormality is seen. Right hip arthroplasty.
--- OUTSIDE RECORDS SUMMARY | 2024-09-11 11:49 | XMS_ITS | Encounter Summary ---
Author Organization [facility] Address [address] [place] [address] Care Team Providers Care Sleeping Car Service Attendant Name Role Phone Kirby Vogel MD Primary Care Provider [phone]- [phone] Encounter Details Date Type Department Care Team (Late st Contact Info) Description 03/09/2021 Lab Requisition [facility] [address] [place] [address] Social History Tobacco Use Types Packs/Day Years Used Date Smoking Tobacco: Former Cigarettes Q uit: 2004 Smokeless Tobacco: Never Alcohol Use Standard Drinks/Week Comments Yes 1 (1 standard drink = 0.6 oz pur e alcohol) 3-4 oz wine/evening Comments Unknown Sex and Gender Information Value Date Recorded Sex Assigned at Not on file Legal Sex Female 2:12 PM CDT Gender Identity Not on file Sexual Orientation [...] on filedocumented in this encounter Care Teams Sleeping Car Service Attendant Relationship Specialty Start Date End Date Kirby Vogel MD [address] [place] [address] PCP - General Family Medicine 01/26/19 documented as of this encounter
--- OUTSIDE RECORDS SUMMARY | 2024-09-11 11:49 | XMS_ITS | Clinical Summary ---
Author Organization [facility] Address [address] [place] [address] Care Team Providers Care Bounty Trapper Name Role Phone Kirby Vogel MD Primary Care Provider [phone] Source Comments [facility],non-owned Affiliates and Associated Physician Practices is amultiple site organization consisting of ambulatory clinics and hospital sitesin [place], [place]. This disclosure is being madepursuant to the Care Everywhere program and may not contain all information available regarding this patient. Last updated 17.[facility] Allergies Active Allergy Reactions Criticality Noted Date Comments Codeine Other 04/10/2019 Caused weird dreams Medications * Be aware that medications may not be up to date on this document. Alwaysverify current medications with the patient. amLODIPine (NORVASC) 5 MG tablet Take 5 mg by mouth 2 times daily 02/27/20 19 Active Azelastine HCl 137 MCG/SPRAY SOLN 2 times daily 04/08/19 20 Active SYMBICORT 160-4.5 MCG/ACT inhaler Inhale 2 puffs by mouth every 12 hours 03/20/20 19 Active LORazepam (ATIVAN) 0.5 MG tablet Take 1 tablet by mouth once daily as needed 03/17/20 19 Active valsartan (DIOVAN) 80 MG tablet Take 160 mg by mouth once daily 03/17/20 19 Active oxybutynin CR 24hr (DITROPAN-XL) 10 MG tablet Take 1 tablet by mouth once daily 02/10/20 19 Active sertraline (ZOLOFT) 25 MG tablet Take 25 mg by mouth once daily 01/18/20 19 Active Multiple Vitamins-Calcium (ONE-A-DAY WOMENS PO) Take by mouth once daily Active Calcium Carb-Cholecalcifer ol (CALCIUM 500 +D PO) Take by mouth once daily Active Polyethylene Glycol 3350 (MIRALAX PO) Take by mouth as needed Active Fexofenadine HCl (RENU PO) Take by mouth once daily Active albuterol HFA (PROVENTIL; VENTOLIN; PROAIR) 108 (90 Base) MCG/ACT inhaler TAKE 1 PUFF BY MOUTH EVERY 6 HOURS NEEDED FOR SHORTNESS OF BREATH 12/21/19 21 Active calcium citrate TABS tablet Take 400 mg by mouth once daily Active acetaminophen (TYLENOL) 500 MG tablet Take 1 (one) tablet by mouth every 4 hours as needed for Pain (Take for mild pain. Alternate with Alvo for moderate-severe pain.) Maximum allowable Acetaminophen amount = 4 Grams (4000 mg) / 24 hours. 03/16/20 21 Active famotidine (PEPCID) 20 MG tabletIndications: Primary osteoarthritis of right hip Take 1 (one) tablet by mouth once daily 30 tablet 03/21/20 21 Active sulfamethoxazole-t rimethoprim (BACTRIM DS; SEPTRA DS) 800-160 MG tablet Take 1 (one) tablet by mouth every 12 hours 14 tablet 03/21/20 Active aspirin (ASPIRIN) 81 MG chew tabletIndications: Primary osteoarthritis of right hip Take 1 (one) tablet by mouth 2 times daily 60 tablet 03/21/20 21 Active Additional Information Patient taking differently:81 mg OralDAILY, Reported on 08/11/2021 neomycin-bacitraci n-polymyxin (NEOSPORIN) 400-5-5000 topical ointment Apply to affected area 3 times daily Affected area: right groin 100 g 03/21/20 21 Active nitrofurantoin macrocrystal (MACRODANTIN) 50 MG capsule Take 1 capsule by mouth once daily 07/26/19 22 Active meloxicam (MOBIC) 15 MG tablet Take 1 tablet by mouth once daily 03/31/20 21 Active Active Problems Problem Noted Date Diagnosed Date Primary osteoarthritis of right hip 03/16/2021 Essential hypertension 04/10/2019 Depression 04/10/2019 Pulmonary emphysema 04/10/2019 Chronic hepatitis C without hepatic coma 020 Overview (06/16/2019): Hepatitis B core antibody non reactive genotype 1b 06/12/19 Fibroscan CAP 259, LSM 5.5 kPa Immunizations Immunization Administration Dates Next Due Covid Moderna primary [...] Comments Blood Pressure 150/77 03/21/2021 9:53 AM [employer] Pulse 73 03/21/2021 9:53 AM [employer] Temperature 36.6 C (97.8 F) 03/21/2021 9:53 AM [employer] Respiratory Rate 18 03/21/2021 9:53 AM [employer] Oxygen Saturation 96% 03/21/2021 9:53 AM [employer] Inhaled Oxygen Concentration - - Weight 68.5 kg (151 lb) 08/11/2021 12:29 PM CDT Height 157.5 cm (5' 2) 08/11/2021 12:29 PM CDT Body Mass Index [...] - 1-dose 75+ series) 07/28/2010 PNEUMOCOCCAL VACCINE 50+ (2 of 2 - PPSV23) 02/23/2016 12/29/2015 COVID-19 VACCINE ( - season) 2023 02/10/2021, 06/11/2020, 05/14/2020 DEPRESSION SCREENING 04/01/2024 MEDICARE AWV CALENDAR YEAR 2024 INFLUENZA VACCINE (Season Ended) 2024 12/02/2020, 01/29/2019, 12/26/2017, Additional history exists HIB VACCINE Aged Out No longer eligi ble based on patient's age to complete this topic HPV VACCINE Aged Out No longer eligi ble based on patient's age to complete this topic MENINGOCOCCAL (Group B) VACCINE SHARED DECISION-MAKING Aged Out No longer eligible based on patient's age to complete this topic MENINGOCOCCAL GROUPS A/C/Y/W VACCINE Aged Out No longer eligible based on patient's age to complete this topic Goals Goal Patient Goal Type Associated Problems Recent Progress Patient-Stated? Author Medication Management General On track( 020 11:28 AM CDT) Analisa Diallo, RN Note: Expected end date: ongoing Interventions: Complete Hepatitis C therapy as prescribed Medical Devices Implanted Type Area Skill Labor Device Identifier Shelf Expiration Date Model / Serial / Lot Shell Actb 54mm Hip 3 Hl Por R3 Std Implanted:Qty: 1 on 03/16/2021 by Ivan Aranda MD at [facility] Right: Hip [employer] 05/19/2030 [id number] / / [id number] Screw 6.5mm 40mm Sphrcl Head Hip Actb Implanted:Qty: 1 on 03/16/2021 by Ivan Aranda MD at [facility] Right: Hip [employer] 11/13/2030 [id number] / / [id number] Description:ak Dual Mobility Liner Oxinium Dh Implanted:Qty: 1 on 03/16/2021 by Ivan Aranda MD at [facility] Right: Hip [employer] 04/06/2030 [id number] / / [id number] Description:ak Dual Mobility Insert Xlpe Implanted:Qty: 1 on 03/16/2021 by Ivan Aranda MD at [facility] Right: Hip [employer] 02/22/2030 [id number] / / [id number] Description:ak Polarstem Stem Standard With Ti/Dejesus Implanted:Qty: 1 on 03/16/2021 by Ivan Aranda MD at [facility] Right: Hip [employer] 07/19/2027 [id number] / / [id number] Description:ak Hd Fem Oxidized 03/14 Tapr +0 28mm Implanted:Qty: 1 on 03/16/2021 by Ivan Aranda MD at [facility] Right: Hip [employer] 09/20/2030 [id number] / / [id number] Description:ak Insurance [address] [place] [address] [facility] MANAGED MEDICARE [address] [place] [address] [facility] MANAGED MEDICARE ADV Advance Directives * Full Code (Latest Code Status on File) Date Activated Date Inactivated Comments 03/16/2021 9:37 AM 03/21/2021 3:22 PM Care Teams Bounty Trapper Relationship Specialty Start Date End Date Kirby Vogel MD [address] [place] [phone] PCP - General Family Medicine 01/26/19
--- OUTSIDE RECORDS SUMMARY | 2024-09-11 11:49 | XMS_ITS | Encounter Summary ---
Author Organization [facility] Address [address] [place] [address] Care Team Providers Care Foreign Agent Name Role Phone Kirby Vogel MD Primary Care Provider [phone]- [phone] Reason for Visit * Reason Comments Refill Request Encounter Details Date Type Department Care Team (Late st Contact Info) Description 03/21/2021 Refill [facility] 2 ORTHO/NEW VIS [address] [place] [address] Jayy Mendoza MD [facility] [facility] [place] [address] Refill Request Social History Tobacco Use Types [...] on filedocumented in this encounter Care Teams Foreign Agent Relationship Specialty Start Date End Date Kirby Vogel MD [address] [place] [phone] PCP - General Family Medicine 01/26/19 documented as of this encounter
== END 2024-09-11 11:47 | disposition home or self-care (01) ==
PROVIDERS: PCP Family Medicine; Visit Provider Nurse Practitioner Family
DX: M48.05 Spinal stenosis, thoracolumbar region (principal); M16.11 Unilateral primary osteoarthritis, right hip; M47.26 Other spondylosis with radiculopathy, lumbar region
CPT/HCPCS: 72100; 73502